=== PATIENT | male | born 1960 | race Caucasian/White ===

== ENCOUNTER → 2020-11-24 12:25 | Outpatient (CLI) | payer OTHER, SELFPAY ==
[2020-11-24 15:20] LABS: Absolute Lymphocyte Count 0.77 X10^3/uL (0.83-4.51); Absolute Neutrophil Count 3.5 X10^3/uL (2.0-7.7); Basophil# 0.04 X10^3/uL; Basophil% 0.8 % (0-1); Eosinophil# 0.07 X10^3/uL; Eosinophils% 1.4 % (0-5); Hematocrit 47.5 % (40-54); Hemoglobin 15.1 g/dL (13.0-16.5); Lymphocyte # 0.77 X10^3/ul (4.0); Lymphocyte % 15.9 % (19-41); Mean Corp Hgb Conc 31.8 g/dL (32-36); Mean Platelet Vol. 10.2 fl (6.2-12.0); Monocyte# 0.39 X10^3/uL; Monocyte% 8.1 % (0-10); NRBC Flagged by Analyzer 0 % (0-5); Neutrophil # 3.51 X10^3/uL (2.7-7.7); Neutrophil % 72.8 % (47-70); Platelet Count 217 K/mm3 (150-450); RBC Distribution Width CV 13.9 % (11.6-14.6); RBC Distribution Width SD 44.6 fl (35.1-43.9); White Blood Count 4.8 K/mm3 (4.4-11.0)
[2020-11-24 16:05] LABS: ALB/GLOB Ratio 1.1 RATIO (0.9-2.4); AST(SGOT) 19 U/L (15-37); Alanine Aminotransfer ALT/SGPT 41 U/L (16-61); Alkaline Phosphatase 52 U/L (45-117); Anion Gap 8 (5-15); BUN 16 mg/dL (7-18); BUN/Creat Ratio 13.6 RATIO (10-20); Calcium,Total 9.2 mg/dL (8.5-10.1); Chloride 106 mmol/L (98-107); Cholesterol 126 mg/dL (200); Creatinine, Serum 1.18 mg/dL (0.70-1.30); EST Glomerular Filtration Rate 67 mL/min (>60); Est Glom Filt Rate - Afr Amer 81 mL/min (>60); Globulin 3.7 g/dL (2.2-4.2); Glucose 92 mg/dL (74-106); High Density Lipoprotein 37 mg/dL; PSA,Total - Annual Screen 1.91 ng/mL (0.00-4.00); Potassium 3.9 mmol/L (3.5-5.1); Protein, Total 7.7 g/dL (6.4-8.2); Sodium Level 137 mmol/L (136-145); Thyroid Stim Hormone (TSH) 1.82 uIU/mL (0.358-3.74); Triglycerides 147 mg/dL; Very Low Density Lipoprotein 29 mg/dL (5-40)
== END ==
PROVIDERS: PCP Family Medicine; Referring Provider Family Medicine; Visit Provider Family Medicine
DX: I10 Essential (primary) hypertension (principal); E78.5 Hyperlipidemia, unspecified; G47.00 Insomnia, unspecified; F32.9 Major depressive disorder, single episode, unspecified; Z12.5 Encounter for screening for malignant neoplasm of prostate
CPT/HCPCS: 36415; 80053; 80061; 84153; 84443; 85025; G0103

== ENCOUNTER 2021-01-30 10:43 | Observation (INO) | payer OTHER, SELFPAY ==
[2021-01-30] VITALS (15 sets, daily range): BP systolic 145–196; BP diastolic 76–110; PULSE 98–122; RESP 16–25; TEMP 36.6–36.8; O2SAT 94–99; BMI 34.2; BMI 33.6
--- NOTE | 2021-01-30 11:00 | NURSING ---
NO OLD EKGS
--- NOTE | 2021-01-30 11:01 | EKG12_ITS ---
Test Reason : STROKE Blood Pressure : / mmHG Vent. Rate : 114 BPM Atrial Rate : 114 BPM P-R Int : 174 ms QRS Dur : 084 ms QT Int : 332 ms P-R-T Axes : 047 086 054 degrees QTc Int : 457 ms Sinus tachycardia Low voltage QRS (Limb Leads) Nonspecific T wave abnormality Confirmed by JOSEFINA BOOTHE, RAI ([id number]), editor continuity and script SARA TEJEDA ([id number]) on 02/01/2021 9:51:30 AM Referred By: FRANSICO Confirmed By:RAI ROCHA MD
--- NOTE | 2021-01-30 11:01 | CT_ITS ---
STUDY: CT HEAD STROKE PROTOCOL W/O CONTRAST INJECTION REASON FOR EXAM: Male, 60 years old. Neuro deficit, acute, stroke suspected RADIATION DOSAGE (If Supplied By Facility): CTDIvol = ( 44.99 ) mGy, DLP = ( A 12.98 ) mGycm TECHNIQUE: Transaxial CT imaging of the brain was performed without administration of intravenous contrast material. Individualized dose optimization techniques were used for this CT. COMPARISON: No relevant priors. FINDINGS: Normal soft tissue structures. Normal calvarium. There is mild cerebral atrophy with widening of the extra-axial spaces and ventricular dilatation. Normal white matter tracts of the cerebral hemispheres. Normal basal ganglia and thalami. Normal brainstem. Normal cerebellum. There is no intracranial hemorrhage. There are no findings of an acute ischemic infarction. Atherosclerotic calcification of the cavernous portions of the internal carotid arteries bilaterally. Normal visualized paranasal sinuses. CT/STROKE Brain/Head without Cont IMPRESSION: Chronic involutional changes of the brain. N.B. : The above information has been verbally conveyed by Sy Kelsey MD to Dr Vickie MD, on 01/30/2021 11:22:06 (ET). Electronically Signed: Sy Kelsey MD at 11:23 EDT , Service support ,
--- NOTE | 2021-01-30 11:02 | CT_ITS ---
STUDY: CTA HEAD AND NECK WITH CONTRAST REASON FOR EXAM: Male, 60 years old. Neuro deficit, acute, stroke suspected RADIATION DOSAGE (If Supplied By Facility): CTDIvol = ( 16.8 ) mGy, DLP = ( 820.25 ) mGycm TECHNIQUE: CT angiography was performed with a multi-detector CT scanner. Data acquisition was obtained from the skull base through the vertex following intravenous administration of IV 100mL [id number]. MIP images were reconstructed from the axial data set. Post-processing of the angiographic images was performed, with multiplanar reformation and 3D reconstruction. Individualized dose optimization techniques were used for this CT. COMPARISON: No relevant priors. FINDINGS: Normal bilateral petrous carotid arteries. Normal right cavernous carotid artery with a normal supraclinoid bifurcation. Normal left cavernous carotid artery with a normal supraclinoid bifurcation. Normal right A1 segments of the anterior cerebral artery. Normal left A1 segments of the anterior cerebral artery. Normal intact anterior communicating artery (ACOM). Normal bilateral A2 segments of the anterior cerebral arteries. Normal right M1 and M2 segments of the middle cerebral arteries, with a normal M1 bifurcation. Normal left M1 and M2 segments of the middle cerebral arteries, with a normal M1 bifurcation. Normal right posterior communicating artery (PCOM). Normal left posterior communicating artery (PCOM). Normal bilateral vertebral arteries. Normal basilar artery with a normal basilar bifurcation. The visualized bilateral superior cerebellar (SCA) arteries are normal. Normal bilateral P1, P2 and visualized P3 segments of the posterior cerebral arteries. There is no demonstrated aneurysm of the pokagon of Perez. There is no demonstrated abnormality of the visualized brain. AORTIC ARCH: Normal visualized aortic arch. Normal origins of the brachiocephalic, left common carotid, and left subclavian arteries. RIGHT CAROTID ARTERIES: Normal right common carotid artery (CCA). Normal right common carotid bulb. Normal origin of the right internal carotid (ICA) artery without a hemodynamically significant stenosis. Normal visualized cervical portion of the right internal carotid artery. Normal origin of the right external carotid artery (ECA). LEFT CAROTID ARTERIES: Normal left common carotid artery (CCA). Normal left common carotid bulb. Normal origin of the left internal carotid (ICA) artery without a hemodynamically significant stenosis. Normal visualized cervical portion of the left internal carotid artery. Normal origin of the left external carotid artery (ECA). VERTEBRAL ARTERIES: Normal bilateral vertebral arteries. CT/STROKE CTA Head AND Neck W/Con IMPRESSION: Normal CTA Head and neck with contrast. N.B. : The above information has been verbally conveyed by Sy Kelsey MD to Susan Vickie on 01/30/2021 11:28:33 (ET). Electronically Signed: Sy Kelsey MD at 11:29 EDT , Service support ,
--- NOTE | 2021-01-30 11:03 | NURSING ---
FACESHEET FAXED TO [facility]
[2021-01-30 11:22] LABS: Absolute Lymphocyte Count 0.57 X10^3/uL (0.83-4.51); Absolute Neutrophil Count 7.3 X10^3/uL (2.0-7.7); Basophil# 0.04 X10^3/uL; Basophil% 0.5 % (0-1); Hematocrit 46.6 % (40-54); Hemoglobin 15.3 g/dL (13.0-16.5); Lymphocyte # 0.57 X10^3/ul (4.0); Lymphocyte % 6.9 % (19-41); Mean Corp Hgb Conc 32.8 g/dL (32-36); Mean Corpuscular Hgb 28.5 pg (27.0-32.0); Mean Corpuscular Volume 86.9 fL (80-94); Mean Platelet Vol. 9.8 fl (6.2-12.0); Monocyte# 0.31 X10^3/uL; Monocyte% 3.8 % (0-10); NRBC Flagged by Analyzer 0 % (0-5); Neutrophil # 7.31 X10^3/uL (2.7-7.7); Neutrophil % 88.4 % (47-70); POSITIVE DIFFERENTIAL YES; Platelet Count 231 K/mm3 (150-450); RBC Distribution Width CV 13.3 % (11.6-14.6); RBC Distribution Width SD 42.2 fl (35.1-43.9); Red Blood Count 5.36 M/mm3 (4.6-6.2); White Blood Count 8.3 K/mm3 (4.4-11.0)
[2021-01-30 11:24] LABS: Differential Indicated SCAN CRITERIA MET
[2021-01-30 11:30] LABS: International Normalized Ratio 1.1; Prothrombin Time (Protime)PT. 13.8 SECONDS (11.7-14.9)
[2021-01-30 11:31] LABS: Partial Thromboplast Time 25.3 Seconds (24.1-36.2)
[2021-01-30] MEDS: LORazepam 2 MG/ML Syringe 1 MG IV ×2 (11:31→19:53)
[2021-01-30 11:36] LABS: Bedside Glucose 171 mg/dL (70-110)
[2021-01-30 11:39] LABS: Anion Gap 10 (5-15); BUN 12 mg/dL (7-18); BUN/Creat Ratio 8.2 RATIO (10-20); Calcium,Total 9.2 mg/dL (8.5-10.1); Chloride 103 mmol/L (98-107); Creatinine, Serum 1.46 mg/dL (0.70-1.30); EST Glomerular Filtration Rate 52 mL/min (>60); Est Glom Filt Rate - Afr Amer 63 mL/min (>60); Estimated Creatinine Clearance 52.05 ml/min; Glucose 168 mg/dL (74-106); Potassium 3.4 mmol/L (3.5-5.1); Sodium Level 137 mmol/L (136-145)
[2021-01-30 12:03] LABS: Bacteria 0 SEEN /hpf (None Seen); Mucous, Urine 0 SEEN /hpf (<or=2+); Red Blood Cells-Urine 0 SEEN /hpf (0-5); Squamous Epithelial Cells - UA 0 SEEN /hpf (0-5); White Blood Cells 0 SEEN /hpf (0-5)
[2021-01-30 12:10] LABS: Color, Urine Yellow (Yellow); Glucose, Dipstick 100 mg/dl (Normal); Ketone-Dipstick 15 mg/dl (Negative); Leukocyte Esterase-Dipstick Negative /ul (Negative); Nitrite-Dipstick Negative (Negative); Occult Blood-Urine 25 /ul (Negative); Protein-Dipstick Negative (Negative); Urine Bilirubin Dipstick Negative (Negative); Urine Clarity Clear (Clear); Urine Urobilinogen Normal (Normal)
[2021-01-30 12:13] LABS: Amphetamine Urine VISTA NEGATIVE (<1000 ng/mL); Barbiturate Urine VISTA NEGATIVE (< 200 ng/mL); Benzodiazepine Urine VISTA NEGATIVE (< 200 ng/mL); Cocaine Urine VISTA NEGATIVE (< 300 ng/mL); Ecstacy Urine VISTA NEGATIVE (< 500 ng/mL); Methadone Urine VISTA NEGATIVE (< 300 ng/mL); PCP Urine VISTA NEGATIVE (< 25 ng/mL); THC Urine VISTA POSITIVE (< 50 ng/mL); Vista UDS pH Range 5
--- NOTE | 2021-01-30 12:20 | RAD_ITS ---
STUDY: X-RAY CHEST REASON FOR EXAM: Male, 60 years old. Neuro deficit, acute, stroke suspected TECHNIQUE: Single AP portable view of the chest. COMPARISON: None. FINDINGS: EKG electrodes are seen. The lungs are clear and expanded. There is no demonstrated pleural abnormality. Normal size heart. Normal mediastinum and mercedes. Normal visualized pulmonary arteries. Normal visualized aortic arch and descending thoracic aorta. Normal visualized thoracic spine. Normal visualized ribs, clavicles, and shoulders. There is no demonstrated abnormality of the visualized soft tissue structures of the upper abdomen. RAD/Chest 1 View IMPRESSION: Normal x-ray examination of the chest. Electronically Signed: Sy Kelsey MD at 12:34 EDT , Service support ,
--- NOTE | 2021-01-30 13:01 | ED.RN ---
Addendum entered by Hanna Griffiths 01/30/21 13:02: CORRECTION NIH 1, FOR ORIENTATION. Original Note: PT NIH CONTINUES TO BE 0. ORDER TO STOP NIH ASSESSMENTS ON PT.
--- NOTE | 2021-01-30 13:07 | CHAPLAIN ---
Type of Pastoral Visit ___ Initial Visit ___ Follow-up Visit ___ On-call Visit ___ General Patient Visit ___ Spiritual Assessment ___ Family Conference ___ Bereavement _x__ Rapid Response ___ Code Blue ___ Other (describe below) Pastoral Care Referral From ___ Patient _x__ Family ___ Nurse ___ Physician ___ Manufacturing Engineering Manager ___ Hat Copyist _x__ Other (describe below) Sacrament/Intervention _x__ Active listening ___ Anointing ___ Anabaptism ___ Bereavement ___ Communion _x__ Hawa exploration ___ ___ Life review _x__ Prayer ___ Reconciliation ___ Sacrament of Sick _x__ Supportive presence ___ Wedding ___ Other (describe below) Pastoral Comments responded to stroke alert in ED; spouse of patient welcomed presence of this cooler operator and she was then asked to be present with patient in the CT scan for his anxiety; went with spouse and offered presence and support for her during this procedure and waiting time; met patient and offered support
--- NOTE | 2021-01-30 14:27 | ED.VIS.GEN ---
History of Present Illness Chief Complaint: Confusion Informant: Patient, Family Onset: Yesterday Narrative: 60-year-old male with history of insomnia presenting with confusion. noted he woke up around 2 AM and was not making much sense in his speech, more nonsensical, but he went back to bed. When he woke up this morning he was saying very strange things. They brought him to the primary care office who was concerned about acute cephalopathy and had him come to the emergency room. Patient went to bed around 9 or 10 PM last night and seemed normal. He did take Ambien which she has been on for since at least November as he has an ongoing issue with insomnia. Patient has been saying things like he tried to kill himself with penicillin and The jews are trying to light things on fire. Apparently patient ate a package of marijuana edibles last night that the previously did not know about. Past Medical History - Allergies and Home Meds Allergies/Adverse Reactions: Allergies Penicillins [PCN] Allergy (Verified 01/30/21 10:44) Hives Past Medical History: - - Hypertension, hyperlipidemia, insomnia Lives: Spouse/ Significant Other Smoking Status: Never smoker - Family History Maternal Family History: Reports: No pertinent history Paternal Family History: Reports: No pertinent history Review of Systems General: Denies: Chills, Fever, Sweats Eyes: Denies: Visual changes - bilaterally, Diplopia ENT: Denies: Rhinorrhea, Sore throat Cardiovascular: Denies: Chest pain, Palpitations Respiratory: Denies: Dyspnea, Cough, Dyspnea on exertion Gastrointestinal: Denies: Abdominal pain, Nausea, Vomiting, Diarrhea, Melena, Hematochezia Genitourinary: Denies: Dysuria, Hematuria, Frequency Musculoskeletal: Denies: Back pain, Extremity Pain Skin: Denies: Rash, Wounds Neurological: Reports: - - Bizarre speech. Denies: Headache, Weakness, Numbness Psych: Denies: Depression, Anxiety, Suicidal thoughts, Suicidal ideations Physical Exam Vital Signs/Narrative: Vital Signs Temp Pulse Resp BP Pulse Ox 01/30/21 14:15 111 H 20 H 154/100 H 97 01/30/21 13:16 115 H 20 H 166/96 H 97 01/30/21 13:00 121 H 16 165/110 H 94 01/30/21 12:31 122 H 25 H 147/102 H 99 03/30/21 12:01 121 H 23 H 154/90 H 97 01/30/21 11:31 115 H 23 H 167/89 H 97 01/30/21 11:04 97.8 F 110 H 20 H 162/94 H 94 01/30/21 10:44 97.8 F 113 H 18 96 Inital Vital Signs reviewed: Yes General: Well nourished, Well developed, Obese, No Acute Distress Head: Normocephalic, Atraumatic Eyes: Perrl, EOMI ENT: Moist mucous membranes, No rhinorrhea, TM's clear Neck: Supple, Nontender, No JVD Cardiovascular: Regular rhythm, No murmurs, Tachycardia Respiratory: No distress, CTA bilaterally, Chest nontender Abdomen: Soft, Nontender, Nondistended, Normal bowel sounds Back: Nontender, Normal Inspection Extremities: Nontender, No edema Skin: Normal color, No rash Neurological: Alert, Oriented x3, Cranial nerves II-XII grossly intact, Normal Strength, Normal Sensation, - - NIH is 1?patient has a subtle expressive aphasia Psychological: Normal affect, Normal Mood, Agitated - Comes intermittently agitated does not seem to to know what is going on around him. He is inappropriate responses to things. Diagnostic/Tx/Re-eval Chest X-Ray - ED: 1 View, Read by ED Physician, Read by Radiologist Clinical Impression(s) from Imaging Studies Brain CT 01/30/21 11:01 IMPRESSION: Chronic involutional changes of the brain. N.B. : The above information has been verbally conveyed by Sy Kelsey MD to Dr Vickie MD, on 01/30/2021 11:22:06 (ET). Electronically Signed: Sy Kelsey MD at 11:23 EDT , Service support , ADDENDUM: 01/30/21 1130 IMPRESSION: Chronic involutional changes of the brain. N.B. : The above information has been verbally conveyed by Sy Kelsey MD to Dr Vickie MD, on 01/30/2021 11:22:06 (ET). Electronically Signed: Sy Kelsey MD at 11:23 EDT , Service support , Head/Neck CTA 01/30/21 11:02 IMPRESSION: Normal CTA Head and neck with contrast. N.B. : The above information has been verbally conveyed by Sy Kelsey MD to Susan Johnston on 01/30/2021 11:28:33 (ET). Electronically Signed: Sy Kelsey MD at 11:29 EDT , Service support , ADDENDUM: 01/30/21 1136 IMPRESSION: Normal CTA Head and neck with contrast. N.B. : The above information has been verbally conveyed by Sy Kelsey MD to Susan Johnston on 01/30/2021 11:28:33 (ET). Electronically Signed: Sy Kelsey MD at 11:29 EDT , Service support , Chest X-Ray 01/30/21 12:20 IMPRESSION: Normal x-ray examination of the chest. Electronically Signed: Sy Kelsey MD at 12:34 EDT , Service support , Laboratory Data 01/30/21 01/30/21 01/30/21 10:51 11:13 11:13 WBC 8.3 RBC 5.36 Hgb 15.3 Hct 46.6 MCV 86.9 MCH 28.5 MCHC 32.8 RDW Std Deviation 42.2 RDW Coeff of Lizzeth 13.3 Plt Count 231 MPV 9.8 Immature Gran % (Auto) 0.400 Neut % (Auto) 88.4 H Lymph % (Auto) 6.9 L [place] % (Auto) 3.8 Eos % (Auto) 0.0 Baso % (Auto) 0.5 Absolute Neuts (auto) 7.3 Absolute Lymphs (auto) 0.57 L Nucleated RBC % 0 Differential Comment COMMENT PT 13.8 INR 1.1 APTT 25.3 Sodium Potassium Chloride Carbon Dioxide Anion Gap BUN Creatinine Estim Creat Clear Calc Est GFR (MDRD) Af Amer Est GFR (MDRD) Non-Af BUN/Creatinine Ratio Glucose Calcium Troponin I Urine Color Urine Clarity Urine pH Ur Specific Grant Urine Protein Urine Glucose (UA) Urine Ketones Urine Occult Blood Urine Nitrite Urine Bilirubin Urine Urobilinogen Ur Leukocyte Esterase Urine RBC Urine WBC Ur Squamous Epith Cells Urine Bacteria Urine Mucus Urine Opiates Screen Urine Methadone Screen Ur Barbiturates Screen Ur Phencyclidine Scrn Ur Amphetamines Screen U Methamphetamin-MDMA U Benzodiazepines Scrn Urine Cocaine Screen U Cannabinoids Screen Ur Drug Screen Comment POC Glucose 171 H 01/30/21 01/30/21 01/30/21 11:13 11:50 11:50 WBC RBC Hgb Hct MCV MCH MCHC RDW Std Deviation RDW Coeff of Lizzeth Plt Count MPV Immature Gran % (Auto) Neut % (Auto) Lymph % (Auto) [place] % (Auto) Eos % (Auto) Baso % (Auto) Absolute Neuts (auto) Absolute Lymphs (auto) Nucleated RBC % Differential Comment PT INR APTT Sodium 137 Potassium 3.4 L Chloride 103 Carbon Dioxide 24.0 Anion Gap 10 BUN 12 Creatinine 1.46 H Estim Creat Clear Calc 52.05 Est GFR (MDRD) Af Amer 63 Est GFR (MDRD) Non-Af 52 L BUN/Creatinine Ratio 8.2 L Glucose 168 H Calcium 9.2 Troponin I < 0.015 Urine Color Yellow Urine Clarity Clear Urine pH 6.0 Ur Specific Grant 1.010 Urine Protein Negative Urine Glucose (UA) 100 H Urine Ketones 15 H Urine Occult Blood 25 H Urine Nitrite Negative Urine Bilirubin Negative Urine Urobilinogen Normal Ur Leukocyte Esterase Negative Urine RBC 0 SEEN Urine WBC 0 SEEN Ur Squamous Epith Cells 0 SEEN Urine Bacteria 0 SEEN Urine Mucus 0 SEEN Urine Opiates Screen NEGATIVE Urine Methadone Screen NEGATIVE Ur Barbiturates Screen NEGATIVE Ur Phencyclidine Scrn NEGATIVE Ur Amphetamines Screen NEGATIVE U Methamphetamin-MDMA NEGATIVE U Benzodiazepines Scrn NEGATIVE Urine Cocaine Screen NEGATIVE U Cannabinoids Screen POSITIVE H Ur Drug Screen Comment POC Glucose - Rhythm Strip Rhythm Strip: Sinus Tach Rate: 114 Ectopy: None - EKG Initial EKG Interpretation: Sinus Tachycardia, - - Is tachycardia at a rate of 114 Normal axis Normal intervals Normal ST segments - Medical Decision Making Patient is evaluated for mental status change. Patient is encephalopathic but I am concerned that is these changes might be some type of expressive aphasia. Stroke alert is called out of abundance of caution. Neurologist does not feel that TPA is indicated and I do agree. Patient deftly is not at his baseline. While in CT he did become acutely agitated and had to be given 1 mg of IV Ativan. CT brain and C-spine does not show any acute process. Patient does later admit to eating THC Gummies the night before. This could be causing his altered mental status. The plan will be to watch the patient in the ER for couple hours to see if he has improvement of his encephalopathy. He does not have any signs of infection, nuchal rigidity or any meningeal signs. Patient is mildly tachycardic while in the emergency room. On reevaluation patient continues to not really have insight into what is going on and fixate on needing to sign paperwork and continue to talk about UFOs. I think patient needs a medical admission for further evaluation of acute cephalopathy and possibly rule out stroke with an MRI. is agreeable this plan of care. Patient is hemodynamically stable in the emergency room. ED Disposition - Plan for ED Patient: Disposition: Acute Care [facility] Diagnosis: Acute encephalopathy, Acute kidney injury, Hypertension, Tachycardia
--- NOTE | 2021-01-30 15:45 | NURSING ---
PCU OBS ASHELFAH ENCEPHALOPATHY
--- NOTE | 2021-01-30 16:01 | HP.PCM_ITS ---
Problem List (1) Acute kidney injury Status: Acute (2) Acute encephalopathy Status: Acute (3) Obstructive sleep apnea Status: Chronic (4) Depression Status: Chronic (5) Hyperlipidemia Status: Chronic (6) Hypertension Status: Chronic History of Present Illness Date of Admission: 01/30/21 Chief Complaint: Confusion. The patient is a 60 year old M with past medical history as mentioned above presented to the emergency room because of confusion. At this time, patient is confused and disoriented, knows his full name, does not know his birthday and he is not sure where he is at. He is not oriented to date and time. According to the patient's , patient woke up around 2 AM this morning and he was confused and not making sense. She did mention that the patient is having issues with insomnia and he has been using Ambien. Patient was able to go back to sleep and he woke up around 9 AM this morning. After he woke up, he remained confused and disoriented, not making sense although he was talking coherently. Patient's mentioned that patient took marijuana gummy before symptoms started. Patient's decided to take him to his PCPs office, he became more agitated and he could not sign the paperwork at the doctor's office. He remained to be confused and disoriented. She went to [employer], both a sandwich for him and she asked him to eat but he was not following commands. She decided to bring him to the emergency department. In the emergency department, patient was tachycardic, afebrile, blood pressure was elevated, pulse ox is 94% on room air. Routine blood work was remarkable for potassium of 3.4, creatinine is 1.46, blood glucose is 168. EKG revealed sinus tachycardia, otherwise unremarkable. Troponin was negative. Urinalysis was unremarkable. Urine drug screen was positive for cannabinoids. CT brain without contrast showed no acute findings. CTA of the head and neck was unremarkable. Chest x-ray showed no acute findings. SOC teleneurology consulted, recommended that patient is a candidate for TPA, stroke is less likely. Patient is being admitted for acute encephalopathy, hypokalemia, hyperglycemia and acute kidney injury. Past Medical History Past Medical History (Chronic Problems): Chronic Problems Obstructive sleep apnea (Chronic) Depression (Chronic) Hyperlipidemia (Chronic) Hypertension (Chronic) Allergies Penicillins [PCN] Allergy (Verified 01/30/21 10:44) Hives Home Medications: Ambulatory Orders Medication Instructions Recorded Lisinopril [Zestril] 20 mg PO DAILY 01/30/21 Pantoprazole Sodium 40 mg PO DAILY 01/30/21 Rosuvastatin Calcium 20 mg PO DAILY 01/30/21 Sertraline HCl 100 mg PO DAILY 01/30/21 Zolpidem Tartrate [Ambien] 10 mg PO QHS PRN 01/30/21 Surgical History: no surgical history Psychiatric History: Depression Lives: Spouse/ Significant Other Smoking Status: Never smoker Tobacco Use: Non-smoker Alcohol: Occasional Drugs: None - *Family History Maternal History Items: No pertinent history Paternal History Items: No pertinent history Review of Systems Constitutional: Denies: Anorexia, Chills, Fever, Weakness Eyes: Reports: Blurred vision. Denies: Double vision, Drainage, Pain HEENT: Reports: Head Aches. Denies: Difficulty Hearing, Ear Pain, Eye Pain, Nasal Congestion, Sore Throat Cardiovascular: Denies: Chest Pain, Chest Pressure, Heaviness, Palpitations, Syncope Respiratory: Denies: Cough, Pleuritic Pain, Sputum production, Wheezing Gastrointestinal: Denies: Abdominal Pain, Constipation, Diarrhea, Nausea, Vomiting Genitourinary: Denies: Dysuria, Frequency, Hematuria Musculoskeletal: Denies: Arm Pain, Back Pain, Foot Pain Skin: Denies: Dryness, Rash Neurological: Reports: Blurred vision, Confusion, Headaches. Denies: Balance problems, Change in Speech, Incoordination, Numbness, Tingling Psychiatric: Reports: Depression. Denies: Anxiety Endocrine: Denies: Change in Body Habitus, Polydipsia, Polyuria VTE Information - Inpt Only VTE Present on Admission: No VTE Mechan Device Prophylaxis: None VTE Pharm Prophylaxis ordered?: Yes Patient Problems: Active and Suspected Problems Acute kidney injury (Acute) Acute encephalopathy (Acute) - Physical Exam Vitals/I&O's: Vital Signs Temp Pulse Resp BP Pulse Ox 97.8 F 116 H 19 H 151/95 H 97 01/30/21 11:04 01/30/21 15:10 01/30/21 15:10 01/30/21 15:10 01/30/21 15:10 Oxygen Delivery Method Room Air Weight: 225 lb Body Mass Index (BMI) 34.2 Finger Stick Blood Glucose 171 General: Alert, Cooperative, No apparent distress, Confused, Disoriented HEENT: Atraumatic, PERRLA, EOMI, Normocephalic Oral: Moist Mucosa, No Gingival or Mucosal Lesions/ Ulcerations Neck: Supple, No JVD, Negative Carotid Bruits, Trachea Midline, Thyroid Normal Size and Texture Lungs: Clear to auscultation, Normal air movement, No rhonchi, No wheeze, No rales Cardiovascular: Regular rate, Regular Rhythm, Normal S1, Normal S2, PMI Normal, Tachycardic Abdomen: Bowel Sounds Present, Soft, Non Tender, Non-Distended, No Hepato- splenomegaly, Obese Extremities: No clubbing, No cyanosis, No edema Skin: No rashes, No breakdown Lymphatic: No Cervical, Supraclavicular, or Inguinal Adenopathy Neurological: Cranial nerves II-XII grossly intact, Motor Exam 5/5 strength throughout Psych/Mental Status: Normal Affect, Appropriate Laboratory Results 01/30/21 10:51: POC Glucose 171 H 01/30/21 11:13: WBC 8.3, RBC 5.36, Hgb 15.3, Hct 46.6, MCV 86.9, MCH 28.5, MCHC 32.8, RDW Std Deviation 42.2, RDW Coeff of Lizzeth 13.3, Plt Count 231, MPV 9.8, Immature Gran % (Auto) 0.400, Neut % (Auto) 88.4 H, Lymph % (Auto) 6.9 L, [place] % (Auto) 3.8, Eos % (Auto) 0.0, Baso % (Auto) 0.5, Absolute Neuts (auto) 7.3, Absolute Lymphs (auto) 0.57 L, Nucleated RBC % 0, Differential Comment COMMENT 01/30/21 11:13: PT 13.8, INR 1.1, APTT 25.3 01/30/21 11:13: Sodium 137, Potassium 3.4 L, Chloride 103, Carbon Dioxide 24.0, Anion Gap 10, BUN 12, Creatinine 1.46 H, Estim Creat Clear Calc 52.05, Est GFR (MDRD) Af Amer 63, Est GFR (MDRD) Non-Af 52 L, BUN/Creatinine Ratio 8.2 L, Glucose 168 H, Calcium 9.2, Troponin I < 0.015 01/30/21 11:50: Urine Opiates Screen NEGATIVE, Urine Methadone Screen NEGATIVE, Ur Barbiturates Screen NEGATIVE, Ur Phencyclidine Scrn NEGATIVE, Ur Amphetamines Screen NEGATIVE, U Methamphetamin-MDMA NEGATIVE, U Benzodiazepines Scrn NEGATIVE, Urine Cocaine Screen NEGATIVE, U Cannabinoids Screen POSITIVE H, Ur Drug Screen Comment 01/30/21 11:50: Urine Color Yellow, Urine Clarity Clear, Urine pH 6.0, Ur Specific [place] 1.010, Urine Protein Negative, Urine Glucose (UA) 100 H, Urine Ketones 15 H, Urine Occult Blood 25 H, Urine Nitrite Negative, Urine Bilirubin Negative, Urine Urobilinogen Normal, Ur Leukocyte Esterase Negative, Urine RBC 0 SEEN, Urine WBC 0 SEEN, Ur Squamous Epith Cells 0 SEEN, Urine Bacteria 0 SEEN, Urine Mucus 0 SEEN Clinical Impression(s) from Imaging Studies Brain CT 01/30/21 11:01 IMPRESSION: Chronic involutional changes of the brain. N.B. : The above information has been verbally conveyed by Sy Kelsey MD to Dr Vickie MD, on 01/30/2021 11:22:06 (ET). Electronically Signed: Sy Kelsey MD at 11:23 EDT , Service support , ADDENDUM: 01/30/21 1130 IMPRESSION: Chronic involutional changes of the brain. N.B. : The above information has been verbally conveyed by Sy Kelsey MD to Dr Vickie MD, on 01/30/2021 11:22:06 (ET). Electronically Signed: Sy Kelsey MD at 11:23 EDT , Service support , Head/Neck CTA 01/30/21 11:02 IMPRESSION: Normal CTA Head and neck with contrast. N.B. : The above information has been verbally conveyed by Sy Kelsey MD to Susan Johnston on 01/30/2021 11:28:33 (ET). Electronically Signed: Sy Kelsey MD at 11:29 EDT , Service support , ADDENDUM: 01/30/21 1136 IMPRESSION: Normal CTA Head and neck with contrast. N.B. : The above information has been verbally conveyed by Sy Kelsey MD to Susan Johnston on 01/30/2021 11:28:33 (ET). Electronically Signed: Sy Kelsey MD at 11:29 EDT , Service support , Chest X-Ray 01/30/21 12:20 IMPRESSION: Normal x-ray examination of the chest. Electronically Signed: Sy Kelsey MD at 12:34 EDT , Service support , Current Medications Labetalol HCl (Labetalol (Prefilled) 20 Mg/4 Ml) 20 mg IV X1 PRN PRN Reason: Blood Pressure Assessment/Plan All Active Problems Acute kidney injury (Acute) Acute encephalopathy (Acute) This is a 60 years old male patient presented to the emergency room because of confusion, found to have urine drug screen that was positive for cannabinoids, found to have mild HUBER and hyperkalemia as well as hyperglycemia and is being admitted for encephalopathy with concern for acute stroke. #1 acute encephalopathy/confusion: Unclear etiology, likely metabolic encephalopathy due to using marijuana Gummies. He has no focal deficit on physical exam. CT scan brain as well as CTA of the head and neck were unremarkable. Chest x-ray showed no acute findings. EKG reviewed as above. Plan: Admit to PCU for observation, cardiac monitoring, NIH stroke scale, IV fluids, MRI brain, repeat CBC and BMP tomorrow morning, PT OT evaluation and treatment. If the MRI brain came back positive for stroke, patient will need 2D echocardiogram. At this time, no indication to do 2D echocardiogram. #2 mild HUBER/hypokalemia: Due to dehydration. Plan: Gentle IV fluids for the patient, replace potassium with p.o. K. Dur, repeat BMP tomorrow morning. #3 hyperglycemia: Without history of diabetes. Blood glucose in the ED was 168 mg/dL. Plan to check hemoglobin A1c. #4 hypertension: Blood pressure was elevated. Patient was tachycardic likely because of dehydration. Continue lisinopril, start IV hydralazine as needed. #5 hyperlipidemia: Continue statins. #6 obstructive sleep apnea: Continue CPAP at night with same home settings. #7 depression: Continue sertraline, start temazepam as needed for insomnia. #8 DVT prophylaxis: Subcu Lovenox. This note was generated with [employer] dictation software. It may contain incorrect words, spelling, and punctuation that were not noted in checking the note before signing. OBSV E&M: 58701 Initial observation care L3
--- NOTE | 2021-01-30 17:56 | MRI_ITS ---
STUDY: MRI BRAIN WITHOUT CONTRAST REASON FOR EXAM: Male, 60 years old. Encephalopathy, CONFUSION TECHNIQUE: Standardized multiplanar fat and water weighted pulse sequences were obtained. COMPARISON: None. FINDINGS: The study is somewhat degraded by the patient''s motion. There is no diffusion restriction in the brain and brainstem. No intra-/extra-axial fluid collection, mass effect, or midline shift is noted. The bridges/white matter junction is preserved. Mild diffuse parenchymal volume loss is seen. The basal cisterns are patent. Normal flow void is seen in the arteries of the skull base. There is no definite thrombosis in the major dural sinuses. Visualized paranasal sinuses and mastoid air cells are clear. Complete opacification of the left frontal sinus and left anterior ethmoid air cells is seen. MRI/Brain without Contrast IMPRESSION: No acute intracranial finding. Electronically Signed: Dangelo Frazier MD at 1:34 EDT Tel , Service support ,
[2021-01-30] MEDS: 0.9% Normal Saline 1,000 ML 100 ML IV (18:52)
[2021-01-30 19:07] LABS: Alcohol, Blood (Medical)-Serum < 3.0 mg/dL
[2021-01-30 19:17] LABS: Hemoglobin A1c 5.5 % (3.8-5.6)
[2021-01-30] MEDS: 0.9% Saline Lock 10 ML Syringe IV (19:53)
[2021-01-30] MEDS: Potassium Chloride Oral Tablet 20 MEQ 60 MEQ PO (20:54)
[2021-01-31 03:00] VITALS: PULSE 86
[2021-01-31 04:00] VITALS: BP 154/84; PULSE 100; RESP 16; TEMP 36.7; O2SAT 97
[2021-01-31] MEDS: 0.9% Normal Saline 1,000 ML 100 ML IV (05:20)
[2021-01-31 05:25] LABS: Absolute Lymphocyte Count 1.01 X10^3/uL (0.83-4.51); Absolute Neutrophil Count 6.6 X10^3/uL (2.0-7.7); Basophil# 0.05 X10^3/uL; Basophil% 0.6 % (0-1); Eosinophil# 0.04 X10^3/uL; Eosinophils% 0.5 % (0-5); Hematocrit 44.3 % (40-54); Hemoglobin 14.3 g/dL (13.0-16.5); Lymphocyte # 1.01 X10^3/ul (4.0); Lymphocyte % 12.2 % (19-41); Mean Corp Hgb Conc 32.3 g/dL (32-36); Mean Corpuscular Hgb 28.4 pg (27.0-32.0); Mean Corpuscular Volume 87.9 fL (80-94); Mean Platelet Vol. 9.7 fl (6.2-12.0); Monocyte# 0.62 X10^3/uL; Monocyte% 7.5 % (0-10); NRBC Flagged by Analyzer 0 % (0-5); Neutrophil # 6.56 X10^3/uL (2.7-7.7); Platelet Count 212 K/mm3 (150-450); RBC Distribution Width CV 13.7 % (11.6-14.6); RBC Distribution Width SD 44.3 fl (35.1-43.9); Red Blood Count 5.04 M/mm3 (4.6-6.2); White Blood Count 8.3 K/mm3 (4.4-11.0)
[2021-01-31 05:40] LABS: Anion Gap 5 (5-15); BUN 8 mg/dL (7-18); BUN/Creat Ratio 7.4 RATIO (10-20); Chloride 107 mmol/L (98-107); Creatinine, Serum 1.08 mg/dL (0.70-1.30); EST Glomerular Filtration Rate 74 mL/min (>60); Est Glom Filt Rate - Afr Amer 90 mL/min (>60); Estimated Creatinine Clearance 70.37 ml/min; Glucose 122 mg/dL (74-106); Potassium 4.1 mmol/L (3.5-5.1); Sodium Level 139 mmol/L (136-145)
[2021-01-31 07:00] VITALS: PULSE 89
[2021-01-31 09:12] VITALS: BP 157/81; PULSE 101; RESP 18; TEMP 36.4; O2SAT 96
--- NOTE | 2021-01-31 11:10 | CASEMGMT ---
Per Nurse Practitioner, Nannette patient's said that patient ate 15 marijuana gummies. Patient's was asking about Behavioral Health seeing patient. SW called crisis and explained situation. They told SW to fax over information. SW faxed clinicals to [facility]. Meenakshi MOTT
--- NOTE | 2021-01-31 11:30 | CASEMGMT ---
DAINA received a call from Beth with crisis at [facility]. She said she spoke with patient's and based on what SW and patient's told her she feels he would be appropriate for Psych placement. She will work on finding placement. DAINA notified Nurse Practitioner, ANTONIO Brunson, and battery charger tester. Plan: [facility]. Meenakshi Mulligan MSW TIERA
--- NOTE | 2021-01-31 12:00 | PCM.PROGNOTE ---
<Nannette Brunner OUTSIDE DELIVERER - Last Filed: 01/31/21 12:34> Patient Problems: Active and Suspected Problems Tachycardia (Acute) Acute kidney injury (Acute) Acute encephalopathy (Acute) Subjective: Patient seen and examined. Able to follow commands however currently not cooperating and will not respond verbally. Refuses to take off CPAP mask. Patient standing in a corner of room with CPAP on, undressed and will not follow directions. at bedside states that 01/29/2021 at night, patient took 15 marijuana Gummies. did not witness him taking these however he verbally told her he took that amount. She is not aware of him using these in the past. She states he has not had behavior similar in the past either. requesting psychiatric evaluation. - Physical Exam Vitals/I&O's: Vital Signs Temp Pulse Resp BP Pulse Ox 97.6 F L 101 H 18 157/81 H 96 01/31/21 09:12 01/31/21 09:12 01/31/21 09:12 01/31/21 09:12 01/31/21 09:12 Oxygen Delivery Method CPAP Weight: 221 lb 1.978 oz Body Mass Index (BMI) 33.6 Finger Stick Blood Glucose 171 Intake and Output for Last 24 Hours 01/29/21 01/30/21 01/31/21 23:59 23:59 23:59 Intake Total 96.67 / 216.67 1530.00 / 1530.00 Output Total 250 / 250 Balance 96.67 / -33.33 1280.00 / 1280.00 General: Alert, Non-Cooperative HEENT: Atraumatic, PERRLA, EOMI, Normocephalic Neck: Supple, No JVD, Negative Carotid Bruits Lungs: Clear to auscultation, Normal air movement Cardiovascular: Regular rate, No murmurs Abdomen: Bowel Sounds Present, Soft, Non Tender Extremities: No edema, Capillary Refill Less than 3 Seconds Skin: No rashes, No breakdown Musculoskeletal: No Tenderness to Palpation of Joints or Extremities Neurological: Cranial nerves II-XII grossly intact, Neuro grossly intact Psych/Mental Status: Irrational Behavior, - - Paranoid Laboratory Results 01/30/21 11:13: Ethyl Alcohol < 3.0 01/30/21 11:13: Hemoglobin A1c 5.5 01/30/21 11:50: Urine Opiates Screen NEGATIVE, Urine Methadone Screen NEGATIVE, Ur Barbiturates Screen NEGATIVE, Ur Phencyclidine Scrn NEGATIVE, Ur Amphetamines Screen NEGATIVE, U Methamphetamin-MDMA NEGATIVE, U Benzodiazepines Scrn NEGATIVE, Urine Cocaine Screen NEGATIVE, U Cannabinoids Screen POSITIVE H 01/30/21 11:50: Urine Color Yellow, Urine Clarity Clear, Urine pH 6.0, Ur Specific [place] 1.010, Urine Protein Negative, Urine Glucose (UA) 100 H, Urine Ketones 15 H, Urine Occult Blood 25 H, Urine Nitrite Negative, Urine Bilirubin Negative, Urine Urobilinogen Normal, Ur Leukocyte Esterase Negative, Urine RBC 0 SEEN, Urine WBC 0 SEEN, Ur Squamous Epith Cells 0 SEEN, Urine Bacteria 0 SEEN, Urine Mucus 0 SEEN 01/31/21 05:00: WBC 8.3, RBC 5.04, Hgb 14.3, Hct 44.3, MCV 87.9, MCH 28.4, MCHC 32.3, RDW Std Deviation 44.3 H, RDW Coeff of Lizzeth 13.7, Plt Count 212, MPV 9.7, Immature Gran % (Auto) 0.200, Neut % (Auto) 79.0 H, Lymph % (Auto) 12.2 L, [place] % (Auto) 7.5, Eos % (Auto) 0.5, Baso % (Auto) 0.6, Absolute Neuts (auto) 6.6, Absolute Lymphs (auto) 1.01, Nucleated RBC % 0 01/31/21 05:00: Sodium 139, Potassium 4.1, Chloride 107, Carbon Dioxide 27.0, Anion Gap 5, BUN 8, Creatinine 1.08, Estim Creat Clear Calc 70.37, Est GFR (MDRD) Af Amer 90, Est GFR (MDRD) Non-Af 74, BUN/Creatinine Ratio 7.4 L, Glucose 122 H, Calcium 9.0 Current Medications Acetaminophen (Acetaminophen 325 Mg Tablet) 650 mg PO Q6H PRN PRN PRN Reason: Pain Score 1-10/Temp > 100.7 F Aspirin (Aspirin 81 Mg Tab.Chew) 81 mg PO DAILY@0800 [facility] Last Admin: 01/31/21 09:24 Dose: Not Given Documented by: Atorvastatin Calcium (Atorvastatin Calcium 40 Mg Tablet) 40 mg PO QHS [facility] Enoxaparin Sodium (Enoxaparin 40 Mg/0.4 Ml Syringe) 40 mg SC DAILY [facility] Last Admin: 01/31/21 09:24 Dose: Not Given Documented by: Hydralazine HCl (Hydralazine 20 Mg/Ml Vial) 10 mg IV Q6H PRN PRN PRN Reason: for SBP>170 Sodium Chloride () 1,000 mls @ 100 mls/hr IV .Q10H [facility] Stop: 01/31/21 13:55 Last Infusion: 01/31/21 11:00 Dose: 0 mls/hr Documented by: Lisinopril (Lisinopril 20 Mg Tablet) 20 mg PO DAILY [facility] Last Admin: 01/31/21 09:25 Dose: Not Given Documented by: Ondansetron HCl (Ondansetron 4 Mg/2 Ml Vial) 4 mg IV Q8H PRN PRN PRN Reason: NAUSEA/VOMITING Pantoprazole Sodium (Pantoprazole Sodium 40 Mg Tablet) 40 mg PO DAILY [facility] Last Admin: 01/31/21 09:25 Dose: Not Given Documented by: Senna/Docusate Sodium (Senna/Docusate Sodium 1 Tablet) 2 tablet PO BID PRN PRN PRN Reason: Constipation Sertraline HCl (Sertraline 100 Mg Tablet) 100 mg PO DAILY [facility] Last Admin: 01/31/21 09:25 Dose: Not Given Documented by: Temazepam (Temazepam 15 Mg Capsule) 15 mg PO QHS PRN PRN PRN Reason: INSOMNIA Medical Necessity - Tobacco Use Smoking Status: Never smoker Tobacco Use: Non-smoker Assessment/Plan All Active Problems Tachycardia (Acute) Acute kidney injury (Acute) Acute encephalopathy (Acute) 1. Acute encephalopathy, suspect toxic related to cannabinoid gummy ingestion-MRI without acute findings. CTA of head and neck normal. Chest x-ray unremarkable. Urinalysis unremarkable. Tox screen positive for cannabinoids. Patient is paranoid and not cooperating with care. Behavioral health consulted for evaluation. We will continue IV fluids as this is suspected to be drug related. Cleared medically. 2. Mild dehydration/hypokalemia-resolved. 3. Hypertension-stable, continue lisinopril. 4. Hyperlipidemia-continue statin. 5. ISELA-continue home CPAP regimen. 6. Depression-continue sertraline. DVT prophylaxis-Lovenox subcu. This patient was seen by CARRIE Lou under the supervision of Dr. Flor. <Edelmira Flor - Last Filed: 01/31/21 17:11> - Physical Exam Vitals/I&O's: Vital Signs Temp Pulse Resp BP Pulse Ox 97.6 F L 96 18 152/73 H 97 01/31/21 15:00 01/31/21 15:00 01/31/21 15:00 01/31/21 15:00 01/31/21 15:00 Oxygen Delivery Method Room Air Weight: 100.3 kg Body Mass Index (BMI) 33.6 Finger Stick Blood Glucose 171 Intake and Output for Last 24 Hours 01/29/21 01/30/21 01/31/21 23:59 23:59 23:59 Intake Total 96.67 / 216.67 1530.00 / 1530.00 Output Total 250 / 250 Balance 96.67 / -33.33 1280.00 / 1280.00 Laboratory Results 01/30/21 11:13: Ethyl Alcohol < 3.0 01/30/21 11:13: Hemoglobin A1c 5.5 01/31/21 05:00: WBC 8.3, RBC 5.04, Hgb 14.3, Hct 44.3, MCV 87.9, MCH 28.4, MCHC 32.3, RDW Std Deviation 44.3 H, RDW Coeff of Lizzeth 13.7, Plt Count 212, MPV 9.7, Immature Gran % (Auto) 0.200, Neut % (Auto) 79.0 H, Lymph % (Auto) 12.2 L, [place] % (Auto) 7.5, Eos % (Auto) 0.5, Baso % (Auto) 0.6, Absolute Neuts (auto) 6.6, Absolute Lymphs (auto) 1.01, Nucleated RBC % 0 01/31/21 05:00: Sodium 139, Potassium 4.1, Chloride 107, Carbon Dioxide 27.0, Anion Gap 5, BUN 8, Creatinine 1.08, Estim Creat Clear Calc 70.37, Est GFR (MDRD) Af Amer 90, Est GFR (MDRD) Non-Af 74, BUN/Creatinine Ratio 7.4 L, Glucose 122 H, Calcium 9.0 Current Medications Acetaminophen (Acetaminophen 325 Mg Tablet) 650 mg PO Q6H PRN PRN PRN Reason: Pain Score 1-10/Temp > 100.7 F Aspirin (Aspirin 81 Mg Tab.Chew) 81 mg PO DAILY@0800 [facility] Last Admin: 01/31/21 09:24 Dose: Not Given Documented by: Atorvastatin Calcium (Atorvastatin Calcium 40 Mg Tablet) 40 mg PO QHS [facility] Enoxaparin Sodium (Enoxaparin 40 Mg/0.4 Ml Syringe) 40 mg SC DAILY [facility] Last Admin: 01/31/21 09:24 Dose: Not Given Documented by: Hydralazine HCl (Hydralazine 20 Mg/Ml Vial) 10 mg IV Q6H PRN PRN PRN Reason: for SBP>170 Lisinopril (Lisinopril 20 Mg Tablet) 20 mg PO DAILY [facility] Last Admin: 01/31/21 09:25 Dose: Not Given Documented by: Ondansetron HCl (Ondansetron 4 Mg/2 Ml Vial) 4 mg IV Q8H PRN PRN PRN Reason: NAUSEA/VOMITING Pantoprazole Sodium (Pantoprazole Sodium 40 Mg Tablet) 40 mg PO DAILY [facility] Last Admin: 01/31/21 09:25 Dose: Not Given Documented by: Senna/Docusate Sodium (Senna/Docusate Sodium 1 Tablet) 2 tablet PO BID PRN PRN PRN Reason: Constipation Sertraline HCl (Sertraline 100 Mg Tablet) 100 mg PO DAILY [facility] Last Admin: 01/31/21 09:25 Dose: Not Given Documented by: Temazepam (Temazepam 15 Mg Capsule) 15 mg PO QHS PRN PRN PRN Reason: INSOMNIA Assessment/Plan This patient was seen in conjunction with Nannette Brunner NP. I have independently interviewed and examined the patient and reviewed pertinent historical, laboratory, and other data. Please refer to her note for patient's presentation, findings, and recommendations. Patient was seen and examined. He has been paranoid overnight. Refused to remove his CPAP. Refuses to answer any questions. His was allowed to come in, denied any cognitive impairment. Patient apparently was standing in the corner of the room with his CPAP mask on for hours. His helped get him to bed. No other acute events overnight. Vitals were reviewed -stable Physical Exam: Gen: Looks apprehensive of staff, not pale, not jaundiced, alert oriented x3 CVS:HS I +II, regular, no murmurs RESP: CTA GI: BS present and normal, nontender, no palpable organs EXT:No edema Labs reviewed: ASSESSMENT: 1. Acute toxic encephalopathy 2. Suspected marijuana overdose 3. Hypokalemia 4. Hypertension 5. Hyperlipidemia 6. ISELA 7. Depression Meds reviewed Plan: Appreciate mobile crisis Patient medically stable for discharge Will continue to monitor overnight Inpatient E&M: [id number] [facility] Hosp L3
--- NOTE | 2021-01-31 13:07 | CHAPLAIN ---
Type of Pastoral Visit _x__ Initial Visit ___ Follow-up Visit ___ On-call Visit ___ General Patient Visit ___ Spiritual Assessment ___ Family Conference ___ Bereavement ___ Rapid Response ___ Code Blue ___ Other (describe below) Pastoral Care Referral From ___ Patient _x__ Family ___ Nurse ___ Physician ___ Quality Improvement Analyst ___ Mems Integration Engineer ___ Other (describe below) Sacrament/Intervention ___ Active listening ___ Anointing ___ Rastafari ___ Bereavement ___ Communion ___ [place] ___ ___ Life review ___ Prayer ___ Reconciliation ___ Sacrament of Sick _x__ Supportive presence ___ Wedding ___ Other (describe below) Pastoral Comments patient was seen when in the ED yesterday; spouse welcomed spiritual care support and presence; follow up to see the patient today; pt was sitting up in bed and staring straight ahead; pt did not verbalize or answer any questions; practical nursing instructor explained availability of support as desired
--- NOTE | 2021-01-31 13:53 | CASEMGMT ---
SW did not complete a PHQ 9 with patient as per chart he did not have a Stroke or TIA. Meenakshi Mulligan FAMILY SERVICES WORKER TIERA
[2021-01-31 15:00] VITALS: BP 152/73; PULSE 96; RESP 18; TEMP 36.4; O2SAT 97
--- NOTE | 2021-01-31 15:17 | CASEMGMT ---
SW received a call from Beth with crisis. She said she spoke with [facility]. Their physician feels this may be more medical so he/she would prefer patient stay in the hospital 1 more night to observe. The plan would be to admit patient to [facility] tomorrow if his behaviors continue. DAINA notified RN and Nurse Practitioner Nannette. Plan: observe patient overnight and if situation is the same tomorrow [facility] will admit patient. Meenakshi MOTT
[2021-01-31 21:30] VITALS: BP 157/77; PULSE 87; RESP 20; TEMP 36.8; O2SAT 95
[2021-02-01 03:30] VITALS: BP 142/94; PULSE 89; RESP 18; TEMP 36.3; O2SAT 94
[2021-02-01] MEDS: Haloperidol Lactate 5 MG/ML Vial 2 MG IV (05:01)
[2021-02-01] MEDS: 0.9% Saline Lock 10 ML Syringe IV (05:01)
--- NOTE | 2021-02-01 07:55 | NURSING ---
At beginning of shift 01/310, pt was minimally verbally responsive. Pt would just stare into space and did not follow commands or answer any questions. Around midnight, pt became more alert and talkative, speech was very illogical. Pt was rambling and excessive. Pt able to be redirected most of the time and would rest in bed for periods of time. Around [id number], pt started climbing out of bed more often and was becoming increasingly agitated, confused, combative, and inappropriate. Pt jumped out of bed and lunged at RN and HORTICULTURAL NURSERY ASSISTANT, attempting to grab ahold of staff. Pt redirected back to bed but remained combative. Multiple ineffective attempts to diffuse situation and calm pt down, such as talking with patient about interests, reducing stimulation, and removing female staff from pt's reach and having a male RN interact with the pt. Dr. Brown notified at 0454 of pt becoming manic and aggressive to staff and inappropriate. put in order for 2 mg haldol IV. This was given and relatively ineffective 15 minutes later upon re-evaluation. Staff members remained at bedside to ensure pt safety. Pt still attempting to climb out of bed, hit/kick staff members, touch them inappropriately, and make sexual comments to female staff. notified again that pt was still about the same after the haldol, aggressive and very inappropriate. called this RN and gave verbal order to initiate 4 point violent soft restraints at 0515. Dr. Brown came up to bedside to evaluate pt [id number] around 0545 and sign restraint order. Sitter at bedside, 15 minute vitals/neuro checks done by this RN. Pt still verbally inappropriate w/ staff. Andrés Posada, RN
[2021-02-01] MEDS: Ziprasidone IM 20 MG/ML VIAL IM ×2 (08:53→16:00)
[2021-02-01 09:30] VITALS: BP 137/77; PULSE 91; RESP 18; TEMP 36.9; O2SAT 98
[2021-02-01 09:50] LABS: Bedside Glucose 114 mg/dL (70-110)
--- NOTE | 2021-02-01 11:24 | NURSING ---
0915: Restraints from bilateral legs removed as order for 4 point violent restraints , patient tolerating well with no signs of violence or threatening behavior to self or staff. 1030: Left wrist restraint removed, patient at bedside. Patient not showing any signs of violence or threatening behavior towards self or others in room. 1045: Right wrist restraint removed, remaining at bedside providing support to patient. Patient acting appropriately towards and staff in room and showing no signs of violence or threatening behavior.
--- NOTE | 2021-02-01 13:04 | NURSING ---
Elena from [facility] called to state that due to a high volume of violent patients, they are unable to take the patient today. She stated she anticipates discharges and if he still needs placed tomorrow she will mostly likely have a spot.
[2021-02-01 14:09] VITALS: BP 149/78; PULSE 104; RESP 18; TEMP 37; O2SAT 96
--- NOTE | 2021-02-01 15:16 | PN_ITS ---
Patient Problems: Active and Suspected Problems Tachycardia (Acute) Acute kidney injury (Acute) Acute encephalopathy (Acute) Subjective: On examination patient was restrained in bed via x2 upper body restraints. Patient was alert however his verbal communication was incoherent, as he kept mistaking me for a family member. Objective: Clinical Impression(s) from Imaging Studies Brain CT 01/30/21 11:01 IMPRESSION: Chronic involutional changes of the brain. N.B. : The above information has been verbally conveyed by Sy Kelsey MD to Dr Vickie MD, on 01/30/2021 11:22:06 (ET). Electronically Signed: Sy Kelsey MD at 11:23 EDT , Service support , ADDENDUM: 01/30/21 1130 IMPRESSION: Chronic involutional changes of the brain. N.B. : The above information has been verbally conveyed by Sy Klesey MD to Dr Vickie MD, on 01/30/2021 11:22:06 (ET). Electronically Signed: Sy Kelsey MD at 11:23 EDT , Service support , Head/Neck CTA 01/30/21 11:02 IMPRESSION: Normal CTA Head and neck with contrast. N.B. : The above information has been verbally conveyed by Sy Kelsey MD to Susan Johnston on 01/30/2021 11:28:33 (ET). Electronically Signed: Sy Kelsey MD at 11:29 EDT , Service support , ADDENDUM: 01/30/21 1136 IMPRESSION: Normal CTA Head and neck with contrast. N.B. : The above information has been verbally conveyed by Sy Kelsey MD to Susan Johnston on 01/30/2021 11:28:33 (ET). Electronically Signed: Sy Kelsey MD at 11:29 EDT , Service support , Chest X-Ray 01/30/21 12:20 IMPRESSION: Normal x-ray examination of the chest. Electronically Signed: Sy Kelsey MD at 12:34 EDT , Service support , Brain MRI 01/30/21 17:56 IMPRESSION: No acute intracranial finding. Electronically Signed: Dangelo Frazier MD at 1:34 EDT Tel , Service support , Vitals/I&O's: Vital Signs Temp Pulse Resp BP Pulse Ox 98.6 F 104 H 18 149/78 H 96 02/01/21 14:09 02/01/21 14:09 02/01/21 14:09 02/01/21 14:09 02/01/21 14:09 Oxygen Delivery Method Room Air Weight: 221 lb 1.978 oz Body Mass Index (BMI) 33.6 Finger Stick Blood Glucose 171 Intake and Output for Last 24 Hours 01/30/21 01/31/21 02/01/21 23:59 23:59 23:59 Intake Total 96.67 / 216.67 1963.33 / 1963.33 0 / 0 Output Total 550 / 550 0 / 0 Balance 96.67 / -33.33 1413.33 / 1413.33 0 / 0 General: Alert, No apparent distress, Disoriented HEENT: Atraumatic, PERRLA, EOMI, Normocephalic Neck: Supple, No JVD, Negative Carotid Bruits Lungs: Clear to auscultation, Normal air movement Cardiovascular: Regular rate, No murmurs Abdomen: Bowel Sounds Present, Soft, Non Tender Extremities: No edema, Capillary Refill Less than 3 Seconds Skin: No rashes, No breakdown Musculoskeletal: No Tenderness to Palpation of Joints or Extremities Neurological: Cranial nerves II-XII grossly intact Psych/Mental Status: Normal Affect, Appropriate Laboratory Results 02/01/21 09:46: POC Glucose 114 H Current Medications Acetaminophen (Acetaminophen 325 Mg Tablet) 650 mg PO Q6H PRN PRN PRN Reason: Pain Score 1-10/Temp > 100.7 F Aspirin (Aspirin 81 Mg Tab.Chew) 81 mg PO DAILY@0800 [facility] Last Admin: 02/01/21 10:36 Dose: Not Given Documented by: Atorvastatin Calcium (Atorvastatin Calcium 40 Mg Tablet) 40 mg PO QHS [facility] Last Admin: 01/31/21 21:36 Dose: Not Given Documented by: Enoxaparin Sodium (Enoxaparin 40 Mg/0.4 Ml Syringe) 40 mg SC DAILY [facility] Last Admin: 02/01/21 10:37 Dose: Not Given Documented by: Haloperidol Lactate (Haloperidol Lactate 5 Mg/Ml Vial) 2 mg IV Q4H PRN PRN PRN Reason: AGITATION Last Admin: 02/01/21 05:01 Dose: 2 mg Documented by: Hydralazine HCl (Hydralazine 20 Mg/Ml Vial) 10 mg IV Q6H PRN PRN PRN Reason: for SBP>170 Lisinopril (Lisinopril 20 Mg Tablet) 20 mg PO DAILY [facility] Last Admin: 02/01/21 10:37 Dose: Not Given Documented by: Ondansetron HCl (Ondansetron 4 Mg/2 Ml Vial) 4 mg IV Q8H PRN PRN PRN Reason: NAUSEA/VOMITING Pantoprazole Sodium (Pantoprazole Sodium 40 Mg Tablet) 40 mg PO DAILY [facility] Last Admin: 02/01/21 10:37 Dose: Not Given Documented by: Senna/Docusate Sodium (Senna/Docusate Sodium 1 Tablet) 2 tablet PO BID PRN PRN PRN Reason: Constipation Sertraline HCl (Sertraline 100 Mg Tablet) 100 mg PO DAILY [facility] Last Admin: 02/01/21 10:37 Dose: Not Given Documented by: Temazepam (Temazepam 15 Mg Capsule) 15 mg PO QHS PRN PRN PRN Reason: INSOMNIA STROKE Vital Signs/Narrative: Vital Signs Temp Pulse Resp BP Pulse Ox 02/01/21 14:09 98.6 F 104 H 18 149/78 H 96 Medical Necessity - Tobacco Use Smoking Status: Never smoker Tobacco Use: Non-smoker Assessment/Plan All Active Problems Tachycardia (Acute) Acute kidney injury (Acute) Acute encephalopathy (Acute) Patient resented to the ED on 01/30/2021 with a chief complaint of confusion. Patient was admitted for acute encephalopathy, acute kidney injury, and tachycardia. Acute encephalopathy believed to be due to ingestion of marijuana Gummies. Patient is medically cleared to be transferred currently searching for long-term psychiatric facility that will accept patient's admission. [facility] has agreed to take patient once patient is out of restraints for at least 4 hours. 1) Acute encephalopathy of unclear etiology Assessment - MRI unremarkable - CT?A of head and neck unremarkable - Tox screen positive for cannabinoids secondary to ingestion of marijuana Gummies - Patient given Geodon for agitation and paranoia, patient stable - [facility]; Patient symptoms are due to psychosis and not a primary neurologic etiology Plan - Discharge pending facility acceptance 2) Hypokalemia Assessment - Resolved -Likely due to dehydration 3) Hypertension - Chronic Assessment - Stable Plan -Continue home lisinopril 4) ISELA - chronic Assessment - Managed outpatient Plan - Continue home CPAP regimen 5) Depression Assessment - Managed outpatient Plan -Continue sertraline DVT Prophylaxis - Lovenox SC Patient seen by Michael Dooley PA-C, under the supervision of Dr. Flor.
--- NOTE | 2021-02-01 15:40 | NURSING ---
Beth from crisis called. [facility] declined patient. [facility] declined.Beth stated she will keep making phonecalls
--- NOTE | 2021-02-01 15:48 | CHAPLAIN ---
Type of Pastoral Visit ___ Initial Visit _x__ Follow-up Visit ___ On-call Visit ___ General Patient Visit ___ Spiritual Assessment ___ Family Conference ___ Bereavement ___ Rapid Response ___ Code Blue ___ Other (describe below) Pastoral Care Referral From ___ Patient _x__ Family _x__ Nurse ___ Physician ___ Senior Drafter ___ Quality Assurance Tester ___ Other (describe below) Sacrament/Intervention _x__ Active listening ___ Anointing ___ Mu-Ism ___ Bereavement ___ Communion ___ [place] exploration ___ ___ Life review ___ Prayer ___ Reconciliation ___ Sacrament of Sick _x__ Supportive presence ___ Wedding ___ Other (describe below) Pastoral Comments entered room and saw patient in bed and his spouse at bedside; re-introduced self to patient who did not remember this fire prevention research engineer, spouse did; pt is active in bed and talkative; some of his statements and responses are appropriate and many are not; pt often repeated yes, yes,; spouse is holding patient arms and body to redirect his attention; pt and spouse offered presence and then pt states he must use bathroom now; called DIGITAL PRINTER OPERATOR to come assist pt; this fire prevention research engineer left room but was in hallway when spouse came out; spouse is offered supportive presence; spouse acknowledges the emotional difficulty of this situation for herself and states just please pray for us;
--- NOTE | 2021-02-01 15:59 | NURSING ---
Beth called to provide updates. [facility] has agreed to re-evaluate refferal. Referral has also been made to [facility]
--- NOTE | 2021-02-01 16:10 | NURSING ---
1610: removed wedding ring and placed in pocket to take home.
--- NOTE | 2021-02-01 16:43 | TELEMED_ITS ---
[facility] has confirmed receipt of a request for visit. This document confirms receipt of the order initiating the consult. To find the results of the consultation, please view the patient's reports for the scanned Telemed Consult.
--- NOTE | 2021-02-01 17:08 | NURSING ---
This RN took a phonecall from Olimpia at [facility]. She states the MD has some concerns about insurance approval, but pending insurance precert they are able to take patient after 4 hours without restraints. I Informed her that unfortunately the patient is back in restraints. She provided her direct phone number and we agreed that if we are able to get the patient out of restraints we will call about 3 hours in to get on the same page for the plan moving forward. .
--- NOTE | 2021-02-01 17:55 | NURSING ---
This RN spoke with Lesli at Crisis. Inquired if we could consider referral to a larger tertiary facility as so far the facilities have not felt comfortable accepting him. Lesli stated that historically they do not have much success placing patients in tertiary facilities but will give it a try.
[2021-02-01] MEDS: DiphenhydrAMINE 50 MG/ML Syringe 25 MG IM (19:04)
[2021-02-01] MEDS: LORazepam 2 MG/ML Syringe 1 MG IM (19:04)
[2021-02-01] MEDS: Haloperidol Lactate 5 MG/ML Vial 2 MG IM (19:08)
[2021-02-01 20:10] VITALS: BP 140/96; PULSE 99; RESP 18; TEMP 36.6; O2SAT 95
[2021-02-01] MEDS: Ziprasidone HCl 20 MG Capsule PO (21:14)
[2021-02-01] MEDS: Atorvastatin Calcium 40 MG Tablet PO (21:14)
[2021-02-02 02:00] VITALS: BP 124/87; PULSE 90; RESP 13; TEMP 36.6; O2SAT 96
--- NOTE | 2021-02-02 07:27 | NURSING ---
Beth from crisis called to update us. She is seeing if [facility] can still take patient. If they can't she is sending referral to [facility].
[2021-02-02 07:35] VITALS: O2SAT 95
[2021-02-02 08:00] VITALS: BP 126/84; PULSE 87; RESP 16; TEMP 36.7; O2SAT 97
--- NOTE | 2021-02-02 08:38 | NURSING ---
At end of shift yesterday 02/01 faxed facesheet and pertinent information to [facility] as requested by Dr Flor.
--- NOTE | 2021-02-02 09:00 | NURSING ---
Pt woke up and asked to go to the bathroom. SAMPLE GRADER in room as well and wiped pt's back down and provided deodorant and also wash rag for his face. Pt alert, oriented and cooperative. Up to bathroom with standby assist. Voided. Brushed teeth at the sink. Pt combed hair as well. Pt back to bed. Lab in to draw blood. Breakfast provided. Restraints remain off since 0900.
[2021-02-02] MEDS: Pantoprazole Sodium 40 MG Tablet PO (09:26)
[2021-02-02] MEDS: Ziprasidone HCl 20 MG Capsule PO (09:26)
[2021-02-02] MEDS: Sertraline 100 MG Tablet PO (09:26)
[2021-02-02] MEDS: Enoxaparin 40 MG/0.4 ML Syringe SC (09:26)
[2021-02-02] MEDS: Aspirin 81 MG TAB.CHEW PO (09:26)
[2021-02-02] MEDS: 0.9% Saline Lock 10 ML Syringe IV (09:26)
[2021-02-02] MEDS: Lisinopril 20 MG Tablet PO (09:26)
[2021-02-02 09:31] LABS: Absolute Lymphocyte Count 1.38 X10^3/uL (0.83-4.51); Basophil# 0.08 X10^3/uL; Basophil% 0.9 % (0-1); Eosinophil# 0.25 X10^3/uL; Eosinophils% 2.9 % (0-5); Hematocrit 49.6 % (40-54); Hemoglobin 16.2 g/dL (13.0-16.5); Lymphocyte # 1.38 X10^3/ul (4.0); Lymphocyte % 16.3 % (19-41); Mean Corp Hgb Conc 32.7 g/dL (32-36); Mean Corpuscular Volume 88.7 fL (80-94); Mean Platelet Vol. 9.6 fl (6.2-12.0); Monocyte# 0.78 X10^3/uL; Monocyte% 9.2 % (0-10); NRBC Flagged by Analyzer 0 % (0-5); Neutrophil # 5.97 X10^3/uL (2.7-7.7); Neutrophil % 70.3 % (47-70); Platelet Count 232 K/mm3 (150-450); RBC Distribution Width CV 13.9 % (11.6-14.6); Red Blood Count 5.59 M/mm3 (4.6-6.2); White Blood Count 8.5 K/mm3 (4.4-11.0)
[2021-02-02 10:00] LABS: ALB/GLOB Ratio 1.1 RATIO (0.9-2.4); AST(SGOT) 27 U/L (15-37); Alanine Aminotransfer ALT/SGPT 35 U/L (16-61); Albumin, Serum 4.3 g/dL (3.2-5.0); Alkaline Phosphatase 57 U/L (45-117); Anion Gap 9 (5-15); BUN 15 mg/dL (7-18); BUN/Creat Ratio 12.6 RATIO (10-20); Calcium,Total 9.8 mg/dL (8.5-10.1); Chloride 105 mmol/L (98-107); Creatinine, Serum 1.19 mg/dL (0.70-1.30); EST Glomerular Filtration Rate 66 mL/min (>60); Est Glom Filt Rate - Afr Amer 80 mL/min (>60); Estimated Creatinine Clearance 63.87 ml/min; Globulin 3.9 g/dL (2.2-4.2); Glucose 109 mg/dL (74-106); Potassium 3.9 mmol/L (3.5-5.1); Protein, Total 8.2 g/dL (6.4-8.2); Sodium Level 137 mmol/L (136-145)
--- NOTE | 2021-02-02 11:32 | DCINST_ITS ---
- Discharge Diagnoses Current Active Problems: Current Active and Chronic Problems Tachycardia (Acute) Acute kidney injury (Acute) Acute encephalopathy (Acute) Obstructive sleep apnea (Chronic) Depression (Chronic) Hyperlipidemia (Chronic) Hypertension (Chronic) You will use the following diet at home:: No restrictions Your food should be the consistency of: Regular Your liquids should be the consistency of: Regular/Thin Discharge Activity: Return to Normal Activity Allergies/Adverse Reactions: Allergies Penicillins [PCN] Allergy (Verified 01/30/21 10:44) Hives Medications to take at Discharge Lisinopril [Zestril] 20 mg PO DAILY 01/30/21 Pantoprazole Sodium 40 mg PO DAILY 01/30/21 Rosuvastatin Calcium 20 mg PO DAILY 01/30/21 Sertraline HCl 100 mg PO DAILY 01/30/21 Zolpidem Tartrate [Ambien] 10 mg PO QHS PRN 01/30/21 Primary Care Physician: Michael Grijalva MD [Primary Care Provider] - Please follow up with your Primary Care Physician in: Within the next 2 weeks Test Results: Test results from this visit will be discussed in further detail at your follow- up appointment, if applicable. Please Follow Up With: Outpatient psychiatry When: Within the next 2 weeks Proposed Discharge Date: 02/02/21
--- NOTE | 2021-02-02 12:01 | PHA.DC.MR ---
Pharmacy Service has performed discharge medication reconciliation for this patient. The patient's discharge medication list was reviewed for discrepancies and discrepancies were resolved. Home Medications Lisinopril [Zestril] 20 mg PO DAILY 01/30/21 Pantoprazole Sodium 40 mg PO DAILY 01/30/21 Rosuvastatin Calcium 20 mg PO DAILY 01/30/21 Sertraline HCl 100 mg PO DAILY 01/30/21 Zolpidem Tartrate [Ambien] 10 mg PO QHS PRN 01/30/21
--- NOTE | 2021-02-02 13:00 | DS.PCM_ITS ---
<Michael Dooley - Last Filed: 02/02/21 13:00> Discharge Date and Diagnosis - Problem List Patient Problems: Active and Suspected Problems Tachycardia (Acute) Acute kidney injury (Acute) Acute encephalopathy (Acute) Date of Admission: 01/30/21 Date of Discharge: 02/02/21 - Primary Discharge Diagnosis Acute Problems: Active Problems Tachycardia (Acute) Acute kidney injury (Acute) Acute encephalopathy (Acute) - Secondary Discharge Diagnosis Chronic Problems: Chronic Problems Obstructive sleep apnea (Chronic) Depression (Chronic) Hyperlipidemia (Chronic) Hypertension (Chronic) Hospital Course and Treatment Imaging Results: Clinical Impression(s) from Imaging Studies Brain CT 01/30/21 11:01 IMPRESSION: Chronic involutional changes of the brain. N.B. : The above information has been verbally conveyed by Sy Kelsey MD to Dr Vickie MD, on 01/30/2021 11:22:06 (ET). Electronically Signed: Sy Kelsey MD at 11:23 EDT , Service support , ADDENDUM: 01/30/21 1130 IMPRESSION: Chronic involutional changes of the brain. N.B. : The above information has been verbally conveyed by Sy Kelsey MD to Dr Vickie MD, on 01/30/2021 11:22:06 (ET). Electronically Signed: Sy Kelsey MD at 11:23 EDT , Service support , Head/Neck CTA 01/30/21 11:02 IMPRESSION: Normal CTA Head and neck with contrast. N.B. : The above information has been verbally conveyed by Sy Kelsey MD to Susan Johnston on 01/30/2021 11:28:33 (ET). Electronically Signed: Sy Kelsey MD at 11:29 EDT , Service support , ADDENDUM: 01/30/21 1136 IMPRESSION: Normal CTA Head and neck with contrast. N.B. : The above information has been verbally conveyed by Sy Kelsey MD to Susan Johnston on 01/30/2021 11:28:33 (ET). Electronically Signed: Sy Kelsey MD at 11:29 EDT , Service support , Chest X-Ray 01/30/21 12:20 IMPRESSION: Normal x-ray examination of the chest. Electronically Signed: Sy Kelsey MD at 12:34 EDT , Service support , Brain MRI 01/30/21 17:56 IMPRESSION: No acute intracranial finding. Electronically Signed: Dangelo Frazier MD at 1:34 EDT Tel , Service support , Summary of Care Provided: Patient presented to the ED on 01/30/2021 with a chief complaint of confusion. Patient was admitted for acute encephalopathy, acute kidney injury, and tachycardia. Acute encephalopathy believed to be due to ingestion of marijuana Gummies. Patient agitation has markedly improved from yesterday, patient does report feeling slightly groggy and only remembers certain events of yesterday. Patient no longer in restraints. Given the improvement in symptoms related to his psychosis in the absence of any suicidal or homicidal ideation, patient is not a candidate for inpatient psychiatric care. Outpatient psychiatric care is being established between case management and family. Patient to be discharged today. 1) Acute encephalopathy of unclear etiology Assessment - No reported events overnight after administration of Benadryl, Ativan, Haldol combination. - Marked improvement from yesterday, no agitation or paranoia evident - Not a candidate for inpatient psychiatric care - MRI unremarkable - CT?A of head and neck unremarkable - Tox screen positive for cannabinoids secondary to ingestion of marijuana Gummies - [facility]; Patient symptoms are due to psychosis and not a primary neurologic etiology Plan - Initial outpatient psychiatric evaluation on 02/12/2021 - Follow-up with primary care provider within the next 2 weeks - Patient advised to avoid any marijuana or marijuana derived substances 2) Hypokalemia Assessment - Resolved - Likely due to dehydration 3) Hypertension - chronic Assessment - Stable Plan -Continue home lisinopril 4) ISELA - chronic Assessment - Managed outpatient Plan - Continue home CPAP regimen 5) Depression Assessment - Managed outpatient Plan -Continue sertraline Patient seen by Michael Dooley PA-C, under the supervision of Dr. Flor. Patient Problems: Active and Suspected Problems Tachycardia (Acute) Acute kidney injury (Acute) Acute encephalopathy (Acute) Subjective: Patient is resting comfortably in chair, alert and oriented x3. Patient vaguely remembers agitation from yesterday however reports feeling very groggy. Patient occasionally makes known his wishes, however however mainly defers to decisions of family. - Physical Exam Vitals/I&O's: Vital Signs Temp Pulse Resp BP Pulse Ox 98.0 F 87 16 126/84 H 97 02/02/21 08:00 02/02/21 08:00 02/02/21 08:00 02/02/21 08:00 02/02/21 08:00 Oxygen Delivery Method Room Air Weight: 221 lb 1.978 oz Body Mass Index (BMI) 33.6 Finger Stick Blood Glucose 171 Intake and Output for Last 24 Hours 01/31/21 02/01/21 02/02/21 23:59 23:59 23:59 Intake Total 1963.33 / 1963.33 360 / 360 1000 / 1000 Output Total 550 / 550 0 / 0 Balance 1413.33 / 1413.33 360 / 360 1000 / 1000 General: Alert, Oriented x3, Cooperative HEENT: Atraumatic, PERRLA, EOMI, Normocephalic Neck: Supple, No JVD, Negative Carotid Bruits Lungs: Clear to auscultation, Normal air movement Cardiovascular: Regular rate, No murmurs Abdomen: Bowel Sounds Present, Soft, Non Tender Extremities: No edema, Capillary Refill Less than 3 Seconds Skin: No rashes, No breakdown Musculoskeletal: No Tenderness to Palpation of Joints or Extremities Neurological: Cranial nerves II-XII grossly intact Psych/Mental Status: Normal Affect, Appropriate, - - Reports feeling groggy, vaguely remembers agitation from yesterday. Laboratory Results 02/02/21 09:15: WBC 8.5, RBC 5.59, Hgb 16.2, Hct 49.6, MCV 88.7, MCH 29.0, MCHC 32.7, RDW Std Deviation 45.0 H, RDW Coeff of Lizzeth 13.9, Plt Count 232, MPV 9.6, Immature Gran % (Auto) 0.400, Neut % (Auto) 70.3 H, Lymph % (Auto) 16.3 L, Isabella % (Auto) 9.2, Eos % (Auto) 2.9, Baso % (Auto) 0.9, Absolute Neuts (auto) 6.0, Absolute Lymphs (auto) 1.38, Nucleated RBC % 0 02/02/21 09:15: Sodium 137, Potassium 3.9, Chloride 105, Carbon Dioxide 23.0, Anion Gap 9, BUN 15, Creatinine 1.19, Estim Creat Clear Calc 63.87, Est GFR (MDRD) Af Amer 80, Est GFR (MDRD) Non-Af 66, BUN/Creatinine Ratio 12.6, Glucose 109 H, Calcium 9.8, Total Bilirubin 1.00, AST 27, ALT 35, Alkaline Phosphatase 57, Total Protein 8.2, Albumin 4.3, Globulin 3.9, Albumin/Globulin Ratio 1.1 Current Medications Acetaminophen (Acetaminophen 325 Mg Tablet) 650 mg PO Q6H PRN PRN PRN Reason: Pain Score 1-10/Temp > 100.7 F Aspirin (Aspirin 81 Mg Tab.Chew) 81 mg PO DAILY@0800 [facility] Last Admin: 02/02/21 09:26 Dose: 81 mg Documented by: Atorvastatin Calcium (Atorvastatin Calcium 40 Mg Tablet) 40 mg PO QHS [facility] Last Admin: 02/01/21 21:14 Dose: 40 mg Documented by: Enoxaparin Sodium (Enoxaparin 40 Mg/0.4 Ml Syringe) 40 mg SC DAILY [facility] Last Admin: 02/02/21 09:26 Dose: 40 mg Documented by: Hydralazine HCl (Hydralazine 20 Mg/Ml Vial) 10 mg IV Q6H PRN PRN PRN Reason: for SBP>170 Lisinopril (Lisinopril 20 Mg Tablet) 20 mg PO DAILY [facility] Last Admin: 02/02/21 09:26 Dose: 20 mg Documented by: Pantoprazole Sodium (Pantoprazole Sodium 40 Mg Tablet) 40 mg PO DAILY [facility] Last Admin: 02/02/21 09:26 Dose: 40 mg Documented by: Senna/Docusate Sodium (Senna/Docusate Sodium 1 Tablet) 2 tablet PO BID PRN PRN PRN Reason: Constipation Sertraline HCl (Sertraline 100 Mg Tablet) 100 mg PO DAILY [facility] Last Admin: 02/02/21 09:26 Dose: 100 mg Documented by: Temazepam (Temazepam 15 Mg Capsule) 15 mg PO QHS PRN PRN PRN Reason: INSOMNIA Ziprasidone (Ziprasidone Hcl 20 Mg Capsule) 20 mg PO BID [facility] Last Admin: 02/02/21 09:26 Dose: 20 mg Documented by: Discharge Diet: No Restrictions Discharge Activity: Return to Normal Activity Home Medications: Medications to take at Discharge Lisinopril [Zestril] 20 mg PO DAILY 01/30/21 Pantoprazole Sodium 40 mg PO DAILY 01/30/21 Rosuvastatin Calcium 20 mg PO DAILY 01/30/21 Sertraline HCl 100 mg PO DAILY 01/30/21 Zolpidem Tartrate [Ambien] 10 mg PO QHS PRN 01/30/21 Primary Care Physician: Michael Grijalva MD [Primary Care Provider] - Please follow up with your Primary Care Physician in: Within the next 2 weeks Please Follow Up With: Outpatient psychiatry When: Within the next 2 weeks Disposition: Home Minutes spent on discharge:: 35 Patient Condition:: Stable Medical Necessity - Tobacco Use Smoking Status: Never smoker Tobacco Use: Non-smoker Meaningful Use Info Meaningful Use Diagnoses (Choose all that apply): None applicable <Chacho,Rembert - Last Filed: 02/03/21 13:46> Discharge Date and Diagnosis - Primary Discharge Diagnosis Acute Problems: Active Problems Tachycardia (Acute) Acute kidney injury (Acute) Acute encephalopathy (Acute) - Secondary Discharge Diagnosis Chronic Problems: Chronic Problems Obstructive sleep apnea (Chronic) Depression (Chronic) Hyperlipidemia (Chronic) Hypertension (Chronic) Hospital Course and Treatment Summary of Care Provided: This patient was seen in conjunction with MICHAEL Mar. I have independently interviewed and examined the patient and reviewed pertinent historical, laboratory, and other data. Please refer to MICHAEL Mar's note for his patient's presentation, findings, and recommendations. I have reviewed and his note and concur with his documentation 60-year-old male with past medical history hypertension, ISELA who comes in with confusion. Patient has issues with chronic insomnia and has been on Ambien. On the day of admission, patient woke up around 2 AM and was confused and not making sense. Patient was able to go back to sleep and he woke up again at 9 AM confused and disoriented and talking incoherently. Patient's stated that patient said he took 15 marijuana Gummies. He was sent to his primary care's office but he was more agitated and would not sign paperwork at the office. He refused to follow commands. She went to [employer] to get him sandwich for him but he was refusing to follow commands. He was brought to the emergency room. Patient's work-up in the ED showed a disoriented patient. He was tachycardic, vitals were otherwise stable. Blood work showed potassium of 3.4, creatinine 1.46. Patient's urine drug screen was positive for cannabinoid. CT of the brain was negative for acute findings. CTA of the head and neck was unremarkable. Chest x-ray unremarkable. [facility] was consulted and recommended work-up for acute stroke patient had an eventful day with exhibition of acute psychotic symptoms, hallucinations. During the course of the hospital stay, patient became more more confused, with psychotic/paranoid symptoms. He refused to remove his BiPAP or take his pills. He refused care from the nursing staff. Patient was in four-point restraint in the point in his hospital stay. He received a couple doses of Geodon. He also received Haldol/Ativan/Benadryl cocktail. [facility] crisis were consulted to assist with discharge planning. They were unable to find a facility that would accept him. On the day of discharge, patient apparently slept well after the cocktail. He woke up back to his usual self. He cannot recollect what happened. He was monitored throughout the day. No acute events. He was discharged to follow-up with outpatient counseling/psychiatry Physical Exam: Gen: Comfortable, not cooperating with care, not pale, not jaundiced CVS:HS I +II, regular, no murmurs RESP: Diminished at lung bases GI: BS present and normal, soft, nontender, no palpable organs EXT:No edema - Physical Exam Vitals/I&O's: Vital Signs Temp Pulse Resp BP Pulse Ox 97.9 F 88 16 127/75 H 94 02/02/21 14:55 02/02/21 14:55 02/02/21 14:55 02/02/21 14:55 02/02/21 14:55 Oxygen Delivery Method Room Air Weight: 100.3 kg Body Mass Index (BMI) 33.6 Finger Stick Blood Glucose 171 Intake and Output for Last 24 Hours 02/01/21 02/02/21 02/03/21 23:59 23:59 23:59 Intake Total 360 / 360 1000 / 1000 Output Total 0 / 0 Balance 360 / 360 1000 / 1000 OBSV E&M: 25161 Observation care discharge
--- NOTE | 2021-02-02 14:44 | CASEMGMT ---
Social Work DAINA spoke with Physician and PA who feel pt is able to be discharged home today with family and outpatient psychiatric followup and services of [facility] for drug use. DAINA spoke with pt and she is agreeable to appointments at [facility] and [facility]. DAINA spoke with Beth at Crisis and informed her of Physician's decision to d/c home. Beth states pt will not be able to get into Psychiatry for approximately 6 weeks. Physician updated. Appointment made with [facility] intake Counselor for February 12 at 11am. At that appointment they will assess for and make appointment with Psychiatrist. Appointment made with [facility] for February 06 12pm. Pt and daughter notified and given written appointment times. ROCCO De Paz
[2021-02-02 14:55] VITALS: BP 127/75; PULSE 88; RESP 16; TEMP 36.6; O2SAT 94
== END 2021-02-02 11:33 | disposition home or self-care (01) ==
LOC: ED 14:59 → PCU 16:18
PROVIDERS: Admitting Provider Hospitalist; Emergency Provider Emergency Medicine; PCP Family Medicine; Visit Provider Internal Medicine
DX: F12.959 Cannabis use, unspecified with psychotic disorder, unspecified (principal); N17.9 Acute kidney failure, unspecified; E86.0 Dehydration; R00.0 Tachycardia, unspecified; G92 Toxic encephalopathy; I10 Essential (primary) hypertension; E78.5 Hyperlipidemia, unspecified; G47.33 Obstructive sleep apnea (adult) (pediatric); F32.9 Major depressive disorder, single episode, unspecified; E87.6 Hypokalemia; R73.9 Hyperglycemia, unspecified; R29.701 NIHSS score 1; R47.01 Aphasia; Z79.899 Other long term (current) drug therapy; Z78.1 Physical restraint status
CPT/HCPCS: 36415; 70450; 70496; 70498; 70551; 71045; 80048; 80053; 80307; 81001; 82077; 82962; 83036; 84484; 85025; 85610; 85730; 92507; 93005; 96361; 96372; 96374; 96375; 96376; 97161; 97165; 99218; 99285; J7030; Q9967; A4216; G0378; J3486

== ENCOUNTER 2021-11-08 14:07 | Outpatient (CLI) | payer OTHER, SELFPAY ==
[2021-11-08 17:52] LABS: Absolute Lymphocyte Count 1.12 X10^3/uL (0.83-4.51); Absolute Neutrophil Count 4.1 X10^3/uL (2.0-7.7); Basophil# 0.06 X10^3/uL; Eosinophil# 0.09 X10^3/uL; Eosinophils% 1.5 % (0-5); Hematocrit 44.4 % (40-54); Hemoglobin 14.3 g/dL (13.0-16.5); Lymphocyte # 1.12 X10^3/ul (0.83-4.51); Lymphocyte % 19.2 % (19-41); Mean Corp Hgb Conc 32.2 g/dL (32-36); Mean Corpuscular Hgb 28.7 pg (27.0-32.0); Monocyte# 0.43 X10^3/uL; Monocyte% 7.4 % (0-10); NRBC Flagged by Analyzer 0 % (0-5); Neutrophil % 70.4 % (47-70); Platelet Count 195 K/mm3 (150-450); RBC Distribution Width CV 13.3 % (11.6-14.6); RBC Distribution Width SD 43.7 fl (35.1-43.9); Red Blood Count 4.99 M/mm3 (4.6-6.2); White Blood Count 5.8 K/mm3 (4.4-11.0)
[2021-11-08 18:10] LABS: ALB/GLOB Ratio 1.1 RATIO (0.9-2.4); AST(SGOT) 29 U/L (15-37); Alanine Aminotransfer ALT/SGPT 45 U/L (16-61); Albumin, Serum 3.9 g/dL (3.2-5.0); Alkaline Phosphatase 43 U/L (45-117); Anion Gap 6 (5-15); BUN 16 mg/dL (7-18); BUN/Creat Ratio 15.2 RATIO (10-20); Calcium,Total 9.1 mg/dL (8.5-10.1); Chloride 106 mmol/L (98-107); Cholesterol 125 mg/dL (200); Creatinine, Serum 1.05 mg/dL (0.70-1.30); EST Glomerular Filtration Rate 76 mL/min (>60); Est Glom Filt Rate - Afr Amer 92 mL/min (>60); Globulin 3.4 g/dL (2.2-4.2); Glucose 84 mg/dL (74-106); High Density Lipoprotein 33 mg/dL; Potassium 4.2 mmol/L (3.5-5.1); Protein, Total 7.3 g/dL (6.4-8.2); Sodium Level 139 mmol/L (136-145); Triglycerides 207 mg/dL; Very Low Density Lipoprotein 41 mg/dL (5-40)
== END 2021-11-08 23:59 | disposition short-term general hospital (02) ==
PROVIDERS: PCP Nurse Practitioner Family; Referring Provider Nurse Practitioner Family; Visit Provider Nurse Practitioner Family
DX: E78.5 Hyperlipidemia, unspecified (principal)
CPT/HCPCS: 36415; 80053; 80061; 85025

== ENCOUNTER → 2022-12-26 | Outpatient (CLI) | payer OTHER, SELFPAY ==
[2022-12-26 12:48] LABS: Vitamin B12 331 pg/mL (211-911)
[2022-12-26 13:04] LABS: Microalbumin,Random Urine 13.3 mg/L (NO RANGE EST.)
[2022-12-26 13:05] LABS: ALB/GLOB Ratio 1.1 RATIO (0.9-2.4); AST(SGOT) 19 U/L (15-37); Alanine Aminotransfer ALT/SGPT 35 U/L (16-61); Albumin, Serum 3.9 g/dL (3.2-5.0); Alkaline Phosphatase 45 U/L (45-117); Anion Gap 8 (5-15); BUN 15 mg/dL (7-18); BUN/Creat Ratio 13.4 RATIO (10-20); Calcium,Total 9.6 mg/dL (8.5-10.1); Chloride 107 mmol/L (98-107); Cholesterol 127 mg/dL (200); Creatinine, Serum 1.12 mg/dL (0.70-1.30); EST Glomerular Filtration Rate 71 mL/min (>60); Est Glom Filt Rate - Afr Amer 85 mL/min (>60); Ferritin 205 ng/mL (26-388); Globulin 3.5 g/dL (2.2-4.2); Glucose 103 mg/dL (74-106); High Density Lipoprotein 31 mg/dL; PSA,Total - Annual Screen 1.99 ng/mL (0.00-4.00); Protein, Total 7.4 g/dL (6.4-8.2); Sodium Level 140 mmol/L (136-145); Thyroid Stim Hormone (TSH) 1.44 uIU/mL (0.358-3.74); Triglycerides 203 mg/dL; Very Low Density Lipoprotein 41 mg/dL (5-40)
[2022-12-26 13:58] LABS: Absolute Lymphocyte Count 1.08 X10^3/uL (0.83-4.51); Absolute Neutrophil Count 2.8 X10^3/uL (2.0-7.7); Basophil# 0.05 X10^3/uL; Basophil% 1.1 % (0-1); Eosinophil# 0.09 X10^3/uL; Hematocrit 47.4 % (40-54); Hemoglobin 15.2 g/dL (13.0-16.5); Lymphocyte # 1.08 X10^3/ul (0.83-4.51); Lymphocyte % 24.5 % (19-41); Mean Corp Hgb Conc 32.1 g/dL (32-36); Mean Corpuscular Volume 87.5 fL (80-94); Mean Platelet Vol. 9.9 fl (6.2-12.0); Monocyte# 0.35 X10^3/uL; NRBC Flagged by Analyzer 0 % (0-5); Neutrophil # 2.81 X10^3/uL (2.7-7.7); Neutrophil % 63.9 % (47-70); Platelet Count 179 K/mm3 (150-450); RBC Distribution Width CV 13.6 % (11.6-14.6); RBC Distribution Width SD 43.7 fl (35.1-43.9); Red Blood Count 5.42 M/mm3 (4.6-6.2); White Blood Count 4.4 K/mm3 (4.4-11.0)
[2022-12-26 14:22] LABS: Hemoglobin A1c 5.9 % (3.8-5.6)
[2022-12-29 09:22] LABS: Vitamin D 1,25-Dihydroxy 47.3 pg/mL (24.8-81.5)
== END | disposition home or self-care (01) ==
LOC: MFPLAB 10:04
PROVIDERS: PCP Family Medicine; Referring Provider Family Medicine; Visit Provider Family Medicine
DX: I10 Essential (primary) hypertension (principal); K21.9 Gastro-esophageal reflux disease without esophagitis; E78.5 Hyperlipidemia, unspecified; Z12.5 Encounter for screening for malignant neoplasm of prostate
CPT/HCPCS: 36415; 80053; 80061; 82043; 82607; 82652; 82728; 83036; 84153; 84443; 85025; G0103

== ENCOUNTER → 2023-10-07 | Outpatient (CLI) | payer BC, SELFPAY ==
[2023-10-07 17:34] LABS: Absolute Lymphocyte Count 1.17 X10^3/uL (0.83-4.51); Absolute Neutrophil Count 4.1 X10^3/uL (2.0-7.7); Basophil# 0.04 X10^3/uL; Basophil% 0.7 % (0-1); Eosinophil# 0.08 X10^3/uL; Eosinophils% 1.3 % (0-5); Hematocrit 47.4 % (40-54); Hemoglobin 15.1 g/dL (13.0-16.5); Lymphocyte # 1.17 X10^3/ul (0.83-4.51); Lymphocyte % 19.7 % (19-41); Mean Corp Hgb Conc 31.9 g/dL (32-36); Mean Corpuscular Hgb 27.9 pg (27.0-32.0); Mean Corpuscular Volume 87.6 fL (80-94); Mean Platelet Vol. 10.1 fl (6.2-12.0); Monocyte# 0.48 X10^3/uL; Monocyte% 8.1 % (0-10); NRBC Flagged by Analyzer 0 % (0-5); Neutrophil # 4.12 X10^3/uL (2.7-7.7); Neutrophil % 69.5 % (47-70); Platelet Count 205 K/mm3 (150-450); RBC Distribution Width CV 13.5 % (11.6-14.6); RBC Distribution Width SD 43.3 fl (35.1-43.9); Red Blood Count 5.41 M/mm3 (4.6-6.2); White Blood Count 5.9 K/mm3 (4.4-11.0)
[2023-10-07 18:03] LABS: Hemoglobin A1c 5.8 % (3.8-5.6)
[2023-10-07 18:17] LABS: ALB/GLOB Ratio 1.1 RATIO (0.9-2.4); AST(SGOT) 19 U/L (15-37); Alanine Aminotransfer ALT/SGPT 31 U/L (16-61); Albumin, Serum 3.9 g/dL (3.2-5.0); Alkaline Phosphatase 52 U/L (45-117); Anion Gap 6 (5-15); BUN 17 mg/dL (7-18); BUN/Creat Ratio 14.8 RATIO (10-20); Calcium,Total 9.4 mg/dL (8.5-10.1); Chloride 105 mmol/L (98-107); Cholesterol 130 mg/dL (200); Creatinine, Serum 1.15 mg/dL (0.70-1.30); EST Glomerular Filtration Rate 68 mL/min (>60); Est Glom Filt Rate - Afr Amer 83 mL/min (>60); Globulin 3.7 g/dL (2.2-4.2); Glucose 90 mg/dL (74-106); High Density Lipoprotein 29 mg/dL; Potassium 4.1 mmol/L (3.5-5.1); Protein, Total 7.6 g/dL (6.4-8.2); Sodium Level 138 mmol/L (136-145); Triglycerides 297 mg/dL; Very Low Density Lipoprotein 59 mg/dL (5-40); Vitamin D,25 Hydroxy 14.8 ng/mL
== END | disposition home or self-care (01) ==
LOC: MFPLAB 16:10
PROVIDERS: Internal Medicine
DX: I10 Essential (primary) hypertension (principal); E78.5 Hyperlipidemia, unspecified; F32.9 Major depressive disorder, single episode, unspecified; G47.33 Obstructive sleep apnea (adult) (pediatric); R73.9 Hyperglycemia, unspecified; Z13.220 Encounter for screening for lipoid disorders; E55.9 Vitamin D deficiency, unspecified
CPT/HCPCS: 36415; 80053; 80061; 82306; 83036; 85025

== ENCOUNTER 2024-01-06 12:00 | Emergency (ER) | payer BC, SELFPAY ==
[2024-01-06] VITALS (9 sets, daily range): BP systolic 120–137; BP diastolic 79–89; PULSE 67–85; RESP 16–21; TEMP 36.6–37.1; O2SAT 88–98; BMI 34.1
--- NOTE | 2024-01-06 12:28 | EDS_ITS ---
HPI History of Present Illness Chief Complaint: Chest Pain Informant: patient Onset/Context/Timing Onset: Yesterday Timing: Intermittent Quality: Positive for Sharp Location: Left Chest Narrative Narrative: Patient presents secondary to intermittent sharp chest pain for the last 12 hours. He states last evening he was sitting watching television when he got sharp intermittent stabbing pain along the left lateral ribs. Today while he was driving he had sharp pain of the left anterior chest. He does not feel short of breath. Pain lasted only a few seconds and then resolves. He does report having URI about 3 weeks ago. No other recent illness. No other risk factors for DVT/PE. [facility] Medical History (Updated 01/06/24 @ 14:[address] Erin Schaefer MD) Cataracts, bilateral Hyperlipidemia Hypertension Migraines Obstructive sleep apnea Physical exam, pre-employment Home Medications lisinopril 20 mg tablet 20 mg PO DAILY blood pressure 01/30/21 [History Last Taken 01/30/21] rosuvastatin 20 mg tablet 20 mg PO DAILY cholesterol 01/30/21 [History Last Taken 01/30/21] pantoprazole 40 mg tablet,delayed release 40 mg PO DAILY gerd #90 tabs 07/28/23 [Rx Last Taken Unknown] sertraline 100 mg tablet 100 mg PO DAILY mental health #90 tabs 11/02/23 [Rx Last Taken Unknown] Allergy/AdvReac Type Severity Reaction Status Date / Time Penicillins [PCN] Allergy Hives Verified 01/06/24 12:02 Social History adopted: No household members: spouse housing: house number of children: 2 current occupational status: employed 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 current occupational exposures/hazards: No pets and animals: Yes pets and animals: dog(s) leisure activities: other history of recent travel: Yes ([place] 2weeks ago) out of state: Yes sexually active: No Smoking Status: Never smoker alcohol intake: former details: havent for 6 months substance use type: does not use well-balanced diet: daily or most days caffeine: No eating out: 1-3 times/week during the past year weight has: remained stable what type of physical activity do you participate in: walking frequency: 3-4 times per week seatbelt use: always do you feel safe at home: Yes ROS ROS ED Constitutional Constitutional ED: Denies chills or fever(s) Eyes Eyes: Denies change in vision or discharge from eye(s) ENT ENT ED: Denies discharge from eye(s), rhinorrhea or sore throat Cardiovascular Cardiovascular: Reports chest pain; Denies palpitations Respiratory/Chest Respiratory/Chest: Denies cough or dyspnea Gastrointestinal Gastrointestinal: Denies abdominal pain, nausea or vomiting Genitourinary Genitourinary ED: Denies dysuria Musculoskeletal Musculoskeletal: Denies back pain or extremity pain Integumentary Denies Abrasions or rash Neurologic Neurologic: Denies headache(s) or weakness Psychiatric Psychiatric: Denies anxiety or depression Allergic/Immunologic Allergic/Immunologic ED: Denies lip swelling or urticaria EXAM Physical Exam Const Vital Signs: 01/06/24 12:00 01/06/24 12:21 01/06/24 12:22 Temperature 97.8 F 97.8 F Temperature Source Temporal Temporal Pulse Rate 85 75 Respiratory Rate 16 18 Respiratory Effort Normal Blood Pressure 137/79 H 129/83 H Blood Pressure Mean 98 98 Pulse Ox 95 94 Oxygen Delivery Method Room Air Room Air Oxygen Flow Rate (L/min) 01/06/24 13:00 01/06/24 13:26 01/06/24 12:28 Temperature 98.7 F Temperature Source Oral Pulse Rate 74 Respiratory Rate 21 H 20 H Respiratory Effort Blood Pressure 120/84 H Blood Pressure Mean 96 Pulse Ox 88 91 91 Oxygen Delivery Method Room Air Nasal Cannula Nasal Cannula Oxygen Flow Rate (L/min) 2 3 01/06/24 13:27 Temperature Temperature Source Pulse Rate Respiratory Rate Respiratory Effort Blood Pressure Blood Pressure Mean Pulse Ox 93 Oxygen Delivery Method Nasal Cannula Oxygen Flow Rate (L/min) 3 Positive well nourished and well developed General Appearance ED: well developed HEENT Reports moist mucous membranes Eyes EOMs intact bilaterally Chest Wall inspection of chest normal and palpation of chest normal Resp normal respiratory effort and clear to auscultation bilaterally Cardio regular rate and regular rhythm GI soft to palpation and non-tender Extremity normal to inspection Neuro oriented x3 and no sensory deficits noted Motor Exam: strength 5/5 throughout Skin no rashes or lesions noted MDM MDM MDM Narrative Medical decision making narrative: Patient placed on monitoring and evaluation advisor. EKG obtained to evaluate for cardiac arrhythmia/ischemia. Chest x-ray obtained to evaluate for acute lung pathology, cardiac size, or mediastinal abnormality. IV line initiated. Labwork obtained to evaluate for leukocytosis, anemia, and electrolyte derangement. History & Record Review Discussion w/independent historian: Patient Lab Data Attestation: I reviewed the patient's lab results. Labs: Laboratory Results - last 24 hr 01/06/24 12:35 WBC 5.6 RBC 5.31 Hgb 14.6 Hct 45.3 MCV 85.3 MCH 27.5 MCHC 32.2 RDW Std Deviation 42.5 RDW Coeff of Lizzeth 13.7 Plt Count 175 MPV 9.6 Immature Gran % (Auto) 0.700 Neut % (Auto) 65.8 Lymph % (Auto) 23.1 Cannon % (Auto) 7.9 Eos % (Auto) 1.6 Baso % (Auto) 0.9 Absolute Neuts (auto) 3.7 Absolute Lymphs (auto) 1.28 Nucleated RBC % 0 D-Dimer Quant (PE/DVT) < 0.27 L Sodium 139 Potassium 4.2 Chloride 105 Carbon Dioxide 28.0 Anion Gap 6 BUN 15 Creatinine 1.22 Estim Creat Clear Calc 71.68 Est GFR (MDRD) Af Amer 77 Est GFR (MDRD) Non-Af 64 BUN/Creatinine Ratio 12.3 Glucose 110 H Calcium 9.1 Troponin I High Sens 5 Radiography Chest X-Ray - ED: 1 View, Read by ED Physician, Normal, Heart, Lungs and Mediastinum Diagnostic Testing: Clinical Impression(s) from Imaging Studies Chest X-Ray 01/06/24 13:20 IMPRESSION: No radiographic evidence of acute cardiopulmonary disease. 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 Chemistry studies unremarkable. Troponin is normal at 5 and D-dimer is less than 0.27. Portable chest x-ray per my interpretation reveals no acute findings. Radiology interpretation reviewed and agrees. On repeat evaluation patient resting comfortably. He reported dropped his O2 sat to 88% on room air and was on 3 L nasal cannula at time of my exam. I took him off oxygen and he maintained his sat at 95%. I walked him up and down the [place] and his O2 sat remained 93 to 95%. He does not feel short of breath. This time test results are discussed with the patient he is comfortable with discharge to home. Return instructions were provided. Discharge Plan Triage Chief Complaint: Chest Pain ED Provider: Erin Schaefer Dx/Rx/DC Orders Clinical Impression: Chest pain Instructions: ED Chest Pain, Uncertain Cause Prescriptions: No Action lisinopril 20 MG tablet 20 mg PO DAILY rosuvastatin 20 MG tablet 20 mg PO DAILY pantoprazole 40 mg tablet,delayed release (DR/EC) 40 mg PO DAILY Qty: 90 1RF sertraline 100 mg tablet 100 mg PO DAILY Qty: 90 3RF Primary Care Provider: Kristine Yee Referrals: Kristine Yee MD [[facility]] - 3-5 Days if not improving Disposition Disposition: Home, Self Care
--- NOTE | 2024-01-06 12:30 | EKG12_ITS ---
Test Reason : CP Blood Pressure : / mmHG Vent. Rate : 076 BPM Atrial Rate : 076 BPM P-R Int : 152 ms QRS Dur : 080 ms QT Int : 390 ms P-R-T Axes : 031 026 037 degrees QTc Int : 438 ms Normal sinus rhythm Normal ECG Confirmed by Rickey Hernandez ([id number]), slot editor SARA TEJEDA ([id number]) on 01/07/2024 9:39:19 AM Referred By: YADY Confirmed By:Rickey Hernandez
[2024-01-06] MEDS: Aspirin 81 MG TAB.CHEW 324 MG PO (12:41)
[2024-01-06 12:44] LABS: Absolute Lymphocyte Count 1.28 X10^3/uL (0.83-4.51); Absolute Neutrophil Count 3.7 X10^3/uL (2.0-7.7); Basophil# 0.05 X10^3/uL; Basophil% 0.9 % (0-1); Eosinophil# 0.09 X10^3/uL; Eosinophils% 1.6 % (0-5); Hematocrit 45.3 % (40-54); Hemoglobin 14.6 g/dL (13.0-16.5); Lymphocyte # 1.28 X10^3/ul (0.83-4.51); Lymphocyte % 23.1 % (19-41); Mean Corp Hgb Conc 32.2 g/dL (32-36); Mean Corpuscular Hgb 27.5 pg (27.0-32.0); Mean Corpuscular Volume 85.3 fL (80-94); Mean Platelet Vol. 9.6 fl (6.2-12.0); Monocyte# 0.44 X10^3/uL; Monocyte% 7.9 % (0-10); NRBC Flagged by Analyzer 0 % (0-5); Neutrophil # 3.65 X10^3/uL (2.7-7.7); Neutrophil % 65.8 % (47-70); Platelet Count 175 K/mm3 (150-450); RBC Distribution Width CV 13.7 % (11.6-14.6); RBC Distribution Width SD 42.5 fl (35.1-43.9); Red Blood Count 5.31 M/mm3 (4.6-6.2); White Blood Count 5.6 K/mm3 (4.4-11.0)
[2024-01-06 13:00] LABS: Anion Gap 6 (5-15); BUN 15 mg/dL (7-18); BUN/Creat Ratio 12.3 RATIO (10-20); Calcium,Total 9.1 mg/dL (8.5-10.1); Chloride 105 mmol/L (98-107); Creatinine, Serum 1.22 mg/dL (0.70-1.30); EST Glomerular Filtration Rate 64 mL/min (>60); Est Glom Filt Rate - Afr Amer 77 mL/min (>60); Estimated Creatinine Clearance 71.68 ml/min; Glucose 110 mg/dL (74-106); Potassium 4.2 mmol/L (3.5-5.1); Sodium Level 139 mmol/L (136-145); Troponin-I HS 5 pg/mL (3.0-78.0)
[2024-01-06 13:08] LABS: D-Dimer Quantitative (DVT/PE) < 0.27 FEU/ug/m (0.27-0.49)
--- NOTE | 2024-01-06 13:20 | RAD_ITS ---
INDICATION: chest pain EXAMINATION/TECHNIQUE: X-RAY - XR Chest 1 View COMPARISON: Prior study dated: 01/30/2021 FINDINGS: LINES/DEVICES: None. LUNGS: No consolidation, edema or effusion. No pneumothorax. MEDIASTINUM AND CARDIOVASCULAR STRUCTURES: Cardiac silhouette not enlarged. Central airways and mediastinal contour are unremarkable. BONES AND SOFT TISSUES: Unremarkable. RAD/Chest 1 View (Portable) IMPRESSION: No radiographic evidence of acute cardiopulmonary disease. Electronically Signed: Jj Bashir MD at 13:44 EST ,
--- OUTSIDE RECORDS SUMMARY | 2024-01-06 15:25 | XMS RPT_ITS | CCD ---
Author Name Unknown Address [address] [place] [address] Organization [facility] Care Team Providers Care Director Of Casino Marketing Name Role Phone CARYNLETICIAKEVIN Referring Unavailable MARII ARAUZ Primary Care Unavailable Encounters Encounter Date Encounter Type Care Provider Facility Start: 02-28-2021 ambulatory KEVIN UHNTER Facility: [facility] Payers Date Payer Category Payer Private Health Insurance [id number] 1960 Unknown [id number] Summary Purpose Family History No Family History Records Found Advance Directives No Advanced Directives Records Found Additional Source Comments (unrecognized sect ion and content) No Status Records Found INFORMATION SOURCE (unrecogn ized section and content) FOR RECORDS PERTAINING TO PATIENTS WHO ARE OR HAVE BEEN ENROLLED IN A CHEMICAL DEPENDENCY/SUBSTANCEABUSE PROGRAM, SOME INFORMATION MAY BE OMITTED. This clinical summary was aggregated from multiple sources. Caution should be exercised in using it in the provision of clinical care. This summary normalizes information from multiple sources, and as a consequence, information in this document may materially change the coding, format and clinical context of patient data. In addition, data may be omitted in some cases. CLINICAL DECISIONS SHOULD BE BASED ON THE PRIMARY CLINICAL RECORDS. [facility]. provides no warranty or guarantee of the accuracy or completeness of information in this document.
== END 2024-01-06 15:06 | disposition home or self-care (01) ==
PROVIDERS: Emergency Provider Emergency Medicine; PCP Internal Medicine; Visit Provider Emergency Medicine
DX: R07.9 Chest pain, unspecified (principal); I10 Essential (primary) hypertension; E78.5 Hyperlipidemia, unspecified; G47.33 Obstructive sleep apnea (adult) (pediatric); Z79.899 Other long term (current) drug therapy
CPT/HCPCS: 71045; 80048; 84484; 85025; 85379; 93005; 99284; A4216

== ENCOUNTER → 2024-07-26 | Outpatient (CLI) | payer OTHER, SELFPAY ==
[2024-07-26 17:04] LABS: Absolute Lymphocyte Count 1.17 X10^3/uL (0.83-4.51); Absolute Neutrophil Count 5.3 X10^3/uL (2.0-7.7); Basophil# 0.05 X10^3/uL; Basophil% 0.7 % (0-1); Eosinophil# 0.09 X10^3/uL; Eosinophils% 1.3 % (0-5); Hematocrit 47.2 % (40-54); Hemoglobin 15.1 g/dL (13.0-16.5); Lymphocyte # 1.17 X10^3/ul (0.83-4.51); Lymphocyte % 16.4 % (19-41); Mean Corpuscular Hgb 27.9 pg (27.0-32.0); Mean Corpuscular Volume 87.2 fL (80-94); Mean Platelet Vol. 10.2 fl (6.2-12.0); Monocyte# 0.51 X10^3/uL; Monocyte% 7.1 % (0-10); NRBC Flagged by Analyzer 0 % (0-5); Neutrophil # 5.29 X10^3/uL (2.7-7.7); Neutrophil % 74.1 % (47-70); Platelet Count 189 K/mm3 (150-450); RBC Distribution Width CV 13.3 % (11.6-14.6); RBC Distribution Width SD 42.8 fl (35.1-43.9); Red Blood Count 5.41 M/mm3 (4.6-6.2); White Blood Count 7.1 K/mm3 (4.4-11.0)
[2024-07-26 17:22] LABS: Hemoglobin A1c 5.8 % (3.8-5.6)
[2024-07-26 17:24] LABS: ALB/GLOB Ratio 1.1 RATIO (0.9-2.4); AST(SGOT) 21 U/L (15-37); Alanine Aminotransfer ALT/SGPT 32 U/L (16-61); Alkaline Phosphatase 41 U/L (45-117); Anion Gap 6 (5-15); BUN 19 mg/dL (7-18); BUN/Creat Ratio 15.8 RATIO (10-20); Calcium,Total 9.6 mg/dL (8.5-10.1); Chloride 104 mmol/L (98-107); Cholesterol 154 mg/dL (200); EST Glomerular Filtration Rate 65 mL/min (>60); Est Glom Filt Rate - Afr Amer 78 mL/min (>60); Globulin 3.7 g/dL (2.2-4.2); Glucose 119 mg/dL (74-106); High Density Lipoprotein 32 mg/dL; PSA,Total - Annual Screen 2.83 ng/mL (0.00-4.00); Potassium 3.7 mmol/L (3.5-5.1); Protein, Total 7.7 g/dL (6.4-8.2); Sodium Level 138 mmol/L (136-145); Triglycerides 316 mg/dL; Very Low Density Lipoprotein 63 mg/dL (5-40)
[2024-07-26 17:40] LABS: Vitamin D,25 Hydroxy 23.6 ng/mL
== END | disposition home or self-care (01) ==
PROVIDERS: PCP Internal Medicine; Referring Provider Internal Medicine; Visit Provider Internal Medicine
DX: Z13.220 Encounter for screening for lipoid disorders (principal); E11.9 Type 2 diabetes mellitus without complications; Z12.5 Encounter for screening for malignant neoplasm of prostate; I10 Essential (primary) hypertension; E78.5 Hyperlipidemia, unspecified; E78.6 Lipoprotein deficiency; E55.9 Vitamin D deficiency, unspecified; F32.9 Major depressive disorder, single episode, unspecified
CPT/HCPCS: 36415; 80053; 80061; 82306; 83036; 84153; 84443; 85025; G0103

== ENCOUNTER → 2024-09-22 | Outpatient (CLI) | payer OTHER, SELFPAY ==
--- NOTE | 2024-09-22 10:12 | RAD_ITS ---
STUDY: X-RAY - RIGHT SHOULDER REASON FOR EXAM: Male, 64 years old. shoulder strain TECHNIQUE: 4 view(s) of the shoulder. COMPARISON: None. FINDINGS: Normal glenohumeral articulation. Normal acromioclavicular joint. Normal acromion. Normal humeral head and visualized proximal humerus. The soft tissue structures are unremarkable. Normal visualized pulmonary apex. RAD/Shoulder min 2 Views IMPRESSION: Normal x-ray examination of the shoulder. Electronically Signed: Reji Curtis MD at 10:35 EST ,
== END | disposition home or self-care (01) ==
PROVIDERS: PCP Internal Medicine; Referring Provider Physician Assistant; Visit Provider Physician Assistant
DX: S46.911A Strain of unspecified muscle, fascia and tendon at shoulder and upper arm level, right arm, initial encounter (principal); X58.XXXA Exposure to other specified factors, initial encounter
CPT/HCPCS: 73030

== ENCOUNTER → 2024-10-12 | Outpatient (CLI) | payer OTHER, SELFPAY ==
[2024-10-12 17:39] LABS: ALB/GLOB Ratio 1.2 RATIO (0.9-2.4); AST(SGOT) 21 U/L (15-37); Alanine Aminotransfer ALT/SGPT 31 U/L (16-61); Alkaline Phosphatase 39 U/L (45-117); Anion Gap 5 (5-15); BUN 14 mg/dL (7-18); BUN/Creat Ratio 13.7 RATIO (10-20); Calcium,Total 9.4 mg/dL (8.5-10.1); Chloride 107 mmol/L (98-107); Cholesterol 153 mg/dL (200); Creatinine, Serum 1.02 mg/dL (0.70-1.30); EST Glomerular Filtration Rate 78 mL/min (>60); Est Glom Filt Rate - Afr Amer 95 mL/min (>60); Globulin 3.3 g/dL (2.2-4.2); Glucose 91 mg/dL (74-106); High Density Lipoprotein 38 mg/dL; Potassium 3.7 mmol/L (3.5-5.1); Protein, Total 7.3 g/dL (6.4-8.2); Sodium Level 138 mmol/L (136-145); Triglycerides 200 mg/dL; Very Low Density Lipoprotein 40 mg/dL (5-40)
[2024-10-12 18:18] LABS: Hemoglobin A1c 5.9 % (3.8-5.6)
== END | disposition home or self-care (01) ==
PROVIDERS: PCP Internal Medicine; Referring Provider Internal Medicine; Visit Provider Internal Medicine
DX: I10 Essential (primary) hypertension (principal); E11.65 Type 2 diabetes mellitus with hyperglycemia; E78.5 Hyperlipidemia, unspecified; Z13.220 Encounter for screening for lipoid disorders
CPT/HCPCS: 36415; 80053; 80061; 83036

== ENCOUNTER → 2024-11-17 | Outpatient (CLI) | payer OTHER, SELFPAY ==
[2024-11-17 11:08] LABS: Absolute Lymphocyte Count 0.88 X10^3/uL (0.83-4.51); Absolute Neutrophil Count 3.1 X10^3/uL (2.0-7.7); Basophil# 0.06 X10^3/uL; Basophil% 1.3 % (0-1); Eosinophil# 0.07 X10^3/uL; Eosinophils% 1.6 % (0-5); Hematocrit 44.7 % (40-54); Hemoglobin 14.9 g/dL (13.0-16.5); Lymphocyte # 0.88 X10^3/ul (0.83-4.51); Lymphocyte % 19.6 % (19-41); Mean Corp Hgb Conc 33.3 g/dL (32-36); Mean Corpuscular Hgb 28.8 pg (27.0-32.0); Mean Corpuscular Volume 86.3 fL (80-94); Mean Platelet Vol. 9.7 fl (6.2-12.0); Monocyte# 0.38 X10^3/uL; Monocyte% 8.4 % (0-10); NRBC Flagged by Analyzer 0 % (0-5); Neutrophil # 3.09 X10^3/uL (2.7-7.7); Neutrophil % 68.7 % (47-70); Platelet Count 206 K/mm3 (150-450); RBC Distribution Width CV 13.2 % (11.6-14.6); Red Blood Count 5.18 M/mm3 (4.6-6.2); White Blood Count 4.5 K/mm3 (4.4-11.0)
[2024-11-17 11:49] LABS: ALB/GLOB Ratio 1.1 RATIO (0.9-2.4); AST(SGOT) 20 U/L (15-37); Alanine Aminotransfer ALT/SGPT 39 U/L (16-61); Albumin, Serum 3.9 g/dL (3.2-5.0); Alkaline Phosphatase 48 U/L (45-117); Anion Gap 6 (5-15); BUN 13 mg/dL (7-18); BUN/Creat Ratio 10.6 RATIO (10-20); Calcium,Total 9.6 mg/dL (8.5-10.1); Chloride 107 mmol/L (98-107); Creatinine, Serum 1.23 mg/dL (0.70-1.30); EST Glomerular Filtration Rate 63 mL/min (>60); Est Glom Filt Rate - Afr Amer 76 mL/min (>60); Globulin 3.7 g/dL (2.2-4.2); Glucose 115 mg/dL (74-106); Lipase 68 U/L (13-75); Potassium 4.4 mmol/L (3.5-5.1); Protein, Total 7.6 g/dL (6.4-8.2); Sodium Level 140 mmol/L (136-145)
== END | disposition home or self-care (01) ==
LOC: LAB 10:35
PROVIDERS: PCP Internal Medicine; Referring Provider Internal Medicine; Visit Provider Internal Medicine
DX: R10.9 Unspecified abdominal pain (principal); R19.5 Other fecal abnormalities
CPT/HCPCS: 36415; 80053; 82274; 83690; 85025

== ENCOUNTER 2025-04-12 08:08 | Outpatient (CLI) | payer OTHER, SELFPAY ==
[2025-04-12 12:26] LABS: Absolute Lymphocyte Count 0.93 X10^3/uL (0.83-4.51); Absolute Neutrophil Count 2.5 X10^3/uL (2.0-7.7); Basophil# 0.05 X10^3/uL; Basophil% 1.3 % (0-1); Eosinophils% 2.5 % (0-5); Hematocrit 47.6 % (40-54); Hemoglobin 15.4 g/dL (13.0-16.5); Lymphocyte # 0.93 X10^3/ul (0.83-4.51); Lymphocyte % 23.7 % (19-41); Mean Corp Hgb Conc 32.4 g/dL (32-36); Mean Corpuscular Hgb 28.2 pg (27.0-32.0); Mean Platelet Vol. 10.3 fl (6.2-12.0); Monocyte# 0.33 X10^3/uL; Monocyte% 8.4 % (0-10); NRBC Flagged by Analyzer 0 % (0-5); Neutrophil # 2.51 X10^3/uL (2.7-7.7); Neutrophil % 63.8 % (47-70); Platelet Count 183 K/mm3 (150-450); RBC Distribution Width CV 13.6 % (11.6-14.6); RBC Distribution Width SD 43.3 fl (35.1-43.9); Red Blood Count 5.47 M/mm3 (4.6-6.2); White Blood Count 3.9 K/mm3 (4.4-11.0)
[2025-04-12 12:58] LABS: ALB/GLOB Ratio 1.6 RATIO (0.9-2.4); AST(SGOT) 29 U/L (<=37); Alanine Aminotransfer ALT/SGPT 29 U/L (<=46); Albumin, Serum 4.6 g/dL (3.4-4.8); Alkaline Phosphatase 47 U/L (40-129); Anion Gap 13 (5-15); BUN 19 mg/dL (4-19); BUN/Creat Ratio 17.8 RATIO (10-20); Calcium,Total 10.1 mg/dL (7.6-11.0); Carbon Dioxide 23.3 mmol/L (21.0-32.0); Chloride 101 mmol/L (98-108); Cholesterol 153 mg/dL (<=200); Creatinine, Serum 1.06 mg/dL (0.70-1.20); EST Glomerular Filtration Rate 78 (>60); Globulin 2.9 g/dL (2.2-4.2); Glucose 116 mg/dL (70-99); High Density Lipoprotein 40 mg/dL; Low Density Lipoprotein Calc. 86 mg/dL; Potassium 4.3 mmol/L (3.3-5.1); Protein, Total 7.5 g/dL (5.9-8.4); Sodium Level 137 mmol/L (133-145); Total Bilirubin 0.46 mg/dL (0.00-1.30); Triglycerides 134 mg/dL; Very Low Density Lipoprotein 27 mg/dL (5-40); Vitamin D,25 Hydroxy 28.4 ng/mL (30-100); cholesterol:hdl ratio screen 3.82
== END 2025-04-12 23:59 | disposition home or self-care (01) ==
LOC: BIMLAB 08:09
PROVIDERS: PCP Internal Medicine; Referring Provider Internal Medicine; Visit Provider Internal Medicine
DX: E11.65 Type 2 diabetes mellitus with hyperglycemia (principal); I10 Essential (primary) hypertension; E78.6 Lipoprotein deficiency; E78.5 Hyperlipidemia, unspecified; F32.9 Major depressive disorder, single episode, unspecified; Z13.220 Encounter for screening for lipoid disorders; E55.9 Vitamin D deficiency, unspecified
CPT/HCPCS: 80053; 80061; 82306; 83036; 84443; 85025

== ENCOUNTER 2025-07-19 08:11 | Day surgery (SDC) | payer MEDICARE, SELFPAY ==
[2025-07-19] VITALS (7 sets, daily range): BP systolic 104–128; BP diastolic 69–85; PULSE 67–78; RESP 16; TEMP 36.5–36.7; O2SAT 94–98; BMI 32.4
--- NOTE | 2025-07-19 08:23 | PCM.HP.BLA ---
History and Physical Date of Admission: 07/19/25 Intake Vital Signs 05/09/2510:01 06/14/2510:12 Height 5 ft 8 in 5 ft 8 in Weight: 224 lb 222 lb BMI 34.0 33.7 BP 115/73 111/67 Blood Pressure Location Lt brachial Rt brachial Position Sitting Sitting Respiration 16 18 Pulse 75 63 Pulse Source Monitor Monitor Temp 98.7 F 98.2 F Temp Source Temporal Temporal Pulse Oximetry (%) 94 95 Oxygen Delivery Method room air room air Intake Visit Reasons: UPDATE H&P - HERNIA Chief Complaint: update H&P- hernia Is patient in pain?: No Allergies Penicillins (PCN) Allergy (Verified 06/14/25 10:12) Hives Medications ?Medication ?Instructions ?Recorded ?Confirmed ?Type rosuvastatin 20 mg tablet 20 mg PO DAILY cholesterol #90 tabs 08/23/24 06/14/25 Rx lisinopril 20 mg tablet 20 mg PO DAILY blood pressure #90 10/13/24 06/14/25 Rx tabs sertraline 100 mg tablet 100 mg PO DAILY mental health #90 10/13/24 06/14/25 Rx tabs pantoprazole 40 mg tablet,delayed 40 mg PO DAILY gerd 04/13/25 06/14/25 History release cyclobenzaprine 10 mg tablet 10 mg PO TID PRN muscle spasm #20 05/09/25 06/14/25 Rx tabs lidocaine 5 % topical patch 1 patch topical QDAY #15 ea 05/09/25 06/14/25 Rx PFSH Medical History Lumbar back pain Obstructive sleep apnea Postprandial epigastric pain Dark stools Abdominal pain Umbilical hernia Strain of right rotator cuff capsule Right shoulder strain Hyperlipidemia Hypertension Migraines Cataracts, bilateral Physical exam, pre-employment Social History adopted: No household members: spouse housing: house number of children: 2 current occupational status: unemployed 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 current occupational exposures/hazards: No pets and animals: Yes pets and animals: dog(s) leisure activities: other history of recent travel: Yes ([place] 2weeks ago) out of state: Yes sexually active: No Smoking Status: Never smoker alcohol intake: former details: havent for 6 months substance use type: other details: marijuana gummies well-balanced diet: daily or most days caffeine: No eating out: 1-3 times/week during the past year weight has: remained stable what type of physical activity do you participate in: walking frequency: 3-4 times per week seatbelt use: always do you feel safe at home: Yes HPI HPI HPI: Patient is a 64-year-old male who is here for several issues. The patient has been having epigastric pain despite being on the pantoprazole. He is also due for screening colonoscopy as his last colonoscopy was 10 years ago. The patient is also complaining of umbilical hernia that he would like repaired. ROS General General: Yes weight change and fatigue; No appetite, colon cancer, breast cancer or weakness HEENT HEENT: No difficulty swallowing, eye injury, eye surgery, swollen glands or hoarseness Endo Endocrine: No thyroid disease, diabetes mellitus, thyroid cancer, Hair loss, heat intolerance or cold intolerance Skin Skin: No rash or changing moles Musc Musculoskeletal: Yes back problems; No arthritis, rheumatoid arthritis, gout or joint pain Cardio Cardiovascular: Yes high blood pressure; No murmur, pacemaker, heart disease, atrial fibrillation, heart attack, heart stent, palpitations, shortness of breath with exertion or chest pain Psych Psychiatric: No depression, anxiety or hearing voices Resp Respiratory: No shortness of breath, Yes sleep apnea, No cough, No COPD, No asthma, No emphysema and No wheezing Gastro Gastrointestinal: Yes abdominal pain, Yes nausea or vomiting, Yes diarrhea, No constipation, No blood in stool, Yes acid reflux, No hemorrhoids, Yes ulcers, No gallbladder problem and Yes black,tarry stools Additional Details: Patient said he did take pepto couple days Jaime Hematologic: No blood thinners, No blood disorders, No bleeding, No anemia and No blood clots Neuro Neurologic: No system reviewed and no additional complaints, except as documented, No as per HPI, No abnormal gait, No abnormal hearing, No abnormal movements, No abnormal speech, No behavioral changes, No burning sensations, No confusion, No convulsions, No disequilibrium, No dizziness, No localized weakness, No frequent falls, No headache(s), No lack of coordination, No loss of vision, No memory loss, No numbness, No other visual disturbances, No radicular pain, No restless legs, No sensory deficit, No syncope, No tingling, No tremor(s), No weakness and No other Exam Const General: cooperative Orientation: alert and oriented x3 HENMT Head: normal to inspection Neck Neck: normal visual inspection and full ROM Chest Chest palpation & inspection: normal inspection of the chest Resp Effort & Inspection: normal respiratory effort Auscultation: clear to auscultation bilaterally Cardio Rate: regular rate Rhythm: regular rhythm GI Inspection: non-distended Palpation: soft, hernia umbilical and nontender Skin General: no rashes or lesions noted Neuro General: patient alert and patient oriented x3 Extrem General: full ROM Psych Appearance: grossly normal Mental Status: mental status grossly normal Assessment and Plan Assessment and Plan (1) Umbilical hernia: Status: Acute Qualifiers: Obstruction and gangrene presence: without obstruction or gangrene Qualified Code(s): K42.9 - Umbilical hernia without obstruction or gangrene Plan: Patient has a small umbilical hernia. I discussed repairing it. I also discussed possibility of mesh if the defect is over a centimeter. I discussed the risks of the procedure such as bleeding, infection, injury to underlying organs. (2) Abdominal pain: Status: Acute Qualifiers: Abdominal location: epigastric Qualified Code(s): R10.13 - Epigastric pain Plan: Patient has been having epigastric pain. He has longstanding GERD and I would recommend EGD for evaluation. (3) Screen for colon cancer: Status: Acute Plan: Patient is due for screening colonoscopy. His last colonoscopy was 10 years ago. I explained endoscopy in detail to the patient. I explained the risks including but not limited to stroke or heart attack with anesthesia, perforation of the GI tract, bleeding, infection. I explained that any of these could necessitate further emergency surgery. The patient understands and all questions were answered sufficiently. The patient wishes to proceed with procedure. Eric Chang MD Pager: [facility] [address] [place] [address], [address] [place] [address] Office: I have examined the patient and the H&P has been reviewed. There are no clinical changes since date of exam.
[2025-07-19] MEDS: Lactated Ringers 1,000 ML 15 ML IV (08:50)
--- NOTE | 2025-07-19 09:00 | PCM.PRE.AN2 ---
ASA Classification* ASA Classification ASA Classification: 3 Assessment & Plan Anesthesia* Anesthesia Assessment Anesthesia Assessment: Discussed sedation and/or anesthesia options, risks, benefits, and alternatives with patient/parents/legal guardian/POA. Questions invited. The patient/parents/legal guardian/POA seems to understand and agrees to proceed with anesthesia plan. Reviewed the physical assessment, medical history, allergy history and patient home medications list prior to surgery/procedure/anesthetic and documented any changes. Performed airway and anesthesia risk assessments. Anesthesia Type Anesthesia Type: MAC History Source History Obtained from:: Patient and Chart Anesthesia Focused Assessment* Temperature: 98.1 F Pulse Rate: 78 Blood Pressure: 128/85 Respiratory Rate: 16 Pulse Ox: 94 Oxygen Delivery Method: Room Air Airway Assessment Mouth opens: >3 cm Mallampati Score: II Teeth Condition: Intact Neck Range of motion (ROM): Full ROM Labs Anesthesia Preop lab: CBC WBC 3.9 K/mm3 (4.4-11.0) L 04/12/25 08:10 04/12/25 RBC 5.47 M/mm3 (4.6-6.2) 04/12/25 08:10 04/12/25 Hgb 15.4 g/dL (13.0-16.5) 04/12/25 08:10 04/12/25 Hct 47.6 % (40-54) 04/12/25 08:10 04/12/25 Plt Count 183 K/mm3 (150-450) 04/12/25 08:10 04/12/25 CHEMISTRY Potassium 4.3 mmol/L (3.3-5.1) 04/12/25 08:10 04/12/25 Sodium 137 mmol/L (133-145) 04/12/25 08:10 04/12/25 BUN 19 mg/dL (4-19) 04/12/25 08:10 04/12/25 Creatinine 1.06 mg/dL (0.70-1.20) 04/12/25 08:10 04/12/25 Glucose 116 mg/dL (70-99) H 04/12/25 08:10 04/12/25 POC Glucose 114 mg/dL (70-110) H 02/01/21 09:46 02/01/21 TSH 2.600 uIU/mL (0.300-4.200) 04/12/25 08:10 04/12/25 COAG PT 13.8 SECONDS (11.7-14.9) 01/30/21 11:13 01/30/21 Pre-Assessment Diagnosis/Proposed Procedure Planned Operative Procedure(s): EGD, CSCOPE Anesthesia History Anesthesia History - womens health nurse practitioner: Anesthesia History - womens health nurse practitioner Hx Hospitalization No 07/14/25 10:40 Any Problems With Anesthesia No 07/14/25 10:40 Cholinesterase deficiency No 07/14/25 10:40 You/Your Family Experience No 07/14/25 10:40 fever (hyperthermia) with Relationship Recent Exposure to Contagious No 07/19/25 08:39 Disease Does patient have nerve No 07/14/25 10:40 stimulator Patient instructed to have device shut off --Does patient have Pacemaker No 07/19/25 08:39 or ICD? When Was Last Pacemaker Check QUESTION #4 FULL TEXT: You/Your Family Experience fever (hyperthermia) with Anesthesia Last Oral Intake Last Oral intake: Last Oral Intake NPO since 05:30 07/19/25 08:39 Meds taken in AM with sips of No 07/19/25 08:39 water? Meds patient instructed to take am of surgery PONV PONV - womens health nurse practitioner: PONV - womens health nurse practitioner Female No 07/14/25 10:40 HX of Motion Sickness No 07/14/25 10:40 HX of N/V After Surgery No 07/14/25 10:40 Non-Smoker Yes 07/14/25 10:40 Duration of Surgery greater No 07/14/25 10:40 than 60 minutes Number of Risk Factors 1 07/14/25 10:40 PONV Score Low Risk 07/14/25 10:40 Height & Weight Height & Weight: Anesthesia: Height & Weight Height 5 ft 8 in 07/19/25 08:39 Weight: 96.9 kg 07/19/25 08:39 Body Mass Index (BMI) 32.4 07/19/25 08:39 Respiratory Assessment Respiratory Assessment - womens health nurse practitioner: Respiratory Tract Infection Hx - womens health nurse practitioner Hx Respiratory Tract Infection No 07/14/25 10:40 STOP Sleep Apnea STOP Sleep Apnea - womens health nurse practitioner: STOP Sleep Apnea - womens health nurse practitioner Hx Hypertension Yes: CONTROLLED WITH MED 07/14/25 10:40 Hx Sleep Apnea Yes 07/14/25 10:40 CPAP Yes 07/14/25 10:40 BIPAP No 07/14/25 10:40 Do you snore loudly (louder than talking or can be heard Do you often feel tired/ fatigued/ sleepy during daytime? Has anyone observed you stop breathing during sleep? STOP Results Positive 07/14/25 10:40 QUESTION #5 FULL TEXT : Do you snore loudly (louder than talking or can be heard through closed doors)? Tobacco Use History Tobacco Use History - womens health nurse practitioner: Tobacco Use History - womens health nurse practitioner Tobacco Use Smoking Status Never smoker 07/14/25 10:40 Hx Tobacco Use No 07/14/25 10:40 Years Smoking Packs Smoked per Day Smoking Cessation Date was within the last 15 years Hx Smoking Cessation Date Hx Smoking Cessation No 07/14/25 10:40 Counseling Any additional information?: Yes Hematologic Medial History Hematologic Hx - womens health nurse practitioner: Hematologic Medical Hx - reprographics associate Hx of Blood Transfusion No 07/14/25 10:40 Hx of Transfusion in last 3 No 07/14/25 10:40 Months Date of Last Transfusion (if within last 3 months) Ever experience any problems No 07/14/25 10:40 with transfusion(s)? Specify any problems Hx of Preganancy in last 3 N/A 07/14/25 10:40 Months Nurse Filling Out Transfusion NBUCHER 07/14/25 10:40 & Questions: Date: 07/14/25 07/14/25 10:40 Time: 10:40 07/14/25 10:40 Patient unable to answer at this time (ie. confused, unrespo /Reproduction History /Reproductive History - womens health nurse practitioner: /Reproductive Hx- womens health nurse practitioner Hx Now No 07/14/25 10:40 Gestational Age (in weeks): EDC: Hx Hx Para Hx Section SAB Active Medications Active Medications: Current Medications Generic Name Dose Route Start Last Admin Trade Name Freq PRN Reason Stop Dose Admin Lactated Ringer's 1,000 mls @ 15 mls/hr 07/19/25 08:30 07/19/25 08:50 IV 15 mls/hr .Q48H BRENDA Administration PFSH Medical History Wears glasses Anxiety Marijuana use High cholesterol GERD (gastroesophageal reflux disease) Non-smoker CPAP (continuous positive airway pressure) dependence Sleep apnea History of stress test Lumbar back pain Postprandial epigastric pain Dark stools Abdominal pain Umbilical hernia Strain of right rotator cuff capsule Right shoulder strain Migraines Cataracts, bilateral Physical exam, pre-employment Obstructive sleep apnea Hyperlipidemia Hypertension Home Medications ?Medication ?Instructions ?Recorded ?Last Taken ?Type lisinopril 20 mg tablet 20 mg PO DAILY blood pressure #90 06/29/25 Unknown Rx tabs pantoprazole 40 mg tablet,delayed 40 mg PO DAILY gerd #90 tabs 06/29/25 Unknown Rx release rosuvastatin 20 mg tablet 20 mg PO DAILY cholesterol #90 tabs 06/29/25 Unknown Rx sertraline 100 mg tablet 100 mg PO DAILY mental health #90 06/29/25 Unknown Rx tabs MARIJUANA GUMMY 20 mg PO QHS 07/14/25 07/15/25 History Allergy/AdvReac Type Severity Reaction Status Date / Time Penicillins (PCN) Allergy Hives Verified 07/19/25 08:38 Surgical History History of cystoscopy History of colonoscopy Social History adopted: No household members: spouse housing: house number of children: 2 current occupational status: unemployed 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 current occupational exposures/hazards: No pets and animals: Yes pets and animals: dog(s) leisure activities: other history of recent travel: Yes ([place] 2weeks ago) out of state: Yes sexually active: No Smoking Status: Never smoker alcohol intake: former details: havent for 6 months substance use type: other details: marijuana gummies well-balanced diet: daily or most days caffeine: No eating out: 1-3 times/week during the past year weight has: remained stable what type of physical activity do you participate in: walking frequency: 3-4 times per week seatbelt use: always do you feel safe at home: Yes Review of Systems (Anesthesia) ROS Narrative System reviewed and no additional complaints, except as documented.
--- NOTE | 2025-07-19 09:15 | COLBX_PTH ---
PATIENT: ORALIA REYES II LOC: EN U#:[id number] AGE/SX: 65/M ROOM: RE07/19/[address]: Dr. Eric Chang MD : 1960 BED: DIS: 07/19/2025 SPEC #: [id number] RECD: 07/19/25 10:03 STATUS: GREG ROSALIAMichael #: [id number] KURT: 07/19/25 09:[address]: Eric Chang DEPT: SURGICAL PATHOLOGY RECD BY: Liam Hernandez ENTERED: 07/19/25 14:14 SP TYPE: COLON BX OTHR DR: Dr. Kristine Yee MD Tissues: A - Gastric mucous membrane Procedures: Immunohistochemical Stains Surgery Specimen Level IV HEADER OPERATION: Colonoscopy, EGD with biopsy PRE-OP DIAGNOSIS: Umbilical hernia, abdominal pain, screen for colon cancer TISSUE SUBMITTED: A- Antrum biopsy MICROSCOPIC DIAGNOSIS A. Stomach, antrum, biopsy: - Features of reactive gastropathy. - IHC negative for H. pylori organisms. MICROSCOPIC DESCRIPTION Slides are reviewed. Slides are reviewed. All matched controls reacted appropriately. These tests were developed and their performance characteristics determined by [facility]. They may not have been cleared or approved by the U.[place]. Food and Drug Administration. The FDA has determined that such clearance or approval is not necessary. The above immunohistochemical markers and/or special stains have been reviewed by the Pathologist. GROSS DESCRIPTION A. Received in fixative is one container labeled with the patient's name and designated Antrum biopsy. The specimen consists of two irregular fragments of light vela soft tissue that measure 0.5 and 0.7 cm. The specimen is totally submitted in one cassette. [place] 07/19/2025 CPT:69124,73903
--- NOTE | 2025-07-19 09:38 | OP.EGD_ITS ---
Patient Name: Fernando Franco Procedure Date: 07/19/2025 9:07 AM Date of : 1960 Age: 65 Procedure: Upper GI endoscopy Indications: Epigastric abdominal pain Providers: Eric Chang MD Referring MD: Kristine Yee Medicines: Propofol per Anesthesia Patient Profile: This is a 65 year old male. Refer to note in patient chart for documentation of history and physical. Complications: No immediate complications. Estimated blood loss: Minimal. Procedure: Pre-Anesthesia Assessment: - Prior to the procedure, a History and Physical was performed, and patient medications and allergies were reviewed. The patient's tolerance of previous anesthesia was also reviewed. The risks and benefits of the procedure and the sedation options and risks were discussed with the patient. All questions were answered, and informed consent was obtained. Prior Anticoagulants: The patient has taken no anticoagulant or antiplatelet agents. After reviewing the risks and benefits, the patient was deemed in satisfactory condition to undergo the procedure. After obtaining informed consent, the endoscope was passed under direct vision. Throughout the procedure, the patient's blood pressure, pulse, and oxygen saturations were monitored continuously. The Colonoscope was introduced through the mouth, and advanced to the third part of duodenum. The upper GI endoscopy was accomplished without difficulty. The patient tolerated the procedure well. Scope In: 9:17:20 AM Scope Out: 9:20:37 AM Total Procedure Duration Time 0 hours 3 minutes 17 seconds Findings: The esophagus was normal. The stomach was normal. The examined duodenum was normal. Biopsies were taken with a cold forceps in the gastric antrum for Helicobacter pylori testing. Impression: - Normal esophagus. - Normal stomach. - Normal examined duodenum. - Biopsies were taken with a cold forceps for Helicobacter pylori testing. Recommendation: - Discharge patient to home. - Resume previous diet. - Continue present medications. Procedure Code(s): --- Professional --- 10805, Esophagogastroduodenoscopy, flexible, transoral; with biopsy, single or multiple Diagnosis Code(s): --- Professional --- R10.13, Epigastric pain CPT copyright 2021 [employer]. All rights reserved. The codes documented in this report are preliminary and upon last marker review may be revised to meet current compliance requirements. Eric Chang MD 07/19/2025 9:38:04 AM This report has been signed electronically. Number of Addenda: 0 Note Initiated On: 07/19/2025 9:07 AM
--- NOTE | 2025-07-19 09:39 | OP.PROVAT_ITS ---
07/19/2025 Kristine Yee [facility] [address] [place] [address] Re : Upper GI endoscopy procedure for Fernando Franco Dear Dr. Yee This procedure was performed on Saturday, July 19, 2025. My impressions and recommendations are as follows: Impressions : - Normal esophagus. - Normal stomach. - Normal examined duodenum. - Biopsies were taken with a cold forceps for Helicobacter pylori testing. Recommendations : - Discharge patient to home. - Resume previous diet. - Continue present medications. My findings are described in the full procedure note, which is enclosed. If I can be of further assistance, please feel free to contact me at Doctor phone number(s): , Work: . Sincerely, Eric Chang MD 07/19/2025 9:38:04 AM This report has been signed electronically.
--- NOTE | 2025-07-19 09:39 | OP.COLON_ITS ---
Patient Name: Fernando Franco Procedure Date: 07/19/2025 9:20 AM Date of : 1960 Age: 65 Procedure: Colonoscopy Indications: Screening for colorectal malignant neoplasm Providers: Eric Chang MD Referring MD: Kristine Yee Medicines: Propofol per Anesthesia Patient Profile: This is a 65 year old male. Refer to note in patient chart for documentation of history and physical. Last Colonoscopy: 10 years ago. Complications: No immediate complications. Procedure: Pre-Anesthesia Assessment: - Prior to the procedure, a History and Physical was performed, and patient medications and allergies were reviewed. The patient's tolerance of previous anesthesia was also reviewed. The risks and benefits of the procedure and the sedation options and risks were discussed with the patient. All questions were answered, and informed consent was obtained. Prior Anticoagulants: The patient has taken no anticoagulant or antiplatelet agents. After reviewing the risks and benefits, the patient was deemed in satisfactory condition to undergo the procedure. - Prior to the procedure, a History and Physical was performed, and patient medications and allergies were reviewed. The patient's tolerance of previous anesthesia was also reviewed. The risks and benefits of the procedure and the sedation options and risks were discussed with the patient. All questions were answered, and informed consent was obtained. Prior Anticoagulants: The patient has taken no anticoagulant or antiplatelet agents. ASA Grade Assessment: I - A normal, healthy patient. After reviewing the risks and benefits, the patient was deemed in satisfactory condition to undergo the procedure. After I obtained informed consent, the scope was passed under direct vision. Throughout the procedure, the patient's blood pressure, pulse, and oxygen saturations were monitored continuously. The Colonoscope was introduced through the anus and advanced to the cecum, identified by appendiceal orifice and ileocecal valve. The colonoscopy was performed without difficulty. The patient tolerated the procedure well. The quality of the bowel preparation was good. The ileocecal valve, appendiceal orifice, and rectum were photographed. Scope In: 9:21:46 AM Scope Withdrawal Time 0 hours 6 minutes 21 seconds Scope Out: 9:35:25 AM Total Procedure Duration Time 0 hours 13 minutes 39 seconds Findings: The entire examined colon appeared normal on direct and retroflexion views. Impression: - The entire examined colon is normal on direct and retroflexion views. - No specimens collected. Recommendation: - Discharge patient to home. - Resume previous diet. - Continue present medications. - Repeat colonoscopy in 10 years for surveillance. Procedure Code(s): --- Professional --- 32896, Colonoscopy, flexible; diagnostic, including collection of specimen(s) by brushing or washing, when performed (separate procedure) Diagnosis Code(s): --- Professional --- Z12.11, Encounter for screening for malignant neoplasm of colon CPT copyright 2021 [employer]. All rights reserved. The codes documented in this report are preliminary and upon financial service representative review may be revised to meet current compliance requirements. Eric Chang MD 07/19/2025 9:39:16 AM This report has been signed electronically. Number of Addenda: 0 Note Initiated On: 07/19/2025 9:20 AM
--- NOTE | 2025-07-19 09:40 | OP.PROVAT_ITS ---
07/19/2025 Kristine Yee [facility] [address] [place] [address] Re : Colonoscopy procedure for Fernando Franco Dear Dr. Yee This procedure was performed on Saturday, July 19, 2025. My impressions and recommendations are as follows: Impressions : - The entire examined colon is normal on direct and retroflexion views. - No specimens collected. Recommendations : - Discharge patient to home. - Resume previous diet. - Continue present medications. - Repeat colonoscopy in 10 years for surveillance. My findings are described in the full procedure note, which is enclosed. If I can be of further assistance, please feel free to contact me at Doctor phone number(s): , Work: . Sincerely, Eric Chang MD 07/19/2025 9:39:16 AM This report has been signed electronically.
--- NOTE | 2025-07-19 09:44 | PCM.POST.ANE ---
Anesthesia: Postop Eval I Current Vital Signs Temperature: 97.7 F Pulse Rate: 74 Blood Pressure: 105/69 Respiratory Rate: 16 Pulse Ox: 98 Oxygen Delivery Method: Room Air Assessment Airway patent: Yes Spontaneous unlabored respirations: Yes Mental status: Awake and Calm nausea: No Vomiting: No Anesthesia Complication: No Fluid Hydration Crystalloid volume administer (ml): 400 Total IV fluid infused: 400 Progress Note Anesthesia document: Postop Eval 1 completed: Yes
--- NOTE | 2025-07-19 15:10 | PCM.POSTANE2 ---
Anesthesia Postop Eval I Sum Postop Eval Completion status Anesthesia document: Postop Eval 1 completed: Yes Anesthesia Postop Eval I Summary Anesthesia Postop Eval I Summary: Anesthesia Postop Eval I: Assessment Summary Airway patent Yes 07/19/25 09:45 [email or web address] Spontaneous unlabored Yes 07/19/25 09:45 [email or web address] respirations Mental status Awake,Calm 07/19/25 09:45 [email or web address] nausea No 07/19/25 09:45 [email or web address] Vomiting No 07/19/25 09:45 [email or web address] Anesthesia Postop Eval I: Fluid Summary Crystalloid volume administer 400 07/19/25 09:45 [email or web address] (ml) Colloids volume administered ( ml) Blood Product volume administered (ml) Total IV fluid infused 400 07/19/25 09:45 [email or web address] Anesthesia Postop Eval I: Summary Notes Anesthesia Complication No 07/19/25 09:45 [email or web address] Anesthesia Complication Comment: Post-operative progress note Anesthesia: Postop Eval II Evaluation Mental status: Awake and Calm Pain Level: 0 nausea: No Vomiting: No Complications Anesthesia Complication: No
== END 2025-07-19 10:16 | disposition home or self-care (01) ==
LOC: EN 08:12 → AC 08:14
PROVIDERS: PCP Internal Medicine; Referring Provider Internal Medicine; Visit Provider Surgery
PROC: 0DJD8ZZ Inspection of Lower Intestinal Tract, Via Natural or Artificial Opening Endoscopic (ICD-10-PCS; CPT 45378; principal; 2025-07-19 09:10)
DX: Z12.11 Encounter for screening for malignant neoplasm of colon (principal); R10.13 Epigastric pain; K42.9 Umbilical hernia without obstruction or gangrene; I10 Essential (primary) hypertension; E78.00 Pure hypercholesterolemia, unspecified; K31.9 Disease of stomach and duodenum, unspecified; K21.9 Gastro-esophageal reflux disease without esophagitis
CPT/HCPCS: 44361; G0121; 88305; 88342; J2405

== ENCOUNTER → 2025-07-22 | Outpatient (CLI) | payer MEDICARE, SELFPAY ==
--- OUTSIDE RECORDS SUMMARY | 2025-07-22 20:10 | XMS RPT_ITS | CCD ---
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 Kristine Yee Attending Provider MD Kristine Gonzalez Primary Care Provider Alondra davy Yee MD, Dr. Carmona Primary Care Provider Nakia BOOTHE, Dr. Carmona Attending Provider Nakia BOOTHE, Dr. Carmona Referring Provider Bernardo BOOTHE, Dr. Reyes Attending Provider Bernardo BOOTHE, Dr. Reyes Other Provider Kristine Yee Referring Unavailable Eric Chang Attending Unavailable Nakia, Kristine Primary Care Unavailable Nakia, Kristine Primary Care Unavailable Nakia, Kristine Referring Unavailable Antonio Francisco Attending Unavailable Nakia, Kristine Attending Unavailable Nakia, Kristine Primary Care Unavailable Nakia, Kristine Referring Unavailable Nakia, Kristine Primary Care Unavailable Karla Sky Attending Unavailable Nakia, Kristine Attending Unavailable Nakia, Kristine Primary Care Unavailable Nakia, Kristine Attending Unavailable Nakia, Kristine Primary Care Unavailable Nakia, Kristine Referring Unavailable Eric Chang Attending Unavailable Nakia, Kristine Primary Care Unavailable Nakia, Kristine Attending Unavailable Nakia, Kristine Primary Care Unavailable Nakia, Kristine Referring Unavailable Nakia, Kristine Primary Care Unavailable Antonio Francisco Attending Unavailable Nakia, Kristine Primary Care Unavailable Nakia, Kristine Referring Unavailable Eric Chang Attending Unavailable Eric Chang Consulting Unavailable Nakia, Kristine Attending Unavailable Nakia, Kristine Referring Unavailable Nakia, Kristine Primary Care Unavailable Kristine Yee Primary Care Unavailable Antonio Francisco Referring Unavailable Antonio Francisco Attending Unavailable Kristine Yee Attending Unavailable Kristine Yee Referring Unavailable Kristine Yee Primary Care Unavailable Kristine Yee Attending Unavailable Kristine Yee Primary Care Unavailable Nakia, Kristine Referring Unavailable Kristine Yee Primary Care Unavailable Eric Chang Attending Unavailable Eric Chang Referring Unavailable Kristine Yee Primary Care Unavailable Kristine Yee Referring Unavailable Eric Chang Attending Unavailable Kristine Yee Attending Unavailable Kristine Yee Referring Unavailable Kristine Yee Primary Care Unavailable Kristine Yee Referring Unavailable Kristine Yee Attending Unavailable Kristine Yee Primary Care Unavailable Allergies Allergy Classification Reported Allergen(s) Allergy Type Date of Onset Reaction(s) Facility (8 sources) Penicillins Allergy to substance 01-30-2021 [facility] (1 source) Penicillins Drug allergy (disorder) 07-20-2025 [facility] Repository Medications Current Medications Medication Drug Class(es) Dates Sig (Normalized) Sig (Original) lisinopril 20 mg oral tablet (19 sources) Angiotensin Converting Enzyme Inhibitor Start: 01-30-2021 End: 06-29-2025 take 1 tablet by mouth once daily Lisinopril 20 mg tablet Active 20 mg PO DAILY 90 June 29, 2025 4:05pm blood pressure MARIJUANA GUMMY (1 source) Start: 07-14-2025 take 20 mg by mouth at bedtime MARIJUANA GUMMY Active 20 mg PO AT BEDTIME July 14, 2025 12:00am rosuvastatin calcium 20 mg oral tablet (14 sources) HMG-CoA Reductase Inhibitor Start: 01-30-2021 End: 06-29-2025 take 1 tablet by mouth once daily Rosuvastatin 20 mg tablet Active 20 mg PO DAILY 90 June 29, 2025 4:05pm cholesterol sertraline 100 mg oral tablet (20 sources) Serotonin Reuptake Inhibitor Start: 01-30-2021 End: 06-29-2025 take 1 tablet by mouth once daily Sertraline 100 mg tablet Active 100 mg PO DAILY 90 June 29, 2025 4:05pm mental health Completed/Discontinued Medications Medication Drug Class(es) Dates Sig (Normalized) Sig (Original) cholecalciferol 0.01 mg oral capsule (5 sources) Vitamin D Start: 11-24-2024 End: 04-13-2025 take 1 capsule by mouth once daily Cholecalciferol (Vitamin D3) 10 mcg (400 unit) capsule Discontinued 10 ug PO daily November 24, 2024 1:00am April 13, 2025 3:29pm cyclobenzaprine hydrochloride 10 mg oral tablet (3 sources) Muscle Relaxant Start: 05-09-2025 End: 07-14-2025 take 0.5 tablet by mouth once daily as needed for muscle spasms Cyclobenzaprine 10 mg tablet Discontinued 10 mg PO THREE TIMES A DAY as needed for muscle spasm 20 0 May 09, 2025 12:00am July 14, 2025 10:37am May take 1/2 tab per dose. Do not operate equipment or drive while using medication. lidocaine 0.05 mg/mg medicated patch (3 sources) Antiarrhythmic, Amide Local Anesthetic Start: 05-09-2025 End: 07-14-2025 Lidocaine 5 % adhesive patch,medicated Discontinued 1 NMA TOPICAL daily 15 0 May 09, 2025 12:00am July 14, 2025 10:38am leave on most painful area for up to 12 hrs 24 hr oxybutynin chloride 5 mg extended release oral tablet (18 sources) Cholinergic Muscarinic Antagonist Start: 04-14-2024 End: 10-13-2024 take 1 tablet by mouth once daily Oxybutynin Chloride 5 mg tablet extended release 24hr Discontinued 5 mg PO daily April 14, 2024 12:00am October 13, 2024 4:27pm Start: 10-09-2023 End: 01-06-2024 take 1 tablet by mouth once daily Oxybutynin Chloride 5 mg tablet extended release 24hr Discontinued 5 mg PO DAILY 90 November 28, 2023 2:17pm January 06, 2024 1:43pm pantoprazole 40 mg delayed release oral tablet (20 sources) Proton Pump Inhibitor Start: 01-30-2021 End: 06-29-2025 take 1 tablet by mouth once daily as needed for gastroesophageal reflux disease Pantoprazole 40 mg tablet,delayed release (DR/EC) Discontinued 40 mg PO DAILY as needed for gerd October 13, 2024 6:04pm April 13, 2025 3:29pm predniSONE 10 mg oral tablet (7 sources) Start: 05-05-2023 End: 05-17-2023 Prednisone 10 mg tablet Discontinued 10 mg PO daily 30 12 0 May 05, 2023 12:00am May 16, 2023 12:00am May 17, 2023 12:13am Unspecified contact dermatitis, unspecified cause Take 4 tabs once daily days 1-3 3 tabs once daily days 4-6 2 tabs once daily days 7-9 and 1 tab once daily days 10-12. zolpidem tartrate 10 mg oral tablet (8 sources) gamma-Aminobut yric Acid-ergic Agonist Start: 01-30-2021 End: 04-03-2023 take 1 tablet by mouth at bedtime as needed Zolpidem 10 MG tablet Discontinued 10 mg PO AT BEDTIME as needed for Insomnia January 30, 2021 12:00am April 03, 2023 3:20pm Problems Active Problems Problem Classification Problem Date Documented Da te Episodic/Chronic Acute and unspecified renal failure (8 sources) Injury of kidney; Translations: [Acute kidney failure, unspecified] 01-30-2021 Episodic Administrative/social admission (11 sources) Patient encounter status; Translations: [Encounter for pre-employment examination] 05-10-2021 Episodic Allergic reactions (7 sources) Irritant contact dermatitis due to plant; Translations: [Irritant contact dermatitis due to plants, except food] 05-06-2023 Episodic Cardiac dysrhythmias (8 sources) Tachycardia; Translations: [Tachycardia, unspecified] 01-30-2021 Episodic Diabetes mellitus with complications (1 source) Type 2 diabetes mellitus with hyperglycemia; Translations: [Type 2 diabetes mellitus with hyperglycemia] Onset: 04-18-2025 Chronic Diabetes mellitus without complication (11 sources) Type 2 diabetes mellitus; Translations: [Type 2 diabetes mellitus without complications] Onset: 04-13-2025 04-14-2024 Chronic Disorders of lipid metabolism (15 sources) Hyperlipidemia; Translations: [Hyperlipidemia, unspecified] Onset: 04-13-2025 01-30-2021 Chronic Essential hypertension (15 sources) Hypertensive disorder; Translations: [Essential (primary) hypertension] Onset: 06-11-2025 03-30-2021 Chronic Genitourinary symptoms and ill-defined conditions (9 sources) Urinary incontinence; Translations: [Unspecified urinary incontinence] 10-09-2023 Chronic Mood disorders (11 sources) Depressive disorder; Translations: [Depression] Onset: 04-13-2025 01-30-2021 Chronic Nonspecific chest pain (6 sources) Chest pain; Translations: [Chest pain, unspecified] 01-06-2024 Episodic Other gastrointestinal disorders (5 sources) Dark stools; Translations: [Other fecal abnormalities] 11-17-2024 Episodic Other nervous system disorders (8 sources) Disorder of brain; Translations: [Encephalopathy, unspecified] 01-30-2021 Chronic Other nutritional; endocrine; and metabolic disorders (10 sources) Cholesterol level - finding; Translations: [Lipoprotein deficiency] 04-14-2024 Chronic Other nutritional; endocrine; and metabolic disorders (1 source) Lipoprotein deficiency; Translations: [Lipoprotein deficiency] Onset: 04-13-2025 Chronic Other skin disorders (7 sources) Multiple skin tags; Translations: [Other hypertrophic disorders of the skin] 10-09-2023 Episodic Other skin disorders (2 sources) Other hypertrophic disorders of the skin; Translations: [Unspecified hypertrophic and atrophic conditions of skin] 10-09-2023 Episodic Residual codes; unclassified (13 sources) Obstructive sleep apnea syndrome; Translations: [Obstructive sleep apnea (adult) (pediatric)] 01-30-2021 Chronic Residual codes; unclassified (2 sources) Obstructive sleep apnea (adult) (pediatric); Translations: [Obstructive sleep apnea (adult)(pediatric)] Onset: 07-21-2025 10-09-2023 Chronic Spondylosis; intervertebral disc disorders; other back problems (8 sources) Backache; Translations: [Dorsalgia, unspecified] Onset: 06-07-2025 05-09-2025 Episodic Unclassified (1 source) Low back pain, unspecified; Translations: [Low back pain, unspecified] Onset: 06-07-2025 Past or Other Problems Problem Classification Problem Date Documented Da te Episodic/Chronic Abdominal hernia (7 sources) Umbilical hernia; Translations: [Umbilical hernia without obstruction or gangrene] Onset: 04-12-2025 10-14-2024 Episodic Abdominal pain (12 sources) Epigastric pain; Translations: [Epigastric pain] Onset: 04-12-2025 5 Episodic Other gastrointestinal disorders (1 source) Other fecal abnormalities; Translations: [Other fecal abnormalities] Onset: 11-17-2024 Episodic Other screening for suspected conditions (not mental disorders or infectious disease) (1 source) Encounter for screening for lipoid disorders; Translations: [Encounter for screening for lipoid disorders] Onset: 08-24-2024 Episodic Sprains and strains (13 sources) Strain of muscle(s) and tendon(s) of the rotator cuff of right shoulder, initial encounter; Translations: [Strain of right rotator cuff capsule] Onset: 09-22-2024 09-22-2024 Episodic Results Test Name Value Interpretation Reference Range Facility 12 Lead EKGon 07-21-2025 12 Lead EKG [facility] [address] [place] [address] 12 Lead EKG 07/21/25 1010 MR#: [id number] Acct: [id number] Name: FERNANDO REYES II Rep #: [id number] : 1960 65 From: Kaleb Graham MD Attending Dr: Dr. Eric Chang MD Status: PRE SDC Ordering Dr: Eric Chang MD Date: 07/21/25 Location: [facility] Sex: M C Admitted: Test Reason : OP Blood Pressure : */* mmHG Vent. Rate : 78 BPM Atrial Rate : 78 BPM P-R Int : 126 ms QRS Dur : 78 ms QT Int : 384 ms P-R-T Axes : 55 89 64 degrees QTcB Int : 437 ms Normal sinus rhythm Normal ECG Confirmed by BETHANY BOOTHE, KALEB ([id number]), material expeditor LILLIAN NIELSEN ([id number]) on 07/22/2025 10:41:58 AM Referred By: Eric Chang Confirmed By: KALEB GRAHAM MD 07/22/25 1042 Date Kaleb Graham MD CC: Dr. Eric Chang MD; Dr. Kristine Yee MD Signed Normal [facility] Colonoscopy Reporton 025 Colonoscopy Report [facility] Medical Records Department [address] [place] [address] Colonoscopy Report MR#: [id number] Acct: [id number] Name: FERNANDO REYES II Rep #: [id number] : 1960 65 From: Eric Chang MD PCP: Dr. Kristine Yee MD Status:[facility] Patient Name: Fernando Reyes Procedure Date: 07/19/2025 9:20 AM Date of : 1960 Age: 65 Procedure: Colonoscopy Indications: Screening for colorectal malignant neoplasm Providers: Eric Chang MD Referring MD: Kristine Yee Medicines: Propofol per Anesthesia Patient Profile: This is a 65 year old male. Refer to note in patient chart for documentation of history and physical. Last Colonoscopy: 10 years ago. Complications: No immediate complications. Procedure: Pre-Anesthesia Assessment: - Prior to the procedure, a History and Physical was performed, and patient medications and allergies were reviewed. The patient's tolerance of previous anesthesia was also reviewed. The risks and benefits of the procedure and the sedation options and risks were discussed with the patient. All questions were answered, and informed consent was obtained. Prior Anticoagulants: The patient has taken no anticoagulant or antiplatelet agents. After reviewing the risks and benefits, the patient was deemed in satisfactory condition to undergo the procedure. - Prior to the procedure, a History and Physical was performed, and patient medications and allergies were reviewed. The patient's tolerance of previous anesthesia was also reviewed. The risks and benefits of the procedure and the sedation options and risks were discussed with the patient. All questions were answered, and informed consent was obtained. Prior Anticoagulants: The patient has taken no anticoagulant or antiplatelet agents. ASA Grade Assessment: I - A normal, healthy patient. After reviewing the risks and benefits, the patient was deemed in satisfactory condition to undergo the procedure. After I obtained informed consent, the scope was passed under direct vision. Throughout the procedure, the patient's blood pressure, pulse, and oxygen saturations were monitored continuously. The Colonoscope was introduced through the anus and advanced to the cecum, identified by appendiceal orifice and ileocecal valve. The colonoscopy was performed without difficulty. The patient tolerated the procedure well. The quality of the bowel preparation was good. The ileocecal valve, appendiceal orifice, and rectum were photographed. Scope In: 9:21:46 AM Scope Withdrawal Time 0 hours 6 minutes 21 seconds Scope Out: 9:35:25 AM Total Procedure Duration Time 0 hours 13 minutes 39 seconds Findings: The entire examined colon appeared normal on direct and retroflexion views. Impression: - The entire examined colon is normal on direct and retroflexion views. - No specimens collected. Recommendation: - Discharge patient to home. - Resume previous diet. - Continue present medications. - Repeat colonoscopy in 10 years for surveillance. Procedure Code(s): --- Professional --- 72999, Colonoscopy, flexible; diagnostic, including collection of specimen(s) by brushing or washing, when performed (separate procedure) Diagnosis Code(s): --- Professional --- Z12.11, Encounter for screening for malignant neoplasm of colon CPT copyright 2021 [employer]. All rights reserved. The codes documented in this report are preliminary and upon dedicated intermodal truck driver review may be revised to meet current compliance requirements. Eric Chang MD 07/19/2025 9:39:16 AM This report has been signed electronically. Number of Addenda: 0 Note Initiated On: 07/19/2025 9:20 AM 07/19/25938 Date Eric Chang MD Cosigner Signature: Date (if indicated) CC: Dr. Eric hCang MD; Dr. Kristine Yee MD Date Dictated: 07/19/25919 Date Transcribed: Bag Checker: DAVID Signed [facility] EGD Reporton 07-19-2025 EGD Report [facility] Medical Records Department [address] [place] [address] EGD Report MR#: [id number] Acct: [id number] Name: FERNANDO REYES II Rep #: [id number] : 1960 65 From: Eric Chang MD PCP: Dr. Kristine Yee MD Status:REG [facility] Patient Name: Fernando Reyes Procedure Date: 07/19/2025 9:07 AM Date of : 1960 Age: 65 Procedure: Upper GI endoscopy Indications: Epigastric abdominal pain Providers: Eric Chang MD Referring MD: Kristine Yee Medicines: Propofol per Anesthesia Patient Profile: This is a 65 year old male. Refer to note in patient chart for documentation of history and physical. Complications: No immediate complications. Estimated blood loss: Minimal. Procedure: Pre-Anesthesia Assessment: - Prior to the procedure, a History and Physical was performed, and patient medications and allergies were reviewed. The patient's tolerance of previous anesthesia was also reviewed. The risks and benefits of the procedure and the sedation options and risks were discussed with the patient. All questions were answered, and informed consent was obtained. Prior Anticoagulants: The patient has taken no anticoagulant or antiplatelet agents. After reviewing the risks and benefits, the patient was deemed in satisfactory condition to undergo the procedure. After obtaining informed consent, the endoscope was passed under direct vision. Throughout the procedure, the patient's blood pressure, pulse, and oxygen saturations were monitored continuously. The Colonoscope was introduced through the mouth, and advanced to the third part of duodenum. The upper GI endoscopy was accomplished without difficulty. The patient tolerated the procedure well. Scope In: 9:17:20 AM Scope Out: 9:20:37 AM Total Procedure Duration Time 0 hours 3 minutes 17 seconds Findings: The esophagus was normal. The stomach was normal. The examined duodenum was normal. Biopsies were taken with a cold forceps in the gastric antrum for Helicobacter pylori testing. Impression: - Normal esophagus. - Normal stomach. - Normal examined duodenum. - Biopsies were taken with a cold forceps for Helicobacter pylori testing. Recommendation: - Discharge patient to home. - Resume previous diet. - Continue present medications. Procedure Code(s): --- Professional --- 75305, Esophagogastroduodeno scopy, flexible, transoral; with biopsy, single or multiple Diagnosis Code(s): --- Professional --- R10.13, Epigastric pain CPT copyright 2021 [employer]. All rights reserved. The codes documented in this report are preliminary and upon dedicated intermodal truck driver review may be revised to meet current compliance requirements. Eric Chang MD 07/19/2025 9:38:04 AM This report has been signed electronically. Number of Addenda: 0 Note Initiated On: 07/19/2025 9:07 AM 07/19/25937 Date Eric Lugo Signature: Date (if indicated) CC: Dr. Eric Chang MD; Dr. Kristine Yee MD Date Dictated: 07/19/25906 Date Transcribed: Bag Checker: DAVID Boyce [facility] Immunohistochemical Stainson 07-19-2025 Immunohistochemical Stains -------- Patient Age/Sex Location Account Attending Physician -------- FERNANDO REYES II 65/M EN [id number] Dr. Eric Chang MD -------- Specimen: [id number] Received: 07/19/25 Status: GREG Ocasio Num: [id number] Spec Type: COLON BX Subm Dr: Dr. Eric Chang MD HEADER OPERATION: Colonoscopy, EGD with biopsy PRE-OP DIAGNOSIS: Umbilical hernia, abdominal pain, screen for colon cancer TISSUE SUBMITTED: A- Antrum biopsy -------- MICROSCOPIC DIAGNOSIS A. Stomach, antrum, biopsy: - Features of reactive gastropathy. - IHC negative for H. pylori organisms. MICROSCOPIC DESCRIPTION Slides are reviewed. Slides are reviewed. All matched controls reacted appropriately. These tests were developed and their performance characteristics determined by [facility]. They may not have been cleared or approved by the U.S. Food and Drug Administration. The FDA has determined that such clearance or approval is not necessary. The above immunohistochemical markers and/or special stains have been reviewed by the Pathologist. GROSS DESCRIPTION A. Received in fixative is one container labeled with the patient's name and designated Antrum biopsy. The specimen consists of two irregular fragments of light vela soft tissue that measure 0.5 and 0.7 cm. The specimen is totally submitted in one cassette. NM 07/19/2025 CPT:73423,54621 -------- Patient Age/Sex Location Account Attending Physician -------- AMYFERNANDOAMADA COLVIN II 65/M EN [id number] Dr. Eric Chang MD -------- Signed (signature on file) Dr. Ana Xiao MD 07/21/25 1706 -------- [facility] Comment on above: Performed By: #### P [facility] ####[facility] [id number] [place], [place], [id number] MR/OP.[facility]2025 [facility] Medical Records Department [address] [place] [address] Provation Physician Letter MR#: [id number] Acct: [id number] Name: FERNANDO REYES PATRICK Rep #: [id number] : 1960 65 From: Eric Chang MD PCP: Dr. Kristine Yee MD Status:REG [facility] 07/19/2025 Kristine Yee [facility] [address] [place] [id number] Re : Colonoscopy procedure for Fernando Amy Dear Dr. Yee This procedure was performed on Saturday, July 19, 2025. My impressions and recommendations are as follows: Impressions : - The entire examined colon is normal on direct and retroflexion views. - No specimens collected. Recommendations : - Discharge patient to home. - Resume previous diet. - Continue present medications. - Repeat colonoscopy in 10 years for surveillance. My findings are described in the full procedure note, which is enclosed. If I can be of further assistance, please feel free to contact me at Doctor phone number(s): , Work: . Sincerely, Eric Chang MD 07/19/2025 9:39:16 AM This report has been signed electronically. 07/19/25938 Date Eric Chang MD Cosigner Signature: Date (if indicated) CC: Dr. Eric Chang MD; Dr. Kristine Yee MD Date Dictated: 07/19/25919 Date Transcribed: Bag Checker: DAVID Signed [facility] MR/OP.[facility] Medical Records Department [address] [place] [address] Provation Physician Letter MR#: [id number] Acct: [id number] Name: FERNANDO REYES II Rep #: [id number] : 1960 65 From: Eric Chang MD PCP: Dr. Kristine Yee MD Status:REG [facility] 07/19/2025 Kristine Yee [facility] [address] [place] [id number] Re : Upper GI endoscopy procedure for Fernando Reyes Dear Dr. Yee This procedure was performed on Saturday, July 19, 2025. My impressions and recommendations are as follows: Impressions : - Normal esophagus. - Normal stomach. - Normal examined duodenum. - Biopsies were taken with a cold forceps for Helicobacter pylori testing. Recommendations : - Discharge patient to home. - Resume previous diet. - Continue present medications. My findings are described in the full procedure note, which is enclosed. If I can be of further assistance, please feel free to contact me at Doctor phone number(s): , Work: . Sincerely, Eric Chang MD 07/19/2025 9:38:04 AM This report has been signed electronically. 07/19/25937 Date Eric Chang MD Cosigner Signature: Date (if indicated) CC: Dr. Eric Chang MD; Dr. Kristine Yee MD Date Dictated: 07/19/25906 Date Transcribed: Bag Checker: Signed [facility] MR/POSTOP.[facility] 07-19-2025 MR/POSTOP.[facility] Medical Records Department [address] [place] [address] Anesthesia Postop Eval I 07/19/25943 MR#: [id number] Acct: [id number] Name: FERNANDO REYES II Rep #: [id number] : 1960 65 From: Nelson Thomas PCP: Dr. Kristine Yee MD Status:REG SDC Y Race: C Location: [facility] Anesthesia: Postop Eval I Current Vital Signs Temperature: 97.7 F Pulse Rate: 74 Blood Pressure: 105/69 Respiratory Rate: 16 Pulse Ox: 98 Oxygen Delivery Method: Room Air Assessment Airway patent: Yes Spontaneous unlabored respirations: Yes Mental status: Awake and Calm nausea: No Vomiting: No Anesthesia Complication: No Fluid Hydration Crystalloid volume administer (ml): 400 Total IV fluid infused: 400 Progress Note Anesthesia document: Postop Eval 1 completed: Yes 07/19/25 0945 Date Nelson Jansenjayla Signature: Date CC: Signed [facility] [id number] 07-19-2025 /[facility] Medical Records Department [address] [place] [id number] Anesthesia Postop Eval II 07/19/25 1510 MR#: [id number] Acct: [id number] Name: FERNANDO REYES II Rep #: [id number] : 1960 65 From: Steffi Rivas CRNA PCP: Dr. Kristine Yee MD Status:[facility] Y Race: C Location: EN Anesthesia Postop Eval I Sum Postop Eval Completion status Anesthesia document: Postop Eval 1 completed: Yes Anesthesia Postop Eval I Summary Anesthesia Postop Eval I Summary: Anesthesia Postop Eval I: Assessment Summary Airway patent Yes 07/19/25 09:45 [email or web address] Spontaneous unlabored Yes 07/19/25 09:45 [email or web address] respirations Mental status Awake,Calm 07/19/25 09:45 [email or web address] nausea No 07/19/25 09:45 [email or web address] Vomiting No 07/19/25 09:45 [email or web address] Anesthesia Postop Eval I: Fluid Summary Crystalloid volume administer 400 07/19/25 09:45 [email or web address] (ml) Colloids volume administered ( ml) Blood Product volume administered (ml) Total IV fluid infused 400 07/19/25 09:45 [email or web address] Anesthesia Postop Eval I: Summary Notes Anesthesia Complication No 07/19/25 09:45 [email or web address] Anesthesia Complication Comment: Post-operative progress note Anesthesia: Postop Eval II Evaluation Mental status: Awake and Calm Pain Level: 0 nausea: No Vomiting: No Complications Anesthesia Complication: No 07/19/25 1510 Date Steffi Jansenigner Signature: Date CC: Signed [facility] Surgery Visit Reporton 06-14 Surgery Visit Report [facility] [address] [place] [address]. [address] [place] [address] OFFICE VISIT Date of Service: 06/14/25 MR#: [id number] Acct: [id number] Name: FERNANDO REYES II Rep #: [id number] : 1960 Provider: Dr. Eric cormier MD Age/Sex: 64/M Location: [facility] Status: Signed Intake Vital Signs 05/09/25 10:01 06/14/25 10:12 Height 5 ft 8 in 5 ft 8 in Weight: 224 lb 222 lb BMI 34.0 33.7 BP 115/73 111/67 Blood Pressure Location Lt brachial Rt brachial Position Sitting Sitting Respiration 16 18 Pulse 75 63 Pulse Source Monitor Monitor Temp 98.7 F 98.2 F Temp Source Temporal Temporal Pulse Oximetry (%) 94 95 Oxygen Delivery Method room air room air Intake Visit Reasons: UPDATE H P - HERNIA Chief Complaint: update H P- hernia Is patient in pain?: No Allergies Penicillins (PCN) Allergy (Verified 06/14/25 10:12) Hives Medications ???Medication ???Instructions ???Recorded ???Confirmed ???Type rosuvastatin 20 mg tablet 20 mg PO DAILY cholesterol #90 tab s 08/23/24 06/14/25 Rx lisinopril 20 mg tablet 20 mg PO DAILY blood pressure #90 10/13/24 06/14/25 Rx tabs sertraline 100 mg tablet 100 mg PO DAILY mental health #90 10/13/24 06/14/25 Rx tabs pantoprazole 40 mg tablet,delayed 40 mg PO DAILY gerd 04/13/2506/03 History release cyclobenzaprine 10 mg tablet 10 mg PO TID PRN muscle spasm #20 05/09/25 06/14/25 Rx tabs lidocaine 5 % topical patch 1 patch topical QDAY #15 ea 06/14/25 Rx PFSH Medical History Lumbar back pain Obstructive sleep apnea Postprandial epigastric pain Dark stools Abdominal pain Umbilical hernia Strain of right rotator cuff capsule Right shoulder strain Hyperlipidemia Hypertension Migraines Cataracts, bilateral Physical exam, pre-employment Social History adopted: No household members: spouse housing: house number of children: 2 current occupational status: un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 occupational exposures/hazards: No pets and animals: Yes pets and animals: dog(s) leisure activities: other history of recent travel: Yes ([place] 2weeks ago) out of state: Yes sexually active: No Smoking Status: Never smoker alcohol intake: former details: havent for 6 months substance use type: other details: marijuana gummies well-balanced diet: daily or most days caffeine: No eating out: 1-3 times/week during the past year weight has: remained stable what type of physical activity do you participate in: walking frequency: 3-4 times per week seatbelt use: always do you feel safe at home: Yes HPI HPI HPI: Patient is a 64-year-old male who is here for several issues. The patient has been having epigastric pain despite being on the pantoprazole. He is also due for screening colonoscopy as his last colonoscopy was 10 years ago. The patient is also complaining of umbilical hernia that he would like repaired. ROS General General: Yes weight change and fatigue; No appetite, colon cancer, breast cancer or weakness HEENT HEENT: No difficulty swallowing, eye injury, eye surgery, swollen glands or hoarseness Endo Endocrine: No thyroid disease, diabetes mellitus, thyroid cancer, Hair loss, heat intolerance or cold intolerance Skin Skin: No rash or changing moles Musc Musculoskeletal: Yes back problems; No arthritis, rheumatoid arthritis, gout or joint pain Cardio Cardiovascular: Yes high blood pressure; No murmur, pacemaker, heart disease, atrial fibrillation, heart attack, heart stent, palpitations, shortness of breath with exertion or chest pain Psych Psychiatric: No depression, anxiety or hearing voices Resp Respiratory: No shortness of breath, Yes sleep apnea, No cough, No COPD, No asthma, No emphysema and No wheezing Gastro Gastrointestinal: Yes abdominal pain, Yes nausea or vomiting, Yes diarrhea, No constipation, No blood in stool, Yes acid reflux, No hemorrhoids, Yes ulcers, No gallbladder problem and Yes black,tarry stools Additional Details: Patient said he did take pepto couple days Jaime Hematologic: No blood thinners, No blood disorders, No bleeding, No anemia and No blood clots Neuro Neurologic: No system reviewed and no additional complaints, except as documented, No as per HPI, No abnormal gait, No abnormal hearing, No abnormal movements, No abnormal speech, No behavioral changes, No burning sensations, No confusion, No convulsions, No disequilibrium, No dizziness, No localized weakness, No frequent falls, No headache(s), No lack of coordination, No loss of vision, No memory loss, No numbness, No other visual disturbances, No radicul (more content not included)... [facility] MR/BMS.JEFFREYBon 05-09-2025 MR/BMS.IMB [facility] [address] [facility] [place] [address] OFFICE VISIT Date of Service: 05/09/25 MR#: [id number] Acct: [id number] Name: FERNANDO REYES PATRICK Rep #: [id number] : 1960 Provider: Dr. Kristine wright MD Age/Sex: 64/M Location: [facility] Status: Signed Intake Vital Signs 04/13/25 15:31 05/09/25 10:01 Height 5 ft 8 in 5 ft 8 in Weight: 221 lb 6 oz 224 lb BMI 33.6 34.0 BP 106/69 115/73 Blood Pressure Location Lt brachial Lt brachial Position Sitting Sitting Respiration 16 16 Pulse 92 75 Pulse Source Monitor Monitor Temp 98.2 F 98.7 F Temp Source Temporal Temporal Pulse Oximetry (%) 94 94 Oxygen Delivery Method room air room air Intake Visit Reasons: Back pain Chief Complaint: Back Pain Telepathist Required: No Accompanied by: Self Is patient in pain?: Yes (Lower back pain) Pain scale (1-10): 5 Allergies Penicillins (PCN) Allergy (Verified 05/09/25 09:57) Hives Medications ???Medication ???Instructions ???Recorded ???Confirmed ???Type rosuvastatin 20 mg tablet 20 mg PO DAILY cholesterol #90 tab s 08/23/24 05/09/25 Rx lisinopril 20 mg tablet 20 mg PO DAILY blood pressure #90 10/13/24 05/09/25 Rx tabs sertraline 100 mg tablet 100 mg PO DAILY mental health #90 10/13/24 05/09/25 Rx tabs pantoprazole 40 mg tablet,delayed 40 mg PO DAILY gerd 04/13/2505/27 History release cyclobenzaprine 10 mg tablet 10 mg PO TID PRN muscle spasm #20 05/09/25 05/09/25 Rx tabs lidocaine 5 % topical patch 1 patch topical QDAY #15 ea 05/09/25 Rx PFSH Medical History (Updated 05/09/25 @ 10:[address] 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 occupational exposures/hazards: No pets and animals: Yes pets and animals: dog(s) leisure activities: other history of recent travel: Yes ([place] 2weeks ago) out of state: Yes sexually active: No Smoking Status: Never smoker alcohol intake: former details: havent for 6 months substance use type: other details: marijuana gummies well-balanced diet: daily or most days caffeine: No eating out: 1-3 times/week during the past year weight has: remained stable what type of physical activity do you participate in: walking frequency: 3-4 times per week seatbelt use: always do you feel safe at home: Yes HPI HPI Chief Complaint: Back Pain Details: FERNANDO REYES, is a 64 M who presents to the office today for an acute care follow-up visit. 64-year-old gentleman who developed back pain, upon awakening last Friday. It has been again about a week. On last week he did go to his chiropractor. He goes periodically. They did adjustment, and TENS unit therapy states. He has not been doing any type of stretching exercises. Currently not engaging in any regular routine physical fitness regimens. In any event, he does not have radicular symptoms. No focal numbness or tingling in the legs. No perineal numbness or tingling, no loss of bowel or bladder continence. There was no acute injury to his knowledge. He simply woke up with it in the morning. No fever, chills. No heavy lifting or strenuous work the day prior. States really has not had any major problems with his back over the years. Still has the ongoing back discomfort, tightness sensation, symptoms largely just staying the same across the low back. Little bit of radiation into the buttocks but minimal. No rash across the back. Has used some medical marijuana in the form of THC Gummies. He is not sure if there is other CBD's within that formulation. Ice has helped a little bit. put on a some lidocaine gel apparently that seemed to help a little bit. Review of systems per chart. Physical exam. Vital signs on chart. My exam is focused. No rash across the low back. More of a focal area of back pain, discomfort that is around the L5-S1 level, perhaps a bit higher. There is no significant tenderness in the buttocks themselves. Some mild paraspinal muscle tenderness and spasm present. Tightness. Deep tendon reflexes are 1???2/4 symmetric at the patella and Achilles. No ankle clonus is noted. ROS Const Constitutional: No body ache, chills, excessive sweating, fatigue, fever(s), frequent falls, headache(s), snoring, weakness or change in appetite Eyes Eyes: No blurry vision, change in vision, e (more content not included)... [facility] MR/Taylor 04-13-2025 MR/BMS.IMB [facility] [address] [place] [address] OFFICE VISIT Date of Service: 04/13/25 MR#: [id number] Acct: [id number] Name: FERNANDO REYES II Rep #: [id number] : 1960 Provider: Dr. Kristine wright MD Age/Sex: 64/M Location: [facility] Status: Signed with Addenda ADDENDUM by Dr. Kristine Yee MD on 07/12/25 at 1235 HPI Details: FERNANDO REYES, is a 65 M who presents to the office today for Assessment and Plan Assessment and Plan (1) Type 2 diabetes mellitus: Status: Acute (2) Hypertension: Status: Chronic (3) Hyperlipidemia: Status: Acute (4) Low HDL (under 40): Status: Acute (5) Obstructive sleep apnea: Status: Acute Orders: Orders Comprehensive Metabolic Profil 6 Months E11.9 - Type 2 diabetes mellitus without complications, E78.5 - Hyperlipidemia, unspecified, E78.6 - Lipoprotein deficiency, G47.33 - Obstructive sleep apnea (adult) (pediatric), I10 - Essential (primary) hypertension Hemoglobin A1c 6 Months E11.9 - Type 2 diabetes mellitus without complications, E78.5 - Hyperlipidemia, unspecified, E78.6 - Lipoprotein deficiency, G47.33 - Obstructive sleep apnea (adult) (pediatric), I10 - Essential (primary) hypertension, R73.9 - Hyperglycemia, unspecified Lipid Profile 6 Months E11.9 - Type 2 diabetes mellitus without complications, E78.5 - Hyperlipidemia, unspecified, E78.6 - Lipoprotein deficiency, G47.33 - Obstructive sleep apnea (adult) (pediatric), I10 - Essential (primary) hypertension, Z13.220 - Encounter for screening for lipoid disorders Vitamin D,25 Hydroxy 6 Months E11.9 - Type 2 diabetes mellitus without complications, E55.9 - Vitamin D deficiency, unspecified, E78.5 - Hyperlipidemia, unspecified, E78.6 - Lipoprotein deficiency, G47.33 - Obstructive sleep apnea (adult) (pediatric), I10 - Essential (primary) hypertension PSA,Total - Annual Screen 6 Months E11.9 - Type 2 diabetes mellitus without complications, E78.5 - Hyperlipidemia, unspecified, E78.6 - Lipoprotein deficiency, G47.33 - Obstructive sleep apnea (adult) (pediatric), I10 - Essential (primary) hypertension, Z12.5 - Encounter for screening for malignant neoplasm of prostate Plan Details Additional Comments: ADDENDUM: Pt. has history of ISELA, has been on CPAP, and was receiving benefit by using CPAP. Machine now broken. Prior sleep study outdated. Needs updated study. Split night sleep study entered. STOP- BANG=5.Male=1; HTN=1; Neck>40=1; Age>50=1; Witnessed apnea=1. Loud snoring/daytime sleepiness = 0 if using CPAP. 07/12/25 1235 Date Kristine Yee MD cc: * Signed Intake Vital Signs 10/13/24 15:30 11/24/24 14:10 04/13/25 15:31 Height 5 ft 8 in 5 ft 8 in 5 ft 8 in Weight: 221 lb 6 oz BMI 33.6 BP 106/69 Blood Pressure Location Lt brachial Position Sitting Respiration 16 Pulse 92 Pulse Source Monitor Temp 98.2 F Temp Source Temporal Pulse Oximetry (%) 94 Oxygen Delivery Method room air Intake Visit Reasons: 6 M FU Chief Complaint: 6 M FU Telepathist Required: No Accompanied by: Self Is patient in pain?: Yes (Left thigh pain ) Pain scale (1-10): 2 Allergies Penicillins (PCN) Allergy (Verified 04/13/25 15:26) Hives Medications ???Medication ???Instructions ???Recorded ???Confirmed ???Type rosuvastatin 20 mg tablet 20 mg PO DAILY cholesterol #90 tab s 08/23/24 04/13/25 Rx lisinopril 20 mg tablet 20 mg PO DAILY blood pressure #90 10/13/24 04/13/25 Rx tabs sertraline 100 mg tablet 100 mg PO DAILY mental health #90 10/13/24 04/13/25 Rx tabs pantoprazole 40 mg tablet,delayed 40 mg PO DAILY gerd 04/13/25 His tory release [facility] Medical History (Updated 04/13/25 @ 15:[address] 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 [facility] Absolute lymphocyte countOrd ered By: Kristine Yee on 04-12-2025 Lymphocytes Auto (Unsp spec) [#/Vol] 0.93 10*3/uL 0.83-4.51 [facility] Absolute neutrophil countOrd ered By: Kristine Yee on 04-12-2025 Neutrophils (Bld) [#/Vol] 2.5 10*3/uL 2.0-7.7 [facility] Anion gap in Serum or Plasma Ordered By: Kristine Yee on 04-12-2025 Anion gap [Moles/Vol] 13 mmol/L 5-15 [facility] Automated lymphocyte count a s percentage of total leukocytesOrdered By: Kristine Yee on 04-12-2025 Lymphocytes/100 WBC Auto (Unsp spec) 23.7 % 19-41 [facility] BUN/creatinine ratioOrdered By: Kristine Yee on 04-12-2025 Urea nitrogen/Creatinine [Mass ratio] 17.8 mg/mg 10- [facility] Basophil percentageOrdered B y: Kristine Yee on 04-12-2025 Basophils/100 WBC (Bld) 1.3 % High 0-1 [facility] Bilirubin, totalOrdered By: Kristine Yee on 04-12-2025 Bilirubin [Mass/Vol] 0.46 mg/dL 0.00-1.30 [facility] CBC W/Diff, Automatedon 04-03-2024 Absolute Lymph 0.93 X10 3/uL Normal 0.83-4.51 [facility] Comment on above: Performed By: #### L 100.0100, L500.4050, L506.1001, L500.4100, L501.9985, L501.9520 ####[facility] [address] [place], [address] Absolute Neut 2.5 X10 3/uL Normal 2.0-7.7 [facility] Comment on above: Performed By: #### L 100.0100, L500.4050, L506.1001, L500.4100, L501.9985, L501.9520 ####[facility] [address] [place], [address] Basophils/100 WBC (Bld) 1.3 % High 0-1 [facility] Comment on above: Performed By: #### L 100.0100, L500.4050, L506.1001, L500.4100, L501.9985, L501.9520 ####[facility] [address] [place], [address] Eosinophils/100 WBC (Bld) 2.5 % Normal 0-5 [facility] Comment on above: Performed By: #### L 100.0100, L500.4050, L506.1001, L500.4100, L501.9985, L501.9520 ####[facility] [address] [place], [address] Erythrocyte distribution width (RBC) [Ratio] 13.6 % Normal 11.6-14.6 [facility] Comment on above: Performed By: #### L 100.0100, L500.4050, L506.1001, L500.4100, L501.9985, L501.9520 ####[facility] [address] [place], [address] Hematocrit (Bld) [Volume fraction] 47.6 % Normal 40-54 [facility] Comment on above: Performed By: #### L 100.0100, L500.4050, L506.1001, L500.4100, L501.9985, L501.9520 ####[facility] [address] [place], [address] Hemoglobin (Bld) [Mass/Vol] 15.4 g/dL Normal 13.0-16.5 [facility] Comment on above: Performed By: #### L 100.0100, L500.4050, L506.1001, L500.4100, L501.9985, L501.9520 ####[facility] [address] [place], [address] IG% 0.300 Normal 0.0-0.9 [facility] Comment on above: Result Comment: IG% - Immature Granulocytes (promyelocytes, myelocytes and metamyelocytes) > 1% indicates that a LEFT SHIFT is Present. Performed By: #### L 100.0100, L500.4050, L506.1001, L500.4100, L501.9985, L501.9520 ####[facility] [address] [place], [address] Lymphocytes/100 WBC (Bld) 23.7 % Normal 19-41 [facility] Comment on above: Performed By: #### L 100.0100, L500.4050, L506.1001, L500.4100, L501.9985, L501.9520 ####[facility] [address] [place], [address] MCH (RBC) [Entitic mass] 28.2 pg Normal 27.0-32.0 [facility] Comment on above: Performed By: #### L 100.0100, L500.4050, L506.1001, L500.4100, L501.9985, L501.9520 ####[facility] [address] [place], [address] MCHC (RBC) [Mass/Vol] 32.4 g/dL Normal 32-36 [facility] Comment on above: Performed By: #### L 100.0100, L500.4050, L506.1001, L500.4100, L501.9985, L501.9520 ####[facility] [address] [place], [address] MCV (RBC) [Entitic vol] 87.0 fL Normal 80-94 [facility] Comment on above: Performed By: #### L 100.0100, L500.4050, L506.1001, L500.4100, L501.9985, L501.9520 ####[facility] [address] [place], [address] Monocytes/100 WBC (Bld) 8.4 % Normal 0-10 [facility] Comment on above: Performed By: #### L 100.0100, L500.4050, L506.1001, L500.4100, L501.9985, L501.9520 ####[facility] [address] [place], [address] Neutrophils/100 WBC (Bld) 63.8 % Normal 47-70 [facility] Comment on above: Performed By: #### L 100.0100, L500.4050, L506.1001, L500.4100, L501.9985, L501.9520 ####[facility] [address] [place], [address] Nucleated RBC (Bld) [#/Vol] 0 10*3/uL Normal 0-5 [facility] Comment on above: Performed By: #### L 100.0100, L500.4050, L506.1001, L500.4100, L501.9985, L501.9520 ####[facility] [address] [place], [address] Platelet mean volume (Bld) [Entitic vol] 10.3 fL Normal 6.2-12.0 [facility] Comment on above: Performed By: #### L 100.0100, L500.4050, L506.1001, L500.4100, L501.9985, L501.9520 ####[facility] [address] [place], [address] Platelets (Bld) [#/Vol] 183 10*3/uL Normal 150-450 [facility] Comment on above: Performed By: #### L 100.0100, L500.4050, L506.1001, L500.4100, L501.9985, L501.9520 ####[facility] [address] [place], [address] RBC (Bld) [#/Vol] 5.47 10*6/uL Normal 4.6-6.2 [facility] Comment on above: Performed By: #### L 100.0100, L500.4050, L506.1001, L500.4100, L501.9985, L501.9520 ####[facility] [address] [place], [address] RDW SD 43.3 fl Normal 35.1-43.9 [facility] Comment on above: Performed By: #### L 100.0100, L500.4050, L506.1001, L500.4100, L501.9985, L501.9520 ####[facility] [address] [place], [address] WBC (Bld) [#/Vol] 3.9 10*3/uL Low 4.4-11.0 [facility] Comment on above: Performed By: #### L 100.0100, L500.4050, L506.1001, L500.4100, L501.9985, L501.9520 ####[facility] [address] [place], [address] Calculated very low density lipoprotein (VLDL) cholesterol measurementOrdered By: Kristine Yee on 04-12-2025 Calculated very low density lipoprotein (VLDL) cholesterol measurement 27 mg/dL 5-40 [facility] Carbon dioxide, total [Moles /volume] in Central venous bloodOrdered By: Kristine Yee on 04-12-2025 CO2 [Moles/Vol] 23.3 mmol/L 21.0-32.0 [facility] Chloride assayOrdered By: Chelsie Yee on 04-12-2025 Chloride [Moles/Vol] 101 mmol/L 98-108 [facility] Comprehensive Metabolic Prof ilon 04-12-2025 Albumin [Mass/Vol] 4.6 g/dL Normal 3.4-4.8 [facility] Comment on above: Performed By: #### L 100.0100, L500.4050, L506.1001, L500.4100, L501.9985, L501.9520 ####[facility] [address], [address] Albumin/Globulin [Mass ratio] 1.6 {ratio} Normal 0.9-2.4 [facility] Comment on above: Performed By: #### L 100.0100, L500.4050, L506.1001, L500.4100, L501.9985, L501.9520 ####[facility] [address], [address] ALK PHOS 47 U/L Normal 40-129 [facility] Comment on above: Performed By: #### L 100.0100, L500.4050, L506.1001, L500.4100, L501.9985, L501.9520 ####[facility] [address] [place], [address] ALT [Catalytic activity/Vol] 29 U/L Normal <=46 [facility] Comment on above: Performed By: #### L 100.0100, L500.4050, L506.1001, L500.4100, L501.9985, L501.9520 ####[facility] [address] [place], [address] AST [Catalytic activity/Vol] 29 U/L Normal <=37 [facility] Comment on above: Performed By: #### L 100.0100, L500.4050, L506.1001, L500.4100, L501.9985, L501.9520 ####[facility] [address] [place], [address] Bilirubin [Mass/Vol] 0.46 mg/dL Normal 0.00-1.30 [facility] Comment on above: Performed By: #### L 100.0100, L500.4050, L506.1001, L500.4100, L501.9985, L501.9520 ####[facility] [address] [place], [address] BUN/CRE 17.8 RATIO Normal 10-20 [facility] Comment on above: Performed By: #### L 100.0100, L500.4050, L506.1001, L500.4100, L501.9985, L501.9520 ####[facility] [address] [place], [address] Calcium [Mass/Vol] 10.1 mg/dL Normal 7.6-11.0 [facility] Comment on above: Performed By: #### L 100.0100, L500.4050, L506.1001, L500.4100, L501.9985, L501.9520 ####[facility] [address] [place], [address] Chloride [Moles/Vol] 101 mmol/L Normal 98-108 [facility] Comment on above: Performed By: #### L 100.0100, L500.4050, L506.1001, L500.4100, L501.9985, L501.9520 ####[facility] [address] [place], [address] CO2 [Moles/Vol] 23.3 mmol/L Normal 21.0-32.0 [facility] Comment on above: Performed By: #### L 100.0100, L500.4050, L506.1001, L500.4100, L501.9985, L501.9520 ####[facility] [address] [place], [address] Creatinine [Mass/Vol] 1.06 mg/dL Normal 0.70-1.20 [facility] Comment on above: Performed By: #### L 100.0100, L500.4050, L506.1001, L500.4100, L501.9985, L501.9520 ####[facility] [address] [place], [address] GAP 13 Normal 5-15 [facility] Comment on above: Performed By: #### L 100.0100, L500.4050, L506.1001, L500.4100, L501.9985, L501.9520 ####[facility] [address] [place], [address] GFR/1.73 sq M.predicted among non-blacks MDRD (S/P/Bld) [Vol rate/Area] 78 mL/min/{1.73_m2} Normal >60 [facility] Comment on above: Result Comment: mL/m in/1.73m2 CKD-EPI Creatinine Equation (2020) Performed By: #### L 100.0100, L500.4050, L506.1001, L500.4100, L501.9985, L501.9520 ####[facility] [address] [place], [address] Globulin (S) [Mass/Vol] 2.9 g/dL Normal 2.2-4.2 [facility] Comment on above: Performed By: #### L 100.0100, L500.4050, L506.1001, L500.4100, L501.9985, L501.9520 ####[facility] [address] [place], [address] Glucose [Mass/Vol] 116 mg/dL High 70-99 [facility] Comment on above: Performed By: #### L 100.0100, L500.4050, L506.1001, L500.4100, L501.9985, L501.9520 ####[facility] [address] [place], [address] Potassium [Moles/Vol] 4.3 mmol/L Normal 3.3-5.1 [facility] Comment on above: Performed By: #### L 100.0100, L500.4050, L506.1001, L500.4100, L501.9985, L501.9520 ####[facility] [address] [place], [address] Sodium [Moles/Vol] 137 mmol/L Normal 133-145 [facility] Comment on above: Performed By: #### L 100.0100, L500.4050, L506.1001, L500.4100, L501.9985, L501.9520 ####[facility] [address] [place], [address] T PROT 7.5 g/dL Normal 5.9-8.4 [facility] Comment on above: Performed By: #### L 100.0100, L500.4050, L506.1001, L500.4100, L501.9985, L501.9520 ####[facility] [address], [address] Urea nitrogen [Mass/Vol] 19 mg/dL Normal 4-19 [facility] Comment on above: Performed By: #### L 100.0100, L500.4050, L506.1001, L500.4100, L501.9985, L501.9520 ####[facility] [address] [place], [address] Eosinophil percentageOrdered By: Kristine Yee on 04-12-2025 Eosinophils/100 WBC (Bld) 2.5 % 0-5 [facility] Erythrocyte distribution wid th ratioOrdered By: Kristine Yee on 04-12-2025 Erythrocyte distribution width (RBC) [Ratio] 13.6 % 11.6-14.6 [facility] Erythrocyte distribution wid th standard deviationOrdered By: Kristine Yee on 04-12-2025 Erythrocyte distribution width (RBC) [Ratio] 43.3 fl 35.1-43.9 [facility] Glomerular filtration rate ( GFR) estimation/1.73 sq m using serum, plasma, or whole bOrdered By: Kristine Yee on 04-12-2025 GFR/1.73 sq M.predicted among non-blacks MDRD (S/P/Bld) [Vol rate/Area] 78 mL/min/{1.73_m2} >60 [facility] Comment on above: mL/min/1.73m2 CKD-EP I Creatinine Equation (2020) Hematocrit Auto (Bld) [Volum e fraction]Ordered By: Kristine Yee on 04-12-2025 Hematocrit (Bld) [Volume fraction] 47.6 % 40-54 [facility] Hemoglobin A1con 04-12-2025 HbA1c (Bld) [Mass fraction] 6.0 % High <=5.6 [facility] Comment on above: Result Comment: Norm al < 5.7 % Prediabetic 5.7 - 6.4 % Diabetic >or= 6.5 % Please note range changes. Performed By: #### L 100.0100, L500.4050, L506.1001, L500.4100, L501.9985, L501.9520 ####[facility] [address] [place], [place], [id number] Hemoglobin A1c percentageOrd ered By: Kristine Yee on 04-12-2025 HbA1c (Bld) [Mass fraction] 6.0 % High <5.7 [facility] Comment on above: Normal < 5.7 % Predi abetic 5.7 - 6.4 % Diabetic >or= 6.5 % Please note range changes. Hemoglobin measurementOrdere d By: Kristine Yee on 04-12-2025 Hemoglobin (Bld) [Mass/Vol] 15.4 g/dL 13.0-16.5 [facility] Immature granulocytes/100 WB C Auto (Bld)Ordered By: Kristine Yee on 04-12-2025 Immature granulocytes/100 WBC (Bld) 0.300 % 0.0-0.9 [facility] Comment on above: IG% - Immature Granu locytes (promyelocytes, myelocytes and metamyelocytes) > 1% indicates that a LEFT SHIFT is Present. LDL calc ser/plasOrdered By: Kristine Yee on 04-12-2025 Cholesterol in LDL [Mass/Vol] 86 mg/dL [facility] Comment on above: Fvjnpeqxjz=377-401 m g/dL & Higher Mnjf=408 mg/dL or greater Laboratory - Chemistry and C hemistry - challengeOrdered By: Kristine Yee on 04-12-2025 AST [Catalytic activity/Vol] 29 U/L <38 [facility] Lipid Profileon 04-12-2025 CHOL:HDL 3.82 Normal [facility] Comment on above: Performed By: #### L 100.0100, L500.4050, L506.1001, L500.4100, L501.9985, L501.9520 ####[facility] [address] [place], [place], [id number] Cholesterol [Mass/Vol] 153 mg/dL Normal <=200 [facility] Comment on above: Result Comment: Chol esterol level, Desirable <200 mg/dL Borderline high cholesterol 200-239 mg/dL High cholesterol >=240 mg/dL Recommendations of the NCEP Adult Treatment Panel for the following risk-cutoff thresholds for the [place] population. Performed By: #### L 100.0100, L500.4050, L506.1001, L500.4100, L501.9985, L501.9520 ####[facility] [address] [place], [address] Cholesterol in HDL [Mass/Vol] 40 mg/dL Normal [facility] Comment on above: Result Comment: Siobhan onal Cholesterol Education Program (NCEP) guidelines: <40 mg/dL: Low HDL-cholesterol (major risk factor for CHD) >= 60 mg/dL: High HDL-cholesterol (negative risk factor for CHD) HDL-cholesterol is affected by a number of factors, e.g. smoking, exercise, hormones, sex and age. Performed By: #### L 100.0100, L500.4050, L506.1001, L500.4100, L501.9985, L501.9520 ####[facility] [address] [place], [address] Cholesterol in LDL [Mass/Vol] 86 mg/dL Normal [facility] Comment on above: Result Comment: Bord jbiayr=879-152 mg/dL Higher Symf=661 mg/dL or greater Performed By: #### L 100.0100, L500.4050, L506.1001, L500.4100, L501.9985, L501.9520 ####[facility] [address] [place], [address] Cholesterol in VLDL [Mass/Vol] 27 mg/dL Normal 5-40 [facility] Comment on above: Performed By: #### L 100.0100, L500.4050, L506.1001, L500.4100, L501.9985, L501.9520 ####[facility] [address] [place], [place], [id number] Triglyceride [Mass/Vol] 134 mg/dL Normal [facility] Comment on above: Result Comment: The drugs N-Acetylcysteine and Metamizole may falsely depress this assay. Normal range: <150 mg/dL Borderline High: 150-199 mg/dL High: 200-499 mg/dL Very High: >500 mg/dL Performed By: #### L 100.0100, L500.4050, L506.1001, L500.4100, L501.9985, L501.9520 ####[facility] [address] [facility] [place], [place], [id number] MCV (mean corpuscular volume ) determinationOrdered By: Kristine Yee on 04-12-2025 MCV (RBC) [Entitic vol] 87.0 fL 80-94 [facility] Mean corpuscular hemoglobin (MCH) determinationOrdered By: Kristine Yee on 04-12-2025 MCH (RBC) [Entitic mass] 28.2 pg 27.0-32.0 [facility] Mean corpuscular hemoglobin concentration (MCHC) determinationOrdered By: Kristine Yee on 04-12-2025 MCHC (RBC) [Mass/Vol] 32.4 g/dL 32-36 [facility] Mean platelet volume determi nationOrdered By: Kristine Yee on 04-12-2025 Platelet mean volume (Bld) [Entitic vol] 10.3 fL 6.2-12.0 [facility] Monocyte percentageOrdered B y: Kristine Yee on 04-12-2025 Monocytes/100 WBC (Bld) 8.4 % 0-10 [facility] Neutrophil percentageOrdered By: Kristine Yee on 04-12-2025 Neutrophils/100 WBC (Bld) 63.8 % 47-70 [facility] Nucleated red blood cell per centageOrdered By: Kristine Yee on 04-12-2025 Nucleated RBC/100 WBC (Bld) [Ratio] 0 % 0-5 [facility] Platelet countOrdered By: Chelsie Yee on 04-12-2025 Platelets (Bld) [#/Vol] 183 10*3/uL 150-450 [facility] Potassium measurement (mass/ volume)Ordered By: Kristine Yee on 04-12-2025 Potassium (Unsp spec) [Mass/Vol] 4.3 mmol/L 3.3-5.1 [facility] RBC Auto (Bld) [#/Vol]Ordere d By: Kristine Yee on 04-12-2025 RBC (Bld) [#/Vol] 5.47 10*6/uL 4.6-6.2 [facility] Screening total cholesterol/ high density lipoprotein (HDL) cholesterol ratioOrdered By: Kristine Yee on 04-12-2025 Cholesterol.total/Choles terol in HDL [Mass ratio] 3.82 {ratio} [facility] Serum creatinine measurement (mass/volume)Ordered By: Kristine Yee on 04-12-2025 Creatinine [Mass/Vol] 1.06 mg/dL 0.70-1.20 [facility] Serum globulin measurementOr dered By: Kristine Yee on 04-12-2025 Globulin (S) [Mass/Vol] 2.9 g/dL 2.2-4.2 [facility] Serum glucose measurement (m ass/volume)Ordered By: Kristine Yee on 04-12-2025 Glucose [Mass/Vol] 116 mg/dL High 70-99 [facility] Serum or plasma alanine blake otransferase (ALT) measurementOrdered By: Kristine Yee on 04-12-2025 ALT [Catalytic activity/Vol] 29 U/L <47 [facility] Serum or plasma albumin citlalli urement (mass/volume)Ordered By: Kristine Yee on 04-12-2025 Albumin [Mass/Vol] 4.6 g/dL 3.4-4.8 [facility] Serum or plasma albumin/glob ulin mass ratioOrdered By: Kristine Yee on 04-12-2025 Albumin/Globulin [Mass ratio] 1.6 {ratio} 0.9-2.4 [facility] Serum or plasma alkaline paige sphatase measurementOrdered By: Kristine Yee on 04-12-2025 ALP [Catalytic activity/Vol] 47 U/L 40-129 [facility] Serum or plasma calcium citlalli urement (mass/volume)Ordered By: Kristine Yee on 04-12-2025 Calcium [Mass/Vol] 10.1 mg/dL 7.6-11.0 [facility] Serum or plasma cholesterol in HDL measurement (mass/volume)Ordered By: Kristine Yee on 04-12-2025 Cholesterol in HDL [Mass/Vol] 40 mg/dL >40 [facility] Comment on above: National Cholesterol Education Program (NCEP) guidelines:<40 mg/dL: Low HDL-cholesterol (major risk factor for CHD)>= 60 mg/dL: High HDL-cholesterol (negative risk factor for CHD)HDL-cholesterol is affected by a number of factors, e.g. smoking, exercise, hormones, sex and age. Serum or plasma cholesterol measurement (mass/volume)Ordered By: Kristine Yee on 04-12-2025 Cholesterol [Mass/Vol] 153 mg/dL <201 [facility] Comment on above: Cholesterol level, D esirable <200 mg/dLBorderline high cholesterol 200-239 mg/dLHigh cholesterol >=240 mg/dLRecommendations of the NCEP Adult Treatment Panel for the following risk-cutoff thresholds for the [place] population. Serum or plasma urea nitroge n measurement (mass/volume)Ordered By: Kristine Yee on 04-12-2025 Urea nitrogen [Mass/Vol] 19 mg/dL 4-19 [facility] Sodium levelOrdered By: Magali Yee on 04-12-2025 Sodium [Moles/Vol] 137 mmol/L 133-145 [facility] TSH DL <= 0.005 mIU/L QnOrde red By: Kristine Yee on 04-12-2025 TSH Qn 2.600 uIU/mL 0.300-4.200 [facility] Thyroid Stim Hormone (TSH)on 04-12-2025 TSH 2.600 uIU/mL Normal 0.300-4.200 [facility] Comment on above: Performed By: #### L 100.0100, L500.4050, L506.1001, L500.4100, L501.9985, L501.9520 ####[facility] [address] [place], [address] Total proteinOrdered By: Chasidy Yee on 04-12-2025 Protein [Mass/Vol] 7.5 g/dL 5.9-8.4 [facility] Triglycerides measurementOrd ered By: Kristine Yee on 04-12-2025 Triglyceride [Mass/Vol] 134 mg/dL <199 [facility] Comment on above: The drugs N-Acetylcy steine and Metamizole may falsely depress this assay. Normal range: <150 mg/dLBorderline High: 150-199 mg/dLHigh: 200-499 mg/dLVery High: >500 mg/dL Vitamin D,25 Hydroxyon 04-12 Vitamin D 25-OH 28.4 ng/mL Low 30-100 [facility] Comment on above: Result Comment: Violetta min D Status Deficiency: <20 ng/mL (50nmol/L) Insufficiency: 20-30 ng/mL (50-75 nmol/L) Sufficiency: 30-100 ng/mL (75-250 nmol/L) Toxicity: >100 ng/mL (>250 nmol/L) Performed By: #### L 100.0100, L500.4050, L506.1001, L500.4100, L501.9985, L501.9520 ####[facility] [address] [place], [address] White blood cell (WBC) count Ordered By: Kristine Yee on 04-12-2025 WBC (Bld) [#/Vol] 3.9 10*3/uL Low 4.4-11.0 [facility] Surgery Visit Reporton 11-24 Surgery Visit Report [facility] [address] [place] [address] OFFICE VISIT Date of Service: 11/24/24 MR#: [id number] Acct: [id number] Name: FERNANDO REYES PATRICK Rep #: [id number] : 1960 Provider: Dr. Eric cormier MD Age/Sex: 64/M Location[facility] Status: Signed Intake Vital Signs 11/17/24 10:06 11/24/24 14:10 Height 5 ft 8 in 5 ft 8 in Weight: 221 lb 6 oz 216 lb BMI 33.6 32.8 BP 129/83 H 122/78 H Blood Pressure Location Lt brachial Rt brachial Position Sitting Sitting Respiration 16 17 Pulse 75 84 Pulse Source Monitor Monitor Temp 98.2 F Temp Source Temporal Pulse Oximetry (%) 94 96 Oxygen Delivery Method room air room air Intake Visit Reasons: EGD- EPIGASTRIC PAIN / UMBILICAL HERNIA Chief Complaint: EGD/Umbilical hernia Is patient in pain?: Yes Allergies Penicillins (PCN) Allergy (Verified 11/24/24 14:10) Hives Medications ???Medication ???Instructions ???Recorded ???Confirmed ???Type rosuvastatin 20 mg tablet 20 mg PO DAILY cholesterol #90 tabs 08/23/24 11/24/24 Rx lisinopril 20 mg tablet 20 mg PO DAILY blood pressure #90 10/13/24 11/24/24 Rx tabs pantoprazole 40 mg tablet,delayed 40 mg PO DAILY PRN gerd #90 tabs 10/13/24 11/24/24 Rx release sertraline 100 mg tablet 100 mg PO DAILY mental health #90 10/13/24 11/24/24 Rx tabs cholecalciferol (vitamin D3) 10 10 mcg PO QDAY 11/24/24 11/24/24 History mcg (400 unit) capsule PFSH Medical History Postprandial epigastric pain Dark stools Abdominal pain Umbilical hernia Strain of right rotator cuff capsule Right shoulder strain Hyperlipidemia Hypertension Migraines Cataracts, bilateral Physical exam, pre-employment Obstructive sleep apnea Social History (Updated 11/24/24 @ 14:12 by Laverne Carranza) adopted: No household members: spouse housing: house number of children: 2 current occupational status: un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 occupational exposures/hazards: No pets and animals: Yes pets and animals: dog(s) leisure activities: other history of recent travel: Yes (joce 2weeks ago) out of state: Yes sexually active: No Smoking Status: Never smoker alcohol intake: former details: havent for 6 months substance use type: other details: marijuana gummies well-balanced diet: daily or most days caffeine: No eating out: 1-3 times/week during the past year weight has: remained stable what type of physical activity do you participate in: walking frequency: 3-4 times per week seatbelt use: always do you feel safe at home: Yes HPI HPI HPI: Patient is a 64-year-old male here for epigastric pain. He has been having epigastric pain and nausea which have been improving. He has also been taking his pantoprazole regularly. Patient does not note any blood in his stool. He is due for colonoscopy in June. Patient also has an umbilical hernia and he has been having some pain around the umbilical hernia as well. ROS General General: Yes weight change and fatigue; No appetite, colon cancer, breast cancer or weakness HEENT HEENT: No difficulty swallowing, eye injury, eye surgery, swollen glands or hoarseness Endo Endocrine: No thyroid disease, diabetes mellitus, thyroid cancer, Hair loss, heat intolerance or cold intolerance Skin Skin: No rash or changing moles Musc Musculoskeletal: Yes back problems; No arthritis, rheumatoid arthritis, gout or joint pain Cardio Cardiovascular: Yes high blood pressure; No murmur, pacemaker, heart disease, atrial fibrillation, heart attack, heart stent, palpitations, shortness of breat with exertion or chest pain Psych Psychiatric: No depression, anxiety or hearing voices Resp Respiratory: No shortness of breath, Yes sleep apnea, No cough, No COPD, No asthma, No emphysema and No wheezing Gastro Gastrointestinal: Yes abdominal pain, Yes nausea or vomiting, Yes diarrhea, No constipation, No blood in stool, Yes acid reflux, No hemorrhoids, Yes ulcers, No gallbladder problem and Yes black,tarry stools Additional Details: Patient said he did take pepto couple days Jaime Hematologic: No blood thinners, No blood disorders, No bleeding, No anemia and No blood clots Neuro Neurologic: No system reviewed and no additional complaints, except as documented, No as per HPI, No abnormal gait, No abnormal hearing, No abnormal movements, No abnormal speech, No behavioral reid es, No burning sensations, No confusion, No convulsions, No disequilibrium, No dizziness, No localized weakness, No frequent falls, No headache(s), No lack of coordination, No loss of vision, No memory loss, No numbness, No other visual disturbances, No radicular pain, No restless legs, No senso (more content not included)... Normal [facility] CBC W/Diff, Automatedon -11 07-2024 Absolute Lymph 0.88 X10 3/uL Normal 0.83-4.51 [facility] Comment on above: Performed By: #### L 100.0100, L500.4050, L501.2450 ####[facility] [address] [place], [address] Absolute Neut 3.1 X10 3/uL Normal 2.0-7.7 [facility] Comment on above: Performed By: #### L 100.0100, L500.4050, L501.2450 ####[facility] [address] [place], [address] Basophils/100 WBC (Bld) 1.3 % High 0-1 [facility] Comment on above: Performed By: #### L 100.0100, L500.4050, L501.2450 ####[facility] [address] [place], [address] Eosinophils/100 WBC (Bld) 1.6 % Normal 0-5 [facility] Comment on above: Performed By: #### L 100.0100, L500.4050, L501.2450 ####[facility] [address] [place], [address] Erythrocyte distribution width (RBC) [Ratio] 13.2 % Normal 11.6-14.6 [facility] Comment on above: Performed By: #### L 100.0100, L500.4050, L501.2450 ####[facility] [address] [place], [address] Hematocrit (Bld) [Volume fraction] 44.7 % Normal 40-54 [facility] Comment on above: Performed By: #### L 100.0100, L500.4050, L501.2450 ####[facility] [address] [place], [address] Hemoglobin (Bld) [Mass/Vol] 14.9 g/dL Normal 13.0-16.5 [facility] Comment on above: Performed By: #### L 100.0100, L500.4050, L501.2450 ####[facility] [address] [place], [address] IG% 0.400 Normal 0.0-0.9 [facility] Comment on above: Result Comment: IG% - Immature Granulocytes (promyelocytes, myelocytes and metamyelocytes) > 1% indicates that a LEFT SHIFT is Present. Performed By: #### L 100.0100, L500.4050, L501.2450 ####[facility] [address] [place], [address] Lymphocytes/100 WBC (Bld) 19.6 % Normal 19-41 [facility] Comment on above: Performed By: #### L 100.0100, L500.4050, L501.2450 ####[facility] [address] [place], [address] MCH (RBC) [Entitic mass] 28.8 pg Normal 27.0-32.0 [facility] Comment on above: Performed By: #### L 100.0100, L500.4050, L501.2450 ####[facility] [address] [place], [address] MCHC (RBC) [Mass/Vol] 33.3 g/dL Normal 32-36 [facility] Comment on above: Performed By: #### L 100.0100, L500.4050, L501.2450 ####[facility] [address] [place], [address] MCV (RBC) [Entitic vol] 86.3 fL Normal 80-94 [facility] Comment on above: Performed By: #### L 100.0100, L500.4050, L501.2450 ####[facility] [address] [place], [address] Monocytes/100 WBC (Bld) 8.4 % Normal 0-10 [facility] Comment on above: Performed By: #### L 100.0100, L500.4050, L501.2450 ####[facility] [address] [place], [address] Neutrophils/100 WBC (Bld) 68.7 % Normal 47-70 [facility] Comment on above: Performed By: #### L 100.0100, L500.4050, L501.2450 ####[facility] [address] [place], [address] Nucleated RBC (Bld) [#/Vol] 0 10*3/uL Normal 0-5 [facility] Comment on above: Performed By: #### L 100.0100, L500.4050, L501.2450 ####[facility] [address] [place], [address] Platelet mean volume (Bld) [Entitic vol] 9.7 fL Normal 6.2-12.0 [facility] Comment on above: Performed By: #### L 100.0100, L500.4050, L501.2450 ####[facility] [address] [place], [address] Platelets (Bld) [#/Vol] 206 10*3/uL Normal 150-450 [facility] Comment on above: Performed By: #### L 100.0100, L500.4050, L501.2450 ####[facility] [address] [place], [address] RBC (Bld) [#/Vol] 5.18 10*6/uL Normal 4.6-6.2 [facility] Comment on above: Performed By: #### L 100.0100, L500.4050, L501.2450 ####[facility] [address] [place], [address] RDW SD 41.0 fl Normal 35.1-43.9 [facility] Comment on above: Performed By: #### L 100.0100, L500.4050, L501.2450 ####[facility] [address] [place], [address] WBC (Bld) [#/Vol] 4.5 10*3/uL Normal 4.4-11.0 [facility] Comment on above: Performed By: #### L 100.0100, L500.4050, L501.2450 ####[facility] [address] [place], [address] Comprehensive Metabolic Prof [facility] 11-17-2024 Albumin [Mass/Vol] 3.9 g/dL Normal 3.2-5.0 [facility] Comment on above: Performed By: #### L 100.0100, L500.4050, L501.2450 ####[facility] [address] [place], [address] Albumin/Globulin [Mass ratio] 1.1 {ratio} Normal 0.9-2.4 [facility] Comment on above: Performed By: #### L 100.0100, L500.4050, L501.2450 ####[facility] [address] [place], [address] ALK P 48 U/L Normal 45-117 [facility] Comment on above: Performed By: #### L 100.0100, L500.4050, L501.2450 ####[facility] [address] [place], [address] ALT [Catalytic activity/Vol] 39 U/L Normal 16-61 [facility] Comment on above: Performed By: #### L 100.0100, L500.4050, L501.2450 ####[facility] [address] [place], [address] AST [Catalytic activity/Vol] 20 U/L Normal 15-37 [facility] Comment on above: Performed By: #### L 100.0100, L500.4050, L501.2450 ####[facility] [address] [place], [address] Bilirubin [Mass/Vol] 0.40 mg/dL Normal 0.20-1.00 [facility] Comment on above: Result Comment: For patients on eltrombopag therapy, use of Dimension [place] TBIL is not recommended. Performed By: #### L 100.0100, L500.4050, L501.2450 ####[facility] [address] [place], [address] BUN/CRE 10.6 RATIO Normal 10-20 [facility] Comment on above: Performed By: #### L 100.0100, L500.4050, L501.2450 ####[facility] [address] [place], [address] CA,Total 9.6 mg/dL Normal 8.5-10.1 [facility] Comment on above: Performed By: #### L 100.0100, L500.4050, L501.2450 ####[facility] [address] [place], [address] Chloride [Moles/Vol] 107 mmol/L Normal 98-107 [facility] Comment on above: Performed By: #### L 100.0100, L500.4050, L501.2450 ####[facility] [address] [place], [address] CO2 [Moles/Vol] 28.0 mmol/L Normal 21.0-32.0 [facility] Comment on above: Performed By: #### L 100.0100, L500.4050, L501.2450 ####[facility] [address] [place], [address] Creatinine [Mass/Vol] 1.23 mg/dL Normal 0.70-1.30 [facility] Comment on above: Result Comment: The validity of the calculated GFR GFRAA in patients over 70 years has not been determined. Clinical correlation is essential. Performed By: #### L 100.0100, L500.4050, L501.2450 ####[facility] [address] [place], [address] EST GFR - AA 76 mL/min Normal >60 [facility] Comment on above: Result Comment: Afri can [place]an GFR Calc Performed By: #### L 100.0100, L500.4050, L501.2450 ####[facility] [address] [place], [address] GAP 6 Normal 5-15 [facility] Comment on above: Performed By: #### L 100.0100, L500.4050, L501.2450 ####[facility] [address] [place], [address] GFR/1.73 sq M.predicted among non-blacks MDRD (S/P/Bld) [Vol rate/Area] 63 mL/min/{1.73_m2} Normal >60 [facility] Comment on above: Result Comment: Non- GFR Calc Performed By: #### L 100.0100, L500.4050, L501.2450 ####[facility] [address] [place], [address] Globulin (S) [Mass/Vol] 3.7 g/dL Normal 2.2-4.2 [facility] Comment on above: Performed By: #### L 100.0100, L500.4050, L501.2450 ####[facility] [address] [place], [address] Glucose [Mass/Vol] 115 mg/dL High 74-106 [facility] Comment on above: Result Comment: Fast ing Glucose result from 100 to 125 mg/dL suggests IMPAIRED HOMEOSTASIS per A.D.A. criteria. Performed By: #### L 100.0100, L500.4050, L501.2450 ####[facility] [address] [place], [address] Potassium [Moles/Vol] 4.4 mmol/L Normal 3.5-5.1 [facility] Comment on above: Performed By: #### L 100.0100, L500.4050, L501.2450 ####[facility] [address] [place], [address] Sodium [Moles/Vol] 140 mmol/L Normal 136-145 [facility] Comment on above: Performed By: #### L 100.0100, L500.4050, L501.2450 ####[facility] [address] [place], [address] T PROT 7.6 g/dL Normal 6.4-8.2 [facility] Comment on above: Performed By: #### L 100.0100, L500.4050, L501.2450 ####[facility] [address] [place], [address] Urea nitrogen [Mass/Vol] 13 mg/dL Normal 7-18 [facility] Comment on above: Performed By: #### L 100.0100, L500.4050, L501.2450 ####[facility] [address] [place], [address] Lipaseon 11-17-2024 Lipase [Catalytic activity/Vol] 68 U/L Normal 13-75 [facility] Comment on above: Result Comment: Ze leone note: LIPASE revised reference range effective 23. New Lipase methodology. Expected to produce lower values than the previous assay method. NEW Reference Range: 13 - 75 U/L Performed By: #### L 100.0100, L500.4050, L501.2450 ####[facility] [address] [place], [place], [address] MR/BMS.IMBon 11-17-2024 MR/BMS.IMB [facility] [address] [place] [address] OFFICE VISIT Date of Service: 11/17/24 MR#: [id number] Acct: [id number] Name: FERNANDO REYES II Rep #: [id number] : 1960 Provider: Dr. Kristine wright MD Age/Sex: 64/M Location: [facility] Status: Signed Intake Vital Signs 10/13/24 15:30 11/17/24 10:06 Height 5 ft 8 in 5 ft 8 in Weight: 227 lb 8 oz 221 lb 6 oz BMI 34.5 33.6 BP 120/72 129/83 H Blood Pressure Location Rt brachial Lt brachial Position Sitting Sitting Respiration 16 16 Pulse 74 75 Pulse Source Monitor Monitor Temp 98.4 F 98.2 F Temp Source Temporal Temporal Pulse Oximetry (%) 92 94 Oxygen Delivery Method room air room air Intake Visit Reasons: Upset Stomach Chief Complaint: upset stomach Telepathist Required: No Accompanied by: Self Is patient in pain?: No Allergies Penicillins (PCN) Allergy (Verified 11/17/24 10:02) Hives Medications ???Medication ???Instructions ???Recorded ???Confirmed ???Type rosuvastatin 20 mg tablet 20 mg PO DAILY cholesterol #90 tabs 08/23/24 11/17/24 Rx lisinopril 20 mg tablet 20 mg PO DAILY blood pressure #90 10/13/24 11/17/24 Rx tabs pantoprazole 40 mg tablet,delayed 40 mg PO DAILY PRN gerd #90 tabs 10/13/24 11/17/24 Rx release sertraline 100 mg tablet 100 mg PO DAILY mental health #90 10/13/24 11/17/24 Rx tabs PFSH Medical History (Updated 11/17/24 @ 10:[address] 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 occupational exposures/hazards: No pets and animals: Yes pets and animals: dog(s) leisure activities: other history of recent travel: Yes ([place] 2weeks ago) out of state: Yes sexually active: No Smoking Status: Never smoker alcohol intake: former details: havent for 6 months substance use type: does not use well-balanced diet: daily or most days caffeine: No eating out: 1-3 times/week during the past year weight has: remained stable what type of physical activity do you participate in: walking frequency: 3-4 times per week seatbelt use: always do you feel safe at home: Yes HPI HPI Chief Complaint: upset stomach Details: FERNANDO REYES, is a 64 M who presents to the office today for an acute care follow-up visit. 64-year-old gentleman who has been having some mid abdominal discomfort. Relatively recently, he had a shoulder injury, and had been taking some jbzj-fga-nkfuxtk anti-inflammatories at the recommendation of orthopedics. He had only taken it for a few days but was taking it several times daily xott-sqv-hpofehf Advil. He has also gotten COVID a few weeks ago, and that has resolved however he did have respiratory symptoms, some coughing. He had a known umbilical hernia and he wonders if he had strained that or made things worse. He has been taking then to help with the abdominal discomfort, some Maalox. Subsequently, stools have been black although he did have concerned that it could be blood as it was quite black. We did receive a phone call in this regards and I suggested switching from Maalox to another product that would does not cause dark stool. Unfortunately he was unable to get wuic-xhj-rrbppzx change any still has been taking the Maalox. He is not having any untoward symptoms concerning for significant acute blood loss such as lightheadedness dizziness, passing out. He is never seen maroon color stool or blood in the stool at any point recently. He does note however that eating seems to make the stomach discomfort worse. He does not have much discomfort right at this moment but if he eats, he has been eating small amounts to try and get around that. Does not drink alcohol. Again had stopped apparently at least a couple weeks ago, taking any owsy-bcd-qtnmpcd anti-inflammatories. No prior surgeries in the abdomen. No vomiting, hematemesis. Review of systems per chart. Physical exam. Vital signs on chart. Sclera are clear. No cervical supraclavicular lymph nodes enlarged or tender. His lungs are without wheeze rhonchi rales currently. The heart is regular. Not tachycardic. No gallop or rub is readily noted. The abdomen is soft throughout. Bowel sounds are present throughout, not hyperactive. No clear palpable masses throughout the abdomen. Specifically, no reproducible discomfort in the left upper abdomen directly over the true stomach itself. He has a small umbilical hernia, easily (more content not included)... Normal [facility] Stool Occult Blood iFOBon STOB Negative Normal [facility] Comment on above: Performed By: #### M 100.7900 ####[facility] [address] [place], [place], [address] MR/TESS.[facility] 10-13-2024 /TESS.MARGARITO [facility] [address] [place] [address] OFFICE VISIT Date of Service: 10/13/24 MR#: [id number] Acct: [id number] Name: FERNANDO REYES MARII NGUYEN Rep #: [id number] : 1960 Provider: Dr. Kristine wright MD Age/Sex: 64/M [place] [facility] [place] Status: Signed Intake Vital Signs 04/14/24 15:30 09/22/24 10:09 10/13/24 15:30 Height 5 ft 8 in 5 ft 8 in 5 ft 8 in Weight: 227 lb 8 oz BMI 34.5 BP 120/72 Blood Pressure Location Rt brachial Position Sitting Respiration 16 Pulse 74 Pulse Source Monitor Temp 98.4 F Temp Source Temporal Pulse Oximetry (%) 92 Oxygen Delivery Method room air Intake Visit Reasons: 6 M FU Chief Complaint: 6 m fu Telepathist Required: No Accompanied by: Self Is patient in pain?: Yes (R shoulder ) Pain scale (1-10): 4 Allergies Penicillins (PCN) Allergy (Verified 10/13/24 15:23) Hives Medications ???Medication ???Instructions ???Recorded ???Confirmed ???Type rosuvastatin 20 mg tablet 20 mg PO DAILY cholesterol #90 tabs 08/23/24 10/13/24 Rx lisinopril 20 mg tablet 20 mg PO DAILY blood pressure #90 10/13/24 Rx tabs pantoprazole 40 mg tablet,delayed 40 mg PO DAILY PRN gerd #90 tabs 10/13/24 Rx release sertraline 100 mg tablet 100 mg PO DAILY mental health #90 10/13/24 Rx tabs PFSH Medical History (Updated 10/14/24 @ 07:[address] 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 occupational exposures/hazards: No pets and animals: Yes pets and animals: dog(s) leisure activities: other history of recent travel: Yes ([place] 2weeks ago) out of state: Yes sexually active: No Smoking Status: Never smoker alcohol intake: former details: havent for 6 months substance use type: does not use well-balanced diet: daily or most days caffeine: No eating out: 1-3 times/week during the past year weight has: remained stable what type of physical activity do you participate in: walking frequency: 3-4 times per week seatbelt use: always do you feel safe at home: Yes HPI HPI Chief Complaint: 6 m fu Details: FERNANDO REYES, is a 64 M who presents to the office today for 6-month follow-up. Patient has a history of type 2 diabetes, hypertension, hyperlipidemia, low HDL. He is currently on lisinopril 20 mg daily with well-controlled blood pressure. Rosuvastatin 20 mg daily, pantoprazole, Zoloft. He has been ongoing right shoulder pain that has been gradually improving. He has been doing some home exercises. He went to urgent care for this issue, felt to be rotator cuff related. We did discuss some additional exercises he may pursue at home, using bands. Has been having some left-sided sharp intermittent very short-lived couple of seconds pains that come on abruptly and stop quickly, not associated with any physical activity. Left lower rib cage area. Discussed likely related to splenic flexure. He otherwise has been doing well overall. Still trying to do pretty good on the diet side. That has made some improvements, in his lipids. Triglycerides are now just about 200 where they had been significantly higher. I suspect that this is largely improved through diet. HDL has come up a little bit as well although it does remain low. Review of systems per chart. He states he had colonoscopy performed that , when he was in [place]. We will try and obtain those records. Based off of that, he would be due next year potentially. He also makes note of a small little bulge area, in the navel. He feels this move at times but not necessarily overtly painful. Physical exam. Vital signs on chart. PERRLA. Sclera are clear. TMs are unremarkable with normal light reflexes. Canals are unremarkable. Posterior pharynx is unremarkable. Good dentition. No cervical or supraclavicular lymph nodes enlarged or tender. No clear thyromegaly. No thyroid nodules readily palpable. Lungs are without wheeze, rhonchi, rales. No E/A changes are heard. Heart is regular. Not tachycardic. No clear murmur, rub, or gallop is identified. The abdomen is soft. Bowel sounds are present. No clear palpable masses in the abdomen. He has a small reducible umbilical hernia, likely fat-containing. No significant leg edema. Cranial nerve examination 2 through 12 are grossly unremarkable nonlateralizing. No obvious rashes. No obvious significant skin lesions are identified. ROS Const Constitutional: No body ache, chills, (more content not included)... Normal [facility] Comprehensive Metabolic Prof kathy 10-12-2024 Albumin [Mass/Vol] 4.0 g/dL Normal 3.2-5.0 [facility] Comment on above: Performed By: #### L 500.4100, L500.4050, L501.9985 ####[facility] [address] [place], [address] Albumin/Globulin [Mass ratio] 1.2 {ratio} Normal 0.9-2.4 [facility] Comment on above: Performed By: #### L 500.4100, L500.4050, L501.9985 ####[facility] [address] [place], [address] ALK P 39 U/L Low 45-117 [facility] Comment on above: Performed By: #### L 500.4100, L500.4050, L501.9985 ####[facility] [address] [place], [address] ALT [Catalytic activity/Vol] 31 U/L Normal 16-61 [facility] Comment on above: Performed By: #### L 500.4100, L500.4050, L501.9985 ####[facility] [address] [place], [address] AST [Catalytic activity/Vol] 21 U/L Normal 15-37 [facility] Comment on above: Performed By: #### L 500.4100, L500.4050, L501.9985 ####[facility] [address] [place], [address] Bilirubin [Mass/Vol] 0.60 mg/dL Normal 0.20-1.00 [facility] Comment on above: Result Comment: For patients on eltrombopag therapy, use of Dimension [place] TBIL is not recommended. Performed By: #### L 500.4100, L500.4050, L501.9985 ####[facility] [address] [place], [address] BUN/CRE 13.7 RATIO Normal 10-20 [facility] Comment on above: Performed By: #### L 500.4100, L500.4050, L501.9985 ####[facility] [address] [place], [address] CA,Total 9.4 mg/dL Normal 8.5-10.1 [facility] Comment on above: Performed By: #### L 500.4100, L500.4050, L501.9985 ####[facility] [address] [place], [address] Chloride [Moles/Vol] 107 mmol/L Normal 98-107 [facility] Comment on above: Performed By: #### L 500.4100, L500.4050, L501.9985 ####[facility] [address] [place], [address] CO2 [Moles/Vol] 26.0 mmol/L Normal 21.0-32.0 [facility] Comment on above: Performed By: #### L 500.4100, L500.4050, L501.9985 ####[facility] [address] [place], [address] Creatinine [Mass/Vol] 1.02 mg/dL Normal 0.70-1.30 [facility] Comment on above: Result Comment: The validity of the calculated GFR GFRAA in patients over 70 years has not been determined. Clinical correlation is essential. Performed By: #### L 500.4100, L500.4050, L501.9985 ####[facility] [address] [place], [address] EST GFR - AA 95 mL/min Normal >60 [facility] Comment on above: Result Comment: Afri can [place]an GFR Calc Performed By: #### L 500.4100, L500.4050, L501.9985 ####[facility] [address] [place], [address] GAP 5 Normal 5-15 [facility] Comment on above: Performed By: #### L 500.4100, L500.4050, L501.9985 ####[facility] [address] [place], [address] GFR/1.73 sq M.predicted among non-blacks MDRD (S/P/Bld) [Vol rate/Area] 78 mL/min/{1.73_m2} Normal >60 [facility] Comment on above: Result Comment: Non- GFR Calc Performed By: #### L 500.4100, L500.4050, L501.9985 ####[facility] [address] [place], [address] Globulin (S) [Mass/Vol] 3.3 g/dL Normal 2.2-4.2 [facility] Comment on above: Performed By: #### L 500.4100, L500.4050, L501.9985 ####[facility] [address] [place], [address] Glucose [Mass/Vol] 91 mg/dL Normal 74-106 [facility] Comment on above: Performed By: #### L 500.4100, L500.4050, L501.9985 ####[facility] [address] [place], [address] Potassium [Moles/Vol] 3.7 mmol/L Normal 3.5-5.1 [facility] Comment on above: Performed By: #### L 500.4100, L500.4050, L501.9985 ####[facility] [address] [place], [address] Sodium [Moles/Vol] 138 mmol/L Normal 136-145 [facility] Comment on above: Performed By: #### L 500.4100, L500.4050, L501.9985 ####[facility] [address] [place], [address] T PROT 7.3 g/dL Normal 6.4-8.2 [facility] Comment on above: Performed By: #### L 500.4100, L500.4050, L501.9985 ####[facility] [address] [place], [address] Urea nitrogen [Mass/Vol] 14 mg/dL Normal 7-18 [facility] Comment on above: Performed By: #### L 500.4100, L500.4050, L501.9985 ####[facility] [address] [place], [address] Hemoglobin A1con 10-12-2024 HbA1c (Bld) [Mass fraction] 5.9 % High 3.8-5.6 [facility] Comment on above: Result Comment: Norm al < 5.7 % Prediabetic 5.7 - 6.4 % Diabetic >or= 6.5 % Please note range changes. Performed By: #### L 500.4100, L500.4050, L501.9985 ####[facility] [address] [place], [address] Lipid Profileon 10-12-2024 Cholesterol [Mass/Vol] 153 mg/dL Normal 200 [facility] Comment on above: Result Comment: <200 mg/dL Desirable 200-240 mg/dL Borderline >240 mg/dL High Risk Performed By: #### L 500.4100, L500.4050, L501.9985 ####[facility] [address] [place], [address] Cholesterol in HDL [Mass/Vol] 38 mg/dL Low [facility] Comment on above: Result Comment: The drugs N-Acetylcysteine and Metamizole may falsely depress this assay. Reference Range HDL <40 mg/dL Low HDL Cholesterol HDL >or= 60 mg/dL High HDL Cholesterol Performed By: #### L 500.4100, L500.4050, L501.9985 ####[facility] [address] [place], [address] Cholesterol in LDL [Mass/Vol] 75 mg/dL Normal 0-130 [facility] Comment on above: Performed By: #### L 500.4100, L500.4050, L501.9985 ####[facility] [address] [place], [place], [address] Cholesterol in VLDL [Mass/Vol] 40 mg/dL Normal 5-40 [facility] Comment on above: Performed By: #### L 500.4100, L500.4050, L501.9985 ####[facility] [address] [place], [place], [address] Triglyceride [Mass/Vol] 200 mg/dL High [facility] Comment on above: Result Comment: The drugs N-Acetylcysteine and Metamizole may falsely depress this assay. Serum Triglycerides Reference Interval Normal <150 mg/dL Borderline high 150 - 199 mg/dL High 200 - 499 mg/dL Very High > or = 500 mg/dL Performed By: #### L 500.4100, L500.4050, L501.9985 ####[facility] [address] [place], [place], [address] Urgent Care Visit Reporton 1 12-07-2023 Urgent Care Visit Report [facility] [address], [address] [place], [place] [address] OFFICE VISIT Date of Service: 10/06/24 MR#: [id number] Acct: [id number] Name: AMYFERNANDO Rep #: [id number] : 1960 Provider: MICHAEL Bowie Age/Sex: 64/M [place] [facility] [place] Status: Signed Intake Vital Signs 09/22/24 10:09 10/06/24 16:50 Height 5 ft 8 in Weight: 225 lb 8 oz BMI 34.2 BP 112/68 122/76 H Blood Pressure Location Lt brachial Lt brachial Position Sitting Sitting Respiration 15 12 Pulse 90 92 Pulse Source NIBP NIBP Temp 98.9 F 98.5 F Temp Source Oral Oral Pulse Oximetry (%) 97 98 Oxygen Delivery Method room air room air Intake Visit Reasons: R SHOULDER/ [employer] Chief Complaint: WC right shoulder pain f/ u Telepathist Required: No Is patient in pain?: Yes Allergies Penicillins (PCN) Allergy (Verified 10/06/24 16:52) Hives Nurse's Note: patient here for follow up right shoulder [facility] Medical History (Updated 09/22/24 @ 10:35 by Antonio RODRIGUEZ, PA) Strain of right rotator cuff capsule Right shoulder strain Hyperlipidemia Hypertension Migraines Cataracts, bilateral Physical exam, pre-employment Obstructive sleep apnea Social History adopted: No household members: spouse housing: house number of children: 2 current occupational status: 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 occupational exposures/hazards: No pets and animals: Yes pets and animals: dog(s) leisure activities: other history of recent travel: Yes ([place] 2weeks ago) out of state: Yes sexually active: No Smoking Status: Never smoker alcohol intake: former details: havent for 6 months substance use type: does not use well-balanced diet: daily or most days caffeine: No eating out: 1-3 times/week during the past year weight has: remained stable what type of physical activity do you participate in: walking frequency: 3-4 times per week seatbelt use: always do you feel safe at home: Yes HPI HPI Chief Complaint: WC right shoulder pain f/ u Details: FERNANDO REYES, is a 64 M who presents to the office today for f/u of right anterior shoulder pain. 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 Patient also admits driving his private car frequently as well on his personal time. Htqlm-ikpf-yvpbsfjd. No history of trauma to the right shoulder. No loss of sensation or strength or function at injury site or distal to. Admits inconsistent with home range of motion exercises as instructed last evaluation. Still no cervical or right elbow/wrist/hand complaints. No yrcz-yyw-iedmavd products taken to assist. No other associated symptoms and no other alleviating/aggravati ng factors. ROS Const Constitutional: No other (As above) Exam Const General: cooperative, healthy appearing and no acute distress Orientation: alert and awake Resp Effort Inspection: normal respiratory effort and able to speak in complete sentences Cardio Rate: regular rate Pulses: radial pulses present Skin General: no rashes or lesions noted Neuro General: patient alert and patient awake Cognition: normal cognition Speech: speech normal Motor: muscle tone normal throughout Sensory Exam: no sensory deficits noted Extrem General: normal to inspection, full ROM (Right shoulder), capillary refill normal and normal exam except as noted (Trace to absent tender to palpation right anterior shoulder) Psych Appearance: grossly normal Mental Status: mental status grossly normal Mood: congruent mood Affect: normal affect Speech and Movement: speech and movement normal Attitude: cooperative Diagnoses Right shoulder strain S46.911A Strain of right rotator cuff capsule S46.011A Assessment and Plan Assessment and Plan (1) Right shoulder strain: Status: Acute (2) Strain of right rotator cuff capsule: Status: Acute Plan: Released to return to work without restrictions as noted on today's [employer]. Home range of motion exercises and supportive measures as re-instructed today for an additional 2-4 weeks. [facility]-up with the [facility] on an as needed basis only; reference my opinion on FROI. Patient states acknowledging understanding all the above. Coding Level of Care Code Off vis,est,level 2 10/06/24 3251 Date Antonio Lugo Signature: Date (if applicable) CC: Normal [facility] Shoulder min 2 Viewson 09-22 Shoulder min 2 Views [facility] [address] [place] [address] Shoulder min 2 Views MR#: [id number] Acct: [id number] Name: FERNANDO REYES Rep #: [id number] : 1960 M 64 From: Reji Curtis MD PCP: Dr. Kristine Yee MD Status: REG CLI Study: Shoulder min 2 Views Date of Exam: 09/22/24 Exam# [id number] Ordering Dr: Antonio Knight [id number] STUDY: X-RAY - RIGHT SHOULDER REASON FOR EXAM: Male, 64 years old. shoulder strain TECHNIQUE: 4 view(s) of the shoulder. COMPARISON: None. FINDINGS: Normal glenohumeral articulation. Normal acromioclavicular joint. Normal acromion. Normal humeral head and visualized proximal humerus. The soft tissue structures are unremarkable. Normal visualized pulmonary apex. RAD/Shoulder min 2 Views IMPRESSION: Normal x-ray examination of the shoulder. Electronically Signed: Reji Curtis MD at 10:35 EST , CC: Dr. Kristine Yee MD; MICHAEL Bowie Bag Checker: Signed Normal [facility] Urgent Care Visit Reporton 1 11-22-2023 Urgent Care Visit Report [facility] [address], [address] [place] [address] OFFICE VISIT Date of Service: 09/22/24 MR#: [id number] Acct: [id number] Name: FERNANDO REYES Rep #: [id number] : 1960 Provider: MICHAEL Bowie Age/Sex: 64/M [place] [facility] [place] Status: Signed Intake Vital Signs 04/14/24 15:30 09/22/24 10:09 Height 5 ft 8 in 5 ft 8 in Weight: 227 lb 225 lb 8 oz BMI 34.4 34.2 BP 143/79 H 112/68 Blood Pressure Location Lt brachial Lt brachial Position Sitting Sitting Respiration 16 15 Pulse 86 90 Pulse Source Monitor NIBP Temp 98.0 F 98.9 F Temp Source Temporal Oral Pulse Oximetry (%) 94 97 Oxygen Delivery Method room air room air Intake Visit Reasons: R SHOULDER PAIN/ [employer] Chief Complaint: WC right shoulder pain Telepathist Required: No Is patient in pain?: Yes Allergies Penicillins (PCN) Allergy (Verified 09/22/24 10:10) Hives Have you fallen in the past year?: No [facility] Medical History (Updated 09/22/24 @ 10:35 by Antonio RODRIGUEZ PA) Strain of right rotator cuff capsule Right shoulder strain Hyperlipidemia Hypertension Migraines Cataracts, bilateral Physical exam, pre-employment Obstructive sleep apnea Social History adopted: No household members: spouse housing: house number of children: 2 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 occupational status: 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 occupational exposures/hazards: No pets and animals: Yes pets and animals: dog(s) leisure activities: other history of recent travel: Yes ([place] 2weeks ago) out of state: Yes sexually active: No Smoking Status: Never smoker alcohol intake: former details: havent for 6 months substance use type: does not use well-balanced diet: daily or most days caffeine: No eating out: 1-3 times/week during the past year weight has: remained stable what type of physical activity do you participate in: walking frequency: 3-4 times per week seatbelt use: always do you feel safe at home: Yes HPI HPI Chief Complaint: WC right shoulder pain Details: FERNANDO REYES, is a 64 M who presents to the office today for initial evaluation of right anterior shoulder pain. 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 Upon inquiring as if he is ever filled out an incident report regarding the nonfunctioning seatbelt to his employer, he states he believes he has not. Patient also admits driving his private car frequently as well on his personal time. [id number]. No history of trauma to the right shoulder. No loss of sensation or strength or function at injury site or distal to. No cervical or right elbow/wrist/hand complaints. No [id number] products taken to assist. No other associated symptoms and no other alleviating/aggravati ng factors. ROS Const Constitutional: No other (As above) Exam Const General: cooperative, healthy appearing and no acute distress Orientation: alert and awake Resp Effort Inspection: normal respiratory effort and able to speak in complete sentences Cardio Rate: regular rate Pulses: radial pulses present Skin General: no rashes or lesions noted Neuro General: patient alert and patient awake Cognition: normal cognition Speech: speech normal Motor: muscle tone normal throughout Sensory Exam: no sensory deficits noted Extrem General: normal to inspection, full ROM (Right shoulder), capillary refill normal and normal exam except as noted (Trace tender to palpation right anterior shoulder) Psych Appearance: grossly normal Mental Status: mental status grossly normal Mood: congruent mood Affect: normal affect Speech and Movement: speech and movement normal Attitude: cooperative Coding Level of Care Code Off vis,est,level 3 Diagnoses Right shoulder strain S46.911A Strain of right rotator cuff capsule S46.011A Assessment and Plan Assessment and Plan (1) Right shoulder strain: Status: Acute (2) Strain of right rotator cuff capsule: Status: Acute Plan: Right shoulder radiographs taken today reveal no acute osseous pathology per my review, with radiologist interpretation concurring. Return to work without restrictions as noted on today's [employer] (per patient preference). Home range of motion exercises and supportive measures as instructed today. [facility] on 10/06/2024 at 5 PM for reevaluation, sooner should symptoms only worsen or any other concerns develop. Patient states acknowledging understanding all the above. This (more content not included)... [facility] Normal [facility] Comment on above: Order Comment: Patrick nts: [facility]: Ox LDL - [id number] Ox LDL LAV/PLASMA/FRZ Result Comment: TEST RESULTS LIMITS Oxidized LDL 44 ng/mL 10-170 TESTING PERFORMED AT [facility]. ORIGINAL REPORT ON FILE IN LAB CONTAINS ADDITIONAL TEST SITE INFORMATION. Performed By: #### L 500.4050, L506.1000, L500.4100, L501.9910, L501.9985, L100.0100, L801.1541, L501.9520 ####[facility] [address] [place], [place], [id number] CBC W/Diff, Automatedon 09-2 -2023 Absolute Lymph 1.17 X10 3/uL Normal 0.83-4.51 [facility] Comment on above: Performed By: #### L 500.4050, L506.1000, L500.4100, L501.9910, L501.9985, L100.0100, L801.1541, L501.9520 #### [facility] [address] [place], [place], [id number] Absolute Neut 5.3 X10 3/uL Normal 2.0-7.7 [facility] Comment on above: Performed By: #### L 500.4050, L506.1000, L500.4100, L501.9910, L501.9985, L100.0100, L801.1541, L501.9520 #### [facility] [address] [place], [place], [phone] ([phone]) Basophils/100 WBC (Bld) 0.7 % Normal 0-1 [facility] Comment on above: Performed By: #### L 500.4050, L506.1000, L500.4100, L501.9910, L501.9985, L100.0100, L801.1541, L501.9520 #### [facility] [address] [place], [address] Eosinophils/100 WBC (Bld) 1.3 % Normal 0-5 [facility] Comment on above: Performed By: #### L 500.4050, L506.1000, L500.4100, L501.9910, L501.9985, L100.0100, L801.1541, L501.9520 #### [facility] [address] [place], [address] Erythrocyte distribution width (RBC) [Ratio] 13.3 % Normal 11.6-14.6 [facility] Comment on above: Performed By: #### L 500.4050, L506.1000, L500.4100, L501.9910, L501.9985, L100.0100, L801.1541, L501.9520 #### [facility] [address] [place], [address] Hematocrit (Bld) [Volume fraction] 47.2 % Normal 40-54 [facility] Comment on above: Performed By: #### L 500.4050, L506.1000, L500.4100, L501.9910, L501.9985, L100.0100, L801.1541, L501.9520 #### [facility] [address] [place], [address] Hemoglobin (Bld) [Mass/Vol] 15.1 g/dL Normal 13.0-16.5 [facility] Comment on above: Performed By: #### L 500.4050, L506.1000, L500.4100, L501.9910, L501.9985, L100.0100, L801.1541, L501.9520 #### [facility] [address] [place], [address] IG% 0.400 Normal 0.0-0.9 [facility] Comment on above: Result Comment: IG% - Immature Granulocytes (promyelocytes, myelocytes and metamyelocytes) > 1% indicates that a LEFT SHIFT is Present. Performed By: #### L 500.4050, L506.1000, L500.4100, L501.9910, L501.9985, L100.0100, L801.1541, L501.9520 #### [facility] [address] [place], [address] Lymphocytes/100 WBC (Bld) 16.4 % Low 19-41 [facility] Comment on above: Performed By: #### L 500.4050, L506.1000, L500.4100, L501.9910, L501.9985, L100.0100, L801.1541, L501.9520 #### [facility] [address] [place], [address] MCH (RBC) [Entitic mass] 27.9 pg Normal 27.0-32.0 [facility] Comment on above: Performed By: #### L 500.4050, L506.1000, L500.4100, L501.9910, L501.9985, L100.0100, L801.1541, L501.9520 #### [facility] [address] [place], [address] MCHC (RBC) [Mass/Vol] 32.0 g/dL Normal 32-36 [facility] Comment on above: Performed By: #### L 500.4050, L506.1000, L500.4100, L501.9910, L501.9985, L100.0100, L801.1541, L501.9520 #### [facility] [address] [place], [address] MCV (RBC) [Entitic vol] 87.2 fL Normal 80-94 [facility] Comment on above: Performed By: #### L 500.4050, L506.1000, L500.4100, L501.9910, L501.9985, L100.0100, L801.1541, L501.9520 #### [facility] [address] [place], [address] Monocytes/100 WBC (Bld) 7.1 % Normal 0-10 [facility] Comment on above: Performed By: #### L 500.4050, L506.1000, L500.4100, L501.9910, L501.9985, L100.0100, L801.1541, L501.9520 #### [facility] [address] [place], [address] Neutrophils/100 WBC (Bld) 74.1 % High 47-70 [facility] Comment on above: Performed By: #### L 500.4050, L506.1000, L500.4100, L501.9910, L501.9985, L100.0100, L801.1541, L501.9520 #### [facility] [address] [place], [address] Nucleated RBC (Bld) [#/Vol] 0 10*3/uL Normal 0-5 [facility] Comment on above: Performed By: #### L 500.4050, L506.1000, L500.4100, L501.9910, L501.9985, L100.0100, L801.1541, L501.9520 #### [facility] [address] [place], [address] Platelet mean volume (Bld) [Entitic vol] 10.2 fL Normal 6.2-12.0 [facility] Comment on above: Performed By: #### L 500.4050, L506.1000, L500.4100, L501.9910, L501.9985, L100.0100, L801.1541, L501.9520 #### [facility] [address] [place], [address] Platelets (Bld) [#/Vol] 189 10*3/uL Normal 150-450 [facility] Comment on above: Performed By: #### L 500.4050, L506.1000, L500.4100, L501.9910, L501.9985, L100.0100, L801.1541, L501.9520 #### [facility] [address] [place], [address] RBC (Bld) [#/Vol] 5.41 10*6/uL Normal 4.6-6.2 [facility] Comment on above: Performed By: #### L 500.4050, L506.1000, L500.4100, L501.9910, L501.9985, L100.0100, L801.1541, L501.9520 #### [facility] [address] [place], [address] RDW SD 42.8 fl Normal 35.1-43.9 [facility] Comment on above: Performed By: #### L 500.4050, L506.1000, L500.4100, L501.9910, L501.9985, L100.0100, L801.1541, L501.9520 #### [facility] [address] [place], [address] WBC (Bld) [#/Vol] 7.1 10*3/uL Normal 4.4-11.0 [facility] Comment on above: Performed By: #### L 500.4050, L506.1000, L500.4100, L501.9910, L501.9985, L100.0100, L801.1541, L501.9520 #### [facility] [address] [place], [address] Comprehensive Metabolic Prof [facility] 09-23-2024 Albumin [Mass/Vol] 4.0 g/dL Normal 3.2-5.0 [facility] Comment on above: Order Comment: [facility]: Ox LDL - [id number] Performed By: #### L 500.4050, L506.1000, L500.4100, L501.9910, L501.9985, L100.0100, L801.1541, L501.9520 #### [facility] [address] [place], [address] Albumin/Globulin [Mass ratio] 1.1 {ratio} Normal 0.9-2.4 [facility] Comment on above: Order Comment: [facility] r[facility]: Ox LDL - [id number] Performed By: #### L 500.4050, L506.1000, L500.4100, L501.9910, L501.9985, L100.0100, L801.1541, L501.9520 #### [facility] [address] [place], [address] ALK P 41 U/L Low 45-117 [facility] Comment on above: Order Comment: [facility]: Ox LDL - [id number] Performed By: #### L 500.4050, L506.1000, L500.4100, L501.9910, L501.9985, L100.0100, L801.1541, L501.9520 #### [facility] [address] [place], [address] ALT [Catalytic activity/Vol] 32 U/L Normal 16-61 [facility] Comment on above: Order Comment: [facility]: Ox LDL - [id number] Performed By: #### L 500.4050, L506.1000, L500.4100, L501.9910, L501.9985, L100.0100, L801.1541, L501.9520 #### [facility] [address] [place], [address] AST [Catalytic activity/Vol] 21 U/L Normal 15-37 [facility] Comment on above: Order Comment: [facility]: Ox LDL - [id number] Performed By: #### L 500.4050, L506.1000, L500.4100, L501.9910, L501.9985, L100.0100, L801.1541, L501.9520 #### [facility] [address] [place], [address] Bilirubin [Mass/Vol] 0.60 mg/dL Normal 0.20-1.00 [facility] Comment on above: Order Comment: [facility] r[facility]: Ox LDL - [id number] Result Comment: For patients on eltrombopag therapy, use of Dimension [place] TBIL is not recommended. Performed By: #### L 500.4050, L506.1000, L500.4100, L501.9910, L501.9985, L100.0100, L801.1541, L501.9520 #### [facility] [address] [place], [address] BUN/CRE 15.8 RATIO Normal 10-20 [facility] Comment on above: Order Comment: [facility]: Ox LDL - [id number] Performed By: #### L 500.4050, L506.1000, L500.4100, L501.9910, L501.9985, L100.0100, L801.1541, L501.9520 #### [facility] [address] [place], [address] CA,Total 9.6 mg/dL Normal 8.5-10.1 [facility] Comment on above: Order Comment: [facility]: Ox LDL - [id number] Performed By: #### L 500.4050, L506.1000, L500.4100, L501.9910, L501.9985, L100.0100, L801.1541, L501.9520 #### [facility] [address] [place], [address] Chloride [Moles/Vol] 104 mmol/L Normal 98-107 [facility] Comment on above: Order Comment: [facility] rp: Ox LDL - [id number] Performed By: #### L 500.4050, L506.1000, L500.4100, L501.9910, L501.9985, L100.0100, L801.1541, L501.9520 #### [facility] [address] [place], [address] CO2 [Moles/Vol] 28.0 mmol/L Normal 21.0-32.0 [facility] Comment on above: Order Comment: [facility] rp: Ox LDL - [id number] Performed By: #### L 500.4050, L506.1000, L500.4100, L501.9910, L501.9985, L100.0100, L801.1541, L501.9520 #### [facility] [address] [place], [address] Creatinine [Mass/Vol] 1.20 mg/dL Normal 0.70-1.30 [facility] Comment on above: Order Comment: [facility] r[facility]: Ox LDL - [id number] Result Comment: The validity of the calculated GFR GFRAA in patients over 70 years has not been determined. Clinical correlation is essential. Performed By: #### L 500.4050, L506.1000, L500.4100, L501.9910, L501.9985, L100.0100, L801.1541, L501.9520 #### [facility] [address] [place], [address] EST GFR - AA 78 mL/min Normal >60 [facility] Comment on above: Order Comment: [facility]: Ox LDL - [id number] Result Comment: Afri can Singaporean GFR Calc Performed By: #### L 500.4050, L506.1000, L500.4100, L501.9910, L501.9985, L100.0100, L801.1541, L501.9520 #### [facility] [address] [place], [address] GAP 6 Normal 5-15 [facility] Comment on above: Order Comment: [facility]: Ox LDL - [id number] Performed By: #### L 500.4050, L506.1000, L500.4100, L501.9910, L501.9985, L100.0100, L801.1541, L501.9520 #### [facility] [address] [place], [address] GFR/1.73 sq M.predicted among non-blacks MDRD (S/P/Bld) [Vol rate/Area] 65 mL/min/{1.73_m2} Normal >60 [facility] Comment on above: Order Comment: [facility]: Ox LDL - [id number] Result Comment: Non- GFR Calc Performed By: #### L 500.4050, L506.1000, L500.4100, L501.9910, L501.9985, L100.0100, L801.1541, L501.9520 #### [facility] [address] [place], [address] Globulin (S) [Mass/Vol] 3.7 g/dL Normal 2.2-4.2 [facility] Comment on above: Order Comment: [facility] r[facility]: Ox LDL - [id number] Performed By: #### L 500.4050, L506.1000, L500.4100, L501.9910, L501.9985, L100.0100, L801.1541, L501.9520 #### [facility] [address] [place], [address] Glucose [Mass/Vol] 119 mg/dL High 74-106 [facility] Comment on above: Order Comment: [facility]: Ox LDL - [id number] Result Comment: Fast ing Glucose result from 100 to 125 mg/dL suggests IMPAIRED HOMEOSTASIS per A.D.A. criteria. Performed By: #### L 500.4050, L506.1000, L500.4100, L501.9910, L501.9985, L100.0100, L801.1541, L501.9520 #### [facility] [address] [place], [address] Potassium [Moles/Vol] 3.7 mmol/L Normal 3.5-5.1 [facility] Comment on above: Order Comment: [facility] rp: Ox LDL - [id number] Performed By: #### L 500.4050, L506.1000, L500.4100, L501.9910, L501.9985, L100.0100, L801.1541, L501.9520 #### [facility] [address] [facility] [place], [address] Sodium [Moles/Vol] 138 mmol/L Normal 136-145 [facility] Comment on above: Order Comment: [facility] rp: Ox LDL - [id number] Performed By: #### L 500.4050, L506.1000, L500.4100, L501.9910, L501.9985, L100.0100, L801.1541, L501.9520 #### [facility] [address] [facility] [place], [address] T PROT 7.7 g/dL Normal 6.4-8.2 [facility] Comment on above: Order Comment: [facility] rp: Ox LDL - [id number] Performed By: #### L 500.4050, L506.1000, L500.4100, L501.9910, L501.9985, L100.0100, L801.1541, L501.9520 #### [facility] [address] [facility] [place], [address] Urea nitrogen [Mass/Vol] 19 mg/dL High 7-18 [facility] Comment on above: Order Comment: [facility] rp: Ox LDL - [id number] Performed By: #### L 500.4050, L506.1000, L500.4100, L501.9910, L501.9985, L100.0100, L801.1541, L501.9520 #### [facility] [address] [place], [place], [id number] Hemoglobin A1con 07-26-2024 HbA1c (Bld) [Mass fraction] 5.8 % High 3.8-5.6 [facility] Comment on above: Result Comment: Norm al < 5.7 % Prediabetic 5.7 - 6.4 % Diabetic >or= 6.5 % Please note range changes. Performed By: #### L 500.4050, L506.1000, L500.4100, L501.9910, L501.9985, L100.0100, L801.1541, L501.9520 #### [facility] [address] [place], [address] Lipid Profileon 07-26-2024 Cholesterol [Mass/Vol] 154 mg/dL Normal 200 [facility] Comment on above: Order Comment: [facility] rp: Ox LDL - [id number] Result Comment: <200 mg/dL Desirable 200-240 mg/dL Borderline >240 mg/dL High Risk Performed By: #### L 500.4050, L506.1000, L500.4100, L501.9910, L501.9985, L100.0100, L801.1541, L501.9520 #### [facility] [address] [place], [place], [id number] Cholesterol in HDL [Mass/Vol] 32 mg/dL Low [facility] Comment on above: Order Comment: [facility]: Ox LDL - [id number] Result Comment: The drugs N-Acetylcysteine and Metamizole may falsely depress this assay. Reference Range HDL <40 mg/dL Low HDL Cholesterol HDL >or= 60 mg/dL High HDL Cholesterol Performed By: #### L 500.4050, L506.1000, L500.4100, L501.9910, L501.9985, L100.0100, L801.1541, L501.9520 #### [facility] [address] [place], [address] Cholesterol in LDL [Mass/Vol] 59 mg/dL Normal 0-130 [facility] Comment on above: Order Comment: Lab[facility] rp: Ox LDL - [id number] Performed By: #### L 500.4050, L506.1000, L500.4100, L501.9910, L501.9985, L100.0100, L801.1541, L501.9520 #### [facility] [address] [place], [address] Cholesterol in VLDL [Mass/Vol] 63 mg/dL High 5-40 [facility] Comment on above: Order Comment: [facility] rp: Ox LDL - [id number] Performed By: #### L 500.4050, L506.1000, L500.4100, L501.9910, L501.9985, L100.0100, L801.1541, L501.9520 #### [facility] [address] [place], [address] Triglyceride [Mass/Vol] 316 mg/dL High [facility] Comment on above: Order Comment: [facility]: Ox LDL - [id number] Result Comment: The drugs N-Acetylcysteine and Metamizole may falsely depress this assay. Serum Triglycerides Reference Interval Normal <150 mg/dL Borderline high 150 - 199 mg/dL High 200 - 499 mg/dL Very High > or = 500 mg/dL Performed By: #### L 500.4050, L506.1000, L500.4100, L501.9910, L501.9985, L100.0100, L801.1541, L501.9520 #### [facility] [address] [place], [address] PSA,Total - Annual Screenon 07-26-2024 PSA,TOT SCREEN 2.83 ng/mL Normal 0.00-4.00 [facility] Comment on above: Order Comment: [facility]: Ox LDL - [id number] Result Comment: This test was performed using the TPSA assay method for the [employer] chemistry system. Values obtained with different assay methods cannot be used interchangably. When changing PSA assays in the course of monitoring a patient, additional sequential testing should be carried out to confirm baseline values. Performed By: #### L 500.4050, L506.1000, L500.4100, L501.9910, L501.9985, L100.0100, L801.1541, L501.9520 ####[facility] [address] [place], [address] Thyroid Stim Hormone (TSH)on 07-26-2024 TSH 2.010 uIU/mL Normal 0.358-3.740 [facility] Comment on above: Order Comment: [facility] r[facility]: Ox LDL - [id number] Performed By: #### L 500.4050, L506.1000, L500.4100, L501.9910, L501.9985, L100.0100, L801.1541, L501.9520 ####[facility] [address] [place], [place], [id number] Vitamin D,25 Hydroxyon 07-26 Vitamin D 25-OH 23.6 ng/mL Normal [facility] Comment on above: Result Comment: Violetta min D 25(OH) Status Range Deficiency <20 ng/mL (50nmol/L) Insufficiency 20 - 30 ng/mL (50 - 75 nmol/L) Sufficiency 30 - 100 ng/mL (75 - 250 nmol/L) Toxicity >100 ng/mL (>250 nmol/L) Performed By: #### L 500.4050, L506.1000, L500.4100, L501.9910, L501.9985, L100.0100, L801.1541, L501.9520 ####[facility] [address] [place], [address] Absolute lymphocyte countOrd ered By: Erin Schaefer on 01-06-2024 Lymphocytes Auto (Unsp spec) [#/Vol] 1.28 10*3/uL 0.83-4.51 [facility] Automated lymphocyte count a s percentage of total leukocytesOrdered By: Erin Schaefer on 01-06-2024 Lymphocytes/100 WBC Auto (Unsp spec) 23.1 % 19-41 [facility] Basophil percentageOrdered B y: Erin Schaefer on 01-06-2024 Basophils/100 WBC (Bld) 0.9 % 0-1 [facility] Chloride [Moles/Vol] 105 mmol/L 98-107 [facility] Eosinophils/100 WBC (Bld) 1.6 % 0-5 [facility] Glucose [Mass/Vol] 110 mg/dL 74-106 [facility] Comment on above: Fasting Glucose resu lt from 100 to 125 mg/dL suggests IMPAIRED HOMEOSTASIS per A.D.A. criteria. Hemoglobin (Bld) [Mass/Vol] 14.6 g/dL 13.0-16.5 [facility] Monocytes/100 WBC (Bld) 7.9 % 0-10 [facility] Neutrophils (Bld) [#/Vol] 3.7 10*3/uL 2.0-7.7 [facility] Neutrophils/100 WBC (Bld) 65.8 % 47-70 [facility] Potassium [Moles/Vol] 4.2 mmol/L 3.5-5.1 [facility] Sodium [Moles/Vol] 139 mmol/L 136-145 [facility] WBC (Bld) [#/Vol] 5.6 10*3/uL 4.4-11.0 [facility] Determination of erythrocyte mean corpuscular volume (MCV)Ordered By: Erin Schaefer on 01-06-2024 MCV (RBC) [Entitic vol] 85.3 fL 80-94 [facility] Erythrocyte distribution wid th ratioOrdered By: Erin Schaefer on 01-06-2024 Erythrocyte distribution width (RBC) [Ratio] 13.7 % 11.6-14.6 [facility] Erythrocyte distribution wid th standard deviationOrdered By: Erin Schaefer on 01-06-2024 Erythrocyte distribution width (RBC) [Entitic vol] 42.5 fL 35.1-43.9 [facility] Hematocrit Auto (Bld) [Volum e fraction]Ordered By: Erin Schaefer on 01-06-2024 Hematocrit (Bld) [Volume fraction] 45.3 % 40-54 [facility] Immature granulocytes/100 WB C Auto (Bld)Ordered By: Erin Schaefer on 01-06-2024 Immature granulocytes/100 WBC (Bld) 0.700 % 0.0-0.9 [facility] Comment on above: IG% - Immature Granu locytes (promyelocytes, myelocytes and metamyelocytes) > 1% indicates that a LEFT SHIFT is Present. Laboratory - Chemistry and C hemistry - challengeOrdered By: Erin Schaefer on 01-06-2024 CO2 [Moles/Vol] 28.0 mmol/L 21.0-32.0 [facility] Urea nitrogen/Creatinine [Mass ratio] 12.3 mg/mg 10-20 [facility] - Hematology and Cell countsOrdered By: Erin Schaefer on 01-06-2024 MCH (RBC) [Entitic mass] 27.5 pg 27.0-32.0 [facility] MCHC (RBC) [Mass/Vol] 32.2 g/dL 32-36 [facility] Nucleated RBC/100 WBC (Bld) [Ratio] 0 % 0-5 [facility] Platelet mean volume (Bld) [Entitic vol] 9.6 fL 6.2-12.0 [facility] Platelets (Bld) [#/Vol] 175 10*3/uL 150-450 [facility] No Panel InformationOrdered By: Erin Schaefer on 01-06-2024 D-Dimer Quantitative (PE/DVT) < 0.27 FEU/ug/m 0.27-0.49 [facility] Comment on above: NORMAL D-Dimer level (<0.50) indicates no DVT or PE. Estimated Creatinine Clearance Calc 71.68 ml/min [facility] Estimated GFR (MDRD) Amer 77 mL/min >60 [facility] Comment on above: GFR Calc Estimated GFR (MDRD) Non-Af Amer 64 mL/min >60 [facility] Comment on above: Non- GFR Calc Troponin I High Sensitivity 5 pg/mL 3.0-78.0 [facility] Comment on above: Please Note: New Chela t Units and Gender Specific Reference Ranges. For more information see Policy Stat Procedure [place] High Sensitivity Troponin (TNIH) and attachments. RBC Auto (Bld) [#/Vol]Ordere d By: Erin Schaefer on 01-06-2024 RBC (Bld) [#/Vol] 5.31 10*6/uL 4.6-6.2 [facility] Serum or plasma calcium citlalli urement (mass/volume)Ordered By: Erin Schaefer on 01-06-2024 Calcium [Mass/Vol] 9.1 mg/dL 8.5-10.1 [facility] [facility] Serum or plasma creatinine m easurement (mass/volume)Ordered By: Erin Schaefer on 01-06-2024 Creatinine [Mass/Vol] 1.22 mg/dL 0.70-1.30 [facility] Comment on above: The validity of the calculated GFR & GFRAA in patients over 70 years has not been determined. Clinical correlation is essential. Serum or plasma urea nitroge n measurement (mass/volume)Ordered By: Erin Schaefer on 01-06-2024 Urea nitrogen [Mass/Vol] 15 mg/dL 7-18 [facility] Thin prep Papanicolaou smear with manual screeningOrdered By: Erin Schaefer on 01-06-2024 Thin prep Papanicolaou smear with manual screening 6 5-15 [facility] Absolute lymphocyte countOrd ered By: Kristine Yee on 10-07-2023 Lymphocytes Auto (Unsp spec) [#/Vol] 1.17 10*3/uL 0.83-4.51 [facility] Basophil percentageOrdered B y: Kristine Yee on 10-07-2023 Basophils/100 WBC (Bld) 0.7 % 0-1 [facility] Bilirubin [Mass/Vol] 0.50 mg/dL 0.20-1.00 [facility] Comment on above: For patients on eltr ombopag therapy, use of Dimension [place] TBIL is not recommended. Chloride [Moles/Vol] 105 mmol/L 98-107 [facility] Cholesterol [Mass/Vol] 130 mg/dL <200 [facility] Comment on above: <200 mg/dL Desirable 200-240 mg/dL Borderline >240 mg/dL High Risk Eosinophils/100 WBC (Bld) 1.3 % 0-5 [facility] Glucose [Mass/Vol] 90 mg/dL 74-106 [facility] Neutrophils (Bld) [#/Vol] 4.1 10*3/uL 2.0-7.7 [facility] Neutrophils/100 WBC (Bld) 69.5 % 47-70 [facility] Potassium [Moles/Vol] 4.1 mmol/L 3.5-5.1 [facility] Protein [Mass/Vol] 7.6 g/dL 6.4-8.2 [facility] Sodium [Moles/Vol] 138 mmol/L 136-145 [facility] Triglyceride [Mass/Vol] 297 mg/dL <199 [facility] Comment on above: The drugs N-Acetylcy steine and Metamizole may falsely depress this assay.Serum Triglycerides Reference Interval Normal <150 mg/dL Borderline high 150 - 199 mg/dL High 200 - 499 mg/dL Very High > or = 500 mg/dL WBC (Bld) [#/Vol] 5.9 10*3/uL 4.4-11.0 [facility] Blood erythrocytes count (nu mber/volume)Ordered By: Kristine Yee on 10-07-2023 RBC (Bld) [#/Vol] 5.41 10*6/uL 4.6-6.2 [facility] Blood hemoglobin measurement (mass/volume)Ordered By: Kristine Yee on 10-07-2023 Hemoglobin (Bld) [Mass/Vol] 15.1 g/dL 13.0-16.5 [facility] Blood lymphocytes/100 leukoc ytesOrdered By: Kristine Yee on 10-07-2023 Lymphocytes/100 WBC (Bld) 19.7 % 19-41 [facility] Blood monocytes/100 leukocyt esOrdered By: Kristine Yee on 10-07-2023 Monocytes/100 WBC (Bld) 8.1 % 0-10 [facility] Blood platelet mean volumeOr dered By: Kristine Yee on 10-07-2023 Platelet mean volume (Bld) [Entitic vol] 10.1 fL 6.2-12.0 [facility] Determination of erythrocyte mean corpuscular volume (MCV)Ordered By: Kristine Yee on 10-07-2023 MCV (RBC) [Entitic vol] 87.6 fL 80-94 [facility] Hematocrit Auto (Bld) [Volum e fraction]Ordered By: Kristine Yee on 10-07-2023 Hematocrit (Bld) [Volume fraction] 47.4 % 40-54 [facility] Laboratory - Chemistry and C hemistry - challengeOrdered By: Kristine Yee on 10-07-2023 ALP [Catalytic activity/Vol] 52 U/L 45-117 [facility] ALT [Catalytic activity/Vol] 31 U/L 16-61 [facility] CO2 [Moles/Vol] 27.0 mmol/L 21.0-32.0 [facility] Globulin (S) [Mass/Vol] 3.7 g/dL 2.2-4.2 [facility] Urea nitrogen/Creatinine [Mass ratio] 14.8 mg/mg 10-20 [facility] - Hematology and Cell countsOrdered By: Kristine Yee on 10-07-2023 Erythrocyte distribution width (RBC) [Entitic vol] 43.3 fL 35.1-43.9 [facility] Erythrocyte distribution width (RBC) [Ratio] 13.5 % 11.6-14.6 [facility] Immature granulocytes/100 WBC (Bld) 0.700 % 0.0-0.9 [facility] Comment on above: IG% - Immature Granu locytes (promyelocytes, myelocytes and metamyelocytes) > 1% indicates that a LEFT SHIFT is Present. MCH (RBC) [Entitic mass] 27.9 pg 27.0-32.0 [facility] Nucleated RBC/100 WBC (Bld) [Ratio] 0 % 0-5 [facility] MCHC Auto (RBC) [Mass/Vol]Or dered By: Kristine Yee on 10-07-2023 MCHC (RBC) [Mass/Vol] 31.9 g/dL 32-36 [facility] No Panel InformationOrdered By: Kristine Yee on 10-07-2023 Estimated GFR (MDRD) Amer 83 mL/min >60 [facility] Comment on above: GFR Calc Estimated GFR (MDRD) Non-Af Amer 68 mL/min >60 [facility] Comment on above: Non- GFR Calc Vitamin D 25-Hydroxy 14.8 ng/mL [facility] Comment on above: Vitamin D 25(OH) Sta tus Range Deficiency <20 ng/mL (50nmol/L) Insufficiency 20 - 30 ng/mL (50 - 75 nmol/L) Sufficiency 30 - 100 ng/mL (75 - 250 nmol/L) Toxicity >100 ng/mL (>250 nmol/L) Platelets bldOrdered By: Chasidy Yee on 10-07-2023 Platelets (Bld) [#/Vol] 205 10*3/uL 150-450 [facility] Serum or plasma albumin citlalli urement (mass/volume)Ordered By: Kristine Yee on 10-07-2023 Albumin [Mass/Vol] 3.9 g/dL 3.2-5.0 [facility] Serum or plasma albumin/glob ulin mass ratioOrdered By: Kristine Yee on 10-07-2023 Albumin/Globulin [Mass ratio] 1.1 {ratio} 0.9-2.4 [facility] Serum or plasma calcium citlalli urement (mass/volume)Ordered By: Kristine Yee on 10-07-2023 Calcium [Mass/Vol] 9.4 mg/dL 8.5-10.1 [facility] Serum or plasma cholesterol in HDL measurement (mass/volume)Ordered By: Kristine Yee on 10-07-2023 Cholesterol in HDL [Mass/Vol] 29 mg/dL >40 [facility] Comment on above: The drugs N-Acetylcy steine and Metamizole may falsely depress this assay. Reference Range HDL <40 mg/dL Low HDL Cholesterol HDL >or= 60 mg/dL High HDL Cholesterol Serum or plasma cholesterol in VLDL measurement (mass/volume)Ordered By: Kristine Yee on 10-07-2023 Cholesterol in VLDL [Mass/Vol] 59 mg/dL 5-40 [facility] Serum or plasma creatinine m easurement (mass/volume)Ordered By: Kristine Yee on 10-07-2023 Creatinine [Mass/Vol] 1.15 mg/dL 0.70-1.30 [facility] Comment on above: The validity of the calculated GFR & GFRAA in patients over 70 years has not been determined. Clinical correlation is essential. Serum or plasma low density lipoprotein (LDL) cholesterol measurement (mass/volume)Ordered By: Kristine Yee on 10-07-2023 Cholesterol in LDL [Mass/Vol] 42 mg/dL 0-130 [facility] Serum or plasma urea nitroge n measurement (mass/volume)Ordered By: Kristine Yee on 10-07-2023 Urea nitrogen [Mass/Vol] 17 mg/dL 7-18 [facility] Thin prep Papanicolaou smear with manual screeningOrdered By: Kristine Yee on 10-07-2023 Thin prep Papanicolaou smear with manual screening 19 U/L 15-37 [facility] Thin prep Papanicolaou smear with manual screening 6 5-15 [facility] Whole blood hemoglobin A1c/t otal hemoglobin ratio (mass fraction)Ordered By: Kristine Yee on 10-07-2023 HbA1c (Bld) [Mass fraction] 5.8 % 3.8-5.6 [facility] Comment on above: Normal < 5.7 % Predi abetic 5.7 - 6.4 % Diabetic >or= 6.5 % Please note range changes. Absolute lymphocyte countOrd ered By: Sarah Carballo on 12-26-2022 Lymphocytes Auto (Unsp spec) [#/Vol] 1.08 10*3/uL 0.83-4.51 [facility] Basophil percentageOrdered B y: Sarah Carballo on 12-26-2022 Basophils/100 WBC (Bld) 1.1 % 0-1 [facility] Bilirubin [Mass/Vol] 0.50 mg/dL 0.20-1.00 [facility] Comment on above: For patients on eltr ombopag therapy, use of Dimension [place] TBIL is not recommended. Chloride [Moles/Vol] 107 mmol/L 98-107 [facility] Cholesterol [Mass/Vol] 127 mg/dL <200 [facility] Comment on above: <200 mg/dL Desirable 200-240 mg/dL Borderline >240 mg/dL High Risk Eosinophils/100 WBC (Bld) 2.0 % 0-5 [facility] Glucose [Mass/Vol] 103 mg/dL 74-106 [facility] Comment on above: Fasting Glucose resu lt from 100 to 125 mg/dL suggests IMPAIRED HOMEOSTASIS per A.D.A. criteria. Neutrophils (Bld) [#/Vol] 2.8 10*3/uL 2.0-7.7 [facility] Neutrophils/100 WBC (Bld) 63.9 % 47-70 [facility] Potassium [Moles/Vol] 4.0 mmol/L 3.5-5.1 [facility] Protein [Mass/Vol] 7.4 g/dL 6.4-8.2 [facility] Sodium [Moles/Vol] 140 mmol/L 136-145 [facility] Triglyceride [Mass/Vol] 203 mg/dL <199 [facility] Comment on above: The drugs N-Acetylcy steine and Metamizole may falsely depress this assay.Serum Triglycerides Reference Interval Normal <150 mg/dL Borderline high 150 - 199 mg/dL High 200 - 499 mg/dL Very High > or = 500 mg/dL WBC (Bld) [#/Vol] 4.4 10*3/uL 4.4-11.0 [facility] Blood erythrocytes count (nu mber/volume)Ordered By: Sarah Carballo on 12-26-2022 RBC (Bld) [#/Vol] 5.42 10*6/uL 4.6-6.2 [facility] Blood hemoglobin measurement (mass/volume)Ordered By: Sarah Carballo on 12-26-2022 Hemoglobin (Bld) [Mass/Vol] 15.2 g/dL 13.0-16.5 [facility] Blood lymphocytes/100 leukoc ytesOrdered By: Sarah Carballo on 12-26-2022 Lymphocytes/100 WBC (Bld) 24.5 % 19-41 [facility] Blood monocytes/100 leukocyt esOrdered By: Sarah Carballo on 12-26-2022 Monocytes/100 WBC (Bld) 8.0 % 0-10 [facility] Blood platelet mean volumeOr dered By: Sarah Carballo on 12-26-2022 Platelet mean volume (Bld) [Entitic vol] 9.9 fL 6.2-12.0 [facility] Determination of erythrocyte mean corpuscular volume (MCV)Ordered By: Sarah Carballo on 12-26-2022 MCV (RBC) [Entitic vol] 87.5 fL 80-94 [facility] Hematocrit Auto (Bld) [Volum e fraction]Ordered By: Sarah Carballo on 12-26-2022 Hematocrit (Bld) [Volume fraction] 47.4 % 40-54 [facility] - Chemistry and C hemistry - challengeOrdered By: Sarah Carballo on 12-26-2022 ALP [Catalytic activity/Vol] 45 U/L 45-117 [facility] ALT [Catalytic activity/Vol] 35 U/L 16-61 [facility] CO2 [Moles/Vol] 25.0 mmol/L 21.0-32.0 [facility] Cobalamin (Vitamin B12) [Mass/Vol] 331 pg/mL 211-911 [facility] Globulin (S) [Mass/Vol] 3.5 g/dL 2.2-4.2 [facility] Urea nitrogen/Creatinine [Mass ratio] 13.4 mg/mg 10-20 [facility] - Hematology and Cell countsOrdered By: Sarah Carballo on 12-26-2022 Erythrocyte distribution width (RBC) [Entitic vol] 43.7 fL 35.1-43.9 [facility] Erythrocyte distribution width (RBC) [Ratio] 13.6 % 11.6-14.6 [facility] Immature granulocytes/100 WBC (Bld) 0.500 % 0.0-0.9 [facility] Comment on above: IG% - Immature Granu locytes (promyelocytes, myelocytes and metamyelocytes) > 1% indicates that a LEFT SHIFT is Present. MCH (RBC) [Entitic mass] 28.0 pg 27.0-32.0 [facility] Nucleated RBC/100 WBC (Bld) [Ratio] 0 % 0-5 [facility] MCHC Auto (RBC) [Mass/Vol]Or dered By: Sarah Carballo on 12-26-2022 MCHC (RBC) [Mass/Vol] 32.1 g/dL 32-36 [facility] No Panel InformationOrdered By: Sarah Carballo on 12-26-2022 Estimated GFR (MDRD) Amer 85 mL/min >60 [facility] Comment on above: GFR Calc Estimated GFR (MDRD) Non-Af Amer 71 mL/min >60 [facility] Comment on above: Non- GFR Calc Prostate Specific Antigen Screen 1.99 ng/mL 0.00-4.00 [facility] Comment on above: This test was perfor med using the TPSA assay method for the[employer] chemistry system. Values obtained with differentassay methods cannot be used interchangably.When changing PSA assays in the course of monitoring apatient, additional sequential testing should be carriedout to confirm baseline values. Thyroid Stimulating Hormone (TSH) 1.44 uIU/mL 0.358-3.74 [facility] Platelets bldOrdered By: Glynn Carballo on 12-26-2022 Platelets (Bld) [#/Vol] 179 10*3/uL 150-450 [facility] Serum or plasma albumin citlalli urement (mass/volume)Ordered By: Sarah Carballo on 12-26-2022 Albumin [Mass/Vol] 3.9 g/dL 3.2-5.0 [facility] Serum or plasma albumin/glob ulin mass ratioOrdered By: Sarah Carballo on 12-26-2022 Albumin/Globulin [Mass ratio] 1.1 {ratio} 0.9-2.4 [facility] Serum or plasma calcitriol m easurement (mass/volume)Ordered By: Sarah Carballo on 12-26-2022 1,25-dihydroxyvitamin D3 [Mass/Vol] 47.3 pg/mL 24.8-81.5 [facility] Comment on above: Performed at: [facility] [address] [id number] Director: Silvino Fernandez MD, Phone: [phone] Serum or plasma calcium citlalli urement (mass/volume)Ordered By: Sarah Carballo on 12-26-2022 Calcium [Mass/Vol] 9.6 mg/dL 8.5-10.1 [facility] Serum or plasma cholesterol in HDL measurement (mass/volume)Ordered By: Sarah Carballo on 12-26-2022 Cholesterol in HDL [Mass/Vol] 31 mg/dL >40 [facility] Comment on above: The drugs N-Acetylcy steine and Metamizole may falsely depress this assay. Reference Range HDL <40 mg/dL Low HDL Cholesterol HDL >or= 60 mg/dL High HDL Cholesterol Serum or plasma cholesterol in VLDL measurement (mass/volume)Ordered By: Sarah Carballo on 12-26-2022 Cholesterol in VLDL [Mass/Vol] 41 mg/dL 5-40 [facility] Serum or plasma creatinine m easurement (mass/volume)Ordered By: Sarah Carballo on 12-26-2022 Creatinine [Mass/Vol] 1.12 mg/dL 0.70-1.30 [facility] Comment on above: The validity of the calculated GFR & GFRAA in patients over 70 years has not been determined. Clinical correlation is essential. Serum or plasma ferritin cristi surement (mass/volume)Ordered By: Sarah Carballo on 12-26-2022 Ferritin [Mass/Vol] 205 ng/mL 26-388 [facility] Serum or plasma low density lipoprotein (LDL) cholesterol measurement (mass/volume)Ordered By: Sarah Carballo on 12-26-2022 Cholesterol in LDL [Mass/Vol] 55 mg/dL 0-130 [facility] Serum or plasma urea nitroge n measurement (mass/volume)Ordered By: Sarah Carballo on 12-26-2022 Urea nitrogen [Mass/Vol] 15 mg/dL 7-18 [facility] Thin prep Papanicolaou smear with manual screeningOrdered By: Sarah Carballo on 12-26-2022 Thin prep Papanicolaou smear with manual screening 19 U/L 15-37 [facility] Thin prep Papanicolaou smear with manual screening 8 5-15 [facility] Thin prep Papanicolaou smear with manual screening 13.3 mg/L NO RANGE EST. [facility] Whole blood hemoglobin A1c/t otal hemoglobin ratio (mass fraction)Ordered By: Sarah Carballo on 12-26-2022 HbA1c (Bld) [Mass fraction] 5.9 % 3.8-5.6 [facility] Comment on above: Normal < 5.7 % Predi abetic 5.7 - 6.4 % Diabetic >or= 6.5 % Please note range changes. Vital Signs Date Time Vital Sign Value Performing Clinician Faci lity 07-19-2025 09:55-0400 Body temperature 97.7 [degF] Dr. Kristine Yee MD Work Phone: [facility] 07-19-2025 09:55-0400 Diastolic blood pressure 77 mm[Hg] Dr. Kristine Yee MD Work Phone: [facility] 07-19-2025 09:55-0400 Heart rate 67 /min Dr. Kristine Yee MD Work Phone: [facility] 07-19-2025 09:55-0400 Respiratory rate 16 /min Dr. Kristine Yee MD Work Phone: [facility] 07-19-2025 09:55-0400 SaO2% (BldA) [Mass fraction] 96 % Dr. Kristine Yee MD Work Phone: [facility] 07-19-2025 09:55-0400 Systolic blood pressure 111 mm[Hg] Dr. Kristine Yee MD Work Phone: [facility] 07-19-2025 08:39-0400 Body height 172.[address] Kristine Yee MD Work Phone: [facility] 07-19-2025 08:39-0400 Body mass index (BMI) [Ratio] 32.4 kg/m2 Dr. Kristine Yee MD Work Phone: [facility] 07-19-2025 08:39-0400 Body weight 96.[address] rKistine Yee MD Work Phone: [facility] 06-14-2025 10:12-0400 Body height 172.[address] Kristine Yee MD Work Phone: [facility] 06-14-2025 10:12-0400 Body mass index (BMI) [Ratio] 33.7 kg/m2 Dr. Kristine Yee MD Work Phone: [facility] 06-14-2025 10:12-0400 Body temperature 98.2 [degF] Dr. Kristine Yee MD Work Phone: [facility] 06-14-2025 10:12-0400 Body weight 100.[address] Kristine Yee MD Work Phone: [facility] 06-14-2025 10:12-0400 Diastolic blood pressure 67 mm[Hg] Dr. Kristine Yee MD Work Phone: [facility] 06-14-2025 10:12-0400 Heart rate 63 /min Dr. Kristine Yee MD Work Phone: [facility] 06-14-2025 10:12-0400 Respiratory rate 18 /min Dr. Kristine Yee MD Work Phone: [facility] 06-14-2025 10:12-0400 SaO2% (BldA) [Mass fraction] 95 % Dr. Kristine Yee MD Work Phone: [facility] 06-14-2025 10:12-0400 Systolic blood pressure 111 mm[Hg] Dr. Kristine Yee MD Work Phone: [facility] 05-09-2025 10:01-0400 Body height 172.[address] Kristine Yee MD Work Phone: [facility] 05-09-2025 10:01-0400 Body mass index (BMI) [Ratio] 34 kg/m2 Dr. Kristine Yee MD Work Phone: [facility] 05-09-2025 10:01-0400 Body temperature 98.7 [degF] Dr. Kristine Yee MD Work Phone: [facility] 05-09-2025 10:01-0400 Body weight 101.[address] Kristine Yee MD Work Phone: [facility] 05-09-2025 10:01-0400 Diastolic blood pressure 73 mm[Hg] Dr. Kristine Yee MD Work Phone: [facility] 05-09-2025 10:01-0400 Heart rate 75 /min Dr. Kristine Yee MD Work Phone: [facility] 05-09-2025 10:01-0400 Respiratory rate 16 /min Dr. Kristine Yee MD Work Phone: [facility] 05-09-2025 10:01-0400 SaO2% (BldA) [Mass fraction] 94 % Dr. Kristine Yee MD Work Phone: [facility] 05-09-2025 10:01-0400 Systolic blood pressure 115 mm[Hg] Dr. Kristine Yee MD Work Phone: [facility] 04-13-2025 15:31-0400 Body height 172.[address] Kristine Yee MD Work Phone: [facility] 04-13-2025 15:31-0400 Body mass index (BMI) [Ratio] 33.6 kg/m2 Dr. Kristine Yee MD Work Phone: [facility] 04-13-2025 15:31-0400 Body temperature 98.2 [degF] Dr. Kristine Yee MD Work Phone: [facility] 04-13-2025 15:31-0400 Body weight 100.[address] Kristine Yee MD Work Phone: [facility] 04-13-2025 15:31-0400 Diastolic blood pressure 69 mm[Hg] Dr. Kristine Yee MD Work Phone: [facility] 04-13-2025 15:31-0400 Heart rate 92 /min Dr. Kristine Yee MD Work Phone: [facility] 04-13-2025 15:31-0400 Respiratory rate 16 /min Dr. Kristine Yee MD Work Phone: [facility] 04-13-2025 15:31-0400 SaO2% (BldA) [Mass fraction] 94 % Dr. Kristine Yee MD Work Phone: [facility] 04-13-2025 15:31-0400 Systolic blood pressure 106 mm[Hg] Dr. Kristine Yee MD Work Phone: [facility] 01-06-2024 15:02-0500 Body temperature 98.6 [degF] MD Kristine Yee [facility] 01-06-2024 15:02-0500 Diastolic blood pressure 84 mm[Hg] MD Kristine Yee [facility] 01-06-2024 15:02-0500 Heart rate 67 /min MD Kristine Yee [facility] 01-06-2024 15:02-0500 Respiratory rate 16 /min Kristinechristian Yee [facility] 01-06-2024 15:02-0500 SaO2% (BldA) [Mass fraction] 98 % MD Kristine Yee [facility] 01-06-2024 15:02-0500 Systolic blood pressure 128 mm[Hg] MD Kristine Yee [facility] 01-06-2024 13:27-0500 Inhaled oxygen flow rate 3 L/min MD Kristine Yee [facility] 01-06-2024 12:00-0500 Body height 172.72 cm MD Kristine Yee [facility] 01-06-2024 12:00-0500 Body mass index (BMI) [Ratio] 34.1 kg/m2 MD Kristine Yee [facility] 01-06-2024 12:00-0500 Body weight 101.83 kg MD Kristine Yee [facility] 10-09-2023 16:06-0500 Body height 172.72 cm MD Kristine Yee [facility] 10-09-2023 16:06-0500 Body mass index (BMI) [Ratio] 35.4 kg/m2 MD Kristine Yee [facility] 10-09-2023 16:06-0500 Body temperature 97.7 [degF] MD Kristine Yee [facility] 10-09-2023 16:06-0500 Body weight 105.74 kg MD Kristine OBRIEN [facility] 10-09-2023 16:06-0500 Diastolic blood pressure 82 mm[Hg] MD Kristine OBRIEN [facility] 10-09-2023 16:06-0500 Heart rate 79 /min MD Kristine OBRIEN [facility] 10-09-2023 16:06-0500 Respiratory rate 16 /min MD Kristine OBRIEN [facility] 10-09-2023 16:06-0500 SaO2% (BldA) [Mass fraction] 95 % MD Kristine OBRIEN [facility] 10-09-2023 16:06-0500 Systolic blood pressure 138 mm[Hg] MD Kristine Yee [facility] Encounters Encounter Date Encounter Type Care Provider Facility Start: 08-09-2025 ambulatory Kristine Yee [place] [place] Start: 08-03-2025 ambulatory Kristine Yee Facility :[facility] Start: 07-22-2025 ambulatory Kristine Yee Facility :[facility] Start: 07-19-2025 Non-patient / Non-visit Dr. Eric Chang MD -[facility] Start: 07-19-2025 End: 07-19-2025 Admission to same day surgery center Dr. Eric Chang MD -Endoscopy Work Phone: Start: 07-19-2025 End: 07-19-[address] Kristine Yee MD Work Phone: -Endoscopy Start: 06-14-2025 End: 06-14-[address] Eric Chang MD -[facility] Work Phone: Start: 06-14-2025 End: 06-14-[address] Kristine Yee MD Work Phone: -[facility] Start: 05-09-2025 End: 05-09-[address] Kristine Yee MD -[facility] Work Phone: Start: 05-09-2025 End: 05-09-[address] Kristine Yee MD Work Phone: -[facility] Start: 04-13-2025 End: 04-13-[address] Kristine Yee MD -[facility] Work Phone: Start: 04-13-2025 End: 04-13-[address] Kristine Yee MD Work Phone: [facility] Work Phone: Start: 04-12-2025 End: 04-12-[address] Kristine Yee MD Work Phone: [facility] Work Phone: Start: 04-12-2025 End: 04-12-[address] Kristine Yee MD -Laboratory [place] Start: 04-12-2025 End: 04-12-2025 ambulatory Kristinechristian Yee Facility:[facility] Start: 11-24-2024 End: 11-24-2024 ambulatory Kristine Yee [place] [place] Start: 11-17-2024 End: 11-17-2024 ambulatory Kristine Yee [place] [place] Start: 11-17-2024 End: 11-17-[facility] Start: 10-13-2024 End: 10-13-2024 ambulatory Kristine Nakia [place] [place] Start: 10-12-2024 End: 10-12-2024 ambulatory Kristine Nakia Facility:[facility] Start: 10-06-2024 End: 10-06-2024 ambulatory Kristine Yee Facility:[facility] Start: 09-22-2024 End: 09-22-2024 ambulatory Kristine Nakia Facility:[facility] Start: 09-22-2024 End: 09-22-2024 [facility] Start: 07-26-2024 End: 07-[facility] Start: 01-06-2024 End: 01-06-2024 Emergency department patient visit MD Kristine Yee [facility] Work Phone: Start: 10-09-2023 End: 10-09-2023 Patient encounter procedure MD Kristine OBRIEN [facility] Work Phone: Start: 10-07-2023 End: 10-07-2023 ambulatory MD Kristine OBRIEN [facility] Work Phone: Start: 10-07-2023 End: 10-07-2023 Patient encounter procedure MD Kristine OBRIEN [facility] Start: 12-26-2022 End: 12-26-2022 ambulatory [facility] Work Phone: Start: 12-26-2022 End: 12-26-2022 Patient encounter procedure [facility] Start: 02-28-2021 ambulatory [facility] Facility: [facility] Procedures Date Procedure Procedure Detail Performing Clinician Start: 07-19-[address] Kristine Yee MD Work Phone: Start: 04-12-2025 Vitamin D, 25-hydrox y measurement Dr. Kristine Yee MD Work Phone: Comment on above: Vitamin D StatusDefi ciency: <20 ng/mL (50nmol/L)Insufficiency: 20-30 ng/mL (50-75 nmol/L)Sufficiency: 30-100 ng/mL (75-250 nmol/L)Toxicity: >100 ng/mL (>250 nmol/L) Start: 01-06-2024 Plain chest X-ray MD Chelsie OBRIEN Plan of Treatment Date Care Activity Detail Author Start: 07-19-2025 Patient discharge [facility] Start: 01-06-2024 [facility] Start: 01-06-2024 [facility] Colonoscopy [facility] Comprehensive metabo lic 1999 panel - Serum or Plasma [facility] Hemoglobin A1c/Hemoglobin.total in Blood [facility] Lipid 1996 panel - S weston or Plasma [facility] Patient Education ED Chest Pain, Uncertain Cause [facility] Work Phone: Patient referral [facility] Work Phone: Prostate specific an tigen measurement [facility] Vitamin D, 25-hydrox y measurement [facility] Immunizations Immunization Date Immunization Notes Care Provider Fa derickty 07-04-2020 Influenza virus vaccine [facility] Payers Date Payer Category Payer Unknown [id number] 2025 Unknown [id number] 2024 Unknown [id number] 2024 Unknown [id number] 2024 Self-pay [id number] 2024 Unknown [id number] 2019 Private Health Insurance [id number] 2005 Unknown [id number] 1960 Unknown [id number] 2.16. [id number] Medicare [id number] Unknown [id number] Unknown [id number] 2.16.8 40.1.129978.3.579.2.462 Unknown [id number] 2.16.8 40.1.186996.3.579.2.462 Unknown [id number] 2.16.8 40.1.756879.3.579.2.462 Unknown [id number] 2.16.8 40.1.234460.3.579.2.462 Unknown [id number] 2.16.8 40.1.372766.3.579.2.462 Unknown [id number] 2.16.8 40.1.882221.3.579.2.462 Unknown [id number] 2.16.8 40.1.663405.3.579.2.462 Unknown [id number] 2.16.8 40.1.992036.3.579.2.462 Unknown [id number] 2.16.8 40.1.354613.3.579.2.462 Unknown [id number] 2.16.8 40.1.270232.3.579.2.462 Unknown [id number] 2.16.8 40.1.380715.3.579.2.462 Unknown [id number] 2.16.8 40.1.038435.3.579.2.462 Unknown [id number] 2.16.8 40.1.978468.3.579.2.462 Unknown [id number] 2.16.8 40.1.306530.3.579.2.462 Unknown [id number] 2.16.8 40.1.814501.3.579.2.462 Unknown [id number] 2.16.8 40.1.061915.3.579.2.462 Unknown [id number] 2.16.8 40.1.092263.3.579.2.462 Unknown [id number] 2.16.8 40.1.712940.3.579.2.462 Social History Date Type Detail Facility Start: 05-10-2021 End: 01-06-2024 Tobacco smoking status NHIS Unknown if ever smoked [facility] Start: 01-30-2021 Occasional [facility] Start: 01-30-2021 None [facility] Start: 01-30-2021 Spouse/ Signif icant Other [facility] Start: 01-30-2021 Non-smoker [facility] Start: 1960 Sex Assigned At Male [facility] Start: 11-24-2024 End: 07-14-2025 Tobacco smoking status NHIS Never smoked tobacco (finding) [facility] Goals Date Patient Goal Desired Activity /State Mental Status Date Assessment Result Facility 07-19-2025 Cognitive function Voice/Name [facility] Work Phone: 01-06-2024 Cognitive function Voice/Name [facility] Work Phone: Clinical Notes 04-13-2025 to 07-19-2025 Note Date & Type Note Facility 07-19-2025 Consult note [facility] 07-19-2025 Procedure note [facility] 07-19-2025 Procedure note [facility] 07-19-2025 Procedure note [facility] 07-19-2025 Procedure note [facility] 07-19-2025 Consult note [facility] 07-19-2025 History and physi antonina note [facility] 07-19-2025 Note [facility] Medical Records Department [address] [place] [address] History Physical Exam 07/19/25 08 MR#: [id number] Acct: [id number] Name: FERNANDO REYES II Rep #: [id number] : 1960 65 From: Eric Chang MD PCP: Dr. Kristine Yee MD Status:[facility] Location: [place] [address] History and Physical Date of Admission: 07/19/25 Intake Vital Signs 05/09/2510:01 06/14/2510:12 Height 5 ft 8 in 5 ft 8 in Weight: 224 lb 222 lb BMI 34.0 33.7 BP 115/73 111/67 Blood Pressure Location Lt brachial Rt brachial Position Sitting Sitting Respiration 16 18 Pulse 75 63 Pulse Source Monitor Monitor Temp 98.7 F 98.2 F Temp Source Temporal Temporal Pulse Oximetry (%) 94 95 Oxygen Delivery Method room air room air Intake Visit Reasons: UPDATE H P - HERNIA Chief Complaint: update H P- hernia Is patient in pain?: No Allergies Penicillins (PCN) Allergy (Verified 06/14/25 10:12) Hives Medications ???Medication ???Instructions ???Recorded ???Confirmed ???Type rosuvastatin 20 mg tablet 20 mg PO DAILY cholesterol #90 tabs 08/23/2406/14 Rx lisinopril 20 mg tablet 20 mg PO DAILY blood pressure #90 10/13/24 5 Rx tabs sertraline 100 mg tablet 100 mg PO DAILY mental health #90 10/13/24 5 Rx tabs pantoprazole 40 mg tablet,delayed 40 mg PO DAILY gerd 04/13/25 06/14/25 History release cyclobenzaprine 10 mg tablet 10 mg PO TID PRN muscle spasm #20 05/09/25 5 Rx tabs lidocaine 5 % topical patch 1 patch topical QDAY #15 ea 05/09/25 06/14/25 Rx PFSH Medical History Lumbar back pain Obstructive sleep apnea Postprandial epigastric pain Dark stools Abdominal pain Umbilical hernia Strain of right rotator cuff capsule Right shoulder strain Hyperlipidemia Hypertension Migraines Cataracts, bilateral Physical exam, pre-employment Social History adopted: No household members: spouse housing: house number of children: 2 current occupational status: un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 occupational exposures/hazards: No pets and animals: Yes pets and animals: dog(s) leisure activities: other history of recent travel: Yes ([place] 2weeks ago) out of state: Yes sexually active: No Smoking Status: Never smoker alcohol intake: former details: havent for 6 months substance use type: other details: marijuana gummies well-balanced diet: daily or most days caffeine: No eating out: 1-3 times/week during the past year weight has: remained stable what type of physical activity do you participate in: walking frequency: 3-4 times per week seatbelt use: always do you feel safe at home: Yes HPI HPI HPI: Patient is a 64-year-old male who is here for several issues. The patient has been having epigastric pain despite being on the pantoprazole. He is also due for screening colonoscopy as his last colonoscopy was 10 years ago. The patient is also complaining of umbilical hernia that he would like repaired. ROS General General: Yes weight change and fatigue; No appetite, colon cancer, breast cancer or weakness HEENT HEENT: No difficulty swallowing, eye injury, eye surgery, swollen glands or hoarseness Endo Endocrine: No thyroid disease, diabetes mellitus, thyroid cancer, Hair loss, heat intolerance or cold intolerance Skin Skin: No rash or changing moles Musc Musculoskeletal: Yes back problems; No arthritis, rheumatoid arthritis, gout or joint pain Cardio Cardiovascular: Yes high blood pressure; No murmur, pacemaker, heart disease, atrial fibrillation, heart attack, heart stent, palpitations, shortness of breath with exertion or chest pain Psych Psychiatric: No depression, anxiety or hearing voices Resp Respiratory: No shortness of breath, Yes sleep apnea, No cough, No COPD, No asthma, No emphysema and No wheezing Gastro Gastrointestinal: Yes abdominal pain, Yes nausea or vomiting, Yes diarrhea, No constipation, No blood in stool, Yes acid reflux, No hemorrhoids, Yes ulcers, No gallbladder problem and Yes black,tarry stools Additional Details: Patient said he did take pepto couple days Jaime Hematologic: No blood thinners, No blood disorders, No bleeding, No anemia and No blood clots Neuro Neurologic: No system reviewed and no additional complaints, except as documented, No as per HPI, No abnormal gait, No abnormal hearing, No abnormal movements, No abnormal speech, No behavioral changes, No burning sensations, No confusion, No convulsions, No disequilibrium, No dizziness, No localized weakness, No frequent falls, No headache(s), No lack of coordination, No loss of vision, No memory loss, No numbness, No other visual disturba (more content not included)... [facility] 04-13-2025 Evaluation note Diagnosis Onset Date Resolution Hyperlipidemia acute April 13, 2025 3:23pm Low HDL (under 40) acute April 032024 3:23pm Obstructive sleep apnea [facility] 3:23pm Type 2 diabetes mellitus acute April 13, 2025 3:23pm Hypertension chronic April 13, 2 025 3:23pm [facility] Work Phone: 1(231) 488-938006-11-2025 Evaluation note* Diagnosis Onset Date Resolution Status Admit Date Hyperlipidemia acute April 13, 2025 3:23pm Low HDL (under 40) acute April 032024 3:23pm Obstructive sleep apnea [facility] 20[facility] 3:23pm Type 2 diabetes mellitus acute April 13, 2025 3:23pm Hypertension chronic April 13, 2 025 3:23pm Back pain noneactive May 09, 2025 9:57am [facility] Work Phone: 1(204) 443-541406-11-2025 Evaluation note* Diagnosis Onset Date Resolution Status Admit Date Hyperlipidemia acute April 13, 2025 3:23pm Low HDL (under 40) acute April 032024 3:23pm Obstructive sleep apnea acute J une 2024 3:23pm Type 2 diabetes mellitus acute April 13, 2025 3:23pm Hypertension chronic April 13, 2 025 3:23pm Lumbar back pain acute May 9:57am Back pain noneactive May 09, 2025 9:57am [facility] Work Phone: 1(807) 390-497906-11-2025 Evaluation note* Diagnosis Onset Date Resolution Status Admit Date Hyperlipidemia acute April 13, 2025 3:23pm Low HDL (under 40) acute April 032024 3:23pm Obstructive sleep apnea acute J une 2024 3:23pm Type 2 diabetes mellitus acute April 13, 2025 3:23pm Hypertension chronic April 13, 2 025 3:23pm Lumbar back pain acute May 9:57am Back pain noneactive May 09, 2025 9:57am Abdominal pain acute June 10:08am Screen for colon cancer acute A ugust 2024 10:08am Umbilical hernia acute June 032024 10:08am [facility] Work Phone: Consult note Author Steffi Rivas [facility] Note Date/Time July 19, 2025 9:06am [facility] Medical Records Department [address] [place] [id number] Pre-Anesthesia Evaluation 07/19/25 0900 MR#: [id number] Acct: [id number] Name: FERNANDO REYES II Rep #:[id number] : 1960 65 From: Steffi you CRNA PCP: Dr. Kristine Yee MD Status:REG SDC Y Race: C Location: [place] [address] ASA Classification* ASA Classification ASA Classification: 3 Assessment & Plan Anesthesia* Anesthesia Assessment Anesthesia Assessment: Discussed sedation and/or anesthesia options, risks, benefits, and alternatives with patient/parents/legal guardian/POA. Questions invited. The patient/parents/legal guardian/POA seems to understand and agrees to proceedwith anesthesia plan. Reviewed the physical assessment, medical history, allergy history and patient home medications list prior to surgery/procedure/anesthetic and documented any changes. Performed airway and anesthesia risk assessments. Anesthesia Type Anesthesia Type: MAC History Source History Obtained from:: Patient and Chart Anesthesia Focused Assessment* Temperature: 98.1 F Pulse Rate: 78 Blood Pressure: 128/85 Respiratory Rate: 16 Pulse Ox: 94 Oxygen Delivery Method: Room Air Airway Assessment Mouth opens: >3 cm Mallampati Score: II Teeth Condition: Intact Neck Range of motion (ROM): Full ROM Labs Anesthesia Preop lab: CBC WBC 3.9 K/mm3 (4.4-11.0) L 04/12/25 08:10 04/12/25 RBC 5.47 M/mm3 (4.6-6.2) 04/12/25 08:10 04/12/25 Hgb 15.4 g/dL (13.0-16.5) 04/12/25 08:10 04/12/25 Hct 47.6 % (40-54) 04/12/25 08:10 04/12/25 Plt Count 183 K/mm3 (150-450) 04/12/25 08:10 04/12/25 CHEMISTRY Potassium 4.3 mmol/L (3.3-5.1) 04/12/25 08:10 04/12/25 Sodium 137 mmol/L (133-145) 04/12/25 08:10 04/12/25 BUN 19 mg/dL (4-19) 04/12/25 08:10 04/12/25 Creatinine 1.06 mg/dL (0.70-1.20) 04/12/25 08:10 04/12/25 Glucose 116 mg/dL (70-99) H 04/12/25 08:10 04/12/25 POC Glucose 114 mg/dL (70-110) H 02/01/21 09:46 02/01/21 TSH 2.600 uIU/mL (0.300-4.200) 04/12/25 08:10 04/03 COAG PT 13.8 SECONDS (11.7-14.9) 01/30/21 11:13 Pre-Assessment Diagnosis/Proposed Procedure Planned Operative Procedure(s): EGD, CSCOPE Anesthesia History Anesthesia History - industrial training specialist: Anesthesia History - industrial training specialist Hx Hospitalization No 07/14/25 10:40 Any Problems With Anesthesia No 07/14/25 10:40 Cholinesterase deficiency No 07/14/25 10:40 You/Your Family Experience No 07/14/25 10:40 fever (hyperthermia) with Relationship Recent Exposure to Contagious No 07/19/25 08:39 Disease Does patient have nerve No 07/14/25 10:40 stimulator Patient instructed to have device shut off --Does patient have Pacemaker No 07/19/25 08:39 or ICD? When Was Last Pacemaker Check QUESTION #4 FULL TEXT: You/Your Family Experience fever (hyperthermia) with Anesthesia Last Oral Intake Last Oral intake: Last Oral Intake NPO since 05:30 07/19/25 08:39 Meds taken in AM with sips of No 07/19/25 08:39 water? Meds patient instructed to take am of surgery PONV PONV - industrial training specialist: PONV - industrial training specialist Female No 07/14/25 10:40 HX of Motion Sickness No 07/14/25 10:40 HX of N/V After Surgery No 07/14/25 10:40 Non-Smoker Yes 07/14/25 10:40 Duration of Surgery greater No 07/14/25 10:40 than 60 minutes Number of Risk Factors 1 07/14/25 10:40 PONV Score Low Risk 07/14/25 10:40 Height & Weight Height & Weight: Anesthesia: Height & Weight Height 5 ft 8 in 07/19/25 08:39 Weight: 96.9 kg 07/19/25 08:39 Body Mass Index (BMI) 32.4 07/19/25 08:39 Respiratory Assessment Respiratory Assessment - industrial training specialist: Respiratory Tract Infection Hx - industrial training specialist Hx Respiratory Tract Infection No 07/14/25 10:40 STOP Sleep Apnea STOP Sleep Apnea - industrial training specialist: STOP Sleep Apnea - industrial training specialist Hx Hypertension Yes: CONTROLLED WITH MED 07/14/25 10:40 Hx Sleep Apnea Yes 07/14/25 10:40 CPAP Yes 07/14/25 10:40 BIPAP No 07/14/25 10:40 Do you snore loudly (louder than talking or can be heard Do you often feel tired/ fatigued/ sleepy during daytime? Has anyone observed you stop breathing during sleep? STOP Results Positive 07/14/25 10:40 QUESTION #5 FULL TEXT : Do you snore loudly (louder than talking or can be heard through closed doors)? Tobacco Use History Tobacco Use History - industrial training specialist: Tobacco Use History - industrial training specialist Tobacco Use Smoking Status Never smoker 07/14/25 10:40 Hx Tobacco Use No 07/14/25 10:40 Years Smoking Packs Smoked per Day Smoking Cessation Date was within the last 15 years Hx Smoking Cessation Date Hx Smoking Cessation No 07/14/25 10:40 Counseling Any additional information?: Yes Hematologic Medial History Hematologic Hx - industrial training specialist: Hematologic Medical Hx - appliance tester Hx of Blood Transfusion No 07/14/25 10:40 Hx of Transfusion in last 3 No 07/14/25 10:40 Months Date of Last Transfusion (if within last 3 months) Ever experience any problems No 07/14/25 10:40 with transfusion(s)? Specify any problems Hx of Preganancy in last 3 N/A 07/14/25 10:40 Months Nurse Filling Out Transfusion NBUCHER 07/14/25 10:40 & Questions: Date: 07/14/25 07/14/25 10:40 Time: 10:40 07/14/25 10:40 Patient unable to answer at this time (ie. confused, unrespo /Reproduction History /Reproductive History - industrial training specialist: /Reproductive Hx- industrial training specialist Hx Now No 07/14/25 10:40 Gestational Age (in weeks): EDC: Hx Hx Para Hx Section SAB Active Medications Active Medications: Current Medications Generic Name Dose Route Start Last Admin Trade Name Freq PRN Reason Stop Dose Admin Lactated Ringer's 1,000 mls @ 15 mls/hr 07/19/25 08:30 07/19/25 08:50 IV 15 mls/hr .Q48H BRENDA Administration PFSH Medical History Wears glasses Anxiety Marijuana use High cholesterol GERD (gastroesophageal reflux disease) Non-smoker CPAP (continuous positive airway pressure) dependence Sleep apnea History of stress test Lumbar back pain Postprandial epigastric pain Dark stools Abdominal pain Umbilical hernia Strain of right rotator cuff capsule Right shoulder strain Migraines Cataracts, bilateral Physical exam, pre-employment Obstructive sleep apnea Hyperlipidemia Hypertension Home Medications ?Medication ?Instructions ?Recorded ?Last Taken ?Type lisinopril 20 mg tablet 20 mg PO DAILY blood pressur e #90 06/29/25 Unknown Rx tabs pantoprazole 40 mg tablet,delayed 40 mg PO DAILY gerd #90 tabs 06/29/25 Unknown Rx release rosuvastatin 20 mg tablet 20 mg PO DAILY cholesterol # 90 tabs 06/29/25 Unknown Rx sertraline 100 mg tablet 100 mg PO DAILY mental healt h #90 06/29/25 Unknown Rx tabs MARIJUANA GUMMY 20 mg PO QHS 07/14/25 History Allergy/AdvReac Type Severity Reaction Status Date / Time Penicillins (PCN) Allergy Hives Verified 07/19/25 08:38 Surgical History History of cystoscopy History of colonoscopy Social History adopted: No household members: spouse housing: house number of children: 2 current occupational status: un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 occupational exposures/hazards: No pets and animals: Yes pets and animals: dog(s) leisure activities: other history of recent travel: Yes ([place] 2weeks ago) out of state: Yes sexually active: No Smoking Status: Never smoker alcohol intake: former details: havent for 6 months substance use type: other details: marijuana gummies well-balanced diet: daily or most days caffeine: No eating out: 1-3 times/week during the past year weight has: remained stable what type of physical activity do you participate in: walking frequency: 3-4 times per week seatbelt use: always do you feel safe at home: Yes Review of Systems (Anesthesia) ROS Narrative System reviewed and no additional complaints, except as documented. 07/19/25905 <Electronically signed by Steffi betts CRNA> Date _ Steffi Rivas CRNA Cosigner Signature: Date CC: ~ Signed [facility] Work Phone: Consult note Author Nelson Thomas [facility] Note Date/Time July 19, 2025 9:45am [facility] Medical Records Department [address] [place] [address] Anesthesia Postop Eval I 07/19/25943 MR#: [id number] Acct: [id number] Name: FERNANDO REYES II Rep #:[id number] : 1960 65 From: Nelson Thomas PCP: Dr. Kristine Yee MD Status:REG [facility] Y Race: C Location: [place] [address] Anesthesia: Postop Eval I Current Vital Signs Temperature: 97.7 F Pulse Rate: 74 Blood Pressure: 105/69 Respiratory Rate: 16 Pulse Ox: 98 Oxygen Delivery Method: Room Air Assessment Airway patent: Yes Spontaneous unlabored respirations: Yes Mental status: Awake and Calm nausea: No Vomiting: No Anesthesia Complication: No Fluid Hydration Crystalloid volume administer (ml): 400 Total IV fluid infused: 400 Progress Note Anesthesia document: Postop Eval 1 completed: Yes 07/19/25944 <Electronically signed by Nelson Thomas > Date _ Nelson Lugo Signature: Date CC: ~ Signed [facility] Work Phone: Evaluation noteNo assessment information available [facility] Work Phone: Evaluation note* Diagnosis Onset Date Resolution Status Incontinence of urine acute Skin tags, multiple acquired acute Depression chronic Hyperlipidemia chronic Hypertension chronic Obstructive sleep apnea 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 [facility] Work Phone: Evaluation note* Diagnosis Onset Date Resolution Status Incontinence of urine acute Skin tags, multiple acquired acute Depression chronic [facility] Work Phone: Evaluation note* Diagnosis Onset Date Resolution Status Admit Date Hyperlipidemia acute April 13, 2025 3:23pm Low HDL (under 40) acute April 032024 3:23pm Obstructive sleep apnea acute J 2024 3:23pm Type 2 diabetes mellitus acute April 13, 2025 3:23pm Hypertension chronic April 13, 025 3:23pm [facility] Work Phone: History and physical note Author Eric Chang [facility] Note Date/Time July 19, 2025 8:23am [facility] Medical Records Department [address] [place] [address] History & Physical Exam 07/19/25822 MR#: [id number] Acct: [id number] Name: FERNANDO REYES II Rep #:[id number] : 1960 65 From: Eric fletcher MD PCP: Dr. Kristine Yee MD Status:[facility] Location: [place] [address] History and Physical Date of Admission: 07/19/25 Intake Vital Signs 05/09/2510:01 06/14/2510:12 Height 5 ft 8 in 5 ft 8 in Weight: 224 lb 222 lb BMI 34.0 33.7 BP 115/73 111/67 Blood Pressure Location Lt brachial Rt brachial Position Sitting Sitting Respiration 16 18 Pulse 75 63 Pulse Source Monitor Monitor Temp 98.7 F 98.2 F Temp Source Temporal Temporal Pulse Oximetry (%) 94 95 Oxygen Delivery Method room air room air Intake Visit Reasons: UPDATE H&P - HERNIA Chief Complaint: update H&P- hernia Is patient in pain?: No Allergies Penicillins (PCN) Allergy (Verified 06/14/25 10:12) Hives Medications ?Medication ?Instructions ?Recorded ?Confirmed ?Type rosuvastatin 20 mg tablet 20 mg PO DAILY cholesterol #90 tabs 08/0406/14/25 Rx lisinopril 20 mg tablet 20 mg PO DAILY blood pressure #90 06/14/25 Rx tabs sertraline 100 mg tablet 100 mg PO DAILY mental health #90 06/14/25 Rx tabs pantoprazole 40 mg tablet,delayed 40 mg PO DAILY gerd 04/13/25 06/14/25 Hi story release cyclobenzaprine 10 mg tablet 10 mg PO TID PRN muscle spasm #20 06/14/25 Rx tabs lidocaine 5 % topical patch 1 patch topical QDAY #15 ea 05/09/2510/27 Rx PFSH Medical History Lumbar back pain Obstructive sleep apnea Postprandial epigastric pain Dark stools Abdominal pain Umbilical hernia Strain of right rotator cuff capsule Right shoulder strain Hyperlipidemia Hypertension Migraines Cataracts, bilateral Physical exam, pre-employment Social History adopted: No household members: spouse housing: house number of children: 2 current occupational status: un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 occupational exposures/hazards: No pets and animals: Yes pets and animals: dog(s) leisure activities: other history of recent travel: Yes ([place] 2weeks ago) out of state: Yes sexually active: No Smoking Status: Never smoker alcohol intake: former details: havent for 6 months substance use type: other details: marijuana gummies well-balanced diet: daily or most days caffeine: No eating out: 1-3 times/week during the past year weight has: remained stable what type of physical activity do you participate in: walking frequency: 3-4 times per week seatbelt use: always do you feel safe at home: Yes HPI HPI HPI: Patient is a 64-year-old male who is here for several issues. The patient has been having epigastric pain despite being on the pantoprazole. He is also due for screening colonoscopy as his last colonoscopy was 10 years ago. The patientis also complaining of umbilical hernia that he would like repaired. ROS General General: Yes weight change and fatigue; No appetite, colon cancer, breast cancer or weakness HEENT HEENT: No difficulty swallowing, eye injury, eye surgery, swollen glands or hoarseness Endo Endocrine: No thyroid disease, diabetes mellitus, thyroid cancer, Hair loss, heat intolerance or cold intolerance Skin Skin: No rash or changing moles Musc Musculoskeletal: Yes back problems; No arthritis, rheumatoid arthritis, gout or joint pain Cardio Cardiovascular: Yes high blood pressure; No murmur, pacemaker, heart disease, atrial fibrillation, heart attack, heart stent, palpitations, shortness of breath with exertion or chest pain Psych Psychiatric: No depression, anxiety or hearing voices Resp Respiratory: No shortness of breath, Yes sleep apnea, No cough, No COPD, No asthma, No emphysema and No wheezing Gastro Gastrointestinal: Yes abdominal pain, Yes nausea or vomiting, Yes diarrhea, No constipation, No blood in stool, Yes acid reflux, No hemorrhoids, Yes ulcers, Nogallbladder problem and Yes black,tarry stools Additional Details: Patient said he did take pepto couple days Jaime Hematologic: No blood thinners, No blood disorders, No bleeding, No anemia and No blood clots Neuro Neurologic: No system reviewed and no additional complaints, except as documented, No as per HPI, No abnormal gait, No abnormal hearing, No abnormal movements, No abnormal speech, No behavioral changes, No burning sensations, No confusion, No convulsions, No disequilibrium, No dizziness, No localized weakness, No frequent falls, No headache(s), No lack of coordination, No loss ofvision, No memory loss, No numbness, No other visual disturbances, No radicular pain, No restless legs, No sensory deficit, No syncope, No tingling, No tremor(s), No weakness and No other Exam Const General: cooperative Orientation: alert and oriented x3 HENMT Head: normal to inspection Neck Neck: normal visual inspection and full ROM Chest Chest palpation & inspection: normal inspection of the chest Resp Effort & Inspection: normal respiratory effort Auscultation: clear to auscultation bilaterally Cardio Rate: regular rate Rhythm: regular rhythm GI Inspection: non-distended Palpation: soft, hernia umbilical and nontender Skin General: no rashes or lesions noted Neuro General: patient alert and patient oriented x3 Extrem General: full ROM Psych Appearance: grossly normal Mental Status: mental status grossly normal Assessment and Plan Assessment and Plan (1) Umbilical hernia: Status: Acute Qualifiers: Obstruction and gangrene presence: without obstruction or gangrene Qualified Code(s): K42.9 - Umbilical hernia without obstruction or gangrene Plan: Patient has a small umbilical hernia. I discussed repairing it. I also discussed possibility of mesh if the defect is over a centimeter. I discussed the risks of the procedure such as bleeding, infection, injury to underlying organs. (2) Abdominal pain: Status: Acute Qualifiers: Abdominal location: epigastric Qualified Code(s): R10.13 - Epigastric pain Plan: Patient has been having epigastric pain. He has longstanding GERD and I would recommend EGD for evaluation. (3) Screen for colon cancer: Status: Acute Plan: Patient is due for screening colonoscopy. His last colonoscopy was 10 years ago. I explained endoscopy in detail to the patient. I explained the risks includingbut not limited to stroke or heart attack with anesthesia, perforation of the GItract, bleeding, infection. I explained that any of these could necessitate further emergency surgery. The patient understands and all questions were answered sufficiently. The patient wishes to proceed with procedure. Eric Chang MD Pager: [facility] [address] [place] [address], [address] [place] [address] Office: I have examined the patient and the H&P has been reviewed. There are no clinicalchanges since date of exam. 07/19/25822 <Electronically signed by Eric Chang MD> Cosigner Signature (if applicable): CC: Dr. Eric Chang MD; Dr. Kristine Yee MD~ Signed [facility] Work Phone: Reason for referral (narrative)No reason for referral information [facility] Work Phone: Summary Purpose Family History No Family History Records Found Relationship Condition Age at Onset Recorded Date/T valentine Unknown Family History?No pertinent history Unkno wn January 30, 2021 3:08pm Family History?No pertinent history Unkno wn January 30, 2021 3:08pm Relationship Condition Age at Onset Recorded Date/T valentine Unknown Family History?No pertinent history Unkno wn January 30, 2021 4:08pm Family History?No pertinent history Unkno wn January 30, 2021 4:08pm Advance Directives No Advanced Directives Records Found Advance Directive Response Recorded Date/ Time Living Will No January 30, 2021 3:07pm Power of Authors Motivational No January 30 3:07pm Advance Directive Response Recorded Date/ Time Name of Medical Power of Authors Motivational unnbrea January 06, 2024 12:22pm Living Will Yes January 06, 2024 12:22pm Power of Authors Motivational Yes January 05 12:22pm Advance Directive Response Recorded Date/ Time Do you have a Healthcare Power of Authors Motivational? Yes July 14, 2025 10:40am Chief Complaint and Reason for Visit Chief Complaint 6 M FU Reason for Visit Incontinence of urin e Skin tags, multiple acquired Depression Hyperlipidemia Hypertension Obstructive sleep apnea Chief Complaint 6 M FU CHEST PAIN Reason for Visit Incontinence of urin e Skin tags, multiple acquired Depression Chief Complaint Admit Date 6 M FU April 13, 2025 3:23 pm Reason for Visit Admit Date Hyperlipidemia April 13, 2025 3:23 pm Low HDL (under 40) April 13, 2025 3:23 pm Obstructive sleep apnea April 13, 2025 3:23pm Type 2 diabetes mellitus April 13, 2025 3:23pm Hypertension April 13, 2025 3:23 pm Chief Complaint Admit Date 6 M FU April 13, 2025 3:23 pm Back pain May 09, 2025 9:57a m Reason for Visit Admit Date Hyperlipidemia April 13, 2025 3:23 pm Low HDL (under 40) April 13, 2025 3:23 pm Obstructive sleep apnea April 13, 2025 3:23pm Type 2 diabetes mellitus April 13, 2025 3:23pm Hypertension April 13, 2025 3:23 pm Back pain May 09, 2025 9:57a m Chief Complaint Admit Date 6 M FU April 13, 2025 3:23 pm Back pain May 09, 2025 9:57a m UPDATE H&P - HERNIA June 14, 2025 10 :08am Reason for Visit Admit Date Hyperlipidemia April 13, 2025 3:23 pm Low HDL (under 40) April 13, 2025 3:23 pm Obstructive sleep apnea April 13, 2025 3:23pm Type 2 diabetes mellitus April 13, 2025 3:23pm Hypertension April 13, 2025 3:23 pm Lumbar back pain May 09, 2025 9:57a m Back pain May 09, 2025 9:57a m Reason for Visit Admit Date Hyperlipidemia April 13, 2025 3:23 pm Low HDL (under 40) April 13, 2025 3:23 pm Obstructive sleep apnea April 13, 2025 3:23pm Type 2 diabetes mellitus April 13, 2025 3:23pm Hypertension April 13, 2025 3:23 pm Lumbar back pain May 09, 2025 9:57a m Back pain May 09, 2025 9:57a m Abdominal pain June 14, 2025 10 :08am Screen for colon cancer June 14 10:08am Umbilical hernia June 14, 2025 10 :08am Additional Source Comments (unrecognized sect ion and content) No Status Records FoundNo Status Records Found INFORMATION SOURCE (unrecogn ized section and content) DATE CREATED AUTHOR 03/01/2021 [facility] DATE CREATED AUTHOR AUTHOR'S ORGANIZ ATION 07/22/2025 [facility] Care Teams (unrecognized sec tion and content) Team Status: Active Member Role Status Dates Dr. Kristine Yee MD Primary Care Provider Active Team Status: Inactive Member Role Status Dates Dr. Kristine Yee MD Primary Care Provider Active Start: April 12, 2025 End: April 12, 2025 Dr. Kristine Yee MD Attending Provider Active Start: April 12, 2025 End: April 12, 2025 Dr. Kristine Yee MD Referring Provider Active Start: April 12, 2025 End: April 12, 2025 Team Status: Inactive Member Role Status Dates Dr. Kristine Yee MD Primary Care Provider Active Start: April 13, 2025 End: April 13, 2025 Dr. Kristine Yee MD Attending Provider Active Start: April 13, 2025 End: April 13, 2025 Team Status: Active Member Role Status Dates Dr. Harley Jones MD Family Provider Active Sarah Carballo DO Primary Care Provider Active Team Status: Inactive Member Role Status Dates Sarah Carballo DO Primary Care Provi taniya, Attending Provider, Referring Provider Active Team Status: Active Member Role Status Dates Dr. Harley Jones MD Family Provider Active Kristine OBRIEN MD Primary Care Provider Active Team Status: Inactive Member Role Status Dates Dr. Kristine Yee MD Attending Provider Active Kristine OBRIEN MD Primary Care Provider Active Team Status: Inactive Member Role Status Dates Kristine OBRIEN MD Primary Care Provider, Attendin g Provider Active Team Status: Active Member Role Status Dates Dr. Harley Jonse MD Family Provider Active Dr. Kristine Yee MD Primary Care Provider Active Team Status: Inactive Member Role Status Dates Dr. Erin Schaefer MD Emergency Provider Active Dr. Kristine Yee MD Primary Care Provider Active Team Status: Active Member Role Status Dates Dr. Kristine Yee MD Primary Care Provider Active Start: April 12, 2025 Dr. Kristine Yee MD Attending Provider Active Start: April 12, 2025 Dr. Kristine Yee MD Referring Provider Active Start: April 12, 2025 Team Status: Active Member Role/Relationship Status Dates Dr. Kristine Yee MD Primary Care Provider Active Team Status: Inactive Member Role/Relationship Status Dates Dr. Krisitne Yee MD Primary Care Provider Active Start: April 12, 2025 End: April 12, 2025 Dr. Kristine Yee MD Attending Provider Active Start: April 12, 2025 End: April 12, 2025 Dr. Kristine Yee MD Referring Provider Active Start: April 12, 2025 End: April 12, 2025 Team Status: Inactive Member Role/Relationship Status Dates Dr. Kristine Yee MD Primary Care Provider Active Start: April 13, 2025 End: April 13, 2025 Dr. Kristine Yee MD Attending Provider Active Start: April 13, 2025 End: April 13, 2025 Team Status: Inactive Member Role/Relationship Status Dates Dr. Kristine Yee MD Primary Care Provider Active Start: May 09, 2025 End: May 09, 2025 Dr. Kristine Yee MD Attending Provider Active Start: May 09, 2025 End: May 09, 2025 Team Status: Inactive Member Role/Relationship Status Dates Dr. Kristine Yee MD Primary Care Provider Active Start: June 14, 2025 End: June 14, 2025 Dr. Kristine Yee MD Referring Provider Active Start: June 14, 2025 End: June 14, 2025 Dr. Eric Chang MD Attending Provider Active Start: June 14, 2025 End: June 14, 2025 Team Status: Inactive Member Role/Relationship Status Dates Dr. Kristine Yee MD Primary Care Provider Active Start: July 19, 2025 End: July 19, 2025 Dr. Kristine Yee MD Referring Provider Active Start: July 19, 2025 End: July 19, 2025 Dr. Eric Chang MD Attending Provider Active Start: July 19, 2025 End: July 19, 2025 Team Status: Active Member Role/Relationship Status Dates Dr. Kristine Yee MD Primary Care Provider Active Start: July 19, 2025 Dr. Kristine Yee MD Referring Provider Active Start: July 19, 2025 Dr. Eric Chang MD Attending Provider Active Start: July 19, 2025 Dr. Eric Chang MD Other Provider Active Start: July 19, 2025 Goals (unrecognized section and content) Goals may be documented in a n alternate sectionGoals may be documented in an alternate sectionGoals may be documented in an alternate sectionGoals may be documented in an alternate sectionGoals may be documented in an alternate sectionGoals may be documented in an alternate sectionGoals may be documented in an alternate section FOR RECORDS PERTAINING TO PATIENTS WHO ARE [...] BE BASED ON THE PRIMARY CLINICAL RECORDS. [facility] [employer] provides no warranty or guarantee of the accuracy or completeness of information in this document.
== END | disposition home or self-care (01) ==
LOC: SL 20:03
PROVIDERS: PCP Internal Medicine; Referring Provider Internal Medicine; Visit Provider Internal Medicine
DX: G47.33 Obstructive sleep apnea (adult) (pediatric) (principal)
CPT/HCPCS: 95810

== ENCOUNTER → 2025-08-02 | Outpatient (CLI) | payer MEDICARE, SELFPAY | END | disposition home or self-care (01) | LOC: SL 11:51 | PROVIDERS: PCP Internal Medicine; Visit Provider Internal Medicine | DX: Z00.00 Encounter for general adult medical examination without abnormal findings (principal) ==

== ENCOUNTER 2025-08-03 09:16 | Day surgery (SDC) | payer MEDICARE, SELFPAY ==
--- NOTE | 2025-07-21 10:16 | EKG12_ITS ---
Test Reason : OP Blood Pressure : */* mmHG Vent. Rate : 78 BPM Atrial Rate : 78 BPM P-R Int : 126 ms QRS Dur : 78 ms QT Int : 384 ms P-R-T Axes : 55 89 64 degrees QTcB Int : 437 ms Normal sinus rhythm Normal ECG Confirmed by BETHANY BOOTHE, BEAU ([id number]), editorial specialist LILLIAN NIELSEN ([id number]) on 07/22/2025 10:41:58 AM Referred By: Eric Chang Confirmed By: BEAU SIMS MD
[2025-08-03] VITALS (10 sets, daily range): BP systolic 90–141; BP diastolic 54–89; PULSE 66–89; RESP 10–16; TEMP 35.8–37.2; O2SAT 93–99; BMI 33.2
[2025-08-03] MEDS: Lactated Ringers 1,000 ML 15 ML IV (09:30)
--- NOTE | 2025-08-03 09:32 | PCM.PRE.AN2 ---
ASA Classification* ASA Classification ASA Classification: 2 Assessment & Plan Anesthesia* Anesthesia Assessment Anesthesia Assessment: Discussed sedation and/or anesthesia options, risks, benefits, and alternatives with patient/parents/legal guardian/POA. Questions invited. The patient/parents/legal guardian/POA seems to understand and agrees to proceed with anesthesia plan. Reviewed the physical assessment, medical history, allergy history and patient home medications list prior to surgery/procedure/anesthetic and documented any changes. Performed airway and anesthesia risk assessments. Anesthesia Type Anesthesia Type: General History Source History Obtained from:: Patient and Chart Anesthesia Focused Assessment* Temperature: 98.9 F Pulse Rate: 77 Blood Pressure: 133/83 Respiratory Rate: 16 Pulse Ox: 95 Oxygen Delivery Method: Room Air Airway Assessment Mouth opens: >3 cm Mallampati Score: III Neck Range of motion (ROM): Full ROM Labs Anesthesia Preop lab: CBC WBC, (4.4-11.0) 3.9 K/mm3 L 04/12/25, 08:10 RBC, (4.6-6.2) 5.47 M/mm3 04/12/25, 08:10 Hgb, (13.0-16.5) 15.4 g/dL 04/12/25, 08:10 Hct, (40-54) 47.6 % 04/12/25, 08:10 Plt Count, (150-450) 183 K/mm3 04/12/25, 08:10 CHEMISTRY Potassium, (3.3-5.1) 4.3 mmol/L 04/12/25, 08:10 Sodium, (133-145) 137 mmol/L 04/12/25, 08:10 BUN, (4-19) 19 mg/dL 04/12/25, 08:10 Creatinine, (0.70-1.20) 1.06 mg/dL 04/12/25, 08:10 Glucose, (70-99) 116 mg/dL H 04/12/25, 08:10 POC Glucose, (70-110) 114 mg/dL H 02/01/21, 09:46 TSH, (0.300-4.200) 2.600 uIU/mL 04/12/25, 08:10 COAG PT, (11.7-14.9) 13.8 SECONDS 01/30/21, 11:13 Pre-Assessment Diagnosis/Proposed Procedure Planned Operative Procedure(s): (N/A) Hernia, Umbilical Repair w/ Mesh Anesthesia History Anesthesia History - assistant finance manager: Anesthesia History - assistant finance manager Hx Hospitalization No 07/20/25 10:40 Any Problems With Anesthesia No 07/20/25 10:40 Cholinesterase deficiency No 07/20/25 10:40 You/Your Family Experience No 07/20/25 10:40 fever (hyperthermia) with Relationship Recent Exposure to Contagious No 07/19/25 08:39 Disease Does patient have nerve No 07/20/25 10:40 stimulator Patient instructed to have device shut off --Does patient have Pacemaker or ICD? When Was Last Pacemaker Check QUESTION #4 FULL TEXT: You/Your Family Experience fever (hyperthermia) with Anesthesia Last Oral Intake Last Oral intake: Last Oral Intake NPO since Meds taken in AM with sips of water? Meds patient instructed to take am of surgery PONV PONV - assistant finance manager: PONV - assistant finance manager Female No 07/20/25 10:40 HX of Motion Sickness No 07/20/25 10:40 HX of N/V After Surgery No 07/20/25 10:40 Non-Smoker Yes 07/20/25 10:40 Duration of Surgery greater Yes 07/20/25 10:40 than 60 minutes Number of Risk Factors 2 07/20/25 10:40 PONV Score Moderate Risk 07/20/25 10:40 Height & Weight Height & Weight: Anesthesia: Height & Weight Height 5 ft 8 in 07/19/25 08:39 Respiratory Assessment Respiratory Assessment - assistant finance manager: Respiratory Tract Infection Hx - assistant finance manager Hx Respiratory Tract Infection No 07/20/25 10:40 STOP Sleep Apnea STOP Sleep Apnea - assistant finance manager: STOP Sleep Apnea - assistant finance manager Hx Hypertension Yes 07/20/25 10:40 Hx Sleep Apnea Yes: cpap 07/20/25 10:40 CPAP Yes 07/20/25 10:40 BIPAP No 07/20/25 10:40 Do you snore loudly (louder than talking or can be heard Do you often feel tired/ fatigued/ sleepy during daytime? Has anyone observed you stop breathing during sleep? STOP Results Positive 07/20/25 10:40 QUESTION #5 FULL TEXT : Do you snore loudly (louder than talking or can be heard through closed doors)? 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 Specify any problems Hx of Preganancy in last 3 N/A 07/20/25 10:40 Months Nurse Filling Out Transfusion NBUCHER 07/20/25 10:40 & Questions: Date: 07/20/25 07/20/25 10:40 Time: 10:42 07/20/25 10:40 Patient unable to answer at this time (ie. confused, unrespo /Reproduction History /Reproductive History - assistant finance manager: /Reproductive Hx- assistant finance manager Hx Now No 07/20/25 10:40 Gestational Age (in weeks): EDC: Hx Hx Para Hx Section SAB No 07/20/25 10:40 Active Medications Active Medications: Current Medications Generic Name Dose Route Start Last Admin Trade Name Freq PRN Reason Stop Dose Admin Clindamycin Phosphate 900 mg in 50 mls @ 75 mls/hr 08/03/25 11:00 Cleocin IV 08/03/25 11:39 INTRAOP ONE Lactated Ringer's 1,000 mls @ 15 mls/hr 08/03/25 09:30 IV .Q48H BRENDA PFSH Medical History Wears glasses Anxiety Marijuana use High cholesterol GERD (gastroesophageal reflux disease) Non-smoker CPAP (continuous positive airway pressure) dependence Sleep apnea History of stress test Lumbar back pain Postprandial epigastric pain Dark stools Abdominal pain Umbilical hernia Strain of right rotator cuff capsule Right shoulder strain Migraines Cataracts, bilateral Physical exam, pre-employment Obstructive sleep apnea Hyperlipidemia Hypertension Home Medications ?Medication ?Instructions ?Recorded ?Last Taken ?Type lisinopril 20 mg tablet 20 mg PO DAILY blood pressure #90 06/29/25 Unknown Rx tabs pantoprazole 40 mg tablet,delayed 40 mg PO DAILY gerd #90 tabs 06/29/25 Unknown Rx release rosuvastatin 20 mg tablet 20 mg PO DAILY cholesterol #90 tabs 06/29/25 Unknown Rx sertraline 100 mg tablet 100 mg PO DAILY mental health #90 06/29/25 Unknown Rx tabs MARIJUANA GUMMY 20 mg PO QHS 07/14/25 07/15/25 History CPAP - Continuous Positive Airway 08/02/25 Unknown History Pressure([facility] INFORMATIONAL USE ONLY) Allergy/AdvReac Type Severity Reaction Status Date / Time Penicillins (PCN) Allergy Hives Verified 07/20/25 10:40 Surgical History History of cystoscopy History of colonoscopy Social History adopted: No household members: spouse housing: house number of children: 2 current occupational status: unemployed 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 current occupational exposures/hazards: No pets and animals: Yes pets and animals: dog(s) leisure activities: other history of recent travel: Yes ([place] 2weeks ago) out of state: Yes sexually active: No Smoking Status: Never smoker alcohol intake: former details: havent for 6 months substance use type: other details: marijuana gummies well-balanced diet: daily or most days caffeine: No eating out: 1-3 times/week during the past year weight has: remained stable what type of physical activity do you participate in: walking frequency: 3-4 times per week seatbelt use: always do you feel safe at home: Yes Addt'l Information Additional Findings: NSR; > 4 METS Review of Systems (Anesthesia) ROS Narrative System reviewed and no additional complaints, except as documented. Physical Exam Const alert and oriented x3 Resp normal respiratory effort and normal air movement Cardio regular rate and regular rhythm Back/Spine normal ROM Neuro oriented x3 and moves all extremities
--- NOTE | 2025-08-03 09:59 | PCM.HP.BLA ---
History and Physical Date of Admission: 08/03/25 Intake Vital Signs 05/09/2510:01 06/14/2510:12 Height 5 ft 8 in 5 ft 8 in Weight: 224 lb 222 lb BMI 34.0 33.7 BP 115/73 111/67 Blood Pressure Location Lt brachial Rt brachial Position Sitting Sitting Respiration 16 18 Pulse 75 63 Pulse Source Monitor Monitor Temp 98.7 F 98.2 F Temp Source Temporal Temporal Pulse Oximetry (%) 94 95 Oxygen Delivery Method room air room air Intake Visit Reasons: UPDATE H&P - HERNIA Chief Complaint: update H&P- hernia Is patient in pain?: No Allergies Penicillins (PCN) Allergy (Verified 06/14/25 10:12) Hives Medications ?Medication ?Instructions ?Recorded ?Confirmed ?Type rosuvastatin 20 mg tablet 20 mg PO DAILY cholesterol #90 tabs 08/23/24 06/14/25 Rx lisinopril 20 mg tablet 20 mg PO DAILY blood pressure #90 10/13/24 06/14/25 Rx tabs sertraline 100 mg tablet 100 mg PO DAILY mental health #90 10/13/24 06/14/25 Rx tabs pantoprazole 40 mg tablet,delayed 40 mg PO DAILY gerd 04/13/25 06/14/25 History release cyclobenzaprine 10 mg tablet 10 mg PO TID PRN muscle spasm #20 05/09/25 06/14/25 Rx tabs lidocaine 5 % topical patch 1 patch topical QDAY #15 ea 05/09/25 06/14/25 Rx PFSH Medical History Lumbar back pain Obstructive sleep apnea Postprandial epigastric pain Dark stools Abdominal pain Umbilical hernia Strain of right rotator cuff capsule Right shoulder strain Hyperlipidemia Hypertension Migraines Cataracts, bilateral Physical exam, pre-employment Social History adopted: No household members: spouse housing: house number of children: 2 current occupational status: unemployed 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 current occupational exposures/hazards: No pets and animals: Yes pets and animals: dog(s) leisure activities: other history of recent travel: Yes ([place] 2weeks ago) out of state: Yes sexually active: No Smoking Status: Never smoker alcohol intake: former details: havent for 6 months substance use type: other details: marijuana gummies well-balanced diet: daily or most days caffeine: No eating out: 1-3 times/week during the past year weight has: remained stable what type of physical activity do you participate in: walking frequency: 3-4 times per week seatbelt use: always do you feel safe at home: Yes HPI HPI HPI: Patient is a 64-year-old male who is here for several issues. The patient has been having epigastric pain despite being on the pantoprazole. He is also due for screening colonoscopy as his last colonoscopy was 10 years ago. The patient is also complaining of umbilical hernia that he would like repaired. ROS General General: Yes weight change and fatigue; No appetite, colon cancer, breast cancer or weakness HEENT HEENT: No difficulty swallowing, eye injury, eye surgery, swollen glands or hoarseness Endo Endocrine: No thyroid disease, diabetes mellitus, thyroid cancer, Hair loss, heat intolerance or cold intolerance Skin Skin: No rash or changing moles Musc Musculoskeletal: Yes back problems; No arthritis, rheumatoid arthritis, gout or joint pain Cardio Cardiovascular: Yes high blood pressure; No murmur, pacemaker, heart disease, atrial fibrillation, heart attack, heart stent, palpitations, shortness of breath with exertion or chest pain Psych Psychiatric: No depression, anxiety or hearing voices Resp Respiratory: No shortness of breath, Yes sleep apnea, No cough, No COPD, No asthma, No emphysema and No wheezing Gastro Gastrointestinal: Yes abdominal pain, Yes nausea or vomiting, Yes diarrhea, No constipation, No blood in stool, Yes acid reflux, No hemorrhoids, Yes ulcers, No gallbladder problem and Yes black,tarry stools Additional Details: Patient said he did take pepto couple days Jaime Hematologic: No blood thinners, No blood disorders, No bleeding, No anemia and No blood clots Neuro Neurologic: No system reviewed and no additional complaints, except as documented, No as per HPI, No abnormal gait, No abnormal hearing, No abnormal movements, No abnormal speech, No behavioral changes, No burning sensations, No confusion, No convulsions, No disequilibrium, No dizziness, No localized weakness, No frequent falls, No headache(s), No lack of coordination, No loss of vision, No memory loss, No numbness, No other visual disturbances, No radicular pain, No restless legs, No sensory deficit, No syncope, No tingling, No tremor(s), No weakness and No other Exam Const General: cooperative Orientation: alert and oriented x3 HENMT Head: normal to inspection Neck Neck: normal visual inspection and full ROM Chest Chest palpation & inspection: normal inspection of the chest Resp Effort & Inspection: normal respiratory effort Auscultation: clear to auscultation bilaterally Cardio Rate: regular rate Rhythm: regular rhythm GI Inspection: non-distended Palpation: soft, hernia umbilical and nontender Skin General: no rashes or lesions noted Neuro General: patient alert and patient oriented x3 Extrem General: full ROM Psych Appearance: grossly normal Mental Status: mental status grossly normal Assessment and Plan Assessment and Plan (1) Umbilical hernia: Status: Acute Qualifiers: Obstruction and gangrene presence: without obstruction or gangrene Qualified Code(s): K42.9 - Umbilical hernia without obstruction or gangrene Plan: Patient has a small umbilical hernia. I discussed repairing it. I also discussed possibility of mesh if the defect is over a centimeter. I discussed the risks of the procedure such as bleeding, infection, injury to underlying organs. (2) Abdominal pain: Status: Acute Qualifiers: Abdominal location: epigastric Qualified Code(s): R10.13 - Epigastric pain Plan: Patient has been having epigastric pain. He has longstanding GERD and I would recommend EGD for evaluation. (3) Screen for colon cancer: Status: Acute Plan: Patient is due for screening colonoscopy. His last colonoscopy was 10 years ago. I explained endoscopy in detail to the patient. I explained the risks including but not limited to stroke or heart attack with anesthesia, perforation of the GI tract, bleeding, infection. I explained that any of these could necessitate further emergency surgery. The patient understands and all questions were answered sufficiently. The patient wishes to proceed with procedure. Eric Chang MD Pager: [facility] [address] [place] [address], [address] [place] [address] Office: I have examined the patient and the H&P has been reviewed. There are no clinical changes since date of exam. Colonoscopy was normal.
[2025-08-03] MEDS: Lidocaine 1% (5 ml sdv) 5 ML Vial 10 ML IV (10:40)
[2025-08-03] MEDS: fentaNYL 100 MCG/2 ML Ampul IV (10:43)
[2025-08-03] MEDS: Bupiv/Epi 0.25% 30 ML Vial (10:55)
--- NOTE | 2025-08-03 11:12 | PCM.POST.ANE ---
Anesthesia: Postop Eval I Current Vital Signs Temperature: 98.2 F Pulse Rate: 84 Blood Pressure: 97/58 Respiratory Rate: 16 Pulse Ox: 96 Oxygen Delivery Method: Room Air Assessment Airway patent: Yes Spontaneous unlabored respirations: Yes Mental status: Awake and Calm nausea: No Vomiting: No Anesthesia Complication: No Fluid Hydration Crystalloid volume administer (ml): 800 Total IV fluid infused: 800 Progress Note Anesthesia document: Postop Eval 1 completed: Yes
--- NOTE | 2025-08-03 11:13 | OP.PCM_ITS ---
Operative Report (Standard) Operative Information Date of Procedure: 08/03/25 Pre-Operative Diagnosis: Umbilical hernia Post-Operative Diagnosis: Umbilical hernia less than 3 cm Surgery/Procedure Performed: Umbilical hernia repair less than 3 cm firer kiln: Yes Continuous Miner Operator Helper: Nohemi Orosco Tasks completed by first leveler: Opening & closing Type of Anesthesia: General/Regional RN Documented Start/Stop Times: Operation Date: 08/03/25 11:00 Case Time Into Pre-Op 08/03/25 09:22 Anesthesia Start 08/03/25 10:34 Into Room 08/03/25 10:34 Procedure Start 08/03/25 10:45 Procedure End 08/03/25 11:02 Anesthesia End 08/03/25 11:04 Out of Room 08/03/25 11:04 Into Recovery 08/03/25 11:07 Procedure Start Time: 10:45 Procedure Stop Time: 11:02 Select all DRAINS/GRAFTS/IMPLANTS that apply: None Estimated Blood Loss: 2 Specimen collected: No Description of surgery: Patient was brought back to the operating room and general anesthesia was induced. The abdomen was prepped and draped in usual sterile fashion. A curvilinear incision was marked inferior to the umbilicus and injected with local anesthetic. Incision was made with a scalpel and the umbilical stalk was taken off of the hernia sac. The hernia sac was reduced. The defect appeared to be about 1 cm. The contents were reduced and the fascia was reapproximate using 3 interrupted #1 Nurolon sutures. The area was irrigated and suctioned dry and there was good hemostasis. The umbilical stalk was tacked to the fascia using a 3-0 Vicryl suture. The incision was then closed with interrupted 3-0 Vicryl sutures. Steri-Strips and bandages were applied. Patient was taken to PACU in stable condition. Surgical Findings: Umbilical hernia less than 3 cm Complications Complications: No Admit VTE Documentation VTE Mechan Device Prophylaxis: SCD's
--- NOTE | 2025-08-03 11:18 | EX.PCM.DISCH ---
Discharge Instructions Procedure Hernia Diet Discharge Diet: Light diet - advance as tolerated Activity Discharge Activity: May Not Drive (for 2-3 days or while taking narcotic pain meds.) and May Shower (with the bandage in place 1-2 days after surgery.) Lifting Restrictions: 20 pounds for 4 weeks. Additional Activity Instructions:: Climbing stairs is fine, walking is encouraged. Sitting in bed may be uncomfortable. Sitting up using your lateral muscles (sitting up sideways) is usually more comfortable. Do not drive, work heavy equipment of sign legal documents for 24 hours. Pain medications may cause nausea, you should typically eat light foods as you take your pain medications. Pain medications may also cause constipation. If you have difficulty with this, discuss with your doctor. Alternate ibuprofen and Tylenol for pain control, oxycodone for breakthrough pain Dressing / Incision Call your doctor if your incision/area has: Continuous Slow Oozing, Sudden Increased Bleeding, Increased Pain/ Swelling, Increased Redness and Foul Smelling Discharge Call your doctor if you observe: Fever of 101 or Higher Suture Line Care: Avoid Pulling/Pushing and Avoid Pinching/Bending Remove Dressing in: 3 days (Remove clear bandages in 2 days, remove Steri-Strips in 7 to 10 days.) Cleanse incision/area with: Soap & Water Follow Up Care Please Follow Up With: Eric Chang MD When: Please call to schedule 2 week follow up appointment. [phone] Test Results: Test results from this visit will be discussed in further detail at your follow-up appointment, if applicable. Discharge Plan Admission Attending Provider: Eric Chang Primary Care Provider: Kristine Yee Instructions Print Language: Slovenian Discharge Orders/Prescriptions Prescriptions: New oxycodone 5 mg Tablet 5 - 10 mg PO Q4H PRN PRN (Reason: Pain Score 4-10) 5 Days Qty: 10 0RF No Action MARIJUANA GUMMY 20 mg PO QHS (DME) CPAP - Continuous Positive Airway Pressure([facility] INFORMATIONAL USE ONLY) See Rx Instructions .ROUTE .MEDSUPPLY Patient Comments: AUTOPAP 7-15CM RESMED F20 SMALL FULL FACE DASCO Rx Instructions: AUTOPAP 7-15CM RESMED F20 SMALL FULL FACE DASCO lisinopril 20 mg tablet 20 mg PO DAILY Qty: 90 3RF pantoprazole 40 mg tablet,delayed release (/EC) 40 mg PO DAILY Qty: 90 3RF rosuvastatin 20 mg tablet 20 mg PO DAILY Qty: 90 3RF sertraline 100 mg tablet 100 mg PO DAILY Qty: 90 3RF Other Ambulatory Orders: 12 Lead EKG (Routine) Timeframe: 20250721 Facility: [facility] - Location: Cardiovascular Services Ordered By: Dr. Brayden Eden Referrals / Follow Up: Kristine Yee MD [Primary Care Provider, Internal Medicine - [facility]] Disposition Disposition (needs filled in before D/C Order can be placed): Home, Self Care
--- NOTE | 2025-08-03 11:33 | POSTOPAN2_ITS ---
Anesthesia Postop Eval I Sum Postop Eval Completion status Anesthesia document: Postop Eval 1 completed: Yes Anesthesia Postop Eval I Summary Anesthesia Postop Eval I Summary: Anesthesia Postop Eval I: Assessment Summary Airway patent Yes 08/03/25 11:13 [email or web address] [email or web address] Spontaneous unlabored Yes 08/03/25 11:13 MILL [email or web address] respirations Mental status Awake,Calm 08/03/25 11:13 MILL TURNER.[email or web address] nausea No 08/03/25 11:13 MILL TURNER.SABRINAOBBarbara Vomiting No 08/03/25 11:13 MILL TURNER.SABRINAOBBarbara Anesthesia Postop Eval I: Fluid Summary Crystalloid volume administer 800 08/03/25 11:13 MILL TURNER.SABRINAOBY (ml) Colloids volume administered ( ml) Blood Product volume administered (ml) Total IV fluid infused 800 08/03/25 11:13 MILL [email or web address].BRE Anesthesia Postop Eval I: Summary Notes Anesthesia Complication No 08/03/25 11:13 MILL [email or web address].BRE Anesthesia Complication Comment: Post-operative progress note Anesthesia: Postop Eval II Evaluation Mental status: Awake and Calm Pain Level: 4 nausea: No Vomiting: No Complications Anesthesia Complication: No
--- NOTE | 2025-08-03 11:33 | PCM.POSTANE2 ---
Anesthesia Postop Eval I Sum Postop Eval Completion status Anesthesia document: Postop Eval 1 completed: Yes Anesthesia Postop Eval I Summary Anesthesia Postop Eval I Summary: Anesthesia Postop Eval I: Assessment Summary Airway patent Yes 08/03/25 11:13 HORSEBACK [email or web address] Spontaneous unlabored Yes 08/03/25 11:13 HORSEBACK [email or web address].BRE respirations Mental status Awake,Calm 08/03/25 11:13 HORSEBACK EXCAVATOR.SABRINAOBY nausea No 08/03/25 11:13 HORSEBACK EXCAVATOR.SABRINAOBBarbara Vomiting No 08/03/25 11:13 HORSEBACK EXCAVATOR.SABRINAOBBarbara Anesthesia Postop Eval I: Fluid Summary Crystalloid volume administer 800 08/03/25 11:13 HORSEBACK EXCAVATOR.SABRINAOBY (ml) Colloids volume administered ( ml) Blood Product volume administered (ml) Total IV fluid infused 800 08/03/25 11:13 HORSEBACK [email or web address].BRE Anesthesia Postop Eval I: Summary Notes Anesthesia Complication No 08/03/25 11:13 HORSEBACK EXCAVATOR.BRE Anesthesia Complication Comment: Post-operative progress note Anesthesia: Postop Eval II Evaluation Mental status: Awake and Calm Pain Level: 4 nausea: No Vomiting: No Complications Anesthesia Complication: No
== END 2025-08-03 12:40 | disposition home or self-care (01) ==
LOC: SDC 09:20 → AC 09:21
PROVIDERS: PCP Internal Medicine; Referring Provider Surgery; Visit Provider Surgery
PROC: (CPT 49591; principal; 2025-08-03 10:45)
DX: K42.9 Umbilical hernia without obstruction or gangrene (principal); I10 Essential (primary) hypertension; K21.9 Gastro-esophageal reflux disease without esophagitis; E78.00 Pure hypercholesterolemia, unspecified; Z79.899 Other long term (current) drug therapy
CPT/HCPCS: 49591; 00750; 93005; J2405

== ENCOUNTER → 2025-10-12 | Outpatient (CLI) | payer MEDICARE, SELFPAY ==
[2025-10-12 11:07] LABS: AST(SGOT) 25 U/L (<=37); Alanine Aminotransfer ALT/SGPT 29 U/L (<=46); Albumin, Serum 4.3 g/dL (3.4-4.8); Alkaline Phosphatase 43 U/L (40-129); Anion Gap 13 (5-15); BUN 16 mg/dL (4-19); BUN/Creat Ratio 15.2 RATIO (10-20); Calcium,Total 9.4 mg/dL (7.6-11.0); Carbon Dioxide 23.0 mmol/L (21.0-32.0); Chloride 104 mmol/L (98-108); Cholesterol 170 mg/dL (<=200); Globulin 2.8 g/dL (2.2-4.2); Glucose 124 mg/dL (70-99); Low Density Lipoprotein Calc. 87 mg/dL; PSA,Total - Annual Screen 6.93 ng/mL (0.02-4.00); Potassium 3.9 mmol/L (3.3-5.1); Triglycerides 267 mg/dL; Very Low Density Lipoprotein 53 mg/dL (5-40); Vitamin D,25 Hydroxy 24.5 ng/mL (30-100); cholesterol:hdl ratio screen 4.42
== END | disposition home or self-care (01) ==
PROVIDERS: PCP Internal Medicine; Referring Provider Internal Medicine; Visit Provider Internal Medicine
DX: I10 Essential (primary) hypertension (principal); E11.65 Type 2 diabetes mellitus with hyperglycemia; E55.9 Vitamin D deficiency, unspecified; E78.5 Hyperlipidemia, unspecified; E78.6 Lipoprotein deficiency; G47.33 Obstructive sleep apnea (adult) (pediatric); Z13.220 Encounter for screening for lipoid disorders; Z12.5 Encounter for screening for malignant neoplasm of prostate
CPT/HCPCS: 36415; 80053; 80061; 82306; 83036; 84153; G0103

== ENCOUNTER 2025-10-13 20:27 | Emergency (ER) | payer MEDICARE, SELFPAY ==
[2025-10-13 20:28] VITALS: BP 169/92; PULSE 69; RESP 17; TEMP 36.9; O2SAT 100; BMI 34.8
--- NOTE | 2025-10-13 21:00 | RAD_ITS ---
PROCEDURE: FINGER(S) MIN 2 VIEWS 10/13/2025 REASON FOR EXAM: LAC TO NAIL TECHNIQUE: Procedure Code: RADFIN Modality: DX Procedure: FINGER(S) MIN 2 VIEWS Laterality: Right COMPARISON: None. FINDINGS: No acute fracture or dislocation. Alignment is anatomic. Preserved joint spaces. No aggressive osseous lesion. No marked soft tissue swelling or radiopaque foreign body. RAD/Finger(s) Min 2 Views IMPRESSION: No acute fracture or dislocation. No radiopaque foreign body. Reading Location: [id number]
--- OUTSIDE RECORDS SUMMARY | 2025-10-13 21:43 | XMS RPT_ITS | CCD ---
Author Organization [facility] Care Team Providers Care Xray Tech Name Role Phone KEVIN HUNTER Referring Unavailable MARII ARAUZ Primary Care Unavailable Dr. Kristine Yee Attending Provider MD Kristine Gonzalez Primary Care Provider Alondra davy Yee MD, Dr. Carmona Primary Care Provider [phone] Nakia BOOTHE, Dr. Carmona Attending Provider Nakia BOOTHE, Dr. Carmona Referring Provider Bernardo BOOTHE, Dr. Reyes Attending Provider Bernardo BOOTHE, Dr. Reyes Other Provider [phone] Nakia BOOTHE, Dr. Carmona Primary Care Physician Nakia BOOTHE, Dr. Carmona Attending Physician Bernardo BOOTHE, Dr. Reyes Attending Physician Bernardo BOOTHE, Dr. Reyes Nurse Practitioner Santos BOOTHE, Dr. Manuel Attending Physician Bernardo BOOTHE, Dr. Reyes Referring Provider [phone] Karla Burgess Attending Physician Karla Sky Attending Unavailable Kristine Yee Referring Unavailable Kristine Yee Primary Care Unavailable Kristine Yee Primary Care Unavailable Kristine Yee Attending Unavailable Kristine Yee Primary Care Unavailable Antonio Francisco Referring Unavailable Antonio Francisco Attending Unavailable Kristine Yee Primary Care Unavailable Eric Chang Consulting Unavailable Eric Chang Referring Unavailable Eric Chang Attending Unavailable Nakia, Kristine Primary Care Unavailable Nakia, Kristine Referring Unavailable Calabretta, Eric Consulting Unavailable Calabretta, Eric Attending Unavailable Nakia, Kristine Referring Unavailable Nakia, Kristine Primary Care Unavailable Antonio Francisco Attending Unavailable Nakia, Kristine Primary Care Unavailable Nakia, Kristine Referring Unavailable Nakia, Kristine Attending Unavailable Nakia, Kristine Attending Unavailable Nakia, Kristine Primary Care Unavailable Nakia, Kristine Primary Care Unavailable Nakia, Kristine Attending Unavailable Nakia, Kristine Referring Unavailable Nakia, Kristine Primary Care Unavailable Nakia, Kristine Attending Unavailable Nakia, Kristine Referring Unavailable Nakia, Kristine Primary Care Unavailable Nakia, Kristine Attending Unavailable Nakia, Kristine Primary Care Unavailable Nakia, Kristine Referring Unavailable Calabretta, Eric Attending Unavailable Nakia, Kristine Primary Care Unavailable Calabretta, Eric Referring Unavailable Calabretta, Eric Attending Unavailable Nakia, Kristine Referring Unavailable Nakia, Kristine Primary Care Unavailable Nakia, Kristine Attending Unavailable Nakia, Kristine Referring Unavailable Nakia, Kristine Primary Care Unavailable Calabretta, Eric Attending Unavailable Nakia, Kristine Primary Care Unavailable Nakia, Kristine Attending Unavailable Nakia, Kristine Primary Care Unavailable Nakia, Kristine Attending Unavailable Ankia, Kristine Primary Care Unavailable Antonio Francisco Attending Unavailable Nakia, Kristine Referring Unavailable Nakia, Kristine Referring Unavailable Nakia, Kristine Primary Care Unavailable Michelle Whitehead Attending Unavailable Nakia, Kristine Referring Unavailable Nakia, Kristine Primary Care Unavailable Calabretta, Eric Attending Unavailable Nakia BOOTHE, Dr. Carmona Primary Care Physician Dr. Kristine Yee MD Attending Physician Dr. Kristine Yee MD Referring Provider Michelle Weiss PA-C Attending Physician Allergies Allergy Classification Reported Allergen(s) Allergy Type Date of Onset Reaction(s) Facility (13 sources) Penicillins Allergy to substance 01-30-2021 [facility] (1 source) Penicillins Drug allergy (disorder) 08-17-2025 [facility] Repository Medications Current Medications Medication Drug Class(es) Dates Sig (Normalized) Sig (Original) CPAP - Continuous Positive Airway Pressure([facility] INFORMATIONAL USE ONLY) (5 sources) Start: 08-02-2025 CPAP - Continuous Positive Airway Pressure([facility] INFORMATIONAL USE ONLY) Active 0 .Route .MEDSUPPLY August 02, 2025 12:00am ISELA AUTOPAP 7-15CM RESMED F20 SMALL FULL FACE DASCO Start: 08-02-2025 CPAP - Continu ous Positive Airway Pressure([facility] INFORMATIONAL USE ONLY) Active 0 .ROUTE .MEDSUPPLY August 02, 2025 12:00am ISELA AUTOPAP 7-15CM RESMED F20 SMALL FULL FACE DASCO MARIJUANA GUMMY (6 sources) Start: 07-14-2025 take 20 mg by mouth at bedtime MARIJUANA GUMMY Active 20 mg PO AT BEDTIME July 14, 2025 12:00am Complies with drug therapy Start: 07-14-2025 take 20 mg by mouth at bedtime Start: 07-14-2025 take 20 mg by mouth at bedtime MARIJUANA GUMMY Active 20 mg PO AT BEDTIME July 14, 2025 12:00am Completed/Discontinued Medications Medication Drug Class(es) Dates Sig (Normalized) Sig (Original) cholecalciferol 0.01 mg oral capsule (10 sources) Vitamin D Start: 11-24-2024 End: 04-13-2025 take 1 capsule by mouth once daily Cholecalciferol (Vitamin D3) 10 mcg (400 unit) capsule Discontinued 10 ug PO daily November 24, 2024 1:00am April 13, 2025 3:29pm cyclobenzaprine hydrochloride 10 mg oral tablet (8 sources) Muscle Relaxant Start: 05-09-2025 End: 07-14-2025 [...] using medication. lidocaine 0.05 mg/mg medicated patch (8 sources) Antiarrhythmic, Amide Local Anesthetic Start: 05-09-2025 End: 07-14-2025 Lidocaine 5 % adhesive patch,medicated Discontinued 1 NMA TOPICAL daily 15 May 09, 2025 12:00am July 14, 2025 10:38am leave on most painful area for up to 12 hrs lisinopril 20 mg oral tablet (20 sources) Angiotensin Converting Enzyme Inhibitor Start: 01-30-2021 End: 06-29-2025 take 1 tablet by mouth once daily Lisinopril 20 mg tablet Discontinued 20 mg PO DAILY 90 October 13, 2024 6:04pm June 29, 2025 4:05pm blood pressure 24 hr oxybutynin chloride 5 mg extended release oral tablet (20 sources) Cholinergic Muscarinic Antagonist Start: 04-14-2024 End: [...] 28, 2023 2:17pm January 06, 2024 1:43pm oxyCODONE hydrochloride 5 mg oral tablet (4 sources) Opioid Agonist Start: 08-03-2025 End: 08-17-2025 take 5-10 mg by mouth every four hours as needed for pain Oxycodone 5 mg Tablet Discontinued 5 - 10 mg PO EVERY 4 HOURS NEEDED as needed for Pain Score 4-10 10 5 0 August 03, 2025 August 17, 2025 1:29pm Umbilical hernia Umbilical hernia without obstruction or gangrene pantoprazole 40 mg delayed release oral tablet (20 sources) Proton Pump Inhibitor Start: 01-30-2021 End: 06-29-2025 take 1 tablet by mouth once daily as needed for gastroesophageal reflux disease Pantoprazole 40 mg tablet,delayed release (DR/EC) Discontinued 40 mg PO DAILY as needed for gerd 90 October 13, 2024 6:04pm April 13, 2025 3:29pm predniSONE 10 mg oral tablet (12 sources) Start: 05-05-2023 End: 05-17-2023 Prednisone 10 mg tablet Discontinued 10 mg PO daily 30 12 May 05, 2023 12:00am May 16, 2023 12:00am May 17, 2023 12:13am Unspecified contact dermatitis, unspecified cause Take 4 tabs once daily days 1-3 3 tabs once daily days 4-6 2 tabs once daily days 7-9 and 1 tab once daily days 10-12. rosuvastatin calcium 20 mg oral tablet (20 sources) HMG-CoA Reductase Inhibitor Start: 01-30-2021 End: 06-29-2025 take 1 tablet by mouth once daily Rosuvastatin 20 mg tablet Discontinued 20 mg PO DAILY 90 August 23, 2024 11:48am June 29, 2025 4:05pm cholesterol sertraline 100 mg oral tablet (20 sources) Serotonin Reuptake Inhibitor Start: 01-30-2021 End: 06-29-2025 take 1 tablet by mouth once daily Sertraline 100 mg tablet Discontinued 100 mg PO DAILY 90 October 13, 2024 6:04pm June 29, 2025 4:05pm mental health zolpidem tartrate 10 mg oral tablet (13 sources) gamma-Aminobut yric Acid-ergic Agonist Start: 01-30-2021 End: 04-03-2023 take 1 tablet by mouth at bedtime as needed Zolpidem 10 MG tablet Discontinued 10 mg PO AT BEDTIME as needed for Insomnia January 30, 2021 12:00am April 03, 2023 3:20pm Problems Active Problems Problem Classification Problem Date Documented Da te Episodic/Chronic Abdominal hernia (17 sources) Umbilical hernia; Translations: [Umbilical hernia without obstruction or gangrene] Onset: 08-03-2025 10-14-2024 Episodic Acute and unspecified renal failure (13 sources) Injury of kidney; Translations: [Acute kidney failure, unspecified] 01-30-2021 Episodic Administrative/social admission (20 sources) Patient encounter status; Translations: [Encounter for pre-employment examination] 05-10-2021 Episodic Allergic reactions (12 sources) Irritant contact dermatitis due to plant; Translations: [Irritant contact dermatitis due to plants, except food] 05-06-2023 Episodic Cardiac dysrhythmias (13 sources) Tachycardia; Translations: [Tachycardia, unspecified] 01-30-2021 Episodic Diabetes mellitus with complications (1 source) Type 2 diabetes mellitus with hyperglycemia; Translations: [Type 2 diabetes mellitus with hyperglycemia] Onset: 04-18-2025 Chronic Diabetes mellitus without complication (20 sources) Type 2 diabetes mellitus; Translations: [Type 2 diabetes mellitus without complications] Onset: 04-13-2025 04-14-2024 Chronic Disorders of lipid metabolism (20 sources) Hyperlipidemia; Translations: [Hyperlipidemia, unspecified] Onset: 04-13-2025 01-30-2021 Chronic Essential hypertension (20 sources) Hypertensive disorder; Translations: [Essential (primary) hypertension] Onset: 04-13-2025 01-30-2021 Chronic Genitourinary symptoms and ill-defined conditions (14 sources) Urinary incontinence; Translations: [Unspecified urinary incontinence] 10-09-2023 Chronic Mood disorders (16 sources) Depressive disorder; Translations: [Depression] Onset: 04-13-2025 01-30-2021 Chronic Nonspecific chest pain (11 sources) Chest pain; Translations: [Chest pain, unspecified] 01-06-2024 Episodic Other aftercare (2 sources) History of repair of umbilical hernia; Translations: [Encounter for follow-up examination after completed treatment for conditions other than malignant neoplasm] 08-17-2025 Episodic Other gastrointestinal disorders (10 sources) Dark stools; Translations: [Other fecal abnormalities] 11-17-2024 Episodic Other nervous system disorders (13 sources) Disorder of brain; Translations: [Encephalopathy, unspecified] 01-30-2021 Chronic Other nutritional; endocrine; and metabolic disorders (19 sources) Cholesterol level - finding; Translations: [Lipoprotein deficiency] 04-14-2024 Chronic Other nutritional; endocrine; and metabolic disorders (1 source) Lipoprotein deficiency; Translations: [Lipoprotein deficiency] Onset: 04-13-2025 Chronic Other screening for suspected conditions (not mental disorders or infectious disease) (1 source) Encounter for screening for malignant neoplasm of colon; Translations: [Encounter for screening for malignant neoplasm of colon] Onset: 07-29-2025 Episodic Other skin disorders (12 sources) Multiple skin tags; Translations: [Other hypertrophic disorders of the skin] 10-09-2023 Episodic Other skin disorders (2 sources) Other hypertrophic disorders of the skin; Translations: [Unspecified hypertrophic and atrophic conditions of skin] 10-09-2023 Episodic Residual codes; unclassified (20 sources) Obstructive sleep apnea syndrome; Translations: [Obstructive sleep apnea (adult) (pediatric)] 01-30-2021 Chronic Comment on above: AASM 1b AHI 12.4/h, AASM 1a AHI 71.8/h Residual codes; unclassified (2 sources) Obstructive sleep apnea (adult) (pediatric); Translations: [Obstructive sleep apnea (adult)(pediatric)] Onset: 07-31-2025 10-09-2023 Chronic Spondylosis; intervertebral disc disorders; other back problems (20 sources) Backache; Translations: [Dorsalgia, unspecified] Onset: 06-07-2025 05-09-2025 Episodic Unclassified (1 source) Low back pain, unspecified; Translations: [Low back pain, unspecified] Onset: 06-07-2025 Past or Other Problems Problem Classification Problem Date Documented Da te Episodic/Chronic Abdominal pain (20 sources) Epigastric pain; Translations: [Epigastric pain] Onset: 04-12-2025 11-17-2024 Episodic Other gastrointestinal disorders (1 source) Other fecal abnormalities; Translations: [Other fecal abnormalities] Onset: 11-17-2024 Episodic Sprains and strains (20 sources) Strain of muscle(s) and tendon(s) of the rotator cuff of right shoulder, initial encounter; Translations: [Strain of right rotator cuff capsule] Onset: 09-22-2024 09-22-2024 Episodic Results Test Name Value Interpretation Reference Range Facility Surgery Visit Reporton 08-17 Surgery Visit Report [facility] [address] [place] [address]. [address] [place] [id number] OFFICE VISIT Date of Service: 08/17/25 MR#: [id number] Acct: [id number] Name: ORALIA REYES PATRICK Rep #: [id number] : 1960 Provider: DEBORAH flores Age/Sex: 65/M Location: [facility] Status: Signed Intake Vital Signs 08/03/25 09:45 08/09/25 08:12 Height 5 ft 8 in 5 ft 8 in Weight: 221 lb BMI 33.5 BP 119/78 Blood Pressure Location Rt brachial Position Sitting Respiration 18 Pulse 74 Pulse Source Monitor Temp 96.9 F L Pulse Oximetry (%) 93 Oxygen Delivery Method room air Intake Visit Reasons: S/P HERNIA 10-1 Chief Complaint: s/p hernia 08/03 Is patient in pain?: No Allergies Penicillins (PCN) Allergy (Verified 08/17/25 13:29) Hives Medications ???Medication ???Instructions ???Recorded ???Confirmed ???Type lisinopril 20 mg tablet 20 mg PO DAILY blood pressure #90 06/29/25 08/17/25 Rx tabs pantoprazole 40 mg tablet,delayed 40 mg PO DAILY gerd #90 tabs 06/0408/17/25 Rx release rosuvastatin 20 mg tablet 20 mg PO DAILY cholesterol #90 tab s 06/29/25 08/17/25 Rx sertraline 100 mg tablet 100 mg PO DAILY mental health #90 06/29/25 08/17/25 Rx tabs MARIJUANA GUMMY 20 mg PO QHS 07/14/25 08/17/25 His tory CPAP - Continuous Positive Airway 08/02/25 08/17/25 History Pressure([facility] INFORMATIONAL USE ONLY) Have you fallen in the past year?: No Subjective Details: Patient is a 65 y/o M I am following s/p simple umbilical hernia repair without mesh by Dr. Chang on 08/03/25. Patient tolerated the procedure well. Patient notes twinges of discomfort intermittently. He continues to remain off of work. He denies any nausea, vomiting, fever since the procedure. His appetite has returned to normal. No concerns with bowel movements. Objective Details: Abdomen- soft, nontender. Incision c/d/i. No erythema or infection noted. Coding Level of Care Code Global Post Op Diagnoses S/P umbilical hernia repair, follow-up exam Z09 [facility] Medical History (Updated 08/09/25 @ 08:54 by Karla Sky, [employer]ILRO[employer] INSPECTOR-C) Wears glasses Anxiety Marijuana use High cholesterol GERD (gastroesophageal reflux disease) Non-smoker CPAP (continuous positive airway pressure) dependence Sleep apnea History of stress test Lumbar back pain Postprandial epigastric pain Dark stools Abdominal pain Umbilical hernia Strain of right rotator cuff capsule Right shoulder strain Migraines Cataracts, bilateral Physical exam, pre-employment Obstructive sleep apnea Hyperlipidemia Hypertension Surgical History (Updated 08/17/25 @ 13:30 by Laverne Carranza) S/P umbilical hernia repair, follow-up exam H/O hernia repair History of cystoscopy History of colonoscopy Social History adopted: No household members: spouse housing: house number of children: 2 current occupational status: 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 Kristine Yee MD Normal [facility] Pulmonary Visit Reporton Pulmonary Visit Report [facility] [address] [place] [address] OFFICE VISIT Date of Service: 08/09/25 MR#: [id number] Acct: [id number] Name: AMYORALIA MARII NGUYEN Rep #: [id number] : 1960 Provider: Karla Sky NP Age/Sex: 65/M Location[place] [facility] [place] Status: Signed Assessment and Plan Assessment and Plan (1) Obstructive sleep apnea: Status: Chronic Comment: AASM 1b AHI 12.4/h, AASM 1a AHI 71.8/h Plan: Obstructive sleep apnea continues to be present. The results of the recent sleep study were reviewed with patient today. I believe that the normal oxygenation in the context of mild to severe disease is present because he has treated sleep apnea successfully for many years. I have recommended a compliance download be obtained from his current device and a nocturnal pulse oximetry be performed with his vendor prior to follow-up in 3 months. It is likely that AutoPap is adequately controlling the apnea but objective data is warranted at this time. The patient should notify this practice if he has worsening symptoms and his follow-up will be advanced. Plan This note was generated with [employer] dictation software. It may contain incorrect words, spelling, and punctuation that were not noted in checking the note before signing. Plan Details Additional Comments: If left thigh and left hand pain worsen he should discuss with PCP. Follow Up: 3 Months (LMR) HPI HPI Comments Details: Patient is a 65-year-old male who presents today to establish for sleep disordered breathing. He is ambulatory and currently on room air. He underwent an overnight polysomnography ordered by his PCP Dr. Gonzalez from July 22, 2025 which showed an overall AHI AASM 1B criteria at 12.4 events per hour and the AASM 1A criteria was 71.8 events per hour. The patient has a longstanding history of sleep apnea. He reports 17 years using a PAP device. Prior to using PAP therapy he would awaken himself at night. He was experiencing weight gain and snoring. He indicates that his baseline studies were not able to be obtained. He did receive a new machine 6-7 years ago. Most recently his device gave an error message that the motor has exceeded life expectancy. He then completed the split-night study and was set up on what he believes is AutoPap starting at 7 cm to ? He reports that he is tolerating air pressure. He does have some oral dryness because he is a mouth breather. He uses a FFM. In the past he did use humidification on his device but is not using it at this time. He reports that he is unable to breathe from his nose. He does use marijuana Gummies at night and this causes difficulty to breathe from his nose for the first 45 minutes of sleep then it improves. He does take a nap a few days a week for 30 to 60 minutes and will use his device at that time. He does not believe that his mask is leaking. He reports that he feels improvement in his level of refreshment when he uses his PAP device. He does sleep in supine and side-lying positioning. He denies history of asthma. He denies history of pneumonia chronic bronchitis. He is a lifelong non-smoker. He does not have shortness of breath or wheeze. He does report that he experiences some cough in the fall. He reports that there is postnasal drainage present. In the past few days he has experienced pain in his left thigh and left arm. He does report significant back pain that has been present at times and for which he sees a chiropractor. He denies difficulty with acid reflux. Intake Vital Signs 07/19/25 08:39 08/03/25 09:45 08/09/25 08:12 Height 5 ft 8 in 5 ft 8 in 5 ft 8 in Weight: 221 lb BMI 33.5 BP 119/78 Blood Pressure Location Rt brachial Position Sitting Respiration 18 Pulse 74 Pulse Source Monitor Temp 96.9 F L Temperature Source Temporal Artery Pulse Oximetry (%) 93 Oxygen Delivery Method room air Intake Visit Reasons: Sleep Problems Chief Complaint: update H P- hernia Equipment Validation Engineer Required: No DME Vendor: [employer] Accompanied by: Self Is patient in pain?: No Allergies Penicillins (PCN) Allergy (Verified 08/09/25 08:19) Hives Medications ???Medication ???Instructions ???Recorded ???Confirmed ???Type lisinopril 20 mg tablet 20 mg PO DAILY blood pressure #90 06/29/25 08/09/25 Rx tabs pantoprazole 40 mg tablet,delayed 40 mg PO DAILY gerd #90 tabs 06/0408/09/25 Rx release rosuvastatin 20 mg tablet 20 mg PO DAILY cholesterol #90 tab s 06/29/25 08/09/25 Rx sertraline 100 mg tablet 100 mg PO DAILY mental health #90 06/29/25 08/09/25 Rx tabs MARIJUANA GUMMY 20 mg PO QHS 07/14/25 08/09/25 His tory CPAP - Continuous Positive Airway 08/02/25 08/09/25 History Pressure([facility] INFORMATIONAL USE ONLY) oxycodone 5 mg tab (more content not included)... Normal [facility] Discharge Instructionon 10-0 Discharge Instruction [facility] Medical Records Department [address] [place] [address] Instructions for Home/Discharge Instructions 08/03/25 1118 MR#: [id number] Acct: [id number] Name: ORALIA REYES II Rep #: [id number] : 1960 65 From: Eric Chang MD PCP: Dr. Kristine Yee MD Status:REG [facility] [place] Discharge Instructions Procedure Hernia Diet Discharge Diet: Light diet - advance as tolerated Activity Discharge Activity: May Not Drive (for 2-3 days or while taking narcotic pain meds.) and May Shower (with the bandage in place 1-2 days after surgery.) Lifting Restrictions: 20 pounds for 4 weeks. Additional Activity Instructions:: Climbing stairs is fine, walking is encouraged. Sitting in bed may be uncomfortable. Sitting up using your lateral muscles (sitting up sideways) is usually more comfortable. Do not drive, work heavy equipment of sign legal documents for 24 hours. Pain medications may cause nausea, you should typically eat light foods as you take your pain medications. Pain medications may also cause constipation. If you have difficulty with this, discuss with your doctor. Alternate ibuprofen and Tylenol for pain control, oxycodone for breakthrough pain Dressing / Incision Call your doctor if your incision/area has: Continuous Slow Oozing, Sudden Increased Bleeding, Increased Pain/ Swelling, Increased Redness and Foul Smelling Discharge Call your doctor if you observe: Fever of 101 or Higher Suture Line Care: Avoid Pulling/Pushing and Avoid Pinching/Bending Remove Dressing in: 3 days (Remove clear bandages in 2 days, remove Steri-Strips in 7 to 10 days.) Cleanse incision/area with: Soap Water Follow Up Care Please Follow Up With: Eric Chang MD When: Please call to schedule 2 week follow up appointment. [phone] Test Results: Test results from this visit will be discussed in further detail at your follow-up appointment, if applicable. Discharge Plan Admission Attending Provider: Eric Chang Primary Care Provider: Kristine Yee Instructions Print Language: Kenyan Discharge Orders/Prescriptions Prescriptions: New oxycodone 5 mg Tablet 5 - 10 mg PO Q4H PRN PRN (Reason: Pain Score 4-10) 5 Days Qty: 10 0RF No Action MARIJUANA GUMMY 20 mg PO QHS (DME) CPAP - Continuous Positive Airway Pressure([facility] INFORMATIONAL USE ONLY) See Rx Instructions .ROUTE .MEDSUPPLY Patient Comments: AUTOPAP 7-15CM RESMED F20 SMALL FULL FACE DASCO Rx Instructions: AUTOPAP 7-15CM RESMED F20 SMALL FULL FACE DASCO lisinopril 20 mg tablet 20 mg PO DAILY Qty: 90 3RF pantoprazole 40 mg tablet,delayed release (DR/EC) 40 mg PO DAILY Qty: 90 3RF rosuvastatin 20 mg tablet 20 mg PO DAILY Qty: 90 3RF sertraline 100 mg tablet 100 mg PO DAILY Qty: 90 3RF Other Ambulatory Orders: 12 Lead EKG (Routine) Timeframe: 20250721 Facility: [facility] - Location: Cardiovascular Services Ordered By: Dr. Brayden Eden Referrals / Follow Up: Kristine Yee MD [Primary Care Provider, Internal Medicine - [facility]] Disposition Disposition (needs filled in before D/C Order can be placed): Home, Self Care 08/03/25 1122 Eric Chang MD CC: Dr. Kristine Yee MD Signed Normal [facility] MR/POSTOP.[facility] 08-03-2025 MR/POSTOP.[facility] Medical Records Department [address] [place] [address] Anesthesia Postop Eval I 08/03/25 1112 MR#: [id number] Acct: [id number] Name: ORALIA REYES MARII NGUYEN Rep #: [id number] : 1960 65 From: Steffi Rivas CRNA PCP: Dr. Kristine Yee MD Status:REG SDC Y Race: C Location: [place] [address] Anesthesia: Postop Eval I Current Vital Signs Temperature: 98.2 F Pulse Rate: 84 Blood Pressure: 97/58 Respiratory Rate: 16 Pulse Ox: 96 Oxygen Delivery Method: Room Air Assessment Airway patent: Yes Spontaneous unlabored respirations: Yes Mental status: Awake and Calm nausea: No Vomiting: No Anesthesia Complication: No Fluid Hydration Crystalloid volume administer (ml): 800 Total IV fluid infused: 800 Progress Note Anesthesia document: Postop Eval 1 completed: Yes 08/03/25 1113 Date Steffi Rivas LINE HAUL OWNER OPERATOR Cosigner Signature: Date CC: Signed Normal [facility] MR/[id number] 08-03-2025 /[facility] Medical Records Department [address] [place] [address] Anesthesia Postop Eval II 08/03/25 1133 MR#: [id number] Acct: [id number] Name: ORALIA REYES II Rep #: [id number] : 1960 65 From: Mando Kern MD PCP: Dr. Kristine Yee MD Status:REG [facility] [place] Race: C Location: [place] [address] Anesthesia Postop Eval I Sum Postop Eval Completion status Anesthesia document: Postop Eval 1 completed: Yes Anesthesia Postop Eval I Summary Anesthesia Postop Eval I Summary: Anesthesia Postop Eval I: Assessment Summary Airway patent Yes 08/03/25 11:13 LINE HAUL OWNER OPERATOR.SABRINAOBY Spontaneous unlabored Yes 08/03/25 11:13 LINE HAUL OWNER OPERATOR.SABRINAOBY respirations Mental status Awake,Calm 08/03/25 11:13 LINE HAUL OWNER OPERATOR.SKOBY nausea No 08/03/25 11:13 LINE HAUL OWNER OPERATOR.SKOBY Vomiting No 08/03/25 11:13 LINE HAUL OWNER OPERATOR.SKOBY Anesthesia Postop Eval I: Fluid Summary Crystalloid volume administer 800 08/03/25 11:13 LINE HAUL OWNER OPERATOR.SKOBY (ml) Colloids volume administered ( ml) Blood Product volume administered (ml) Total IV fluid infused 800 08/03/25 11:13 LINE HAUL OWNER OPERATOR.SKOBY Anesthesia Postop Eval I: Summary Notes Anesthesia Complication No 08/03/25 11:13 LINE HAUL OWNER OPERATOR.SKOBY Anesthesia Complication Comment: Post-operative progress note Anesthesia: Postop Eval II Evaluation Mental status: Awake and Calm Pain Level: 4 nausea: No Vomiting: No Complications Anesthesia Complication: No 08/03/25 1133 Date Mando Kern MD Cosignadriana Signature: Date CC: Signed Normal [facility] Operative Reporton 5 Operative Report [facility] Medical Records Department [address] [place] [address] Operative Report 08/03/25 1113 MR#: [id number] Acct: [id number] Name: ORALIA REYES II Rep #: [id number] : 1960 65 From: Eric Chang MD PCP: Dr. Kristine Yee MD Status:[facility] Location: [place] [address] Operative Report (Standard) Operative Information Date of Procedure: 08/03/25 Pre-Operative Diagnosis: Umbilical hernia Post-Operative Diagnosis: Umbilical hernia less than 3 cm Surgery/Procedure Performed: Umbilical hernia repair less than 3 cm asic design engineer: Yes Board Writer: Nohemi Orosco Tasks completed by safety assistant: Opening closing Type of Anesthesia: General/Regional RN Documented Start/Stop Times: Operation Date: 08/03/25 11:00 Case Time Into Pre-Op 08/03/25 09:22 Anesthesia Start 08/03/25 10:34 Into Room 08/03/25 10:34 Procedure Start 08/03/25 10:45 Procedure End 08/03/25 11:02 Anesthesia End 08/03/25 11:04 Out of Room 08/03/25 11:04 Into Recovery 08/03/25 11:07 Procedure Start Time: 10:45 Procedure Stop Time: 11:02 Select all DRAINS/GRAFTS/IMPLANT S that apply: None Estimated Blood Loss: 2 Specimen collected: No Description of surgery: Patient was brought back to the operating room and general anesthesia was induced. The abdomen was prepped and draped in usual sterile fashion. A curvilinear incision was marked inferior to the umbilicus and injected with local anesthetic. Incision was made with a scalpel and the umbilical stalk was taken off of the hernia sac. The hernia sac was reduced. The defect appeared to be about 1 cm. The contents were reduced and the fascia was reapproximate using 3 interrupted #1 Nurolon sutures. The area was irrigated and suctioned dry and there was good hemostasis. The umbilical stalk was tacked to the fascia using a 3-0 Vicryl suture. The incision was then closed with interrupted 3-0 Vicryl sutures. Steri-Strips and bandages were applied. Patient was taken to PACU in stable condition. Surgical Findings: Umbilical hernia less than 3 cm Complications Complications: No Admit VTE Documentation VTE Mechan Device Prophylaxis: SCD's 08/03/25 1115 Cosigner Signature (if applicable): CC: Dr. Eric Chang MD; Dr. Kristine Yee MD Signed Normal [facility] Electrocardiogram reportOrde red By: Kaleb Graham on 07-22-2025 EKG study [facility] Cardiovascular Services [address] [place] [address] 12 Lead EKG 07/21/25 1010 MR#: [id number] Acct: [id number] Name: ORALIA REYES II Rep #:[id number] : 1960 65 From: Kaleb Graham MD Attending Dr: Dr. Eric Chang MD Status: PRE SDC Ordering Dr: Eric Chang MD Amanuel e: 07/21/25 [place] [facility] Sex: M C Admitted: Test Reason : OP Blood Pressure : */* mmHG Vent. Rate : 78 BPM Atrial Rate : 78 BPM P-R Int : 126 ms QRS Dur : 78 ms QT Int : 384 ms P-R-T Axes : 55 89 64 degrees QTcB Int : 437 ms Normal sinus rhythm Normal ECG Confirmed by KALEB GRAHAM MD ([id number]), scientific editor LILLIAN NIELSEN ([id number]) on 07/22/2025 10:41:58 AM Referred By: Eric Chang Confirmed By: KALEB GRAHAM MD 07/22/251041 Date _ Kaleb Graham MD CC: Dr. Eric Chang MD; Dr. Kristine Yee MD ~ Signed [facility] Work Phone: 12 Lead EKGon 07-21-2025 12 Lead EKG [facility] Cardiovascular Services [address] [place] [address] 12 Lead EKG 07/21/25 1010 MR#: [id number] Acct: [id number] Name: ORALIA REYES II Rep #: [id number] : 1960 65 From: Kaleb Graham MD Attending Dr: Dr. Eric Chang MD Status: PRE SD Ordering Dr: Eric Chang MD Date: 07/21/25 Location: [facility] Sex: M C Admitted: Test Reason : OP Blood Pressure : */* mmHG Vent. Rate : 78 BPM Atrial Rate : 78 BPM P-R Int : 126 ms QRS Dur : 78 ms QT Int : 384 ms P-R-T Axes : 55 89 64 degrees QTcB Int : 437 ms Normal sinus rhythm Normal ECG Confirmed by SANTOS BOOTHE, KALEB ([id number]), scientific editor LILLIAN NIELSEN ([id number]) on 07/22/2025 10:41:58 AM Referred By: Eric Chang Confirmed By: KALEB GRAHAM MD 07/22/251041 Date Kaleb Graham MD CC: Dr. Eric Chang MD; Dr. Kristine Yee MD Signed Normal [facility] Colonoscopy Reporton 025 Colonoscopy Report [facility] Medical Records Department [address] [place] [address] Colonoscopy Report MR#: [id number] Acct: [id number] Name: ORALIA REYES II Rep #: [id number] : 1960 65 From: Eric Chang MD PCP: Dr. Kristine Yee MD Status:REG [facility] Patient Name: Oralia Reyes Procedure Date: 07/19/2025 9:20 AM Date [...] for surveillance. Procedure Code(s): --- Professional --- 36853, Colonoscopy, flexible; diagnostic, including collection of specimen(s) by brushing or washing, when performed (separate procedure) Diagnosis Code(s): --- Professional --- Z12.11, Encounter for screening for malignant neoplasm of colon CPT copyright 2021 [employer]. All rights reserved. The codes documented in this report are preliminary and upon supervisor shipfitters review may be revised to meet current compliance requirements. Eric Chang MD 07/19/2025 9:39:16 AM This report has been signed electronically. Number of Addenda: 0 Note Initiated On: 07/19/2025 9:20 AM 07/19/25938 Date Eric Chang MD Cosigner Signature: Date (if indicated) CC: Dr. Eric Chang MD; Dr. Kristine Yee MD Date Dictated: 07/19/25919 Date Transcribed: Marketing Communications Leader: AC Signed Normal [facility] EGD Reporton 07-19-2025 EGD Report [facility] Medical Records Department [address] [place] [address] EGD Report MR#: [id number] Acct: [id number] Name: ORALIA REYES II Rep #: [id number] : 1960 65 From: Eric Chang MD PCP: Dr. Kristine Yee MD Status:REG [facility] Patient Name: Oralia Reyes Procedure Date: 07/19/2025 9:07 AM Date [...] present medications. Procedure Code(s): --- Professional --- 78732, Esophagogastroduodeno scopy, flexible, transoral; with biopsy, single or multiple Diagnosis Code(s): --- Professional --- R10.13, Epigastric pain CPT copyright 2021 [employer]. All rights reserved. The codes documented in this report are preliminary and upon supervisor shipfitters review may be revised to meet current compliance requirements. Eric Chang MD 07/19/2025 9:38:04 AM This report has been signed electronically. Number of Addenda: 0 Note Initiated On: 07/19/2025 9:07 AM 07/19/25937 Date Eric Chang MD [facility] Signature: Date (if indicated) CC: Dr. Eric Chang MD; Dr. Kristine Yee MD Date Dictated: 07/19/25906 Date Transcribed: Marketing Communications Leader: AC Signed Normal [facility] Immunohistochemical Stainson 07-19-2025 Immunohistochemical Stains -------- Patient Age/Sex Location Account Attending Physician -------- ORALIA REYES II 65/M EN [id number] Dr. Eric Chang MD -------- Specimen: [id number] Received: 07/19/25 Status: GREG Ocasio Num: [id number] Spec Type: COLON BX Subm Dr: Dr. [...] developed and their performance characteristics determined by [facility]. They may not have been [...] specimen is totally submitted in one cassette. [place] 07/19/2025 [facility]:[id number] -------- Patient Age/Sex Location Account Attending Physician -------- AMYORALIA MARII NGUYEN 65/M EN [id number] Dr. Eric Chang MD -------- Signed (signature on file) Dr. Ana Xiao MD 07/21/25 1706 -------- Normal [facility] Comment on above: Performed By: #### P [facility] ####[facility] [address] [place], [place], [address] MR/OP.PR[facility] 07-19-2025 [facility] Medical Records Department [address] [place] [address] Provation Physician Letter MR#: [id number] Acct: [id number] Name: ORALIA REYES PATRICK Rep #: [id number] : 1960 65 From: Eric Chang MD PCP: Dr. Kristine Yee MD Status:REG [facility] 07/19/2025 Kristine Yee [facility] [address] [place] [address] Re : Colonoscopy procedure for Oralia Reyes Dear Dr. Yee This procedure was [...] AM This report has been signed electronically. 07/19/2539 Date Eric Chang MD Cosigner Signature: Date (if indicated) CC: Dr. Eric Chang MD; Dr. Kristine Yee MD Date Dictated: 07/19/25919 Date Transcribed: Marketing Communications Leader: AC Signed [facility] MR/OP.[facility] Medical Records Department [facility] [place] [address] Provation Physician Letter MR#: [id number] Acct: [id number] Name: ORALIA REYES II Rep #: [id number] : 1960 65 From: Eric Chang MD PCP: Dr. Kristine Yee MD Status:REG [facility] 07/19/2025 Kristine Yee [facility] [address] [place] [address] Re : Upper GI endoscopy procedure for Oralia Amy Dear Dr. Yee This procedure was [...] Yee MD Date Dictated: 07/19/25906 Date Transcribed: Marketing Communications Leader: DAVID Boyce [facility] MR/POSTOP.[facility] 07-19-2025 MR/POSTOP.[facility] Medical Records Department [address] [place] [address] Anesthesia Postop Eval I 07/19/25943 MR#: [id number] Acct: [id number] Name: ORALIA REYES II Rep #: [id number] : 1960 65 From: Nelson Thomas PCP: Dr. Kristine Yee MD Status:REG SDC Y Race: C Location: [place] [address] Anesthesia: Postop Eval I Current Vital Signs [...] 1 completed: Yes 07/19/25 0945 Date Nelson Lugo Signature: Date CC: Signed Normal [facility] MR/[id number] 07-19-2025 MR/[facility] Medical Records Department [address] [place] [address] Anesthesia Postop Eval II 07/19/25 1510 MR#: [id number] Acct: [id number] Name: ORALIA REYES PATRICK Rep #: [id number] : 1960 65 From: Steffi Rivas CRNA PCP: Dr. Kristine Yee MD Status:[facility] Y Race: C Location: [place] Anesthesia Postop [...] Anesthesia Complication: No 07/19/25 1510 Date Steffi Rivas CRNA Inderjitigner Signature: Date CC: Signed Normal [facility] Surgery Visit Reporton 06-14 Surgery Visit Report [facility] [address] [place] [address] OFFICE VISIT Date of Service: 06/14/25 MR#: [id number] Acct: [id number] Name: AMYORALIAJACKSON COLVIN II Rep #: [id number] : 1960 Provider: Dr. 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 Normal [facility] MR/BMS.Bon 05-09-2025 MR/BMS.[facility] [address] [facility] [address] [place] [address] OFFICE VISIT Date of Service: 05/09/25 MR#: [id number] Acct: [id number] Name: ORALIA REYES MARII NGUYEN Rep #: [id number] : 1960 Provider: Dr. Kristine wright MD Age/Sex: 64/M Location[place] 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 Normal [facility] MR/BMS.Mikey 04-13-2025 MR/BMS.MARGARITO [facility] [address] [facility] [address] [place] [address] OFFICE VISIT Date of Service: 04/13/25 MR#: [id number] Acct: [id number] Name: ORALIA REYES II Rep #: [id number] : 1960 Provider: Dr. Kristine wright MD Age/Sex: 64/M Location: [facility] Status: Signed with Addenda ADDENDUM by Dr. Kristine Yee MD on 07/12/25 at 1235 HPI Details: ORALIA REYES, is a 65 M who presents [...] M FU Chief Complaint: 6 M FU Equipment Validation Engineer Required: No Accompanied by: Self Is patient [...] PO DAILY gerd 04/13/25 His tory release [facility] Medical History (Updated 04/13/25 @ 15:[address] 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 Normal [facility] Absolute lymphocyte countOrd ered By: Kristine Yee on 04-12-2025 Lymphocytes Auto (Unsp spec) [#/Vol] 0.93 10*3/uL 0.83-4.51 [facility] Absolute neutrophil countOrd ered By: Kristine Yee on 04-12-2025 Neutrophils (Bld) [#/Vol] 2.5 10*3/uL 2.0-7.7 [facility] Anion gap in Serum or Plasma Ordered By: Kristine Yee on 04-12-2025 Anion gap [Moles/Vol] 13 mmol/L 5-15 [facility] Automated lymphocyte count a s percentage of total leukocytesOrdered By: Kristine Yee on 04-12-2025 Lymphocytes/100 WBC Auto (Unsp spec) 23.7 % 19-41 [facility] BUN/creatinine ratioOrdered By: Kristine Yee on 04-12-2025 Urea nitrogen/Creatinine [Mass ratio] 17.8 mg/mg 10-20 [facility] Basophil percentageOrdered B y: Kristine Yee on 04-12-2025 Basophils/100 WBC (Bld) 1.3 % High 0-1 [facility] Bilirubin, totalOrdered By: Kristine Yee on 04-12-2025 Bilirubin [Mass/Vol] 0.46 mg/dL 0.00-1.30 [facility] CBC W/Diff, Automatedon 06-1 0-2025 Absolute Lymph 0.93 X10 3/uL Normal 0.83-4.51 [facility] Comment on above: Performed By: #### L 500.4050, L506.1001, L500.4100, L501.9985, L501.9520, L100.0100 #### [facility] [address] [place], [address] Absolute Neut 2.5 X10 3/uL Normal 2.0-7.7 [facility] Comment on above: Performed By: #### L 500.4050, L506.1001, L500.4100, L501.9985, L501.9520, L100.0100 #### [facility] [address] [place], [address] Basophils/100 WBC (Bld) 1.3 % High 0-1 [facility] Comment on above: Performed By: #### L 500.4050, L506.1001, L500.4100, L501.9985, L501.9520, L100.0100 #### [facility] [address] [place], [address] Eosinophils/100 WBC (Bld) 2.5 % Normal 0-5 [facility] Comment on above: Performed By: #### L 500.4050, L506.1001, L500.4100, L501.9985, L501.9520, L100.0100 #### [facility] [address] [place], [address] Erythrocyte distribution width (RBC) [Ratio] 13.6 % Normal 11.6-14.6 [facility] Comment on above: Performed By: #### L 500.4050, L506.1001, L500.4100, L501.9985, L501.9520, L100.0100 #### [facility] [address] [place], [address] Hematocrit (Bld) [Volume fraction] 47.6 % Normal 40-54 [facility] Comment on above: Performed By: #### L 500.4050, L506.1001, L500.4100, L501.9985, L501.9520, L100.0100 #### [facility] [address] [place], [address] Hemoglobin (Bld) [Mass/Vol] 15.4 g/dL Normal 13.0-16.5 [facility] Comment on above: Performed By: #### L 500.4050, L506.1001, L500.4100, L501.9985, L501.9520, L100.0100 #### [facility] [address] [place], [address] IG% 0.300 Normal 0.0-0.9 [facility] Comment on above: Result Comment: IG% - Immature Granulocytes (promyelocytes, myelocytes and metamyelocytes) > 1% indicates that a LEFT SHIFT is Present. Performed By: #### L 500.4050, L506.1001, L500.4100, L501.9985, L501.9520, L100.0100 #### [facility] [address] [place], [address] Lymphocytes/100 WBC (Bld) 23.7 % Normal 19-41 [facility] Comment on above: Performed By: #### L 500.4050, L506.1001, L500.4100, L501.9985, L501.9520, L100.0100 #### [facility] [address] [place], [address] MCH (RBC) [Entitic mass] 28.2 pg Normal 27.0-32.0 [facility] Comment on above: Performed By: #### L 500.4050, L506.1001, L500.4100, L501.9985, L501.9520, L100.0100 #### [facility] [address] [place], [address] MCHC (RBC) [Mass/Vol] 32.4 g/dL Normal 32-36 [facility] Comment on above: Performed By: #### L 500.4050, L506.1001, L500.4100, L501.9985, L501.9520, L100.0100 #### [facility] [address] [place], [address] MCV (RBC) [Entitic vol] 87.0 fL Normal 80-94 [facility] Comment on above: Performed By: #### L 500.4050, L506.1001, L500.4100, L501.9985, L501.9520, L100.0100 #### [facility] [address] [place], [address] Monocytes/100 WBC (Bld) 8.4 % Normal 0-10 [facility] Comment on above: Performed By: #### L 500.4050, L506.1001, L500.4100, L501.9985, L501.9520, L100.0100 #### [facility] [address] [place], [address] Neutrophils/100 WBC (Bld) 63.8 % Normal 47-70 [facility] Comment on above: Performed By: #### L 500.4050, L506.1001, L500.4100, L501.9985, L501.9520, L100.0100 #### [facility] [address] [place], [address] Nucleated RBC (Bld) [#/Vol] 0 10*3/uL Normal 0-5 [facility] Comment on above: Performed By: #### L 500.4050, L506.1001, L500.4100, L501.9985, L501.9520, L100.0100 #### [facility] [address] [place], [address] Platelet mean volume (Bld) [Entitic vol] 10.3 fL Normal 6.2-12.0 [facility] Comment on above: Performed By: #### L 500.4050, L506.1001, L500.4100, L501.9985, L501.9520, L100.0100 #### [facility] [address] [place], [address] Platelets (Bld) [#/Vol] 183 10*3/uL Normal 150-450 [facility] Comment on above: Performed By: #### L 500.4050, L506.1001, L500.4100, L501.9985, L501.9520, L100.0100 #### [facility] [address] [place], [address] RBC (Bld) [#/Vol] 5.47 10*6/uL Normal 4.6-6.2 [facility] Comment on above: Performed By: #### L 500.4050, L506.1001, L500.4100, L501.9985, L501.9520, L100.0100 #### [facility] [address] [place], [address] RDW SD 43.3 fl Normal 35.1-43.9 [facility] Comment on above: Performed By: #### L 500.4050, L506.1001, L500.4100, L501.9985, L501.9520, L100.0100 #### [facility] [address] [place], [address] WBC (Bld) [#/Vol] 3.9 10*3/uL Low 4.4-11.0 [facility] Comment on above: Performed By: #### L 500.4050, L506.1001, L500.4100, L501.9985, L501.9520, L100.0100 #### [facility] [address] [place], [address] Calculated very low density lipoprotein (VLDL) cholesterol measurementOrdered By: Kristine Yee on 04-12-2025 Calculated very low density lipoprotein (VLDL) cholesterol measurement 27 mg/dL 5-40 [facility] Carbon dioxide, total [Moles /volume] in Central venous bloodOrdered By: Kristine Yee on 04-12-2025 CO2 [Moles/Vol] 23.3 mmol/L 21.0-32.0 [facility] Chloride assayOrdered By: Chelsie Yee on 04-12-2025 Chloride [Moles/Vol] 101 mmol/L 98-108 [facility] Comprehensive Metabolic Prof ilon 04-12-2025 Albumin [Mass/Vol] 4.6 g/dL Normal 3.4-4.8 [facility] Comment on above: Performed By: #### L 500.4050, L506.1001, L500.4100, L501.9985, L501.9520, L100.0100 #### [facility] [address] [place], [address] Albumin/Globulin [Mass ratio] 1.6 {ratio} Normal 0.9-2.4 [facility] Comment on above: Performed By: #### L 500.4050, L506.1001, L500.4100, L501.9985, L501.9520, L100.0100 #### [facility] [address] [place], [address] ALK PHOS 47 U/L Normal 40-129 [facility] Comment on above: Performed By: #### L 500.4050, L506.1001, L500.4100, L501.9985, L501.9520, L100.0100 #### [facility] [address] [place], [address] ALT [Catalytic activity/Vol] 29 U/L Normal <=46 [facility] Comment on above: Performed By: #### L 500.4050, L506.1001, L500.4100, L501.9985, L501.9520, L100.0100 #### [facility] [address] [place], [address] AST [Catalytic activity/Vol] 29 U/L Normal <=37 [facility] Comment on above: Performed By: #### L 500.4050, L506.1001, L500.4100, L501.9985, L501.9520, L100.0100 #### [facility] [address] [place], [address] Bilirubin [Mass/Vol] 0.46 mg/dL Normal 0.00-1.30 [facility] Comment on above: Performed By: #### L 500.4050, L506.1001, L500.4100, L501.9985, L501.9520, L100.0100 #### [facility] [facility] [address] [place], [address] BUN/CRE 17.8 RATIO Normal 10-20 [facility] Comment on above: Performed By: #### L 500.4050, L506.1001, L500.4100, L501.9985, L501.9520, L100.0100 #### [facility] [address] [place], [address] Calcium [Mass/Vol] 10.1 mg/dL Normal 7.6-11.0 [facility] Comment on above: Performed By: #### L 500.4050, L506.1001, L500.4100, L501.9985, L501.9520, L100.0100 #### [facility] [address] [place], [address] Chloride [Moles/Vol] 101 mmol/L Normal 98-108 [facility] Comment on above: Performed By: #### L 500.4050, L506.1001, L500.4100, L501.9985, L501.9520, L100.0100 #### [facility] [address] [place], [address] CO2 [Moles/Vol] 23.3 mmol/L Normal 21.0-32.0 [facility] Comment on above: Performed By: #### L 500.4050, L506.1001, L500.4100, L501.9985, L501.9520, L100.0100 #### [facility] [address] [place], [address] Creatinine [Mass/Vol] 1.06 mg/dL Normal 0.70-1.20 [facility] Comment on above: Performed By: #### L 500.4050, L506.1001, L500.4100, L501.9985, L501.9520, L100.0100 #### [facility] [address] [place], [address] GAP 13 Normal 5-15 [facility] Comment on above: Performed By: #### L 500.4050, L506.1001, L500.4100, L501.9985, L501.9520, L100.0100 #### [facility] [address] [place], [address] GFR/1.73 sq M.predicted among non-blacks MDRD (S/P/Bld) [Vol rate/Area] 78 mL/min/{1.73_m2} Normal >60 [facility] Comment on above: Result Comment: mL/m in/1.73m2 CKD-EPI Creatinine Equation (2020) Performed By: #### L 500.4050, L506.1001, L500.4100, L501.9985, L501.9520, L100.0100 #### [facility] [address] [place], [address] Globulin (S) [Mass/Vol] 2.9 g/dL Normal 2.2-4.2 [facility] Comment on above: Performed By: #### L 500.4050, L506.1001, L500.4100, L501.9985, L501.9520, L100.0100 #### [facility] [address] [place], [address] Glucose [Mass/Vol] 116 mg/dL High 70-99 [facility] Comment on above: Performed By: #### L 500.4050, L506.1001, L500.4100, L501.9985, L501.9520, L100.0100 #### [facility] [address] [place], [address] Potassium [Moles/Vol] 4.3 mmol/L Normal 3.3-5.1 [facility] Comment on above: Performed By: #### L 500.4050, L506.1001, L500.4100, L501.9985, L501.9520, L100.0100 #### [facility] [address] [place], [address] Sodium [Moles/Vol] 137 mmol/L Normal 133-145 [facility] Comment on above: Performed By: #### L 500.4050, L506.1001, L500.4100, L501.9985, L501.9520, L100.0100 #### [facility] [address] [place], [address] T PROT 7.5 g/dL Normal 5.9-8.4 [facility] Comment on above: Performed By: #### L 500.4050, L506.1001, L500.4100, L501.9985, L501.9520, L100.0100 #### [facility] [address] [place], [address] Urea nitrogen [Mass/Vol] 19 mg/dL Normal 4-19 [facility] Comment on above: Performed By: #### L 500.4050, L506.1001, L500.4100, L501.9985, L501.9520, L100.0100 #### [facility] [address] [place], [address] Eosinophil percentageOrdered By: Kristine Yee on 04-12-2025 Eosinophils/100 WBC (Bld) 2.5 % 0-5 [facility] Erythrocyte distribution wid th ratioOrdered By: Kristine Yee on 04-12-2025 Erythrocyte distribution width (RBC) [Ratio] 13.6 % 11.6-14.6 [facility] Erythrocyte distribution wid th standard deviationOrdered By: Kristinechristian Yee on 04-12-2025 Erythrocyte distribution width (RBC) [Ratio] 43.3 fl 35.1-43.9 [facility] Glomerular filtration rate ( GFR) estimation/1.73 sq m using serum, plasma, or whole bOrdered By: Kristine Yee on 04-12-2025 GFR/1.73 sq M.predicted among non-blacks MDRD (S/P/Bld) [Vol rate/Area] 78 mL/min/{1.73_m2} >60 [facility] Comment on above: mL/min/1.73m2 CKD-EP I Creatinine Equation (2020) Hematocrit Auto (Bld) [Volum e fraction]Ordered By: Kristine Yee on 04-12-2025 Hematocrit (Bld) [Volume fraction] 47.6 % 40-54 [facility] Hemoglobin A1con 04-12-2025 HbA1c (Bld) [Mass fraction] 6.0 % High <=5.6 [facility] Comment on above: Result Comment: Norm al < 5.7 % Prediabetic 5.7 - 6.4 % Diabetic >or= 6.5 % Please note range changes. Performed By: #### L 500.4050, L506.1001, L500.4100, L501.9985, L501.9520, L100.0100 #### [facility] [address] [place], [place], [address] Hemoglobin A1c percentageOrd ered By: Kristine Yee on 04-12-2025 HbA1c (Bld) [Mass fraction] 6.0 % High <5.7 [facility] Comment on above: Normal < 5.7 % Predi abetic 5.7 - 6.4 % Diabetic >or= 6.5 % Please note range changes. Hemoglobin measurementOrdere d By: Kristine Yee on 04-12-2025 Hemoglobin (Bld) [Mass/Vol] 15.4 g/dL 13.0-16.5 [facility] Immature granulocytes/100 WB C Auto (Bld)Ordered By: Kristine Yee on 04-12-2025 Immature granulocytes/100 WBC (Bld) 0.300 % 0.0-0.9 [facility] Comment on above: IG% - Immature Granu locytes (promyelocytes, myelocytes and metamyelocytes) > 1% indicates that a LEFT SHIFT is Present. LDL calc ser/plasOrdered By: Kristine Yee on 04-12-2025 Cholesterol in LDL [Mass/Vol] 86 mg/dL [facility] Comment on above: Odxywmkaqo=091-283 m g/dL & Higher Zgwr=703 mg/dL or greater Laboratory - Chemistry and C hemistry - challengeOrdered By: Kristine Yee on 04-12-2025 AST [Catalytic activity/Vol] 29 U/L <38 [facility] Lipid Profileon 04-12-2025 CHOL:HDL 3.82 Normal [facility] Comment on above: Performed By: #### L 500.4050, L506.1001, L500.4100, L501.9985, L501.9520, L100.0100 ####[facility] [address] [place], [address] Cholesterol [Mass/Vol] 153 mg/dL Normal <=200 [facility] Comment on above: Result Comment: Chol esterol level, Desirable <200 mg/dL Borderline high cholesterol 200-239 mg/dL High cholesterol >=240 mg/dL Recommendations of the NCEP Adult Treatment Panel for the following risk-cutoff thresholds for the [place] population. Performed By: #### L 500.4050, L506.1001, L500.4100, L501.9985, L501.9520, L100.0100 ####[facility] [address] [place], [address] Cholesterol in HDL [Mass/Vol] 40 mg/dL Normal [facility] Comment on above: Result Comment: Siobhan onal Cholesterol Education Program (NCEP) guidelines: <40 mg/dL: Low HDL-cholesterol (major risk factor for CHD) >= 60 mg/dL: High HDL-cholesterol (negative risk factor for CHD) HDL-cholesterol is affected by a number of factors, e.g. smoking, exercise, hormones, sex and age. Performed By: #### L 500.4050, L506.1001, L500.4100, L501.9985, L501.9520, L100.0100 ####[facility] [address] [place], [address] Cholesterol in LDL [Mass/Vol] 86 mg/dL Normal [facility] Comment on above: Result Comment: Bord hstcua=026-301 mg/dL Higher Ygvr=985 mg/dL or greater Performed By: #### L 500.4050, L506.1001, L500.4100, L501.9985, L501.9520, L100.0100 ####[facility] [address] [place], [address] Cholesterol in VLDL [Mass/Vol] 27 mg/dL Normal 5-40 [facility] Comment on above: Performed By: #### L 500.4050, L506.1001, L500.4100, L501.9985, L501.9520, L100.0100 ####[facility] [address] [place], [address] Triglyceride [Mass/Vol] 134 mg/dL Normal [facility] Comment on above: Result Comment: The drugs N-Acetylcysteine and Metamizole may falsely depress this assay. Normal range: <150 mg/dL Borderline High: 150-199 mg/dL High: 200-499 mg/dL Very High: >500 mg/dL Performed By: #### L 500.4050, L506.1001, L500.4100, L501.9985, L501.9520, L100.0100 ####[facility] [address] [place], [address] MCV (mean corpuscular volume ) determinationOrdered By: Kristine Yee on 04-12-2025 MCV (RBC) [Entitic vol] 87.0 fL 80-94 [facility] Mean corpuscular hemoglobin (MCH) determinationOrdered By: Kristine Yee on 04-12-2025 MCH (RBC) [Entitic mass] 28.2 pg 27.0-32.0 [facility] Mean corpuscular hemoglobin concentration (MCHC) determinationOrdered By: Kristine Yee on 04-12-2025 MCHC (RBC) [Mass/Vol] 32.4 g/dL 32-36 [facility] Mean platelet volume determi nationOrdered By: Kristine Yee on 04-12-2025 Platelet mean volume (Bld) [Entitic vol] 10.3 fL 6.2-12.0 [facility] Monocyte percentageOrdered B y: Kristine Yee on 04-12-2025 Monocytes/100 WBC (Bld) 8.4 % 0-10 [facility] Neutrophil percentageOrdered By: Kristine Yee on 04-12-2025 Neutrophils/100 WBC (Bld) 63.8 % 47-70 [facility] Nucleated red blood cell per centageOrdered By: Kristine Yee on 04-12-2025 Nucleated RBC/100 WBC (Bld) [Ratio] 0 % 0-5 [facility] Platelet countOrdered By: Chelsie Yee on 04-12-2025 Platelets (Bld) [#/Vol] 183 10*3/uL 150-450 [facility] Potassium measurement (mass/ volume)Ordered By: Kristine Yee on 04-12-2025 Potassium (Unsp spec) [Mass/Vol] 4.3 mmol/L 3.3-5.1 [facility] RBC Auto (Bld) [#/Vol]Ordere d By: Kristine Yee on 04-12-2025 RBC (Bld) [#/Vol] 5.47 10*6/uL 4.6-6.2 [facility] Screening total cholesterol/ high density lipoprotein (HDL) cholesterol ratioOrdered By: Kristine Yee on 04-12-2025 Cholesterol.total/Choles terol in HDL [Mass ratio] 3.82 {ratio} [facility] Serum creatinine measurement (mass/volume)Ordered By: Kristine Yee on 04-12-2025 Creatinine [Mass/Vol] 1.06 mg/dL 0.70-1.20 [facility] Serum globulin measurementOr dered By: Kristine Yee on 04-12-2025 Globulin (S) [Mass/Vol] 2.9 g/dL 2.2-4.2 [facility] Serum glucose measurement (m ass/volume)Ordered By: Kristine Yee on 04-12-2025 Glucose [Mass/Vol] 116 mg/dL High 70-99 [facility] Serum or plasma alanine blake otransferase (ALT) measurementOrdered By: Kristine Yee on 04-12-2025 ALT [Catalytic activity/Vol] 29 U/L <47 [facility] Serum or plasma albumin citlalli urement (mass/volume)Ordered By: Kristine Yee on 04-12-2025 Albumin [Mass/Vol] 4.6 g/dL 3.4-4.8 [facility] Serum or plasma albumin/glob ulin mass ratioOrdered By: Kristine Yee on 04-12-2025 Albumin/Globulin [Mass ratio] 1.6 {ratio} 0.9-2.4 [facility] Serum or plasma alkaline paige sphatase measurementOrdered By: Kristine Yee on 04-12-2025 ALP [Catalytic activity/Vol] 47 U/L 40-129 [facility] Serum or plasma calcium citlalli urement (mass/volume)Ordered By: Kristine Yee on 04-12-2025 Calcium [Mass/Vol] 10.1 mg/dL 7.6-11.0 [facility] Serum or plasma cholesterol in HDL measurement (mass/volume)Ordered By: Kristine Yee on 04-12-2025 Cholesterol in HDL [Mass/Vol] 40 mg/dL >40 [facility] Comment on above: National Cholesterol Education Program (NCEP) guidelines:<40 mg/dL: Low HDL-cholesterol (major risk factor for CHD)>= 60 mg/dL: High HDL-cholesterol (negative risk factor for CHD)HDL-cholesterol is affected by a number of factors, e.g. smoking, exercise, hormones, sex and age. Serum or plasma cholesterol measurement (mass/volume)Ordered By: Kristine Yee on 04-12-2025 Cholesterol [Mass/Vol] 153 mg/dL <201 [facility] Comment on above: Cholesterol level, D esirable <200 mg/dLBorderline high cholesterol 200-239 mg/dLHigh cholesterol >=240 mg/dLRecommendations of the NCEP Adult Treatment Panel for the following risk-cutoff thresholds for the [place] population. Serum or plasma urea nitroge n measurement (mass/volume)Ordered By: Kristine Yee on 04-12-2025 Urea nitrogen [Mass/Vol] 19 mg/dL 4-19 [facility] Sodium levelOrdered By: Magali Yee on 04-12-2025 Sodium [Moles/Vol] 137 mmol/L 133-145 [facility] TSH DL <= 0.005 mIU/L QnOrde red By: Kristine Yee on 04-12-2025 TSH Qn 2.600 uIU/mL 0.300-4.200 [facility] Thyroid Stim Hormone (TSH)on 04-12-2025 TSH 2.600 uIU/mL Normal 0.300-4.200 [facility] Comment on above: Performed By: #### L 500.4050, L506.1001, L500.4100, L501.9985, L501.9520, L100.0100 ####[facility] [address] [place], [address] Total proteinOrdered By: Chasidy Yee on 04-12-2025 Protein [Mass/Vol] 7.5 g/dL 5.9-8.4 [facility] Triglycerides measurementOrd ered By: Kristine Yee on 04-12-2025 Triglyceride [Mass/Vol] 134 mg/dL <199 [facility] Comment on above: The drugs N-Acetylcy steine and Metamizole may falsely depress this assay. Normal range: <150 mg/dLBorderline High: 150-199 mg/dLHigh: 200-499 mg/dLVery High: >500 mg/dL Vitamin D,25 Hydroxyon 04-12 Vitamin D 25-OH 28.4 ng/mL Low 30-100 [facility] Comment on above: Result Comment: Violetta min D Status Deficiency: <20 ng/mL (50nmol/L) Insufficiency: 20-30 ng/mL (50-75 nmol/L) Sufficiency: 30-100 ng/mL (75-250 nmol/L) Toxicity: >100 ng/mL (>250 nmol/L) Performed By: #### L 500.4050, L506.1001, L500.4100, L501.9985, L501.9520, L100.0100 ####[facility] [address] [place], [address] White blood cell (WBC) count Ordered By: Kristine Yee on 04-12-2025 WBC (Bld) [#/Vol] 3.9 10*3/uL Low 4.4-11.0 [facility] Surgery Visit Reporton 11-24 Surgery Visit Report [facility] [address] [place] [address] OFFICE VISIT Date of Service: 11/24/24 MR#: [id number] Acct: [id number] Name: ORALIA REYES II Rep #: [id number] : 1960 Provider: Dr. 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 Normal [facility] CBC W/Diff, Automatedon 01-1 5-2025 Absolute Lymph 0.88 X10 3/uL Normal 0.83-4.51 [facility] Comment on above: Performed By: #### L 500.4050, L501.2450, L100.0100 ####[facility] [address] [place], [address] Absolute Neut 3.1 X10 3/uL Normal 2.0-7.7 [facility] Comment on above: Performed By: #### L 500.4050, L501.2450, L100.0100 ####[facility] [address] [place], [address] Basophils/100 WBC (Bld) 1.3 % High 0-1 [facility] Comment on above: Performed By: #### L 500.4050, L501.2450, L100.0100 ####[facility] [address] [place], [address] Eosinophils/100 WBC (Bld) 1.6 % Normal 0-5 [facility] Comment on above: Performed By: #### L 500.4050, L501.2450, L100.0100 ####[facility] [address] [place], [address] Erythrocyte distribution width (RBC) [Ratio] 13.2 % Normal 11.6-14.6 [facility] Comment on above: Performed By: #### L 500.4050, L501.2450, L100.0100 ####[facility] [address] [place], [address] Hematocrit (Bld) [Volume fraction] 44.7 % Normal 40-54 [facility] Comment on above: Performed By: #### L 500.4050, L501.2450, L100.0100 ####[facility] [address] [place], [address] Hemoglobin (Bld) [Mass/Vol] 14.9 g/dL Normal 13.0-16.5 [facility] Comment on above: Performed By: #### L 500.4050, L501.2450, L100.0100 ####[facility] [address] [place], [address] IG% 0.400 Normal 0.0-0.9 [facility] Comment on above: Result Comment: IG% - Immature Granulocytes (promyelocytes, myelocytes and metamyelocytes) > 1% indicates that a LEFT SHIFT is Present. Performed By: #### L 500.4050, L501.2450, L100.0100 ####[facility] [address] [place], [address] Lymphocytes/100 WBC (Bld) 19.6 % Normal 19-41 [facility] Comment on above: Performed By: #### L 500.4050, L501.2450, L100.0100 ####[facility] [address] [place], [address] MCH (RBC) [Entitic mass] 28.8 pg Normal 27.0-32.0 [facility] Comment on above: Performed By: #### L 500.4050, L501.2450, L100.0100 ####[facility] [address] [place], [address] MCHC (RBC) [Mass/Vol] 33.3 g/dL Normal 32-36 [facility] Comment on above: Performed By: #### L 500.4050, L501.2450, L100.0100 ####[facility] [address] [place], [address] MCV (RBC) [Entitic vol] 86.3 fL Normal 80-94 [facility] Comment on above: Performed By: #### L 500.4050, L501.2450, L100.0100 ####[facility] [address] [place], [address] Monocytes/100 WBC (Bld) 8.4 % Normal 0-10 [facility] Comment on above: Performed By: #### L 500.4050, L501.2450, L100.0100 ####[facility] [address] [place], [address] Neutrophils/100 WBC (Bld) 68.7 % Normal 47-70 [facility] Comment on above: Performed By: #### L 500.4050, L501.2450, L100.0100 ####[facility] [address] [place], [address] Nucleated RBC (Bld) [#/Vol] 0 10*3/uL Normal 0-5 [facility] Comment on above: Performed By: #### L 500.4050, L501.2450, L100.0100 ####[facility] [address] [place], [address] Platelet mean volume (Bld) [Entitic vol] 9.7 fL Normal 6.2-12.0 [facility] Comment on above: Performed By: #### L 500.4050, L501.2450, L100.0100 ####[facility] [address] [place], [address] Platelets (Bld) [#/Vol] 206 10*3/uL Normal 150-450 [facility] Comment on above: Performed By: #### L 500.4050, L501.2450, L100.0100 ####[facility] [address] [place], [address] RBC (Bld) [#/Vol] 5.18 10*6/uL Normal 4.6-6.2 [facility] Comment on above: Performed By: #### L 500.4050, L501.2450, L100.0100 ####[facility] [address] [place], [address] RDW SD 41.0 fl Normal 35.1-43.9 [facility] Comment on above: Performed By: #### L 500.4050, L501.2450, L100.0100 ####[facility] [address] [place], [address] WBC (Bld) [#/Vol] 4.5 10*3/uL Normal 4.4-11.0 [facility] Comment on above: Performed By: #### L 500.4050, L501.2450, L100.0100 ####[facility] [address] [place], [address] Comprehensive Metabolic Prof laon 11-17-2024 Albumin [Mass/Vol] 3.9 g/dL Normal 3.2-5.0 [facility] Comment on above: Performed By: #### L 500.4050, L501.2450, L100.0100 ####[facility] [address] [place], [address] Albumin/Globulin [Mass ratio] 1.1 {ratio} Normal 0.9-2.4 [facility] Comment on above: Performed By: #### L 500.4050, L501.2450, L100.0100 ####[facility] [address] [place], [address] ALK P 48 U/L Normal 45-117 [facility] Comment on above: Performed By: #### L 500.4050, L501.2450, L100.0100 ####[facility] [address] [place], [address] ALT [Catalytic activity/Vol] 39 U/L Normal 16-61 [facility] Comment on above: Performed By: #### L 500.4050, L501.2450, L100.0100 ####[facility] [address] [place], [address] AST [Catalytic activity/Vol] 20 U/L Normal 15-37 [facility] Comment on above: Performed By: #### L 500.4050, L501.2450, L100.0100 ####[facility] [address] [place], [address] Bilirubin [Mass/Vol] 0.40 mg/dL Normal 0.20-1.00 [facility] Comment on above: Result Comment: For patients on eltrombopag therapy, use of Dimension [place] TBIL is not recommended. Performed By: #### L 500.4050, L501.2450, L100.0100 ####[facility] [address] [place], [address] BUN/CRE 10.6 RATIO Normal 10-20 [facility] Comment on above: Performed By: #### L 500.4050, L501.2450, L100.0100 ####[facility] [address] [place], [address] CA,Total 9.6 mg/dL Normal 8.5-10.1 [facility] Comment on above: Performed By: #### L 500.4050, L501.2450, L100.0100 ####[facility] [address] [place], [address] Chloride [Moles/Vol] 107 mmol/L Normal 98-107 [facility] Comment on above: Performed By: #### L 500.4050, L501.2450, L100.0100 ####[facility] [address] [place], [address] CO2 [Moles/Vol] 28.0 mmol/L Normal 21.0-32.0 [facility] Comment on above: Performed By: #### L 500.4050, L501.2450, L100.0100 ####[facility] [address] [place], [address] Creatinine [Mass/Vol] 1.23 mg/dL Normal 0.70-1.30 [facility] Comment on above: Result Comment: The validity of the calculated GFR GFRAA in patients over 70 years has not been determined. Clinical correlation is essential. Performed By: #### L 500.4050, L501.2450, L100.0100 ####[facility] [address] [place], [address] EST GFR - AA 76 mL/min Normal >60 [facility] Comment on above: Result Comment: Afri can Serbian GFR Calc Performed By: #### L 500.4050, L501.2450, L100.0100 ####[facility] [address] [place], [address] GAP 6 Normal 5-15 [facility] Comment on above: Performed By: #### L 500.4050, L501.2450, L100.0100 ####[facility] [address] [place], [address] GFR/1.73 sq M.predicted among non-blacks MDRD (S/P/Bld) [Vol rate/Area] 63 mL/min/{1.73_m2} Normal >60 [facility] Comment on above: Result Comment: Non- GFR Calc Performed By: #### L 500.4050, L501.2450, L100.0100 ####[facility] [address] [place], [address] Globulin (S) [Mass/Vol] 3.7 g/dL Normal 2.2-4.2 [facility] Comment on above: Performed By: #### L 500.4050, L501.2450, L100.0100 ####[facility] [address] [place], [address] Glucose [Mass/Vol] 115 mg/dL High 74-106 [facility] Comment on above: Result Comment: Fast ing Glucose result from 100 to 125 mg/dL suggests IMPAIRED HOMEOSTASIS per A.D.A. criteria. Performed By: #### L 500.4050, L501.2450, L100.0100 ####[facility] [address] [place], [address] Potassium [Moles/Vol] 4.4 mmol/L Normal 3.5-5.1 [facility] Comment on above: Performed By: #### L 500.4050, L501.2450, L100.0100 ####[facility] [address] [place], [address] Sodium [Moles/Vol] 140 mmol/L Normal 136-145 [facility] Comment on above: Performed By: #### L 500.4050, L501.2450, L100.0100 ####[facility] [address] [place], [address] T PROT 7.6 g/dL Normal 6.4-8.2 [facility] Comment on above: Performed By: #### L 500.4050, L501.2450, L100.0100 ####[facility] [address] [place], [address] Urea nitrogen [Mass/Vol] 13 mg/dL Normal 7-18 [facility] Comment on above: Performed By: #### L 500.4050, L501.2450, L100.0100 ####[facility] [address] [place], [address] Lipaseon 11-17-2024 Lipase [Catalytic activity/Vol] 68 U/L Normal 13-75 [facility] Comment on above: Result Comment: Ze leone note: LIPASE revised reference range effective 23. New Lipase methodology. Expected to produce lower values than the previous assay method. NEW Reference Range: 13 - 75 U/L Performed By: #### L 500.4050, L501.2450, L100.0100 ####[facility] [address] [place], [address] MR/BMS.IMBon 11-17-2024 MR/BMS.IMB [facility] [address] [place] [address] OFFICE VISIT Date of Service: 11/17/24 MR#: [id number] Acct: [id number] Name: ORALIA REYES II Rep #: [id number] : [id number] Provider: Dr. Kristine wright MD Age/Sex: 64/M Location: [facility] 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 64-year-old gentleman who has been having some mid abdominal discomfort. Relatively recently, he had a shoulder injury, and had been taking some utxa-qqa-tzgalqy anti-inflammatories at the recommendation of orthopedics. He had only taken it for a few days but was taking it several times daily ludj-mah-resdqhz Advil. He has also gotten COVID a [...] stool. Unfortunately he was unable to get vknx-dqq-qshyezn change any still has been taking the [...] least a couple weeks ago, taking any mhyz-qlt-yxytpfc anti-inflammatories. No prior surgeries in the abdomen. [...] hernia, easily (more content not included)... Normal [facility] Stool Occult Blood iFOBon STOB Negative Normal [facility] Comment on above: Performed By: #### M 100.7900 ####[facility] [address] [place], [address] /BMS.[facility] 10-13-2024 /BMS.[facility] [address] [place] [address] OFFICE VISIT Date of Service: 10/13/24 MR#: [id number] Acct: [id number] Name: ORALIA REYES II Rep #: [id number] : 1960 Provider: Dr. 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 We will try and obtain those records. [...] ache, chills, (more content not included)... Normal [facility] Comprehensive Metabolic Prof kathy 10-12-2024 Albumin [Mass/Vol] 4.0 g/dL Normal 3.2-5.0 [facility] Comment on above: Performed By: #### L 500.4050, L501.9985, L500.4100 ####[facility] [address] [place], [address] Albumin/Globulin [Mass ratio] 1.2 {ratio} Normal 0.9-2.4 [facility] Comment on above: Performed By: #### L 500.4050, L501.9985, L500.4100 ####[facility] [address] [place], [address] ALK P 39 U/L Low 45-117 [facility] Comment on above: Performed By: #### L 500.4050, L501.9985, L500.4100 ####[facility] [address] [place], [address] ALT [Catalytic activity/Vol] 31 U/L Normal 16-61 [facility] Comment on above: Performed By: #### L 500.4050, L501.9985, L500.4100 ####[facility] [address] [place], [address] AST [Catalytic activity/Vol] 21 U/L Normal 15-37 [facility] Comment on above: Performed By: #### L 500.4050, L501.9985, L500.4100 ####[facility] [address] [place], [address] Bilirubin [Mass/Vol] 0.60 mg/dL Normal 0.20-1.00 [facility] Comment on above: Result Comment: For patients on eltrombopag therapy, use of Dimension [place] TBIL is not recommended. Performed By: #### L 500.4050, L501.9985, L500.4100 ####[facility] [address] [place], [address] BUN/CRE 13.7 RATIO Normal 10-20 [facility] Comment on above: Performed By: #### L 500.4050, L501.9985, L500.4100 ####[facility] [address] [place], [address] CA,Total 9.4 mg/dL Normal 8.5-10.1 [facility] Comment on above: Performed By: #### L 500.4050, L501.9985, L500.4100 ####[facility] [address] [place], [address] Chloride [Moles/Vol] 107 mmol/L Normal 98-107 [facility] Comment on above: Performed By: #### L 500.4050, L501.9985, L500.4100 ####[facility] [address] [place], [address] CO2 [Moles/Vol] 26.0 mmol/L Normal 21.0-32.0 [facility] Comment on above: Performed By: #### L 500.4050, L501.9985, L500.4100 ####[facility] [address] [place], [address] Creatinine [Mass/Vol] 1.02 mg/dL Normal 0.70-1.30 [facility] Comment on above: Result Comment: The validity of the calculated GFR GFRAA in patients over 70 years has not been determined. Clinical correlation is essential. Performed By: #### L 500.4050, L501.9985, L500.4100 ####[facility] [address] [place], [address] EST GFR - AA 95 mL/min Normal >60 [facility] Comment on above: Result Comment: Afri can Serbian GFR Calc Performed By: #### L 500.4050, L501.9985, L500.4100 ####[facility] [address] [place], [address] GAP 5 Normal 5-15 [facility] Comment on above: Performed By: #### L 500.4050, L501.9985, L500.4100 ####[facility] [address] [place], [address] GFR/1.73 sq M.predicted among non-blacks MDRD (S/P/Bld) [Vol rate/Area] 78 mL/min/{1.73_m2} Normal >60 [facility] Comment on above: Result Comment: Non- GFR Calc Performed By: #### L 500.4050, L501.9985, L500.4100 ####[facility] [address] [place], [address] Globulin (S) [Mass/Vol] 3.3 g/dL Normal 2.2-4.2 [facility] Comment on above: Performed By: #### L 500.4050, L501.9985, L500.4100 ####[facility] [address] [place], [address] Glucose [Mass/Vol] 91 mg/dL Normal 74-106 [facility] Comment on above: Performed By: #### L 500.4050, L501.9985, L500.4100 ####[facility] [address] [place], [address] Potassium [Moles/Vol] 3.7 mmol/L Normal 3.5-5.1 [facility] Comment on above: Performed By: #### L 500.4050, L501.9985, L500.4100 ####[facility] [address] [place], [address] Sodium [Moles/Vol] 138 mmol/L Normal 136-145 [facility] Comment on above: Performed By: #### L 500.4050, L501.9985, L500.4100 ####[facility] [address] [place], [address] T PROT 7.3 g/dL Normal 6.4-8.2 [facility] Comment on above: Performed By: #### L 500.4050, L501.9985, L500.4100 ####[facility] [address] [place], [address] Urea nitrogen [Mass/Vol] 14 mg/dL Normal 7-18 [facility] Comment on above: Performed By: #### L 500.4050, L501.9985, L500.4100 ####[facility] [address] [place], [address] Hemoglobin A1con 10-12-2024 HbA1c (Bld) [Mass fraction] 5.9 % High 3.8-5.6 [facility] Comment on above: Result Comment: Norm al < 5.7 % Prediabetic 5.7 - 6.4 % Diabetic >or= 6.5 % Please note range changes. Performed By: #### L 500.4050, L501.9985, L500.4100 ####[facility] [address] [place], [address] Lipid Profileon 10-12-2024 Cholesterol [Mass/Vol] 153 mg/dL Normal 200 [facility] Comment on above: Result Comment: <200 mg/dL Desirable 200-240 mg/dL Borderline >240 mg/dL High Risk Performed By: #### L 500.4050, L501.9985, L500.4100 ####[facility] [address] [place], [address] Cholesterol in HDL [Mass/Vol] 38 mg/dL Low [facility] Comment on above: Result Comment: The drugs N-Acetylcysteine and Metamizole may falsely depress this assay. Reference Range HDL <40 mg/dL Low HDL Cholesterol HDL >or= 60 mg/dL High HDL Cholesterol Performed By: #### L 500.4050, L501.9985, L500.4100 ####[facility] [address] [place], [address] Cholesterol in LDL [Mass/Vol] 75 mg/dL Normal 0-130 [facility] Comment on above: Performed By: #### L 500.4050, L501.9985, L500.4100 ####[facility] [address] [place], [place], [address] Cholesterol in VLDL [Mass/Vol] 40 mg/dL Normal 5-40 [facility] Comment on above: Performed By: #### L 500.4050, L501.9985, L500.4100 ####[facility] [address] [place], [place], [address] Triglyceride [Mass/Vol] 200 mg/dL High [facility] Comment on above: Result Comment: The drugs N-Acetylcysteine and Metamizole may falsely depress this assay. Serum Triglycerides Reference Interval Normal <150 mg/dL Borderline high 150 - 199 mg/dL High 200 - 499 mg/dL Very High > or = 500 mg/dL Performed By: #### L 500.4050, L501.9985, L500.4100 ####[facility] [address] [place], [place], [address] Urgent Care Visit Reporton 1 12-07-2023 Urgent Care Visit Report [facility] [address], [address] [place], [place] [address] OFFICE VISIT Date of Service: 10/06/24 MR#: [id number] Acct: [id number] Name: ORALIA REYES Rep #: [id number] : 1960 Provider: MICHAEL Bowie Age/Sex: 64/M Location: [facility] [place] Status: Signed Intake Vital Signs 09/22/24 10:09 [...] Complaint: WC right shoulder pain f/ u Equipment Validation Engineer Required: No Is patient in pain?: Yes Allergies Penicillins (PCN) Allergy (Verified 10/06/24 16:52) Hives Nurse's Note: patient here for WC follow up right shoulder PFSH Medical History (Updated 09/22/24 @ 10:35 by Antonio RODRIGUEZ, PA) Strain of right rotator cuff capsule Right shoulder strain Hyperlipidemia Hypertension Migraines Cataracts, bilateral Physical exam, pre-employment Obstructive sleep apnea Social History adopted: No household members: spouse housing: house number of children: 2 current occupational status: employed 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 Pmzrp-dqky-ttxyldcn. No history of trauma to the right shoulder. No loss of sensation or strength or function at injury site or distal to. Admits inconsistent with home range of motion exercises as instructed last evaluation. Still no cervical or right elbow/wrist/hand complaints. No hcor-phb-kezkpya products taken to assist. No other associated [...] of Care Code Off vis,est,level 2 10/06/24 1654 Date Antonio Lugo Signature: Date (if applicable) CC: Normal [facility] Shoulder min 2 Viewson 09-22 Shoulder min 2 Views [facility] Imaging Services [address] [place] [address] Shoulder min 2 Views MR#: [id number] Acct: [id number] Name: ORALIA REYES Rep #: [id number] : 1960 M 64 From: Reji Curtis MD PCP: Dr. Kristine Yee MD Status: REG CLI Study: Shoulder min 2 Views Date of Exam: 09/22/24 Exam# [id number] Ordering Dr: Antonio Knight [id number] STUDY: X-RAY - RIGHT SHOULDER REASON FOR [...] CC: Dr. 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 Equipment Validation Engineer Required: No Is patient in pain?: Yes Allergies Penicillins (PCN) Allergy (Verified 09/22/24 10:10) Hives Have you fallen in the past year?: No [facility] Medical History (Updated 09/22/24 @ 10:35 by Antonio RODRIGUEZ PA) Strain of right rotator cuff capsule Right shoulder strain Hyperlipidemia Hypertension Migraines Cataracts, bilateral Physical exam, pre-employment Obstructive sleep apnea Social History adopted: No household members: spouse housing: house number of children: 2 current occupational status: 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 Hhzhj-gqtw-gvlnhnbw. No history of trauma to the right shoulder. No loss of sensation or strength or function at injury site or distal to. No cervical or right elbow/wrist/hand complaints. No dgvi-scz-yimpabr products taken to assist. No other associated [...] work without restrictions as noted on today's [place] [address] (per patient preference). Home range of motion exercises and supportive measures as instructed today. [facility]-up with the [facility] on 10/06/2024 at 5 PM for reevaluation, sooner should symptoms only worsen or any other concerns develop. Patient states acknowledging understanding all the above. This (more content not included)... Normal [facility] Absolute lymphocyte countOrd ered By: Erin Schaefer on 01-06-2024 Lymphocytes Auto (Unsp spec) [#/Vol] 1.28 10*3/uL 0.83-4.51 [facility] Automated lymphocyte count a s percentage of total leukocytesOrdered By: Erin Schaefer on 01-06-2024 Lymphocytes/100 WBC Auto (Unsp spec) 23.1 % 19-41 [facility] Basophil percentageOrdered B y: Erin Schaefer on 01-06-2024 Basophils/100 WBC (Bld) 0.9 % 0-1 [facility] Chloride [Moles/Vol] 105 mmol/L 98-107 [facility] Eosinophils/100 WBC (Bld) 1.6 % 0-5 [facility] Glucose [Mass/Vol] 110 mg/dL 74-106 [facility] Comment on above: Fasting Glucose resu lt from 100 to 125 mg/dL suggests IMPAIRED HOMEOSTASIS per A.D.A. criteria. Hemoglobin (Bld) [Mass/Vol] 14.6 g/dL 13.0-16.5 [facility] Monocytes/100 WBC (Bld) 7.9 % 0-10 [facility] Neutrophils (Bld) [#/Vol] 3.7 10*3/uL 2.0-7.7 [facility] Neutrophils/100 WBC (Bld) 65.8 % 47-70 [facility] Potassium [Moles/Vol] 4.2 mmol/L 3.5-5.1 [facility] Sodium [Moles/Vol] 139 mmol/L 136-145 [facility] WBC (Bld) [#/Vol] 5.6 10*3/uL 4.4-11.0 [facility] Determination of erythrocyte mean corpuscular volume (MCV)Ordered By: Erin Schaefer on 01-06-2024 MCV (RBC) [Entitic vol] 85.3 fL 80-94 [facility] Erythrocyte distribution wid th ratioOrdered By: Erin Schaefer on 01-06-2024 Erythrocyte distribution width (RBC) [Ratio] 13.7 % 11.6-14.6 [facility] Erythrocyte distribution wid th standard deviationOrdered By: Erin Schaefer on 01-06-2024 Erythrocyte distribution width (RBC) [Entitic vol] 42.5 fL 35.1-43.9 [facility] Hematocrit Auto (Bld) [Volum e fraction]Ordered By: Erin Schaefer on 01-06-2024 Hematocrit (Bld) [Volume fraction] 45.3 % 40-54 [facility] Immature granulocytes/100 WB C Auto (Bld)Ordered By: Erin Schaefer on 01-06-2024 Immature granulocytes/100 WBC (Bld) 0.700 % 0.0-0.9 [facility] Comment on above: IG% - Immature Granu locytes (promyelocytes, myelocytes and metamyelocytes) > 1% indicates that a LEFT SHIFT is Present. Laboratory - Chemistry and C hemistry - challengeOrdered By: Erin Schaefer on 01-06-2024 CO2 [Moles/Vol] 28.0 mmol/L 21.0-32.0 [facility] Urea nitrogen/Creatinine [Mass ratio] 12.3 mg/mg 10-20 [facility] Laboratory - Hematology and Cell countsOrdered By: Erin Schaefer on 01-06-2024 MCH (RBC) [Entitic mass] 27.5 pg 27.0-32.0 [facility] MCHC (RBC) [Mass/Vol] 32.2 g/dL 32-36 [facility] Nucleated RBC/100 WBC (Bld) [Ratio] 0 % 0-5 [facility] Platelet mean volume (Bld) [Entitic vol] 9.6 fL 6.2-12.0 [facility] Platelets (Bld) [#/Vol] 175 10*3/uL 150-450 [facility] No Panel InformationOrdered By: Erin Schaefer on 01-06-2024 D-Dimer Quantitative (PE/DVT) < 0.27 FEU/ug/m 0.27-0.49 [facility] Comment on above: NORMAL D-Dimer level (<0.50) indicates no DVT or PE. Estimated Creatinine Clearance Calc 71.68 ml/min [facility] Estimated GFR (MDRD) Amer 77 mL/min >60 [facility] Comment on above: GFR Calc Estimated GFR (MDRD) Non-Af Amer 64 mL/min >60 [facility] Comment on above: Non- GFR Calc Troponin I High Sensitivity 5 pg/mL 3.0-78.0 [facility] Comment on above: Please Note: New [place] t Units and Gender Specific Reference Ranges. For more information see Policy Stat Procedure [place] High Sensitivity Troponin (TNIH) and attachments. RBC Auto (Bld) [#/Vol]Ordere d By: Erin Schaefer on 01-06-2024 RBC (Bld) [#/Vol] 5.31 10*6/uL 4.6-6.2 [facility] Serum or plasma calcium citlalli urement (mass/volume)Ordered By: Erin Schaefer on 01-06-2024 Calcium [Mass/Vol] 9.1 mg/dL 8.5-10.1 [facility] Serum or plasma creatinine m easurement (mass/volume)Ordered By: Erin Schaefer on 01-06-2024 Creatinine [Mass/Vol] 1.22 mg/dL 0.70-1.30 [facility] Comment on above: The validity of the calculated GFR & GFRAA in patients over 70 years has not been determined. Clinical correlation is essential. Serum or plasma urea nitroge n measurement (mass/volume)Ordered By: Erin Schaefer on 01-06-2024 Urea nitrogen [Mass/Vol] 15 mg/dL 7-18 [facility] Thin prep Papanicolaou smear with manual screeningOrdered By: Erin Schaefer on 01-06-2024 Thin prep Papanicolaou smear with manual screening 6 5-15 [facility] Absolute lymphocyte countOrd ered By: Kristine Yee on 10-07-2023 Lymphocytes Auto (Unsp spec) [#/Vol] 1.17 10*3/uL 0.83-4.51 [facility] Basophil percentageOrdered B y: Kristine Yee on 10-07-2023 Basophils/100 WBC (Bld) 0.7 % 0-1 [facility] Bilirubin [Mass/Vol] 0.50 mg/dL 0.20-1.00 [facility] Comment on above: For patients on eltr ombopag therapy, use of Dimension [place] TBIL is not recommended. Chloride [Moles/Vol] 105 mmol/L 98-107 [facility] Cholesterol [Mass/Vol] 130 mg/dL <200 [facility] Comment on above: <200 mg/dL Desirable 200-240 mg/dL Borderline >240 mg/dL High Risk Eosinophils/100 WBC (Bld) 1.3 % 0-5 [facility] Glucose [Mass/Vol] 90 mg/dL 74-106 [facility] Neutrophils (Bld) [#/Vol] 4.1 10*3/uL 2.0-7.7 [facility] Neutrophils/100 WBC (Bld) 69.5 % 47-70 [facility] Potassium [Moles/Vol] 4.1 mmol/L 3.5-5.1 [facility] Protein [Mass/Vol] 7.6 g/dL 6.4-8.2 [facility] Sodium [Moles/Vol] 138 mmol/L 136-145 [facility] Triglyceride [Mass/Vol] 297 mg/dL <199 [facility] Comment on above: The drugs N-Acetylcy steine and Metamizole may falsely depress this assay.Serum Triglycerides Reference Interval Normal <150 mg/dL Borderline high 150 - 199 mg/dL High 200 - 499 mg/dL Very High > or = 500 mg/dL WBC (Bld) [#/Vol] 5.9 10*3/uL 4.4-11.0 [facility] Blood erythrocytes count (nu mber/volume)Ordered By: Kristine Yee on 10-07-2023 RBC (Bld) [#/Vol] 5.41 10*6/uL 4.6-6.2 [facility] Blood hemoglobin measurement (mass/volume)Ordered By: Kristine Yee on 10-07-2023 Hemoglobin (Bld) [Mass/Vol] 15.1 g/dL 13.0-16.5 [facility] Blood lymphocytes/100 leukoc ytesOrdered By: Kristine Yee on 10-07-2023 Lymphocytes/100 WBC (Bld) 19.7 % 19-41 [facility] Blood monocytes/100 leukocyt esOrdered By: Kristine Yee on 10-07-2023 Monocytes/100 WBC (Bld) 8.1 % 0-10 [facility] Blood platelet mean volumeOr dered By: Kristine Yee on 10-07-2023 Platelet mean volume (Bld) [Entitic vol] 10.1 fL 6.2-12.0 [facility] Determination of erythrocyte mean corpuscular volume (MCV)Ordered By: Kristine Yee on 10-07-2023 MCV (RBC) [Entitic vol] 87.6 fL 80-94 [facility] Hematocrit Auto (Bld) [Volum e fraction]Ordered By: Kristine Yee on 10-07-2023 Hematocrit (Bld) [Volume fraction] 47.4 % 40-54 [facility] Laboratory - Chemistry and C hemistry - challengeOrdered By: Kristine Yee on 10-07-2023 ALP [Catalytic activity/Vol] 52 U/L 45-117 [facility] ALT [Catalytic activity/Vol] 31 U/L 16-61 [facility] CO2 [Moles/Vol] 27.0 mmol/L 21.0-32.0 [facility] Globulin (S) [Mass/Vol] 3.7 g/dL 2.2-4.2 [facility] Urea nitrogen/Creatinine [Mass ratio] 14.8 mg/mg 10-20 [facility] Laboratory - Hematology and Cell countsOrdered By: Kristine Yee on 10-07-2023 Erythrocyte distribution width (RBC) [Entitic vol] 43.3 fL 35.1-43.9 [facility] Erythrocyte distribution width (RBC) [Ratio] 13.5 % 11.6-14.6 [facility] Immature granulocytes/100 WBC (Bld) 0.700 % 0.0-0.9 [facility] Comment on above: IG% - Immature Granu locytes (promyelocytes, myelocytes and metamyelocytes) > 1% indicates that a LEFT SHIFT is Present. MCH (RBC) [Entitic mass] 27.9 pg 27.0-32.0 [facility] Nucleated RBC/100 WBC (Bld) [Ratio] 0 % 0-5 [facility] MCHC Auto (RBC) [Mass/Vol]Or dered By: Kristine Yee on 10-07-2023 MCHC (RBC) [Mass/Vol] 31.9 g/dL 32-36 [facility] No Panel InformationOrdered By: Kristine Yee on 10-07-2023 Estimated GFR (MDRD) Amer 83 mL/min >60 [facility] Comment on above: GFR Calc Estimated GFR (MDRD) Non-Af Amer 68 mL/min >60 [facility] Comment on above: Non- GFR Calc Vitamin D 25-Hydroxy 14.8 ng/mL [facility] Comment on above: Vitamin D 25(OH) Sta tus Range Deficiency <20 ng/mL (50nmol/L) Insufficiency 20 - 30 ng/mL (50 - 75 nmol/L) Sufficiency 30 - 100 ng/mL (75 - 250 nmol/L) Toxicity >100 ng/mL (>250 nmol/L) Platelets bldOrdered By: Chasidy Yee on 10-07-2023 Platelets (Bld) [#/Vol] 205 10*3/uL 150-450 [facility] Serum or plasma albumin citlalli urement (mass/volume)Ordered By: Kristine Yee on 10-07-2023 Albumin [Mass/Vol] 3.9 g/dL 3.2-5.0 [facility] Serum or plasma albumin/glob ulin mass ratioOrdered By: Kristine Yee on 10-07-2023 Albumin/Globulin [Mass ratio] 1.1 {ratio} 0.9-2.4 [facility] Serum or plasma calcium citlalli urement (mass/volume)Ordered By: Kristine Yee on 10-07-2023 Calcium [Mass/Vol] 9.4 mg/dL 8.5-10.1 [facility] Serum or plasma cholesterol in HDL measurement (mass/volume)Ordered By: Kristine Yee on 10-07-2023 Cholesterol in HDL [Mass/Vol] 29 mg/dL >40 [facility] Comment on above: The drugs N-Acetylcy steine and Metamizole may falsely depress this assay. Reference Range HDL <40 mg/dL Low HDL Cholesterol HDL >or= 60 mg/dL High HDL Cholesterol Serum or plasma cholesterol in VLDL measurement (mass/volume)Ordered By: Kristine Yee on 10-07-2023 Cholesterol in VLDL [Mass/Vol] 59 mg/dL 5-40 [facility] Serum or plasma creatinine m easurement (mass/volume)Ordered By: Kristine Yee on 10-07-2023 Creatinine [Mass/Vol] 1.15 mg/dL 0.70-1.30 [facility] Comment on above: The validity of the calculated GFR & GFRAA in patients over 70 years has not been determined. Clinical correlation is essential. Serum or plasma low density lipoprotein (LDL) cholesterol measurement (mass/volume)Ordered By: Kristine Yee on 10-07-2023 Cholesterol in LDL [Mass/Vol] 42 mg/dL 0-130 [facility] Serum or plasma urea nitroge n measurement (mass/volume)Ordered By: Kristine Yee on 10-07-2023 Urea nitrogen [Mass/Vol] 17 mg/dL 7-18 [facility] Thin prep Papanicolaou smear with manual screeningOrdered By: Kristine Yee on 10-07-2023 Thin prep Papanicolaou smear with manual screening 19 U/L 15-37 [facility] Thin prep Papanicolaou smear with manual screening 6 5-15 [facility] Whole blood hemoglobin A1c/t otal hemoglobin ratio (mass fraction)Ordered By: Kristine Yee on 10-07-2023 HbA1c (Bld) [Mass fraction] 5.8 % 3.8-5.6 [facility] Comment on above: Normal < 5.7 % Predi abetic 5.7 - 6.4 % Diabetic >or= 6.5 % Please note range changes. Absolute lymphocyte countOrd ered By: Sarah Carballo on 12-26-2022 Lymphocytes Auto (Unsp spec) [#/Vol] 1.08 10*3/uL 0.83-4.51 [facility] Basophil percentageOrdered B y: Sarah Carballo on 12-26-2022 Basophils/100 WBC (Bld) 1.1 % 0-1 [facility] Bilirubin [Mass/Vol] 0.50 mg/dL 0.20-1.00 [facility] Comment on above: For patients on eltr ombopag therapy, use of Dimension [place] TBIL is not recommended. Chloride [Moles/Vol] 107 mmol/L 98-107 [facility] Cholesterol [Mass/Vol] 127 mg/dL <200 [facility] Comment on above: <200 mg/dL Desirable 200-240 mg/dL Borderline >240 mg/dL High Risk Eosinophils/100 WBC (Bld) 2.0 % 0-5 [facility] Glucose [Mass/Vol] 103 mg/dL 74-106 [facility] Comment on above: Fasting Glucose resu lt from 100 to 125 mg/dL suggests IMPAIRED HOMEOSTASIS per A.D.A. criteria. Neutrophils (Bld) [#/Vol] 2.8 10*3/uL 2.0-7.7 [facility] Neutrophils/100 WBC (Bld) 63.9 % 47-70 [facility] Potassium [Moles/Vol] 4.0 mmol/L 3.5-5.1 [facility] Protein [Mass/Vol] 7.4 g/dL 6.4-8.2 [facility] Sodium [Moles/Vol] 140 mmol/L 136-145 [facility] Triglyceride [Mass/Vol] 203 mg/dL <199 [facility] Comment on above: The drugs N-Acetylcy steine and Metamizole may falsely depress this assay.Serum Triglycerides Reference Interval Normal <150 mg/dL Borderline high 150 - 199 mg/dL High 200 - 499 mg/dL Very High > or = 500 mg/dL WBC (Bld) [#/Vol] 4.4 10*3/uL 4.4-11.0 [facility] Blood erythrocytes count (nu mber/volume)Ordered By: Sarah Carballo on 12-26-2022 RBC (Bld) [#/Vol] 5.42 10*6/uL 4.6-6.2 [facility] Blood hemoglobin measurement (mass/volume)Ordered By: Sarah Carballo on 12-26-2022 Hemoglobin (Bld) [Mass/Vol] 15.2 g/dL 13.0-16.5 [facility] Blood lymphocytes/100 leukoc ytesOrdered By: Sarah Carballo on 12-26-2022 Lymphocytes/100 WBC (Bld) 24.5 % 19-41 [facility] Blood monocytes/100 leukocyt esOrdered By: Sarah Carballo on 12-26-2022 Monocytes/100 WBC (Bld) 8.0 % 0-10 [facility] Blood platelet mean volumeOr dered By: Sarah Carballo on 12-26-2022 Platelet mean volume (Bld) [Entitic vol] 9.9 fL 6.2-12.0 [facility] Determination of erythrocyte mean corpuscular volume (MCV)Ordered By: Sarah Carballo on 12-26-2022 MCV (RBC) [Entitic vol] 87.5 fL 80-94 [facility] Hematocrit Auto (Bld) [Volum e fraction]Ordered By: Sarah Carballo on 12-26-2022 Hematocrit (Bld) [Volume fraction] 47.4 % 40-54 [facility] Laboratory - Chemistry and C hemistry - challengeOrdered By: Sarah Carballo on 12-26-2022 ALP [Catalytic activity/Vol] 45 U/L 45-117 [facility] ALT [Catalytic activity/Vol] 35 U/L 16-61 [facility] CO2 [Moles/Vol] 25.0 mmol/L 21.0-32.0 [facility] Cobalamin (Vitamin B12) [Mass/Vol] 331 pg/mL 211-911 [facility] Globulin (S) [Mass/Vol] 3.5 g/dL 2.2-4.2 [facility] Urea nitrogen/Creatinine [Mass ratio] 13.4 mg/mg 10-20 [facility] Laboratory - Hematology and Cell countsOrdered By: Sarah Carballo on 12-26-2022 Erythrocyte distribution width (RBC) [Entitic vol] 43.7 fL 35.1-43.9 [facility] Erythrocyte distribution width (RBC) [Ratio] 13.6 % 11.6-14.6 [facility] Immature granulocytes/100 WBC (Bld) 0.500 % 0.0-0.9 [facility] Comment on above: IG% - Immature Granu locytes (promyelocytes, myelocytes and metamyelocytes) > 1% indicates that a LEFT SHIFT is Present. MCH (RBC) [Entitic mass] 28.0 pg 27.0-32.0 [facility] Nucleated RBC/100 WBC (Bld) [Ratio] 0 % 0-5 [facility] MCHC Auto (RBC) [Mass/Vol]Or dered By: Sarah Carballo on 12-26-2022 MCHC (RBC) [Mass/Vol] 32.1 g/dL 32-36 [facility] No Panel InformationOrdered By: Sarah Carballo on 12-26-2022 Estimated GFR (MDRD) Amer 85 mL/min >60 [facility] Comment on above: GFR Calc Estimated GFR (MDRD) Non-Af Amer 71 mL/min >60 [facility] Comment on above: Non- GFR Calc Prostate Specific Antigen Screen 1.99 ng/mL 0.00-4.00 [facility] Comment on above: This test was perfor med using the TPSA assay method for theGO-SIM chemistry system. Values obtained with differentassay methods cannot be used interchangably.When changing PSA assays in the course of monitoring apatient, additional sequential testing should be carriedout to confirm baseline values. Thyroid Stimulating Hormone (TSH) 1.44 uIU/mL 0.358-3.74 [facility] Platelets bldOrdered By: Glynn Carballo on 12-26-2022 Platelets (Bld) [#/Vol] 179 10*3/uL 150-450 [facility] Serum or plasma albumin citlalli urement (mass/volume)Ordered By: Sarah Carballo on 12-26-2022 Albumin [Mass/Vol] 3.9 g/dL 3.2-5.0 [facility] Serum or plasma albumin/glob ulin mass ratioOrdered By: Sarah Carballo on 12-26-2022 Albumin/Globulin [Mass ratio] 1.1 {ratio} 0.9-2.4 [facility] Serum or plasma calcitriol m easurement (mass/volume)Ordered By: Sarah Carballo on 12-26-2022 1,25-dihydroxyvitamin D3 [Mass/Vol] 47.3 pg/mL 24.8-81.5 [facility] Comment on above: Performed at: [address] [id number] Director: Silvino Fernandez MD, Phone: [phone] Serum or plasma calcium citlalli urement (mass/volume)Ordered By: Sarah Carballo on 12-26-2022 Calcium [Mass/Vol] 9.6 mg/dL 8.5-10.1 [facility] Serum or plasma cholesterol in HDL measurement (mass/volume)Ordered By: Sarah Carballo on 12-26-2022 Cholesterol in HDL [Mass/Vol] 31 mg/dL >40 [facility] Comment on above: The drugs N-Acetylcy steine and Metamizole may falsely depress this assay. Reference Range HDL <40 mg/dL Low HDL Cholesterol HDL >or= 60 mg/dL High HDL Cholesterol Serum or plasma cholesterol in VLDL measurement (mass/volume)Ordered By: Sarah Carballo on 12-26-2022 Cholesterol in VLDL [Mass/Vol] 41 mg/dL 5-40 [facility] Serum or plasma creatinine m easurement (mass/volume)Ordered By: Sarah Carballo on 12-26-2022 Creatinine [Mass/Vol] 1.12 mg/dL 0.70-1.30 [facility] Comment on above: The validity of the calculated GFR & GFRAA in patients over 70 years has not been determined. Clinical correlation is essential. Serum or plasma ferritin cristi surement (mass/volume)Ordered By: Sarah Carballo on 12-26-2022 Ferritin [Mass/Vol] 205 ng/mL 26-388 [facility] Serum or plasma low density lipoprotein (LDL) cholesterol measurement (mass/volume)Ordered By: Sarah Carballo on 12-26-2022 Cholesterol in LDL [Mass/Vol] 55 mg/dL 0-130 [facility] Serum or plasma urea nitroge n measurement (mass/volume)Ordered By: Sarah Carballo on 12-26-2022 Urea nitrogen [Mass/Vol] 15 mg/dL 7-18 [facility] Thin prep Papanicolaou smear with manual screeningOrdered By: Sarah Carballo on 12-26-2022 Thin prep Papanicolaou smear with manual screening 19 U/L 15-37 [facility] Thin prep Papanicolaou smear with manual screening 8 5-15 [facility] Thin prep Papanicolaou smear with manual screening 13.3 mg/L NO RANGE EST. [facility] Whole blood hemoglobin A1c/t otal hemoglobin ratio (mass fraction)Ordered By: Sarah Carballo on 12-26-2022 HbA1c (Bld) [Mass fraction] 5.9 % 3.8-5.6 [facility] Comment on above: Normal < 5.7 % Predi abetic 5.7 - 6.4 % Diabetic >or= 6.5 % Please note range changes. Vital Signs Date Time Vital Sign Value Performing Clinician Gordon knott 08-09-2025 08:12-0400 Body height 172.[address] Kristine Yee MD Work Phone: [facility] 08-09-2025 08:12-0400 Body mass index (BMI) [Ratio] 33.5 kg/m2 Dr. Kristine Yee MD Work Phone: [facility] 08-09-2025 08:12-0400 Body temperature 96.9 [degF] Dr. Kristine Yee MD Work Phone: [facility] 08-09-2025 08:12-0400 Body weight 100.[address] Kristine Yee MD Work Phone: [facility] 08-09-2025 08:12-0400 Diastolic blood pressure 78 mm[Hg] Dr. Kristine Yee MD Work Phone: [facility] 08-09-2025 08:12-0400 Heart rate 74 /min Dr. Kristine Yee MD Work Phone: [facility] 08-09-2025 08:12-0400 Respiratory rate 18 /min Dr. Kristine Yee MD Work Phone: [facility] 08-09-2025 08:12-0400 SaO2% (BldA) [Mass fraction] 93 % Dr. Kristine Yee MD Work Phone: [facility] 08-09-2025 08:12-0400 Systolic blood pressure 119 mm[Hg] Dr. Kristine Yee MD Work Phone: [facility] 08-03-2025 12:30-0400 Body temperature 96.5 [degF] Dr. Kristine Yee MD Work Phone: [facility] 08-03-2025 12:30-0400 Diastolic blood pressure 89 mm[Hg] Dr. Kristine Yee MD Work Phone: [facility] 08-03-2025 12:30-0400 Heart rate 66 /min Dr. Kristine Yee MD Work Phone: [facility] 08-03-2025 12:30-0400 Respiratory rate 16 /min Dr. Kristine Yee MD Work Phone: [facility] 08-03-2025 12:30-0400 SaO2% (BldA) [Mass fraction] 99 % Dr. Kristine Yee MD Work Phone: [facility] 08-03-2025 12:30-0400 Systolic blood pressure 141 mm[Hg] Dr. Kristine Yee MD Work Phone: [facility] 08-03-2025 09:45-0400 Body height 172.[address] Kristine Yee MD Work Phone: [facility] 08-03-2025 09:45-0400 Body mass index (BMI) [Ratio] 33.2 kg/m2 Dr. Kristine Yee MD Work Phone: [facility] 08-03-2025 09:45-0400 Body weight [address] Kristine Yee MD Work Phone: [facility] 07-19-2025 09:55-0400 Body temperature 97.7 [degF] Dr. Kristine Yee MD Work Phone: [facility] 07-19-2025 09:55-0400 Diastolic blood pressure 77 mm[Hg] Dr. Kristine Yee MD Work Phone: [facility] 07-19-2025 09:55-0400 Heart rate 67 /min Dr. Kristine Yee MD Work Phone: [facility] 07-19-2025 09:55-0400 Respiratory rate 16 /min Dr. Kristine Yee MD Work Phone: [facility] 07-19-2025 09:55-0400 SaO2% (BldA) [Mass fraction] 96 % Dr. Kristine Yee MD Work Phone: [facility] 07-19-2025 09:55-0400 Systolic blood pressure 111 mm[Hg] Dr. Kristine Yee MD Work Phone: [facility] 07-19-2025 08:39-0400 Body height 172.[address] Kristine Yee MD Work Phone: [facility] 07-19-2025 08:39-0400 Body mass index (BMI) [Ratio] 32.4 kg/m2 Dr. Kristine Yee MD Work Phone: [facility] 07-19-2025 08:39-0400 Body weight 96.[address] Kristine eYe MD Work Phone: [facility] 06-14-2025 10:12-0400 Body height 172.[address] Kristine Yee MD Work Phone: [facility] 06-14-2025 10:12-0400 Body mass index (BMI) [Ratio] 33.7 kg/m2 Dr. Kristine Yee MD Work Phone: [facility] 06-14-2025 10:12-0400 Body temperature 98.2 [degF] Dr. Kristine Yee MD Work Phone: [facility] 06-14-2025 10:12-0400 Body weight 100.[address] Kristine Yee MD Work Phone: [facility] 06-14-2025 10:12-0400 Diastolic blood pressure 67 mm[Hg] Dr. Kristine Yee MD Work Phone: [facility] 06-14-2025 10:12-0400 Heart rate 63 /min Dr. Kristine Yee MD Work Phone: [facility] 06-14-2025 10:12-0400 Respiratory rate 18 /min Dr. Kristine Yee MD Work Phone: [facility] 06-14-2025 10:12-0400 SaO2% (BldA) [Mass fraction] 95 % Dr. Kristine Yee MD Work Phone: [facility] 06-14-2025 10:12-0400 Systolic blood pressure 111 mm[Hg] Dr. Kristine Yee MD Work Phone: [facility] 05-09-2025 10:01-0400 Body height 172.[address] Kristine Yee MD Work Phone: [facility] 05-09-2025 10:01-0400 Body mass index (BMI) [Ratio] 34 kg/m2 Dr. Kristine Yee MD Work Phone: [facility] 05-09-2025 10:01-0400 Body temperature 98.7 [degF] Dr. Kristine Yee MD Work Phone: [facility] 05-09-2025 10:01-0400 Body weight 101.[address] Kristine Yee MD Work Phone: [facility] 05-09-2025 10:01-0400 Diastolic blood pressure 73 mm[Hg] Dr. Kristine Yee MD Work Phone: [facility] 05-09-2025 10:01-0400 Heart rate 75 /min Dr. Kristine Yee MD Work Phone: [facility] 05-09-2025 10:01-0400 Respiratory rate 16 /min Dr. Kristine Yee MD Work Phone: [facility] 05-09-2025 10:01-0400 SaO2% (BldA) [Mass fraction] 94 % Dr. Kristine Yee MD Work Phone: [facility] 05-09-2025 10:01-0400 Systolic blood pressure 115 mm[Hg] Dr. Kristine Yee MD Work Phone: [facility] 04-13-2025 15:31-0400 Body height 172.[address] Kristine Yee MD Work Phone: [facility] 04-13-2025 15:31-0400 Body mass index (BMI) [Ratio] 33.6 kg/m2 Dr. Kristine Yee MD Work Phone: [facility] 04-13-2025 15:31-0400 Body temperature 98.2 [degF] Dr. Kristine Yee MD Work Phone: [facility] 04-13-2025 15:31-0400 Body weight 100.[address] Kristine Yee MD Work Phone: [facility] 04-13-2025 15:31-0400 Diastolic blood pressure 69 mm[Hg] Dr. Kristine Yee MD Work Phone: [facility] 04-13-2025 15:31-0400 Heart rate 92 /min Dr. Kristine Yee MD Work Phone: [facility] 04-13-2025 15:31-0400 Respiratory rate 16 /min Dr. Kristine Yee MD Work Phone: [facility] 04-13-2025 15:31-0400 SaO2% (BldA) [Mass fraction] 94 % Dr. Kristine Yee MD Work Phone: [facility] 04-13-2025 15:31-0400 Systolic blood pressure 106 mm[Hg] Dr. Kristine Yee MD Work Phone: [facility] 01-06-2024 15:02-0500 Body temperature 98.6 [degF] MD Kristine Yee [facility] 01-06-2024 15:02-0500 Diastolic blood pressure 84 mm[Hg] MD Kristine Yee [facility] 01-06-2024 15:02-0500 Heart rate 67 /min MD Kristine Yee [facility] 01-06-2024 15:02-0500 Respiratory rate 16 /min MD Kristine Yee [facility] 01-06-2024 15:02-0500 SaO2% (BldA) [Mass fraction] 98 % MD Kristine Yee [facility] 01-06-2024 15:02-0500 Systolic blood pressure 128 mm[Hg] MD Kristine Yee [facility] 01-06-2024 13:27-0500 Inhaled oxygen flow rate 3 L/min MD Kristine Yee [facility] 01-06-2024 12:00-0500 Body height 172.72 cm MD Kristine Yee [facility] 01-06-2024 12:00-0500 Body mass index (BMI) [Ratio] 34.1 kg/m2 MD Kristine Yee [facility] 01-06-2024 12:00-0500 Body weight 101.83 kg MD Kristine Yee [facility] 10-09-2023 16:06-0500 Body height 172.72 cm MD Kristine Yee [facility] 10-09-2023 16:06-0500 Body mass index (BMI) [Ratio] 35.4 kg/m2 MD Kristine Yee [facility] 10-09-2023 16:06-0500 Body temperature 97.7 [degF] MD Kristine Yee [facility] 10-09-2023 16:06-0500 Body weight 105.74 kg MD Kristine Yee [facility] 10-09-2023 16:06-0500 Diastolic blood pressure 82 mm[Hg] MD Kristine Yee [facility] 10-09-2023 16:06-0500 Heart rate 79 /min MD Kristine Yee [facility] 10-09-2023 16:06-0500 Respiratory rate 16 /min MD Kristine Yee [facility] 10-09-2023 16:06-0500 SaO2% (BldA) [Mass fraction] 95 % MD Kristine Yee [facility] 10-09-2023 16:06-0500 Systolic blood pressure 138 mm[Hg] MD Kristine Yee [facility] Encounters Encounter Date Encounter Type Care Provider Facility Start: 08-17-2025 End: 08-17-2025 Patient encounter procedure Michelle Weiss PA-C -[facility] Work Phone: Start: 08-17-2025 End: 08-17-2025 ambulatory Kristine Yee Facility:[facility] [place] Start: 08-09-2025 End: 08-09-2025 Patient encounter procedure JUAN MANUEL Sky -[facility] Work Phone: Start: 08-09-2025 End: 08-09-[address] Kristine Yee MD Work Phone: -[facility] Start: 08-08-2025 Encounter for genera l adult medical examination without abnormal findings [facility] [place] Start: 08-03-2025 Non-patient / Non-visit Dr. Krystal Chang MD -[facility] Start: 08-03-2025 End: 08-03-2025 Admission to same day surgery center Dr. Eric Chang MD [facility] Start: 08-03-2025 End: 08-03-[address] Kristine Yee MD Work Phone: [facility] Start: 08-02-2025 End: 08-02-[address] Kristine Yee MD Work Phone: -[facility] Start: 08-02-2025 End: 08-02-[address] Kristine Yee MD -Sleep Lab Work Phone: Start: 08-02-2025 End: 08-02-2025 ambulatory [facility] Facility:[facility] Start: 07-22-2025 End: 07-22-[address] Kristine Yee MD Work Phone: -[facility] Lab Start: 07-22-2025 End: 07-22-[address] Kristine Yee MD -Sleep Lab Work Phone: Start: 07-22-2025 End: 07-22-2025 ambulatory [facility] Facility:[facility] Start: 07-21-2025 Non-patient / Non-visit Dr. Ryne BOOTHE -[facility] Work Phone: Start: 07-19-2025 Non-patient / Non-visit Dr. Krystal Chang MD -[facility] Start: 07-19-2025 End: 07-19-2025 Admission to same day surgery center Dr. Eric Chang MD -Endoscopy Work Phone: Start: 07-19-2025 End: 07-19-[address] Kristine Yee MD Work Phone: -Endoscopy Start: 06-14-2025 End: 06-14-[address] Eric Chang MD -[facility] Work Phone: Start: 06-14-2025 End: 06-14-[address] Kristine Yee MD Work Phone: -[facility] Start: 05-09-2025 End: 05-09-[address] Kristine Yee MD -[facility] Work Phone: Start: 05-09-2025 End: 05-09-[address] Kristine Yee MD Work Phone: -[facility] Start: 04-13-2025 End: 04-13-[address] Kristine Yee MD -[facility] Work Phone: Start: 04-13-2025 End: 04-13-[address] Kristine Yee MD Work Phone: [facility] Work Phone: Start: 04-12-2025 End: 04-12-[address] Kristine Yee MD Work Phone: [facility] Work Phone: Start: 04-12-2025 End: 04-12-[address] Kristine Yee MD -[facility] Start: 04-12-2025 End: 04-12-2025 ambulatory Kristine Yee Facility:[facility] Start: 11-24-2024 End: 11-24-2024 ambulatory Kristine Yee Facility:[facility] Start: 11-17-2024 End: 11-17-2024 ambulatory Kristine Yee Facility:[facility] Start: 11-17-2024 End: 11-17-2024 ambulatory Kristine Yee Facility:[facility] Start: 10-13-2024 End: 10-13-2024 ambulatory Kristine Yee Facility:[facility] Start: 10-12-2024 End: 10-12-2024 ambulatory [facility] Facility:[facility] Start: 10-06-2024 End: 10-06-2024 ambulatory [facility] Start: 09-22-2024 End: 09-22-2024 ambulatory [facility] Start: 09-22-2024 End: 09-22-2024 ambulatory [facility] Facility:[facility] Start: 01-06-2024 End: 01-06-2024 Emergency department patient visit MD Kristine OBRIEN [facility]-Emergency Department Work Phone: Start: 10-09-2023 End: 10-09-2023 Patient encounter procedure MD Kristine OBRIEN [facility] Work Phone: Start: 10-07-2023 End: 10-07-2023 ambulatory MD Kristine OBRIEN [facility] Work Phone: Start: 10-07-2023 End: 10-07-2023 Patient encounter procedure MD Kristine OBRIEN [facility] Start: 12-26-2022 End: 12-26-2022 ambulatory [facility] Work Phone: Start: 12-26-2022 End: 12-26-2022 Patient encounter procedure [facility] Start: 02-28-2021 ambulatory [facility] Facility: [facility] Procedures Date Procedure Procedure Detail Performing Clinician Start: 08-03-[address] Kristine Yee MD Work Phone: Start: 07-19-[address] Kristine Yee MD Work Phone: Start: 04-12-2025 Vitamin D, 25-hydrox y measurement Dr. Kristine Yee MD Work Phone: Comment on above: Vitamin D StatusDefi ciency: <20 ng/mL (50nmol/L)Insufficiency: 20-30 ng/mL (50-75 nmol/L)Sufficiency: 30-100 ng/mL (75-250 nmol/L)Toxicity: >100 ng/mL (>250 nmol/L) Start: 01-06-2024 Plain chest X-ray MD Chelsie OBRIEN Plan of Treatment Date Care Activity Detail Author Start: 08-03-2025 Anesthesia hernia repair upper abdomen nos ANES HRNA RPR UPR ABD NOS [facility] Start: 08-03-2025 RPR AA HRN 1ST < 3 CM RDC RPR AA HRN 1ST < 3 CM RDC [facility] Start: 08-03-2025 Patient discharge [facility] Start: 08-02-2025 Patient encounter procedure Registered Clinical -Sleep Lab Work Phone: Start: 07-21-2025 Electrocardiographic procedure [facility] Start: 07-19-2025 Endoscopy upper small intestine w/biopsy SMALL BOWEL ENDOSCOPY/BIOPSY [facility] Start: 07-19-2025 Patient discharge [facility] Start: 06-14-2025 Colonoscopy [facility] Start: 06-14-2025 [facility] Start: 01-06-2024 [facility] Start: 01-06-2024 [facility] Comprehensive metabo lic 2000 panel - Serum or Plasma [facility] Hemoglobin A1c/Hemog lobin.total in Blood [facility] Lipid 1996 panel - S weston or Plasma [facility] Patient Education ED Chest Pain, Uncertain Cause [facility] Work Phone: Patient referral [facility] Work Phone: Prostate specific an tigen measurement [facility] Vitamin D, 25-hydrox y measurement [facility] Immunizations Immunization Date Immunization Notes Care Provider Fa cility 07-04-2020 Influenza virus vaccine [facility] Payers Date Payer Category Payer Unknown [id number] 2025 Unknown [id number] 2024 Unknown [id number] 2024 Self-pay [id number] 2024 Unknown [id number] 2024 Unknown [id number] 2019 Private Health Insurance [id number] 2005 Unknown [id number] 1960 Unknown [id number] 2.16. [id number] Medicare [id number] Unknown [id number] Unknown [id number] 2.16.8 [id number] Unknown [id number] 2.16.8 [id number] Unknown [id number] 2.16.8 [id number] Unknown [id number] 2.16.8 [id number] Unknown [id number] 2.16.8 [id number] Unknown [id number] 2.16.8 [id number] Unknown [id number] 2.16.8 40.1.608436.3.579.2.462 Unknown [id number] 2.16.8 40.1.440372.3.579.2.462 Unknown [id number] 2.16.8 40.1.520703.3.579.2.462 Unknown [id number] 2.16.8 40.1.310508.3.579.2.462 Unknown [id number] 2.16.8 40.1.528938.3.579.2.462 Unknown [id number] 2.16.8 40.1.704752.3.579.2.462 Unknown [id number] 2.16.8 40.1.358175.3.579.2.462 Unknown [id number] 2.16.8 40.1.359364.3.579.2.462 Unknown [id number] 2.16.8 40.1.388555.3.579.2.462 Unknown [id number] 2.16.8 40.1.961475.3.579.2.462 Unknown [id number] 2.16.8 40.1.569963.3.579.2.462 Unknown [id number] 2.16.8 40.1.842534.3.579.2.462 Unknown [id number] 2.16.8 [id number] Unknown [id number] Social History Date Type Detail Facility Start: 05-10-2021 End: 01-06-2024 Tobacco smoking status NHIS Unknown if ever smoked [facility] Start: 01-30-2021 Occasional [facility] Start: 01-30-2021 None [facility] Start: 01-30-2021 Spouse/ Signif icant Other [facility] Start: 01-30-2021 Non-smoker [facility] Start: 1960 Sex Assigned At Male [facility] Start: 11-24-2024 End: 07-20-2025 Tobacco smoking status NHIS Never smoked tobacco (finding) [facility] Sex Male [facility] Goals Date Patient Goal Desired Activity /State Mental Status Date Assessment Result Facility 08-03-2025 Cognitive function Voice/Name [facility] Work Phone: 07-19-2025 Cognitive function Voice/Name [facility] Work Phone: 01-06-2024 Cognitive function [facility]/Name [facility] Work Phone: Clinical Notes 04-13-2025 to 08-17-2025 Note Date & Type Note Facility 08-17-2025 Progress note [facility] 08-03-2025 Consult note [facility] 08-03-2025 History and physical note [facility] 08-03-2025 History and physical note Note Date/Time August 03, 2025 12:40pm [facility] Medical Records Department [address] [place] [address] History & Physical Exam 08/03/25 0959 MR#: [id number] Acct: [id number] Name: ORALIA REYES II Rep #:[id number] : 1960 65 From: Eric fletcher MD PCP: Dr. 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 Eric Chang MD Pager: [facility] [address], [address] [place] [address] Office: I have examined the patient and the H&P has been reviewed. There are no clinicalchanges since date of exam. Colonoscopy was normal. 08/03/2559 <Electronically signed by Eric Chang MD> Cosigner Signature (if applicable): CC: Dr. Eric Chang MD; Dr. Kristine Yee MD~ Signed [facility] Work Phone: 1(728) 959-619710-01-2025 Consult note Author Mando Kern [facility] Note Date/Time August 03, 2025 9: 54am [facility] Medical Records Department [address] [place] [address] Pre-Anesthesia Evaluation 08/03/25931 MR#: [id number] Acct: [id number] Name: ORALIA REYES II Rep #:[id number] : 1960 65 From: Mando Solitario PCP: Dr. Kristine Yee MD Status:REG [facility] Y Race: C Location: [place] [address] ASA Classification* ASA Classification ASA Classification: 2 Assessment & Plan Anesthesia* Anesthesia Assessment Anesthesia [...] anesthesia risk assessments. Anesthesia Type Anesthesia Type: General History Source History Obtained from:: Patient and Chart Anesthesia Focused Assessment* Temperature: 98.9 F Pulse Rate: 77 Blood Pressure: 133/83 Respiratory Rate: 16 Pulse Ox: 95 Oxygen Delivery Method: Room Air Airway Assessment Mouth opens: >3 cm Mallampati Score: III Neck Range of motion (ROM): Full ROM Labs Anesthesia Preop lab: CBC WBC, (4.4-11.0) 3.9 K/mm3 L 04/12/25, 08:10 RBC, (4.6-6.2) 5.47 M/mm3 04/12/25, 08:10 Hgb, (13.0-16.5) 15.4 g/dL 04/12/25, 08:10 Hct, (40-54) 47.6 % 04/12/25, 08:10 Plt Count, (150-450) 183 K/mm3 04/12/25, 08:10 CHEMISTRY Potassium, (3.3-5.1) 4.3 mmol/L 04/12/25, 08:10 Sodium, (133-145) 137 mmol/L 04/12/25, 08:10 BUN, (4-19) 19 mg/dL 04/12/25, 08:10 Creatinine, (0.70-1.20) 1.06 mg/dL 04/12/25, 08:10 Glucose, (70-99) 116 mg/dL H 04/12/25, 08:10 POC Glucose, (70-110) 114 mg/dL H 02/01/21, 09:46 TSH, (0.300-4.200) 2.600 uIU/mL 04/12/25, 08:10 COAG PT, (11.7-14.9) 13.8 SECONDS 01/30/21, 11:13 Pre-Assessment Diagnosis/Proposed Procedure Planned Operative Procedure(s): (N/A) Hernia, Umbilical Repair w/ Mesh Anesthesia History Anesthesia History - client executive: Anesthesia History - client executive Hx Hospitalization No 07/20/25 10:40 Any Problems With Anesthesia No 07/20/25 10:40 Cholinesterase deficiency No 07/20/25 10:40 You/Your Family Experience No 07/20/25 10:40 fever (hyperthermia) with Relationship Recent Exposure to Contagious No 07/19/25 08:39 Disease Does patient have nerve No 07/20/25 10:40 stimulator Patient instructed to have device shut off --Does patient have Pacemaker or ICD? When Was Last Pacemaker Check QUESTION #4 FULL TEXT: You/Your Family Experience fever (hyperthermia) with Anesthesia Last Oral Intake Last Oral intake: Last Oral Intake NPO since Meds taken in AM with sips of water? Meds patient instructed to take am of surgery PONV PONV - client executive: PONV - client executive Female No 07/20/25 10:40 HX of Motion Sickness No 07/20/25 10:40 HX of N/V After Surgery No 07/20/25 10:40 Non-Smoker Yes 07/20/25 10:40 Duration of Surgery greater Yes 07/20/25 10:40 than 60 minutes Number of Risk Factors 2 07/20/25 10:40 PONV Score Moderate Risk 07/20/25 10:40 Height & Weight Height & Weight: Anesthesia: Height & Weight Height 5 ft 8 in 07/19/25 08:39 Respiratory Assessment Respiratory Assessment - client executive: Respiratory Tract Infection Hx - client executive Hx Respiratory Tract Infection No 07/20/25 10:40 STOP Sleep Apnea STOP Sleep Apnea - client executive: STOP Sleep Apnea - client executive Hx Hypertension Yes 07/20/25 10:40 Hx Sleep Apnea Yes: cpap 07/20/25 10:40 CPAP Yes 07/20/25 10:40 BIPAP No 07/20/25 10:40 Do you snore loudly (louder than talking or can be heard Do you often feel tired/ fatigued/ sleepy during daytime? Has anyone observed you stop breathing during sleep? STOP Results Positive 07/20/25 10:40 QUESTION #5 FULL TEXT : Do you snore loudly (louder than talking or can be heard through closed doors)? Tobacco Use History Tobacco Use History - client executive: Tobacco Use History - client executive Tobacco Use Smoking Status Never smoker 07/20/25 10:40 Hx Tobacco Use No 07/20/25 10:40 Years Smoking Packs Smoked per Day Smoking Cessation Date was within the last 15 years Hx Smoking Cessation Date Hx Smoking Cessation No 07/20/25 10:40 Counseling Hematologic Medial History Hematologic Hx - client executive: Hematologic Medical Hx - healthcare specialist Hx of Blood Transfusion No 07/20/25 10:40 Hx of Transfusion in last 3 No 07/20/25 10:40 Months Date of Last Transfusion (if within last 3 months) Ever experience any problems No 07/20/25 10:40 with transfusion(s)? Specify any problems Hx of Preganancy in last 3 N/A 07/20/25 10:40 Months Nurse Filling Out Transfusion NBUCHER 07/20/25 10:40 & Questions: Date: 07/20/25 07/20/25 10:40 Time: 10:42 07/20/25 10:40 Patient unable to answer at this time (ie. confused, unrespo /Reproduction History /Reproductive History - client executive: /Reproductive Hx- client executive Hx Now No 07/20/25 10:40 Gestational Age (in weeks): EDC: Hx Hx Para Hx Section SAB No 07/20/25 10:40 Active Medications Active Medications: Current Medications Generic Name Dose Route Start Last Admin Trade Name Freq PRN Reason Stop Dose Admin Clindamycin Phosphate 900 mg in 50 mls @ 75 mls/hr 08/03/25 11:00 Cleocin IV 08/03/25 11:39 INTRAOP ONE Lactated Ringer's 1,000 mls @ 15 mls/hr 08/03/25 09:30 [facility] History Wears glasses Anxiety Marijuana use [...] GUMMY 20 mg PO QHS 07/14/25 History CPAP - Continuous Positive Airway 08/02/25 Unknown Hi story Pressure([facility] INFORMATIONAL USE ONLY) Allergy/AdvReac Type Severity Reaction Status Date / Time Penicillins (PCN) Allergy Hives Verified 07/20/25 10:40 Surgical History History of cystoscopy History of colonoscopy Social History adopted: No household members: spouse housing: house number of children: 2 current occupational status: 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 Physical Exam Const alert and oriented x3 Resp normal respiratory effort and normal air movement Cardio regular rate and regular rhythm Back/Spine normal ROM Neuro oriented x3 and moves all extremities 08/03/25 0954 <Electronically signed by Mando Kern MD> Date _ Mando Kern MD Cosigner Signature: Date CC: ~ Signed [facility] Work Phone: 1(623) 265-707110-01-2025 Discharge summary [facility] Medical Records Department [address] [place] [address] Instructions for Home/Discharge Instructions 08/03/25 1118 MR#: [id number] Acct: [id number] Name: ORALIA REYES II Rep #:[id number] : 1960 65 From: Eric fletcher MD PCP: Dr. Kristine Yee MD Status:REG [facility] Discharge Instructions Procedure Hernia Diet Discharge Diet: Light diet - advance as tolerated Activity Discharge Activity: May Not Drive (for 2-3 days or while taking narcotic pain meds.) and May Shower(with the bandage in place 1-2 days after surgery.) Lifting Restrictions: 20 pounds for 4 weeks. Additional Activity Instructions:: Climbing stairs is fine, walking is encouraged. Sitting in bed may be uncomfortable. Sitting up using your lateral muscles (sitting up sideways) is usually more comfortable. Do not drive, work heavy equipment of sign legal documents for 24 hours. Pain medications may cause nausea, you should typically eat light foods as you take your pain medications. Pain medications may also cause constipation. If you have difficulty with this, discuss with your doctor. Alternate ibuprofen and Tylenol for pain control, oxycodone for breakthrough pain Dressing / Incision Call your doctor if your incision/area has: Continuous Slow Oozing, Sudden Increased Bleeding, Increased Pain/ Swelling, Increased Redness and Foul Smelling Discharge Call your doctor if you observe: Fever of 101 or Higher Suture Line Care: Avoid Pulling/Pushing and Avoid Pinching/Bending Remove Dressing in: 3 days (Remove clear bandages in 2 days, remove Steri- Stripsin 7 to 10 days.) Cleanse incision/area with: Soap & Water Follow Up Care Please Follow Up With: Eric Chang MD When: Please call to schedule 2 week follow up appointment. [phone] Test Results: Test results from this visit will be discussed in further detail at your follow- up appointment, if applicable. Discharge Plan Admission Attending Provider: Eric Chang Primary Care Provider: Kristine Yee Instructions Print Language: Kenyan Discharge Orders/Prescriptions Prescriptions: New oxycodone 5 mg Tablet 5 - 10 mg PO Q4H PRN PRN (Reason: Pain Score 4-10) 5 Days Qty: 10 0RF No Action MARIJUANA GUMMY 20 mg PO QHS (DME) CPAP - Continuous Positive Airway Pressure([facility] INFORMATIONAL USE ONLY) See Rx Instructions .ROUTE .MEDSUPPLY Patient Comments: AUTOPAP 7-15CM RESMED F20 SMALL FULL FACE DASCO Rx Instructions: AUTOPAP 7-15CM RESMED F20 SMALL FULL FACE DASCO lisinopril 20 mg tablet 20 mg PO DAILY Qty: 90 3RF pantoprazole 40 mg tablet,delayed release (DR/EC) 40 mg PO DAILY Qty: 90 3RF rosuvastatin 20 mg tablet 20 mg PO DAILY Qty: 90 3RF sertraline 100 mg tablet 100 mg PO DAILY Qty: 90 3RF Other Ambulatory Orders: 12 Lead EKG (Routine) Timeframe: 20250721 Facility: [facility] - Location: Cardiovascular Services Ordered By: Dr. Brayden Eden Referrals / Follow Up: Kristine Yee MD [Primary Care Provider, Internal Medicine - [facility]] Disposition Disposition (needs filled in before D/C Order can be placed): Home, Self Care 08/03/25 1122Atheresa Chang MD CC: Dr. Kristine Yee MD ~ Signed [facility]10-01-2025 Procedure note [facility] Medical Records Department [address] [place] [address] Operative Report 08/03/25 1113 MR#: [id number] Acct: [id number] Name: ORALIA REYES II Rep #:[id number] : 1960 65 From: Eric fletcher MD PCP: Dr. Kristine Yee MD Status:[facility] Location: [place] [address] Operative Report (Standard) Operative Information Date of Procedure: 08/03/25 Pre-Operative Diagnosis: Umbilical hernia Post-Operative Diagnosis: Umbilical hernia less than 3 cm Surgery/Procedure Performed: Umbilical hernia repair less than 3 cm asic design engineer: Yes Board Writer: Nohemi Orosco Tasks completed by safety assistant: Opening & closing Type of Anesthesia: General/Regional RN Documented Start/Stop Times: Operation Date: 08/03/25 11:00 Case Time Into Pre-Op 08/03/25 09:22 Anesthesia Start 08/03/25 10:34 Into Room 08/03/25 10:34 Procedure Start 08/03/25 10:45 Procedure End 08/03/25 11:02 Anesthesia End 08/03/25 11:04 Out of Room 08/03/25 11:04 Into Recovery 08/03/25 11:07 Procedure Start Time: 10:45 Procedure Stop Time: 11:02 Select all DRAINS/GRAFTS/IMPLANTS that apply: None Estimated Blood Loss: 2 Specimen collected: No Description of surgery: Patient was brought back to the operating room and general anesthesia was induced. The abdomen was prepped and draped in usual sterile fashion. A curvilinear incision was marked inferior to the umbilicus and injected with local anesthetic. Incision was made with a scalpel and the umbilical stalk was taken off of the hernia sac. The hernia sac was reduced. The defect appeared to be about 1 cm. Thecontents were reduced and the fascia was reapproximate using 3 interrupted #1 Nurolon sutures. The area was irrigated and suctioned dry and there was good hemostasis. The umbilical stalk was tacked to the fasciausing a 3-0 Vicryl suture. The incision was then closed with interrupted 3-0 Vicryl sutures. Steri-Strips and bandages were applied. Patient was taken to PACU in stable condition. Surgical Findings: Umbilical hernia less than 3 cm Complications Complications: No Admit VTE Documentation VTE Mechan Device Prophylaxis: SCD's 08/03/251114 Cosigner Signature (if applicable): CC: Dr. Eric Chang MD; Dr. Kristine Yee MD~ Signed [facility]10-01-2025 Consult note [facility] Medical Records Department [address] [place] [address] Anesthesia Postop Eval I 08/03/25 1112 MR#: [id number] Acct: [id number] Name: ORALIA REYES II Rep #:[id number] : 1960 65 From: Steffi you CRNA PCP: Dr. 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 Signature: Date CC: ~ Signed [facility]10-01-2025 [facility] Medical Records Department [address] [place] [address] History Physical Exam 08/03/25 0959 MR#: [id number] Acct: [id number] Name: ORALIA REYES II Rep #: [id number] : 1960 65 From: Eric Chang MD PCP: Dr. 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 [facility]10-01-2025 Consult note [facility] Medical Records Department [address] [place] [address] Pre-Anesthesia Evaluation 08/03/25 0932 MR#: [id number] Acct: [id number] Name: ORALIA REYES II Rep #:[id number] : 1960 65 From: Mando Solitario PCP: Dr. Kristine Yee MD Status:[facility] Y Race: C Location: [place] [address] ASA Classification* ASA Classification ASA Classification: 2 Assessment & Plan Anesthesia* Anesthesia Assessment Anesthesia [...] anesthesia risk assessments. Anesthesia Type Anesthesia Type: General History Source History Obtained from:: Patient and Chart Anesthesia Focused Assessment* Temperature: 98.9 F Pulse Rate: 77 Blood Pressure: 133/83 Respiratory Rate: 16 Pulse Ox: 95 Oxygen Delivery Method: Room Air Airway Assessment Mouth opens: >3 cm Mallampati Score: III Neck Range of motion (ROM): Full ROM Labs Anesthesia Preop lab: CBC WBC, (4.4-11.0) 3.9 K/mm3 L 04/12/25, 08:10 RBC, (4.6-6.2) 5.47 M/mm3 04/12/25, 08:10 Hgb, (13.0-16.5) 15.4 g/dL 04/12/25, 08:10 Hct, (40-54) 47.6 % 04/12/25, 08:10 Plt Count, (150-450) 183 K/mm3 04/12/25, 08:10 CHEMISTRY Potassium, (3.3-5.1) 4.3 mmol/L 04/12/25, 08:10 Sodium, (133-145) 137 mmol/L 04/12/25, 08:10 BUN, (4-19) 19 mg/dL 04/12/25, 08:10 Creatinine, (0.70-1.20) 1.06 mg/dL 04/12/25, 08:10 Glucose, (70-99) 116 mg/dL H 04/12/25, 08:10 POC Glucose, (70-110) 114 mg/dL H 02/01/21, 09:46 TSH, (0.300-4.200) 2.600 uIU/mL 04/12/25, 08:10 COAG PT, (11.7-14.9) 13.8 SECONDS 01/30/21, 11:13 Pre-Assessment Diagnosis/Proposed Procedure Planned Operative Procedure(s): (N/A) Hernia, Umbilical Repair w/ Mesh Anesthesia History Anesthesia History - client executive: Anesthesia History - client executive Hx Hospitalization No 07/20/25 10:40 Any Problems With Anesthesia No 07/20/25 10:40 Cholinesterase deficiency No 07/20/25 10:40 You/Your Family Experience No 07/20/25 10:40 fever (hyperthermia) with Relationship Recent Exposure to Contagious No 07/19/25 08:39 Disease Does patient have nerve No 07/20/25 10:40 stimulator Patient instructed to have device shut off --Does patient have Pacemaker or ICD? When Was Last Pacemaker Check QUESTION #4 FULL TEXT: You/Your Family Experience fever (hyperthermia) with Anesthesia Last Oral Intake Last Oral intake: Last Oral Intake NPO since Meds taken in AM with sips of water? Meds patient instructed to take am of surgery PONV PONV - client executive: PONV - client executive Female No 07/20/25 10:40 HX of Motion Sickness No 07/20/25 10:40 HX of N/V After Surgery No 07/20/25 10:40 Non-Smoker Yes 07/20/25 10:40 Duration of Surgery greater Yes 07/20/25 10:40 than 60 minutes Number of Risk Factors 2 07/20/25 10:40 PONV Score Moderate Risk 07/20/25 10:40 Height & Weight Height & Weight: Anesthesia: Height & Weight Height 5 ft 8 in 07/19/25 08:39 Respiratory Assessment Respiratory Assessment - client executive: Respiratory Tract Infection Hx - client executive Hx Respiratory Tract Infection No 07/20/25 10:40 STOP Sleep Apnea STOP Sleep Apnea - client executive: STOP Sleep Apnea - client executive Hx Hypertension Yes 07/20/25 10:40 Hx Sleep Apnea Yes: cpap 07/20/25 10:40 CPAP Yes 07/20/25 10:40 BIPAP No 07/20/25 10:40 Do you snore loudly (louder than talking or can be heard Do you often feel tired/ fatigued/ sleepy during daytime? Has anyone observed you stop breathing during sleep? STOP Results Positive 07/20/25 10:40 QUESTION #5 FULL TEXT : Do you snore loudly (louder than talking or can be heard through closeddoors)? Tobacco Use History Tobacco Use History - client executive: Tobacco Use History - client executive Tobacco Use Smoking Status Never smoker 07/20/25 10:40 Hx Tobacco Use No 07/20/25 10:40 Years Smoking Packs Smoked per Day Smoking Cessation Date was within the last 15 years Hx Smoking Cessation Date Hx Smoking Cessation No 07/20/25 10:40 Counseling Hematologic Medial History Hematologic Hx - client executive: Hematologic Medical Hx - healthcare specialist Hx of Blood Transfusion No 07/20/25 10:40 Hx of Transfusion in last 3 No 07/20/25 10:40 Months Date of Last Transfusion (if within last 3 months) Ever experience any problems No 07/20/25 10:40 with transfusion(s)? Specify any problems Hx of Preganancy in last 3 N/A 07/20/25 10:40 Months Nurse Filling Out Transfusion NBUCHER 07/20/25 10:40 & Questions: Date: 07/20/25 07/20/25 10:40 Time: 10:42 07/20/25 10:40 Patient unable to answer at this time (ie. confused, unrespo /Reproduction History /Reproductive History - client executive: /Reproductive Hx- client executive Hx Now No 07/20/25 10:40 Gestational Age (in weeks): EDC: Hx Hx Para Hx Section SAB No 07/20/25 10:40 Active Medications Active Medications: Current Medications Generic Name Dose Route Start Last Admin Trade Name Freq PRN Reason Stop Dose Admin Clindamycin Phosphate 900 mg in 50 mls @ 75 mls/hr 08/03/25 11:00 Cleocin IV 08/03/25 11:39 INTRAOP ONE Lactated Ringer's 1,000 mls @ 15 mls/hr 08/03/25 09:30 IV .Q48H [facility] Medical History Wears glasses Anxiety Marijuana [...] GUMMY 20 mg PO QHS 07/14/25 History CPAP - Continuous Positive Airway 08/02/25 Unknown Hi story Pressure([facility] INFORMATIONAL USE ONLY) Allergy/AdvReac Type Severity Reaction Status Date / Time Penicillins (PCN) Allergy Hives Verified 07/20/25 10:40 Surgical History History of cystoscopy History of colonoscopy Social History adopted: No household members: spouse housing: house number of children: 2 current occupational status: 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 Physical Exam Const alert and oriented x3 Resp normal respiratory effort and normal air movement Cardio regular rate and regular rhythm Back/Spine normal ROM Neuro oriented x3 and moves all extremities 08/03/25 0954 > Date _ Mando Kern MD Cosigner Signature: Date CC: ~ Signed [facility]09-16-2025 Consult note [facility] Medical Records Department [address] [place] [address] Anesthesia Postop Eval I 07/19/25 0944 MR#: [id number] Acct: [id number] Name: ORALIA REYES II Rep #:[id number] : 1960 65 From: Nelson Thomas PCP: Dr. Kristine Yee MD Status:REG [facility] [place] Race: C Location: [place] [address] Anesthesia: Postop Eval I Current Vital Signs [...] Postop Eval 1 completed: Yes 07/19/25 0945 > Date _ Nelson Lugo Signature: Date CC: ~ Signed [facility]09-16-2025 Procedure note [facility] Medical Records Department [address] [place] [address] Provation Physician Letter MR#: [id number] Acct: [id number] Name: ORALIA REYES II Rep #:[id number] : 1960 65 From: Eric fletcher MD PCP: Dr. Kristine Yee MD Status:[facility] 07/19/2025 Kristine Yee [facility] [address] [place] [address] Re : Colonoscopy procedure for Oralia Reyes Dear Dr. Yee This procedure was [...] report has been signed electronically. 07/19/25938 Date _ Eric Chang MD Cosigner Signature: Date (if indicated) CC: Dr. Eric Chang MD; Dr. Kristine Yee MD ~ Date Dictated: 07/19/25919 Date Transcribed: Marketing Communications Leader: AC Signed [facility]09-16-2025 Procedure note [facility] Medical Records Department [address] [place] [address] Provation Physician Letter MR#: [id number] Acct: [id number] Name: ORALIA REYES II Rep #:[id number] : 1960 65 From: Eric fletcher MD PCP: Dr. Kristine Yee MD Status:REG [facility] [place] 07/19/2025 Kristine Yee [facility] [address] [place], [place] [id number] Re : Upper GI endoscopy procedure for Oralia Reyes Dear Dr. Yee This procedure was [...] phone number(s): , Work: . Sincerely, Eric Cahng MD 07/19/2025 9:38:04 AM This report has been signed electronically. 07/19/25937 Date _ Eric Chang MD Cosigner Signature: Date (if indicated) CC: Dr. Eric Chang MD; Dr. Kristine Yee MD ~ Date Dictated: 07/19/25906 Date Transcribed: Marketing Communications Leader: AC Signed [facility]09-16-2025 Procedure note [facility] Medical Records Department [address] [place] [address] Colonoscopy Report MR#: [id number] Acct: [id number] Name: ORALIA REYES II Rep #:[id number] : 1960 65 From: Eric fletcher MD PCP: Dr. Kristine Yee MD Status:[facility] Patient Name: Oralia Reyes Procedure Date: 07/19/2025 9:20 AM Date [...] for surveillance. Procedure Code(s): --- Professional --- 54736, Colonoscopy, flexible; diagnostic, including collection of specimen(s) by brushing or washing, when performed (separate procedure) Diagnosis Code(s): --- Professional --- Z12.11, Encounter for screening for malignant neoplasm of colon CPT copyright 2021 [employer]. All rights reserved. The codes documented in this report are preliminary and upon supervisor shipfitters review may be revised to meet current compliance requirements. Eric Chang MD 07/19/2025 9:39:16 AM This report has been signed electronically. Number of Addenda: 0 Note Initiated On: 07/19/2025 9:20 AM 07/19/25 0939 Date _ Eric [facility] Signature: Date (if indicated) CC: Dr. Eric Chang MD; Dr. Kristine Yee MD ~ Date Dictated: 07/19/25919 Date Transcribed: Marketing Communications Leader: AC Signed [facility]09-16-2025 Procedure note [facility] Medical Records Department [address] [place] [address] EGD Report MR#: [id number] Acct: [id number] Name: ORALIA REYES II Rep #:[id number] : 1960 65 From: Eric fletcher MD PCP: Dr. Kristine Yee MD Status:[facility] Patient Name: Oralia Reyes Procedure Date: 07/19/2025 9:07 AM Date [...] present medications. Procedure Code(s): --- Professional --- 47779, Esophagogastroduodenoscopy, flexible, transoral; with biopsy, single or multiple Diagnosis Code(s): --- Professional --- R10.13, Epigastric pain CPT copyright 2021 [employer]. All rights reserved. The codes documented in this report are preliminary and upon supervisor shipfitters review may be revised to meet current compliance requirements. Eric Chang MD 07/19/2025 9:38:04 AM This report has been signed electronically. Number of Addenda: 0 Note Initiated On: 07/19/2025 9:07 AM 07/19/25937 Date _ Eric Chang MD Cosigner Signature: Date (if indicated) CC: Dr. Eric Chang MD; Dr. Kristine Yee MD ~ Date Dictated: 07/19/25906 Date Transcribed: Marketing Communications Leader: DAVID Signed [facility]09-16-2025 Consult note [facility] Medical Records Department [address] [place] [address] Pre-Anesthesia Evaluation 07/19/25 09 MR#: [id number] Acct: [id number] Name: ORALIA REYES II Rep #:[id number] : 1960 65 From: Steffi you CRNA PCP: Dr. Kristine Yee MD Status:REG SDC Y Race: C Location: [place] [address] ASA Classification* ASA Classification ASA Classification: 3 [...] EGD, CSCOPE Anesthesia History Anesthesia History - client executive: Anesthesia History - client executive Hx Hospitalization No 07/14/25 10:40 Any Problems [...] take am of surgery PONV PONV - client executive: PONV - client executive Female No 07/14/25 10:40 HX of Motion [...] 07/19/25 08:39 Respiratory Assessment Respiratory Assessment - client executive: Respiratory Tract Infection Hx - client executive Hx Respiratory Tract Infection No 07/14/25 10:40 STOP Sleep Apnea STOP Sleep Apnea - client executive: STOP Sleep Apnea - client executive Hx Hypertension Yes: CONTROLLED WITH MED 07/14/25 [...] than talking or can be heard through closeddoors)? Tobacco Use History Tobacco Use History - client executive: Tobacco Use History - client executive Tobacco Use Smoking Status Never smoker 07/14/25 10:40 Hx Tobacco Use No 07/14/25 10:40 Years Smoking Packs Smoked per Day Smoking Cessation Date was within the last 15 years Hx Smoking Cessation Date Hx Smoking Cessation No 07/14/25 10:40 Counseling Any additional information?: Yes Hematologic Medial History Hematologic Hx - client executive: Hematologic Medical Hx - healthcare specialist Hx of Blood Transfusion No 07/14/25 10:40 [...] confused, unrespo /Reproduction History /Reproductive History - client executive: /Reproductive Hx- client executive Hx Now No 07/14/25 10:40 Gestational Age [...] 2 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 Eric Chang MD Pager: [facility] [address] [place] [address], [address] [place] [address] Office: I have examined the patient and the H&P has been reviewed. There are no clinicalchanges since date of exam. 07/19/25822 Cosigner Signature (if applicable): CC: Dr. Eric Chang MD; Dr. Kristine Yee MD~ Signed [facility]09-16-2025 [facility] Medical Records Department [address] [place] [address] History Physical Exam 07/19/25822 MR#: [id number] Acct: [id number] Name: ORALIA REYES II Rep #: [id number] : 1960 65 From: Eric Chang MD PCP: Dr. 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/hazards: No pets and animals: Yes pets and animals: dog(s) leisure activities: other history of recent travel: Yes ([place] 2weeks ago) out of state: Yes sexually [...] No other visual disturba (more content not included)...[facility]07-07-2025 Evaluation note* Diagnosis Onset Date Resolution Status Admit Date Lumbar back pain acute May 9:57am Back pain noneactive May 09, 2025 9:57am Abdominal pain acute June 10:08am Screen for colon cancer acute A ugust 2024 10:08am Umbilical hernia acute June 032024 10:08am Obstructive sleep apnea chronic O ctober 2024 8:04am S/P umbilical hernia repair, follow-up exam acute August 17 1:25pm [place] [employer] [facility] Work Phone: 1(400) 147-182206-11-2025 Evaluation note* Diagnosis Onset Date Resolution Status Admit Date Hyperlipidemia acute April 13, 2025 3:23pm Low HDL (under 40) acute April 032024 3:23pm Obstructive sleep apnea acute [facility] 2024 3:23pm Type 2 diabetes mellitus acute April 13, 2025 3:23pm Hypertension chronic April 13, 2 025 3:23pm [facility] Work Phone: 1(620) 193-196206-11-2025 Evaluation note* Diagnosis Onset Date Resolution Status Admit Date Hyperlipidemia acute April 13, 2025 3:23pm Low HDL (under 40) acute April 032024 3:23pm Obstructive sleep apnea acute [facility] 2024 3:23pm Type 2 diabetes mellitus acute April 13, 2025 3:23pm Hypertension chronic April 13, 2 025 3:23pm Back pain noneactive May 09, 2025 9:57am [place] [employer] [facility] Work Phone: 1(492) 846-977106-11-2025 Evaluation note* Diagnosis Onset Date Resolution Status Admit Date Hyperlipidemia acute April 13, 2025 3:23pm Low HDL (under 40) acute April 032024 3:23pm Obstructive sleep apnea acute [facility] 2024 3:23pm Type 2 diabetes mellitus acute April 13, 2025 3:23pm Hypertension chronic April 13, 2 025 3:23pm Lumbar back pain acute May 9:57am Back pain noneactive May 09, 2025 9:57am [place] [employer] [facility] Work Phone: 1(373) 506-193006-11-2025 Evaluation note* Diagnosis Onset Date Resolution Status Admit Date Hyperlipidemia acute April 13, 2025 3:23pm Low HDL (under 40) acute April 032024 3:23pm Obstructive sleep apnea acute [facility] 2024 3:23pm Type 2 diabetes mellitus acute April 13, 2025 3:23pm Hypertension chronic Patricia [address], 2 025 3:23pm Lumbar back pain acute May 9:57am Back pain noneactive May 09, 2025 9:57am Abdominal pain acute June 10:08am Screen for colon cancer acute A ugust 2024 10:08am Umbilical hernia acute June 032024 10:08am [facility] Work Phone: 1(424) 688-527706-11-2025 Evaluation note* Diagnosis Onset Date Resolution Status Admit Date Hyperlipidemia acute April 13, 2025 3:23pm Low HDL (under 40) acute April 032024 3:23pm Obstructive sleep apnea acute J 2024 3:23pm Type 2 diabetes mellitus acute April 13, 2025 3:23pm Hypertension chronic April 13, 025 3:23pm Lumbar back pain acute May 9:57am Back pain noneactive May 09, 2025 9:57am Abdominal pain acute June 10:08am Screen for colon cancer acute A ugust 2024 10:08am Umbilical hernia acute June 032024 10:08am Obstructive sleep apnea acute O ctober 2024 8:04am [facility] Work Phone: Consult note Author Steffi Rivas [facility] Note Date/Time July 19, 2025 9:06am [facility] Medical Records Department [address] [place] [address] Pre-Anesthesia Evaluation 07/19/25 0900 MR#: [id number] Acct: [id number] Name: ORALIA REYES II Rep #:[id number] : 1960 65 From: Steffi you [employer] OWNER OPERATOR PCP: Dr. Kristine Yee MD Status:REG SDC Y Race: C Location: [place] [address] ASA Classification* ASA Classification ASA Classification: 3 [...] EGD, CSCOPE Anesthesia History Anesthesia History - client executive: Anesthesia History - client executive Hx Hospitalization No 07/14/25 10:40 Any Problems [...] take am of surgery PONV PONV - client executive: PONV - client executive Female No 07/14/25 10:40 HX of Motion [...] 07/19/25 08:39 Respiratory Assessment Respiratory Assessment - client executive: Respiratory Tract Infection Hx - client executive Hx Respiratory Tract Infection No 07/14/25 10:40 STOP Sleep Apnea STOP Sleep Apnea - client executive: STOP Sleep Apnea - client executive Hx Hypertension Yes: CONTROLLED WITH MED 07/14/25 [...] Tobacco Use History Tobacco Use History - client executive: Tobacco Use History - client executive Tobacco Use Smoking Status Never smoker 07/14/25 10:40 Hx Tobacco Use No 07/14/25 10:40 Years Smoking Packs Smoked per Day Smoking Cessation Date was within the last 15 years Hx Smoking Cessation Date Hx Smoking Cessation No 07/14/25 10:40 Counseling Any additional information?: Yes Hematologic Medial History Hematologic Hx - client executive: Hematologic Medical Hx - healthcare specialist Hx of Blood Transfusion No 07/14/25 10:40 [...] confused, unrespo /Reproduction History /Reproductive History - client executive: /Reproductive Hx- client executive Hx Now No 07/14/25 10:40 Gestational Age [...] 2 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 occupational status: 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 occupational 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/hazards: No pets and animals: Yes pets and animals: dog(s) leisure activities: other history of recent travel: Yes ([place] 2weeks ago) out of state: Yes sexually [...] CRNA Cosigner Signature: Date CC: ~ Signed [facility] Work Phone: consult note Author Nelson Thomas [facility] Note Date/Time July 19, 2025 9:45am [facility] Medical Records Department [address] [place] [address] Anesthesia Postop Eval I 07/19/25 0944 MR#: [id number] Acct: [id number] Name: AMYORALIAAMADA COLVIN II Rep #:[id number] : 1960 65 From: Nelson Thomas PCP: Dr. Kristine Yee MD Status:REG [facility] [place] Race: C Location: [place] [address] Anesthesia: Postop Eval I Current Vital Signs [...] Nelson Lugo Signature: Date CC: ~ Signed [facility] Work Phone: Consult note Author Steffi Rivas [facility] Note Date/Time August 03, 2025 11 :13am [facility] Medical Records Department [address] [place] [address] Anesthesia Postop Eval I 08/03/25 1112 MR#: [id number] Acct: [id number] Name: ORALIA REYES II Rep #:[id number] : 1960 65 From: Steffi you CRNA PCP: Dr. Kristine Yee MD Status:REG [facility] Y Race: C Location: [place] [address] Anesthesia: Postop Eval I Current Vital Signs Temperature: 98.2 F Pulse Rate: 84 Blood Pressure: 97/58 Respiratory Rate: 16 Pulse Ox: 96 Oxygen Delivery Method: Room Air Assessment Airway patent: Yes Spontaneous unlabored respirations: Yes Mental status: Awake and Calm nausea: No Vomiting: No Anesthesia Complication: No Fluid Hydration Crystalloid volume administer (ml): 800 Total IV fluid infused: 800 Progress Note Anesthesia document: Postop Eval 1 completed: Yes 08/03/25 1113 <Electronically signed by Steffi betts CRNA> Date _ Steffi Rivas CRNA Cosigner Signature: Date CC: ~ Signed [facility] Work Phone: Consult note Author Mando Kern [facility] Note Date/Time August 03, 2025 12 :40pm [facility] Medical Records Department [address] [place] [address] Anesthesia Postop Eval II 08/03/25 1133 MR#: [id number] Acct: [id number] Name: ORALIA REYES II Rep #:[id number] : 1960 65 From: Mando Solitario PCP: Dr. 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 Spontaneous unlabored Yes 08/03/25 11:13 LINE HAUL OWNER OPERATOR.SKOBY respirations Mental status Awake,Calm 08/03/25 11:13 LINE HAUL OWNER OPERATOR.SKOBY nausea No 08/03/25 11:13 LINE HAUL OWNER OPERATOR.SKOBY Vomiting No 08/03/25 11:13 LINE HAUL OWNER OPERATOR.SKOBY Anesthesia Postop Eval I: Fluid Summary Crystalloid volume administer 800 08/03/25 11:13 LINE HAUL OWNER OPERATOR.SKOBY (ml) Colloids volume administered ( ml) Blood Product volume administered (ml) Total IV fluid infused 800 08/03/25 11:13 LINE HAUL OWNER OPERATOR.SKOBY Anesthesia Postop Eval I: Summary Notes Anesthesia Complication No 08/03/25 11:13 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 OWNER 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.SKOBY Anesthesia Complication Comment: Post-operative progress note Anesthesia: Postop Eval II Evaluation Mental status: Awake and Calm Pain Level: 4 nausea: No Vomiting: No Complications Anesthesia Complication: No 08/03/25 1133 <Electronically signed by Mando Kern MD> Date _ Mando Kern MD [facility] Signature: Date CC: ~ Signed [facility] Work Phone: Discharge summary Author Eric Chang [facility] Note Date/Time August 03, 2025 11 :22am [facility] Medical Records Department [address] [place] [address] Instructions for Home/Discharge Instructions 08/03/25 1118 MR#: [id number] Acct: [id number] Name: ORALIA REYES PATRICK Rep #:[id number] : 1960 65 From: Eric fletcher MD PCP: Dr. Kristine Yee MD Status:REG NEC Discharge Instructions Procedure Hernia Diet Discharge Diet: Light diet - advance as tolerated Activity Discharge Activity: May Not Drive (for 2-3 days or while taking narcotic pain meds.) and May Shower (with the bandage in place 1-2 days after surgery.) Lifting Restrictions: 20 pounds for 4 weeks. Additional Activity Instructions:: Climbing stairs is fine, walking is encouraged. Sitting in bed may be uncomfortable. Sitting up using your lateral muscles (sitting up sideways) is usually more comfortable. Do not drive, work heavy equipment of sign legal documents for 24 hours. Pain medications may cause nausea, you should typically eat light foods as you take your pain medications. Pain medications may also cause constipation. If you have difficulty with this, discuss with your doctor. Alternate ibuprofen and Tylenol for pain control, oxycodone for breakthrough pain Dressing / Incision Call your doctor if your incision/area has: Continuous Slow Oozing, Sudden Increased Bleeding, Increased Pain/ Swelling, Increased Redness and Foul Smelling Discharge Call your doctor if you observe: Fever of 101 or Higher Suture Line Care: Avoid Pulling/Pushing and Avoid Pinching/Bending Remove Dressing in: 3 days (Remove clear bandages in 2 days, remove Steri- Stripsin 7 to 10 days.) Cleanse incision/area with: Soap & Water Follow Up Care Please Follow Up With: Eric Chang MD When: Please call to schedule 2 week follow up appointment. [phone] Test Results: Test results from this visit will be discussed in further detail at your follow- up appointment, if applicable. Discharge Plan Admission Attending Provider: Eric Chang Primary Care Provider: Kristine Yee Instructions Print Language: Kenyan Discharge Orders/Prescriptions Prescriptions: New oxycodone 5 mg Tablet 5 - 10 mg PO Q4H PRN PRN (Reason: Pain Score 4-10) 5 Days Qty: 10 0RF No Action MARIJUANA GUMMY 20 mg PO QHS (DME) CPAP - Continuous Positive Airway Pressure([facility] USE ONLY) See Rx Instructions .ROUTE .MEDSUPPLY Patient Comments: AUTOPAP 7-15CM RESMED F20 SMALL FULL FACE DASCO Rx Instructions: AUTOPAP 7-15CM RESMED F20 SMALL FULL FACE DASCO lisinopril 20 mg tablet 20 mg PO DAILY Qty: 90 3RF pantoprazole 40 mg tablet,delayed release (DR/EC) 40 mg PO DAILY Qty: 90 3RF rosuvastatin 20 mg tablet 20 mg PO DAILY Qty: 90 3RF sertraline 100 mg tablet 100 mg PO DAILY Qty: 90 3RF Other Ambulatory Orders: 12 Lead EKG (Routine) Timeframe: 20250721 Facility: [facility] - Location: Cardiovascular Services Ordered By: Dr. Brayden Eden Referrals / Follow Up: Kristine Yee MD [Primary Care Provider, Internal Medicine - [facility]] Disposition Disposition (needs filled in before D/C Order can be placed): Home, Self Care 08/03/25 1122<Electronically signed by Eric Chang MD>Eric Chang MD CC: Dr. 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 [facility] Work Phone: evaluation note* Diagnosis Onset Date Resolution Status Incontinence of urine acute Skin tags, multiple acquired acute Depression chronic [facility] Work Phone: Evaluation note* Diagnosis Onset Date Resolution Status Admit Date Hyperlipidemia acute April 13, 2025 3:23pm Low HDL (under 40) acute April 032024 3:23pm Obstructive sleep apnea acute J 2024 3:23pm Type 2 diabetes mellitus acute April 13, 2025 3:23pm Hypertension chronic April 13, 025 3:23pm [facility] Work Phone: History and physical note Author Eric Chang [facility] Note Date/Time July 19, 2025 8:23am [facility] Medical Records Department [address] [place] [address] History & Physical Exam 07/19/25822 MR#: [id number] Acct: [id number] Name: ORALIA REYES II Rep #:[id number] : 1960 65 From: Eric fletcher MD PCP: Dr. 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 Eric Chang MD Pager: [facility] [address] [place] [address], [address] [place] [address] Office: I have examined the patient and the H&P has been reviewed. There are no clinicalchanges since date of exam. 07/19/25 0823 <Electronically signed by Eric Chang MD> Cosigner Signature (if applicable): CC: Dr. Eric Chang MD; Dr. Kristine Yee MD~ Signed [facility] Work Phone: Progress note Author Michelle Weiss [facility] Note Date/Time August 17, 2025 1 :40pm [facility] [address] [place] [address] OFFICE VISIT Date of Service: 08/17/25 MR#: [id number] Acct: [id number] Name: ORALIA REYES II Rep #: [id number] : 1960 Provider: DEBORAH Weiss Age/Sex: 65/M Location: [facility] Status: Signed Intake Vital Signs 08/03/25 09:45 08/09/25 08:12 Height 5 ft 8 in 5 ft 8 in Weight: 221 lb BMI 33.5 BP 119/78 Blood Pressure Location Rt brachial Position Sitting Respiration 18 Pulse 74 Pulse Source Monitor Temp 96.9 F L Pulse Oximetry (%) 93 Oxygen Delivery Method room air Intake Visit Reasons: S/P HERNIA 10- Chief Complaint: s/p hernia 08/03 Is patient in pain?: No Allergies Penicillins (PCN) Allergy (Verified 08/17/25 13:29) Hives Medications ?Medication ?Instructions ?Recorded ?Confirmed ?Type lisinopril 20 mg tablet 20 mg PO DAILY blood pressur e #90 06/29/25 08/17/25 Rx tabs pantoprazole 40 mg tablet,delayed 40 mg PO DAILY gerd #90 tabs 06/29/25 08/17/25 Rx release rosuvastatin 20 mg tablet 20 mg PO DAILY cholesterol # 90 tabs 06/29/25 08/17/25 Rx sertraline 100 mg tablet 100 mg PO DAILY mental healt h #90 06/29/25 08/17/25 Rx tabs MARIJUANA GUMMY 20 mg PO QHS 07/14/25 History CPAP - Continuous Positive Airway 08/02/25 08/17/25 H istory Pressure([facility] USE ONLY) Have you fallen in the past year?: No Subjective Details: Patient is a 65 y/o M I am following s/p simple umbilical hernia repair without mesh by Dr. Chang on 08/03/25. Patient tolerated the procedure well. Patientnotes twinges of discomfort intermittently. He continues to remain off of work. He denies any nausea, vomiting, fever since the procedure. His appetite has returned to normal. No concerns with bowel movements. Objective Details: Abdomen- soft, nontender. Incision c/d/i. No erythema or infection noted. Coding Level of Care Code Global Post Op Diagnoses S/P umbilical hernia repair, follow-up exam Z09 [facility] Medical History (Updated 08/09/25 @ 08:54 by Karla Sky, [employer]RO[employer] SH[employer] INSPECTOR-C) Wears glasses Anxiety Marijuana use High cholesterol GERD (gastroesophageal reflux disease) Non-smoker CPAP (continuous positive airway pressure) dependence Sleep apnea History of stress test Lumbar back pain Postprandial epigastric pain Dark stools Abdominal pain Umbilical hernia Strain of right rotator cuff capsule Right shoulder strain Migraines Cataracts, bilateral Physical exam, pre-employment Obstructive sleep apnea Hyperlipidemia Hypertension Surgical History (Updated 08/17/25 @ 13:30 by Laverne Carranza) S/P umbilical hernia repair, follow-up exam H/O hernia repair History of cystoscopy History of colonoscopy Social History adopted: No household members: spouse housing: house number of children: 2 current occupational status: 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 Kristine Yee MD ~ [facility] Work Phone: Reason for referral (narrative)No reason for referral information available[facility] Work Phone: Summary Purpose Family History Relationship Condition Age at Onset Recorded Date/T valentine Unknown Family History?No pertinent history Unkno wn January 30, 2021 3:08pm Family History?No pertinent history Unkno wn January 30, 2021 3:08pm Relationship Condition Age at Onset Recorded Date/T valentine Unknown Family History?No pertinent history Unkno wn January 30, 2021 4:08pm Family History?No pertinent history Unkno wn January 30, 2021 4:08pm Advance Directives Advance Directive Response Recorded Date/ Time Living Will No January 30, 2021 3:07pm Power of Hydraulic Lift Driver No January 30 3:07pm Advance Directive Response Recorded Date/ Time Name of Medical Power of Hydraulic Lift Driver unnown January 06, 2024 12:22pm Living Will Yes January 06, 2024 12:22pm Power of Hydraulic Lift Driver Yes January 05 12:22pm Advance Directive Response Recorded Date/ Time Do you have a Healthcare Power of Hydraulic Lift Driver? Yes July 14, 2025 10:40am Advance Directive Response Recorded Date/ Time Do you have a Healthcare Power of Hydraulic Lift Driver? Yes July 14, 2025 10:40am Do you have a Healthcare Power of Hydraulic Lift Driver? No July 20, 2025 10:40am Chief Complaint and Reason for [...] Umbilical hernia June 14, 2025 10 :08am Chief Complaint Admit Date 6 M FU April 13, 2025 3:23 pm Back pain May 09, 2025 9:57a m UPDATE H&P - HERNIA June 14, 2025 10 :08am OP July 21, 2025 10:10am ISELA July 22, 2025 8:03pm ISELA August 02, 2025 11:51am Chief Complaint Admit Date 6 M FU April 13, 2025 3:23 pm Back pain May 09, 2025 9:57a m UPDATE H&P - HERNIA June 14, 2025 10 :08am OP July 21, 2025 10:10am ISELA July 22, 2025 8:03pm ISELA August 02, 2025 11:51am HERNIA,UMBILICAL REPAIR W/MESH (N/A) [facility]2024 9:16am HERNIA,UMBILICAL REPAIR W/MESH (N/A) [facility] 2024 9:59am Chief Complaint Admit Date 6 M FU April 13, 2025 3:23 pm Back pain May 09, 2025 9:57a m UPDATE H&P - HERNIA June 14, 2025 10 :08am OP July 21, 2025 10:10am ISELA July 22, 2025 8:03pm ISELA August 02, 2025 11:51am HERNIA,UMBILICAL REPAIR W/MESH (N/A) [facility]2024 9:16am HERNIA,UMBILICAL REPAIR W/MESH (N/A) [facility] 2024 9:59am Sleep Problems August 09, 2025 8: 04am Reason for Visit Admit Date Hyperlipidemia April [...] Umbilical hernia June 14, 2025 10 :08am Obstructive sleep apnea August 09 8:04am Chief Complaint Admit Date Back pain May 09, 2025 9:57a m UPDATE H&P - HERNIA June 14, 2025 10 :08am OP July 21, 2025 10:10am ISELA July 22, 2025 8:03pm ISELA August 02, 2025 11:51am HERNIA,UMBILICAL REPAIR W/MESH (N/A) Aug [email or web address] 9:16am HERNIA,UMBILICAL REPAIR W/MESH (N/A) Aug [email or web address] 9:59am Sleep Problems August 09, 2025 8: 04am S/P HERNIA 10-1 August 17, 2025 1 :25pm Reason for Visit Admit Date Lumbar back pain May 09, 2025 9:57a m Back pain May 09, 2025 9:57a m Abdominal pain June 14, 2025 10 :08am Screen for colon cancer June 14 10:08am Umbilical hernia June 14, 2025 10 :08am Obstructive sleep apnea August 09 8:04am S/P umbilical hernia repair, follow-up e xam August 17, 2025 1:25pm Additional Source Comments (unrecognized sect ion and content) No Status Records FoundNo Status Records Found INFORMATION SOURCE (unrecogn ized section and content) DATE CREATED AUTHOR 03/01/2021 [facility] DATE CREATED AUTHOR AUTHOR'S ORGANIZ ATION 08/19/2025 [facility] Care Teams (unrecognized sec tion and [...] Dr. Harley Jones MD Family Provider Active Dr. Kristine Yee [...] Other Provider Active Start: July 19, 2025 Team Status: Active Member Role/Relationship Status Dates Dr. Kristine Yee MD Primary care physician Active Team Status: Inactive Member Role/Relationship Status Dates Dr. Kristine Yee MD Primary care physician Active Start: April 12, 2025 End: April 12, 2025 Dr. Kristine Yee MD Attending physician Active Start: April 12, 2025 End: April 12, 2025 Dr. Kristine Yee MD Referring Provider Active Start: April 12, 2025 End: April 12, 2025 Team Status: Inactive Member Role/Relationship Status Dates Dr. Kristine Yee MD Primary care physician Active Start: April 13, 2025 End: April 13, 2025 Dr. Kristine Yee MD Attending physician Active Start: April 13, 2025 End: April 13, 2025 Team Status: Inactive Member Role/Relationship Status Dates Dr. Kristine Yee MD Primary care physician Active Start: May 09, 2025 End: May 09, 2025 Dr. Kristine Yee MD Attending physician Active Start: May 09, 2025 End: May 09, 2025 Team Status: Inactive Member Role/Relationship Status Dates Dr. Kristine Yee MD Primary care physician Active Start: June 14, 2025 End: June 14, 2025 Dr. Kristine Yee MD Referring Provider Active Start: June 14, 2025 End: June 14, 2025 Dr. Eric Chang MD Attending physician Active Start: June 14, 2025 End: June 14, 2025 Team Status: Inactive Member Role/Relationship Status Dates Dr. Kristine Yee MD Primary care physician Active Start: July 19, 2025 End: July 19, 2025 Dr. Kristine Yee MD Referring Provider Active Start: July 19, 2025 End: July 19, 2025 Dr. Eric Chang MD Attending physician Active Start: July 19, 2025 End: July 19, 2025 Team Status: Active Member Role/Relationship Status Dates Dr. Kristine Yee MD Primary care physician Active Start: July 19, 2025 Dr. Kristine Yee MD Referring Provider Active Start: July 19, 2025 Dr. Eric Chang MD Attending physician Active Start: July 19, 2025 Dr. Eric Chang MD Nurse Practitioner Active Start: July 19, 2025 Team Status: Active Member Role/Relationship Status Dates Dr. Kristine Yee MD Primary care physician Active Start: July 21, 2025 Dr. Kaleb Graham MD Attending physician Active Start: July 21, 2025 Dr. Eric Chang MD Referring Provider Active Start: July 21, 2025 Team Status: Inactive Member Role/Relationship Status Dates Dr. Kristine Yee MD Primary care physician Active Start: July 22, 2025 End: July 22, 2025 Dr. Kristine Yee MD Attending physician Active Start: July 22, 2025 End: July 22, 2025 Dr. Kristine Yee MD Referring Provider Active Start: July 22, 2025 End: July 22, 2025 Team Status: Active Member Role/Relationship Status Dates Dr. Kristine Yee MD Primary care physician Active Start: August 02, 2025 Dr. Kristine Yee MD Attending physician Active Start: August 02, 2025 Team Status: Inactive Member Role/Relationship Status Dates Dr. Kristine Yee MD Primary care physician Active Start: August 03, 2025 End: August 03, 2025 Dr. Eric Chang MD Attending physician Active Start: August 03, 2025 End: August 03, 2025 Dr. Eric Chang MD Referring Provider Active Start: August 03, 2025 End: August 03, 2025 Team Status: Active Member Role/Relationship Status Dates Dr. Kristine Yee MD Primary care physician Active Start: August 03, 2025 Dr. Eric Chang MD Attending physician Active Start: August 03, 2025 Dr. Eric Chang MD Referring Provider Active Start: August 03, 2025 Dr. Eric Chang MD Nurse Practitioner Active Start: August 03, 2025 Team Status: Inactive Member Role/Relationship Status Dates Dr. Kristine Yee MD Primary care physician Active Start: August 02, 2025 End: August 02, 2025 Dr. Kristine Yee MD Attending physician Active Start: August 02, 2025 End: August 02, 2025 Team Status: Inactive Member Role/Relationship Status Dates Dr. Kristine Yee MD Primary care physician Active Start: August 09, 2025 End: August 09, 2025 Dr. Kristine Yee MD Referring Provider Active Start: August 09, 2025 End: August 09, 2025 CARRIE Eaton Attending physician Active Start: August 09, 2025 End: August 09, 2025 Team Status: Inactive Member Role/Relationship Status Dates Dr. Kristine Yee MD Primary care physician Active Start: May 09, 2025 End: May 09, 2025 Dr. Kristine Yee MD Attending physician Active Start: May 09, 2025 End: May 09, 2025 Team Status: Inactive Member Role/Relationship Status Dates Dr. Kristine Yee MD Primary care physician Active Start: June 14, 2025 End: June 14, 2025 Dr. Kristine Yee MD Referring Provider Active Start: June 14, 2025 End: June 14, 2025 Dr. Eric Chang MD Attending physician Active Start: June 14, 2025 End: June 14, 2025 Team Status: Inactive Member Role/Relationship Status Dates Dr. Kristine Yee MD Primary care physician Active Start: July 19, 2025 End: July 19, 2025 Dr. Kristine Yee MD Referring Provider Active Start: July 19, 2025 End: July 19, 2025 Dr. Eric Chang MD Attending physician Active Start: July 19, 2025 End: July 19, 2025 Team Status: Active Member Role/Relationship Status Dates Dr. Kristine Yee MD Primary care physician Active Start: July 19, 2025 Dr. Kristine Yee MD Referring Provider Active Start: July 19, 2025 Dr. Eric Chang MD Attending physician Active Start: July 19, 2025 Dr. Eric Chang MD Nurse Practitioner Active Start: July 19, 2025 Team Status: Active Member Role/Relationship Status Dates Dr. Kristine Yee MD Primary care physician Active Start: July 21, 2025 Dr. Kaleb Graham MD Attending physician Active Start: July 21, 2025 Dr. Eric Chang MD Referring Provider Active Start: July 21, 2025 Team Status: Inactive Member Role/Relationship Status Dates Dr. Kristine Yee MD Primary care physician Active Start: July 22, 2025 End: July 22, 2025 Dr. Kristine Yee MD Attending physician Active Start: July 22, 2025 End: July 22, 2025 Dr. Kristine Yee MD Referring Provider Active Start: July 22, 2025 End: July 22, 2025 Team Status: Inactive Member Role/Relationship Status Dates Dr. Kristine Yee MD Primary care physician Active Start: August 02, 2025 End: August 02, 2025 Dr. Kristine Yee MD Attending physician Active Start: August 02, 2025 End: August 02, 2025 Team Status: Inactive Member Role/Relationship Status Dates Dr. Kristine Yee MD Primary care physician Active Start: August 03, 2025 End: August 03, 2025 Dr. Eric Chang MD Attending physician Active Start: August 03, 2025 End: August 03, 2025 Dr. Eric Chang MD Referring Provider Active Start: August 03, 2025 End: August 03, 2025 Team Status: Active Member Role/Relationship Status Dates Dr. Kristine Yee MD Primary care physician Active Start: August 03, 2025 Dr. Eric Chang MD Attending physician Active Start: August 03, 2025 Dr. Eric Chang MD Referring Provider Active Start: August 03, 2025 Dr. Eric Chang MD Nurse Practitioner Active Start: August 03, 2025 Team Status: Inactive Member Role/Relationship Status Dates Dr. Kristine Yee MD Primary care physician Active Start: August 09, 2025 End: August 09, 2025 Dr. Kristine Yee MD Referring Provider Active Start: August 09, 2025 End: August 09, 2025 CARRIE Eaton Attending physician Active Start: August 09, 2025 End: August 09, 2025 Team Status: Inactive Member Role/Relationship Status Dates Dr. Kristine Yee MD Primary care physician Active Start: August 17, 2025 End: August 17, 2025 Dr. Kristine Yee MD Referring Provider Active Start: August 17, 2025 End: August 17, 2025 Michelle RODRIGUEZ PA-C Attending physician Active Start: August 17, 2025 End: August 17, 2025 Goals (unrecognized section and content) Goals [...] BE BASED ON THE PRIMARY CLINICAL RECORDS. [facility]. provides no warranty or guarantee of the accuracy or completeness of information in this document.
[2025-10-13 22:26] VITALS: BP 136/91; PULSE 85; RESP 17; O2SAT 95
[2025-10-13 22:27] VITALS: BP 136/91; PULSE 85; RESP 17; TEMP 36.9; O2SAT 95
--- NOTE | 2025-10-13 23:02 | EDS_ITS ---
HPI History of Present Illness Chief Complaint: Laceration Narrative Narrative: Patient is a 65-year-old male presenting to the emergency department for a laceration to his nail. Patient states he cut his finger with a ban saw after reaching to remove stuck wood. He is unsure when his last tetanus vaccine was. Denies any other injuries. [facility] Medical History Rising PSA level Wears glasses Anxiety Marijuana use High cholesterol GERD (gastroesophageal reflux disease) Non-smoker CPAP (continuous positive airway pressure) dependence Sleep apnea History of stress test Lumbar back pain Postprandial epigastric pain Dark stools Abdominal pain Umbilical hernia Strain of right rotator cuff capsule Right shoulder strain Migraines Cataracts, bilateral Physical exam, pre-employment Obstructive sleep apnea Hyperlipidemia Hypertension Home Medications ?Medication ?Instructions ?Recorded ?Last Taken ?Type lisinopril 20 mg tablet 20 mg PO DAILY blood pressur e #90 06/29/25 Unknown Rx tabs pantoprazole 40 mg tablet,delayed 40 mg PO DAILY gerd #90 tabs 06/29/25 Unknown Rx release rosuvastatin 20 mg tablet 20 mg PO DAILY cholesterol # 90 tabs 06/29/25 Unknown Rx sertraline 100 mg tablet 100 mg PO DAILY mental healt h #90 06/29/25 Unknown Rx tabs MARIJUANA GUMMY 20 mg PO QHS 07/14/25 History CPAP - Continuous Positive Airway 08/02/25 Unknown Hi story Pressure([facility] INFORMATIONAL USE ONLY) doxycycline hyclate 100 mg capsule 100 mg PO BID 7 day s #14 caps 10/13/25 Unknown Rx multivitamin 1 tab PO DAILY 10/13/25 Unkn own History Allergy/AdvReac Type Severity Reaction Status Date / Time Penicillins (PCN) Allergy Hives Verified 10/13/25 20:30 Surgical History S/P umbilical hernia repair, follow-up exam H/O hernia repair History of cystoscopy History of colonoscopy Social History adopted: No household members: spouse housing: house number of children: 2 current occupational status: unemployed 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 current occupational exposures/hazards: No pets and animals: Yes pets and animals: dog(s) leisure activities: other history of recent travel: Yes ([place] 2weeks ago) out of state: Yes sexually active: No Smoking Status: Never smoker alcohol intake: former details: havent for 6 months substance use type: other details: marijuana gummies well-balanced diet: daily or most days caffeine: No eating out: 1-3 times/week during the past year weight has: remained stable what type of physical activity do you participate in: walking frequency: 3-4 times per week seatbelt use: always do you feel safe at home: Yes ROS ROS ED ROS Narrative See HPI EXAM Physical Exam Narrative Exam Narrative: Vital signs: Reviewed General: Alert and oriented x 3. No acute distress. Well-appearing, nontoxic. HEENT: Head is normocephalic and atraumatic, sinuses nontender, pupils equal round and reactive. Nares are patent. Oropharynx and throat exams normal. Neck: Supple without lymphadenopathy nontender Cardiovascular: Regular rate and rhythm, no murmurs. No rubs or gallops. Normal S1 and S2 Respiratory: Clear to auscultation bilaterally. No wheezes, rales, rhonchi Abdominal: Soft and nontender. Normal bowel sounds. No guarding or rebound. Nonsurgical abdomen Extremities: Right middle fingernail with diagonal superficial laceration. There is no subungual hematoma. There is no active bleeding from the nail laceration. Nail is attached. No laceration involving the base of the nail. Radial pulse intact. Sensation and motor intact in the radial, median and ulnar distributions. Skin: No rash or redness. The rest of the physical exam is unremarkable Const Vital Signs: 10/13/25 20:28 10/13/25 22:26 10/13/25 22:27 Temperature 98.4 F 98.4 F Temperature Source Temporal Pulse Rate 69 85 85 Respiratory Rate 17 17 17 Blood Pressure 169/92 H 136/91 H 136/91 H Blood Pressure Mean 117 106 106 Pulse Ox 100 95 95 Oxygen Delivery Method Room Air Room Air MDM MDM MDM Narrative Medical decision making narrative: Patient is a 65-year-old male presenting to the emergency department for a fingernail laceration. Patient was seen and examined. Vitals are stable. Patient resting in bed comfortably in no acute distress. Wound was irrigated copiously. Tetanus was updated. Given the nail laceration I did offer to remove the nail to determine if there is any laceration of the nailbed underneath. Patient declines. I explained to the patient without removing and repairing underlying injury, could become infected or heal poorly. Patient understands. Finger x-ray was obtained and reviewed by myself, shows no acute fracture or dislocation. Radiology read in agreement. Patient will be given prophylactic antibiotics given it was an unclean saw. Bulky dressing was applied by myself. I recommended that he keep it as clean and dry as possible and keep a bandage on it to protect against any reinjury. Patient discharged from the Emergency Department. I do not feel that the patient's evaluation reveals any acute reason for admission at this time. I instructed them to either follow-up with their primary care physician or promptly return to the Emergency Department for reevaluation should symptoms worsen or new symptoms develop. I explained what symptoms would indicate the need to return to the emergency department. Shared decision making was used. The patient voiced understanding of the treatment plan and is agreeable with it. Clinical impression Nail laceration injury History & Record Review Discussion w/independent historian: Patient Radiography X-Ray: Read by ED Physician and No Fracture Diagnostic Testing: Clinical Impression(s) from Imaging Studies Finger X-Ray 10/13/25 21:00 IMPRESSION: No acute fracture or dislocation. No radiopaque foreign body. Reading Location: [facility] Discharge Plan Triage Chief Complaint: Laceration ED Provider: Meenakshi Franco Dx/Rx/DC Orders Clinical Impression: Nailbed laceration, finger Instructions: ED Hand Laceration- All Closures Prescriptions: New doxycycline hyclate 100 mg capsule 100 mg PO BID 7 Days Qty: 14 0RF No Action multivitamin Tablet 1 tab PO DAILY MARIJUANA GUMMY 20 mg PO QHS (DME) CPAP - Continuous Positive Airway Pressure([facility] INFORMATIONAL USE ONLY) See Rx Instructions .Route .MEDSUPPLY Patient Comments: AUTOPAP 7-15CM RESMED F20 SMALL FULL FACE DASCO Rx Instructions: AUTOPAP 7-15CM RESMED F20 SMALL FULL FACE DASCO lisinopril 20 mg tablet 20 mg PO DAILY Qty: 90 3RF pantoprazole 40 mg tablet,delayed release (DR/EC) 40 mg PO DAILY Qty: 90 3RF rosuvastatin 20 mg tablet 20 mg PO DAILY Qty: 90 3RF sertraline 100 mg tablet 100 mg PO DAILY Qty: 90 3RF Primary Care Provider: Kristine Yee Referrals: Kristine Yee MD [Primary Care Provider, Internal Medicine - [facility]] - As soon as possible Activity Restrictions/Additional Instructions: Return if you develop any bruising under the nail greater than 50%. Keep the cut clean and dry. Take the antibiotics as prescribed. Your evaluation in the Emergency Department did not reveal any acute reason for admission. However, I want to emphasize that you may be early in the course of a disease process or illness even if it is not present. For this reason you should follow-up within 24 hours for reevaluation with either your primary care physician or if necessary back here in the Emergency Department. You should return to the Emergency Department immediately if your symptoms worsen or new symptoms develop. Print Language: Malagasy Disposition Disposition: Home, Self Care Discharge Date/Time: 10/13/25 23:02
== END 2025-10-13 23:02 | disposition home or self-care (01) ==
PROVIDERS: Emergency Provider Student in an Organized Health Care Education/Training Program; PCP Internal Medicine; Visit Provider Student in an Organized Health Care Education/Training Program
DX: S61.312A Laceration without foreign body of right middle finger with damage to nail, initial encounter (principal); W31.2XXA Contact with powered woodworking and forming machines, initial encounter; Z23 Encounter for immunization
CPT/HCPCS: 73140; 90715; 99282

== ENCOUNTER → 2025-10-13 | Outpatient (CLI) | payer MEDICARE, SELFPAY ==
[2025-10-13 11:33] LABS: PSA,Total- Diagnostic 6.63 ng/mL (0.00-4.00)
== END | disposition home or self-care (01) ==
LOC: PAVLAB 10:55
PROVIDERS: PCP Internal Medicine; Referring Provider Internal Medicine; Visit Provider Internal Medicine
DX: R97.20 Elevated prostate specific antigen [PSA] (principal)
CPT/HCPCS: 36415; 84153

== ENCOUNTER → 2025-10-24 | Outpatient (CLI) | payer MEDICARE, SELFPAY ==
[2025-10-25 12:08] LABS: PSA, Free 2.34 ng/mL; PSA, Free % 46.2 % (.); PSA, Total Ultrasensitive 5.070 ng/mL (0.000-4.000)
== END | disposition home or self-care (01) ==
LOC: PAVLAB 09:44
PROVIDERS: PCP Internal Medicine; Referring Provider Nurse Practitioner; Visit Provider Nurse Practitioner
DX: R97.20 Elevated prostate specific antigen [PSA] (principal)
CPT/HCPCS: 36415; 84153; 84154